=== PATIENT | male | born 1965 | race Caucasian/White ===

== ENCOUNTER 2024-09-09 12:40 | Day surgery (SDC) | payer MEDICARE, OTHER ==
[2024-09-09 13:08] VITALS: TEMP 97.8
[2024-09-09 13:26] LABS: HGB 11.1 gm/dL (13.0-17.5); MCH 31.2 pg (25.0-35.0); MCHC 32.7 g/dL (31.0-37.0); MCV 95.3 fL (80.0-100.0); Mean Platelet Volume 8.1; Platelet Count 158 k/uL (150-450); RBC 3.57 m/uL (4.30-5.90); RDW 14.1 % (11.5-15.5); WBC 9.1 k/uL (3.8-10.6)
[2024-09-09 13:28] LABS: INR 1.3 (<1.2); Prothrombin Time 13.7 sec (10.0-12.5)
[2024-09-09 13:40] LABS: African American GFR (CKD) 20 (>60 ml/min/1.73 sqM); Glucose 120 mg/dL (74-99); Non-African American GFR(CKD) 18 (>60 ml/min/1.73 sqM)
[2024-09-09 13:43] LABS: ALT 13 U/L (4-49); AST 39 U/L (17-59); African American GFR (CKD) 21 (>60 ml/min/1.73 sqM); Alkaline Phosphatase 115 U/L (38-126); Anion Gap 14 mmol/L; Blood Urea Nitrogen 29 mg/dL (9-20); Calcium 7.8 mg/dL (8.4-10.2); Carbon Dioxide 18 mmol/L (22-30); Chloride 98 mmol/L (98-107); Glucose 119 mg/dL (74-99); Non-African American GFR(CKD) 18 (>60 ml/min/1.73 sqM); Potassium 3.6 mmol/L (3.5-5.1); Sodium 130 mmol/L (137-145); Total Bilirubin 2.6 mg/dL (0.2-1.3); Total Protein 6.2 g/dL (6.3-8.2)
[2024-09-09 13:47] LABS: Eosinophils # (M) 0.27 k/uL (0-0.7); Monocytes # (M) 1.27 k/uL (0-1.0); Neutrophils # (M) 6.55 k/uL (1.3-7.7); Neutrophils % (M) 72 %; Nucleated Red Blood Cells 0 /100 WBC (0-0); Total Cells Counted 100
[2024-09-09] MEDS: ALBUMIN HUMAN 25% 50 ML in EMPTY BAG 1 BAG IVPB SCH (14:18)
[2024-09-09 14:25] VITALS: RESP 16
[2024-09-09 15:34] VITALS: BP 98/62; PULSE 62
[2024-09-10 03:34] LABS: T. Protein, Body Fluid Source Ascites; Total Protein, Body Fluid 1760 mg/dL
[2024-09-10 03:50] LABS: Albumin, Fluid Source Ascities
[2024-09-10 04:43] LABS: Appearance,BF Cloudy (Clear)
--- NOTE | 2024-09-12 16:04 | US ---
EXAMINATION TYPE: US paracentesis abd w/image DATE OF EXAM: 09/09/2024 2:15 PM COMPARISON: prior paracentesis. CLINICAL INDICATION:Male, 58 years old with history of R18.8 OTHER ASCITES; , ascites ATTENDING: Dr. Dennis Bang PROCEDURE: Informed consent was obtained. The risks of the procedure were extensively explained incl uding risk of damage to surrounding bowel with perforation and need for additional procedures. Proced ure was performed in the ultrasound procedure suite. Ultrasound imaging of the abdomen demonstrate as citic fluid. An appropriate access site was localized to the right lower abdomen. Timeout was taken p er protocol. The skin was prepped and draped in the usual sterile fashion and then locally anesthetiz ed with 1% lidocaine. The peritoneal cavity was then accessed via a 5-[place] one-step needle/cathete r. Approximately [id number] cc of clear straw-colored fluid was obtained. Samples were sent to the lab fo r analysis. Postprocedural imaging of the abdomen demonstrate a minimal amount of abdominal fluid. Patient tolerated procedure well without immediate complication. Hemostasis at the procedural site w as obtained with a sterile bandage placed. The patient was monitored in the holding area following th e procedure and was subsequently discharged in stable condition. IMPRESSION: Ultrasound guided paracentesis, with approximately [id number] cc of clear straw-colored fluid drained. Pat hology results pending. No immediate complications were evident. [facility], , 09/12/2024 4:02 PM
== END 2024-09-09 15:37 | disposition home or self-care (01) ==
LOC: RADPROMAIN 12:40
PROVIDERS: ATTEND Internal Medicine Gastroenterology
DX: R18.8 Other ascites (principal)
CPT/HCPCS: 80053; 82042; 89050; 82565; 82947; 85025; 85610; 84157; 36415; 49083; P9047; 88108; 88305

== ENCOUNTER 2024-09-13 16:04 | Inpatient (IN) | payer MEDICARE, OTHER ==
--- NOTE | 2024-09-13 16:13 | ED ---
Recheck HPI - General Stated Complaint: GI Bleed Time Seen by Provider: 09/13/24 16:06 Source: RN notes reviewed, old records reviewed Mode of arrival: ambulatory Limitations: no limitations - History of Present Illness Initial Comments: This is a 58-year-old male to the ER for evaluation, patient presents today for evaluation of in transfer from outside hospital for multiple laboratory abnormalities including renal failure with history of ascites and cirrhosis, patient's appetite has been down and his mental status has been significant altered MD Complaint: abnormal lab Returns Today for: Called Because of Abnormal Lab/Test, persistent/worsening pain related to initial visit Symptoms Since Prior Visit: no new symptoms, worsening pain Context: called for abnormal lab result Associated Symptoms: none - Related Data Home Medications Medication Instructions Recorded Confirmed Carvedilol [Coreg] 12.5 mg PO BID 07/09/16 09/13/24 FLUoxetine HCL [PROzac] 60 mg PO DAILY 07/09/16 09/13/24 clonazePAM [KlonoPIN] 0.5 mg PO BID 07/09/16 09/13/24 gemfibroziL [Lopid] 600 mg PO BID 07/09/16 09/13/24 lisinopriL [Zestril] 20 mg PO DAILY 07/09/16 09/13/24 metFORMIN HCL [Glucophage] 1,000 mg PO BID 07/09/16 09/13/24 Atorvastatin Calcium [Lipitor] 40 mg PO DAILY 09/13/24 09/13/24 Dapagliflozin Propanediol [Farxiga] 10 mg PO DAILY 09/13/24 09/13/24 Dicyclomine [Bentyl] 20 mg PO QID PRN 09/13/24 09/13/24 Famotidine [Pepcid] 20 mg PO BID 09/13/24 09/13/24 Montelukast [Singulair] 10 mg PO DAILY 09/13/24 09/13/24 Pioglitazone [Actos] 30 mg PO DAILY 09/13/24 09/13/24 Allergies Allergy/AdvReac Type Severity Reaction Status Date / Time No Known Allergies Allergy Verified 09/13/24 17:24 Review of Systems ROS Statement: Those systems with pertinent positive or pertinent negative responses have been documented in the HPI. ROS Other: All systems not noted in ROS Statement are negative. Past Medical History Past Medical History: COPD, Diabetes Mellitus, GERD/Reflux, Hyperlipidemia, Hypertension, Liver Disease, Myocardial Infarction ([place]), Sleep Apnea/CPAP/BIPAP Additional Past Medical History / Comment(s): cirrhoisis Last Myocardial Infarction Date:: unknown History of Any Multi-Drug Resistant Organisms: None Reported Past Surgical History: Heart Catheterization, Hernia Repair, Orthopedic Surgery, Pacemaker Additional Past Surgical History / Comment(s): surgery for fx rt leg and left arm, pacemaker and defibrillator Past Anesthesia/Blood Transfusion Reactions: No Reported Reaction Type of Cardiac Device: Biventricular Pacemaker Device Placement Date:: 2010 Past Psychological History: Anxiety Additional Psychological History / Comment(s): claustrophobia Smoking Status: Current every day smoker Past Alcohol Use History: None Reported Additional Past Alcohol Use History / Comment(s): smokes 1 1/2 PPD for 29 yrs Past Drug Use History: None Reported - Past Family History Mother Family Medical History: No Reported History General Exam General appearance: alert, in no apparent distress, anxious Head exam: Present: atraumatic, normocephalic, normal inspection Eye exam: Present: normal appearance, PERRL, EOMI. Absent: scleral icterus, conjunctival injection, periorbital swelling ENT exam: Present: normal exam, mucous membranes moist Neck exam: Present: normal inspection. Absent: tenderness, meningismus, lymphadenopathy Respiratory exam: Present: normal lung sounds bilaterally. Absent: respiratory distress, wheezes, rales, rhonchi, stridor Cardiovascular Exam: Present: regular rate, normal rhythm, normal heart sounds. Absent: systolic murmur, diastolic murmur, rubs, gallop, clicks GI/Abdominal exam: Present: soft, normal bowel sounds. Absent: distended, tenderness, guarding, rebound, rigid Extremities exam: Present: normal inspection, full ROM, normal capillary refill. Absent: tenderness, pedal edema, joint swelling, calf tenderness Back exam: Present: normal inspection Neurological exam: Present: alert, oriented X3, CN II-XII intact Psychiatric exam: Present: normal affect, normal mood Skin exam: Present: warm, dry, intact, normal color. Absent: rash Course Vital Signs 09/13/24 09/13/24 09/13/24 16:06 17:22 17:43 Temperature 97.2 F L Pulse Rate 66 55 L 60 Pulse Rate [ Social Security Assessor ] Respiratory 18 20 22 Rate Blood Pressure 117/53 83/46 81/45 Blood Pressure [Right Arm] O2 Sat by Pulse 97 95 100 Oximetry 09/13/24 09/13/24 09/13/24 18:34 19:08 20:00 Temperature Pulse Rate 59 L 62 59 L Pulse Rate [ Social Security Assessor ] Respiratory 20 20 20 Rate Blood Pressure 85/44 83/44 76/35 Blood Pressure [Right Arm] O2 Sat by Pulse 97 97 96 Oximetry 09/13/24 09/13/24 09/13/24 20:10 20:20 20:23 Temperature 96.7 F L Pulse Rate 59 L 64 58 L Pulse Rate [ Social Security Assessor ] Respiratory 20 20 18 Rate Blood Pressure 88/31 82/41 85/31 Blood Pressure [Right Arm] O2 Sat by Pulse 97 96 96 Oximetry 09/13/24 09/13/24 09/13/24 20:30 20:40 20:42 Temperature 96.7 F L Pulse Rate 56 L 61 58 L Pulse Rate [ Social Security Assessor ] Respiratory 20 20 20 Rate Blood Pressure 71/31 83/37 85/72 Blood Pressure [Right Arm] O2 Sat by Pulse 96 97 96 Oximetry 09/13/24 09/13/24 09/13/24 21:00 21:02 21:20 Temperature 96.0 F L Pulse Rate 65 63 62 Pulse Rate [ Social Security Assessor ] Respiratory 20 19 19 Rate Blood Pressure 94/63 95/53 86/47 Blood Pressure [Right Arm] O2 Sat by Pulse 96 95 96 Oximetry 09/13/24 09/13/24 09/13/24 21:30 21:40 21:50 Temperature Pulse Rate 63 62 60 Pulse Rate [ Social Security Assessor ] Respiratory 20 20 19 Rate Blood Pressure 63/46 87/46 69/57 Blood Pressure [Right Arm] O2 Sat by Pulse 97 96 100 Oximetry 09/13/24 09/13/24 09/13/24 22:00 22:12 22:27 Temperature 96 F L Pulse Rate 56 L 68 Pulse Rate [ Social Security Assessor ] Respiratory 19 20 Rate Blood Pressure 83/51 102/64 106/58 Blood Pressure [Right Arm] O2 Sat by Pulse 97 96 Oximetry 09/13/24 09/13/24 09/13/24 22:40 22:50 23:00 Temperature Pulse Rate 69 67 66 Pulse Rate [ Social Security Assessor ] Respiratory 19 19 19 Rate Blood Pressure 109/58 108/53 106/87 Blood Pressure [Right Arm] O2 Sat by Pulse 97 95 97 Oximetry 09/13/24 09/13/24 09/14/24 23:30 23:40 00:09 Temperature Pulse Rate 62 63 64 Pulse Rate [ Social Security Assessor ] Respiratory 19 19 19 Rate Blood Pressure 93/50 93/45 91/48 Blood Pressure [Right Arm] O2 Sat by Pulse 95 95 95 Oximetry 09/14/24 09/14/24 09/14/24 00:40 01:20 01:50 Temperature Pulse Rate 63 64 65 Pulse Rate [ Social Security Assessor ] Respiratory 19 19 19 Rate Blood Pressure 97/40 93/41 93/43 Blood Pressure [Right Arm] O2 Sat by Pulse 95 95 95 Oximetry 09/14/24 09/14/24 09/14/24 02:00 02:10 02:30 Temperature Pulse Rate 64 65 64 Pulse Rate [ Social Security Assessor ] Respiratory 19 19 19 Rate Blood Pressure 93/43 107/48 81/50 Blood Pressure [Right Arm] O2 Sat by Pulse 95 95 95 Oximetry 09/14/24 09/14/24 09/14/24 02:50 03:06 03:28 Temperature 97.6 F Pulse Rate 65 66 67 Pulse Rate [ Social Security Assessor ] Respiratory 20 18 19 Rate Blood Pressure 82/33 113/56 102/52 Blood Pressure [Right Arm] O2 Sat by Pulse 95 97 100 Oximetry 09/14/24 09/14/24 09/14/24 03:50 04:05 04:30 Temperature Pulse Rate 65 68 63 Pulse Rate [ Social Security Assessor ] Respiratory 19 19 19 Rate Blood Pressure 87/43 110/54 80/39 Blood Pressure [Right Arm] O2 Sat by Pulse 97 96 Oximetry 09/14/24 09/14/24 09/14/24 04:40 04:50 05:00 Temperature Pulse Rate 62 62 63 Pulse Rate [ Social Security Assessor ] Respiratory 19 19 19 Rate Blood Pressure 101/46 93/40 93/40 Blood Pressure [Right Arm] O2 Sat by Pulse 96 96 94 L Oximetry 09/14/24 09/14/24 09/14/24 05:10 05:20 05:30 Temperature Pulse Rate 68 68 67 Pulse Rate [ Social Security Assessor ] Respiratory 19 19 19 Rate Blood Pressure 84/36 96/40 103/38 Blood Pressure [Right Arm] O2 Sat by Pulse 96 96 96 Oximetry 09/14/24 09/14/24 09/14/24 05:50 06:00 07:10 Temperature 96.7 F L Pulse Rate 66 63 66 Pulse Rate [ Social Security Assessor ] Respiratory 19 19 20 Rate Blood Pressure 88/33 94/37 105/51 Blood Pressure [Right Arm] O2 Sat by Pulse 95 95 95 Oximetry 09/14/24 09/14/24 09/14/24 07:30 08:00 09:00 Temperature Pulse Rate 66 69 68 Pulse Rate [ Social Security Assessor ] Respiratory 20 19 18 Rate Blood Pressure 91/49 102/54 90/39 Blood Pressure [Right Arm] O2 Sat by Pulse 95 95 96 Oximetry 09/14/24 09/14/24 09/14/24 09:30 09:50 10:10 Temperature Pulse Rate 66 66 69 Pulse Rate [ Social Security Assessor ] Respiratory 17 17 17 Rate Blood Pressure 95/42 106/57 114/40 Blood Pressure [Right Arm] O2 Sat by Pulse 95 96 98 Oximetry 09/14/24 09/14/24 09/14/24 10:23 11:23 12:12 Temperature Pulse Rate 65 61 61 Pulse Rate [ Social Security Assessor ] Respiratory 20 20 20 Rate Blood Pressure 90/46 84/39 78/38 Blood Pressure [Right Arm] O2 Sat by Pulse 96 96 95 Oximetry 09/14/24 09/14/24 09/14/24 13:30 14:13 15:31 Temperature 97.4 F L Pulse Rate 64 64 Pulse Rate [ Social Security Assessor ] Respiratory 18 20 Rate Blood Pressure 91/40 74/27 103/52 Blood Pressure [Right Arm] O2 Sat by Pulse 96 98 Oximetry 09/14/24 09/14/24 15:49 15:50 Temperature 97.4 F L Pulse Rate 67 Pulse Rate [ 80 Social Security Assessor ] Respiratory 16 21 Rate Blood Pressure Blood Pressure 99/55 [Right Arm] O2 Sat by Pulse 98 98 Oximetry - Reevaluation(s) Reevaluation #1: 09/13/24 18:35 Medical records reviewed Reevaluation #2: 09/13/24 18:35 Patient symptoms unchanged Reevaluation #3: 09/13/24 18:35 Patient informed of results and questions were Reevaluation #4: Was pt. sent in by a medical professional or institution (, PA, CURRICULUM FACILITATOR, urgent care, hospital, or [place] [facility] [place] facility...) When possible be specific @ -no Did you speak to anyone other than the patient for history (EMS, parent, family, police, friend...)? What history was obtained from this source @ -no Did you review nursing and triage notes (agree or disagree)? Why? @ -agree Are old charts reviewed (outside hosp., previous admission, EMS record, old EKG, old radiological studies, urgent care reports/EKG's, [place] [facility] facility records)? Report findings @ -yes Differential Diagnosis (chest pain, altered mental status, abdominal pain women, abdominal pain men, vaginal bleeding, weakness, fever, dyspnea, syncope, headache, dizziness, GI bleed, back pain, seizure, CVA, palpatations, mental health, musculoskeletal)? @ -prior EKG interpreted by me (3pts min.). @ -yes X-rays interpreted by me (1pt min.). @ -yes negative for acute disease CT interpreted by me (1pt min.). @ -no U/S interpreted by me (1pt. min.). @ -no What testing was considered but not performed or refused? (CT, X-rays, U/S, labs)? Why? @ -none What meds were considered but not given or refused? Why? @ -none Did you discuss the management of the patient with other professionals (barron cordova i.e. , PA, CURRICULUM FACILITATOR, lab, RT, psych nurse, manager social media, insurance premium auditor, teacher, aviation tactical readiness officer, keycase assembler)? Give summary @ -no Was smoking cessation discussed for >3mins.? @ -no Was critical care preformed (if so, how long)? @ -no Were there social determinants of health that impacted care today? How? (Homelessness, low income, unemployed, alcoholism, drug addiction, transportation, low edu. Level, literacy, decrease access to med. care, m[facility], rehab)? @ -none Was there de-escalation of care discussed even if they declined (Discuss DNR or withdrawal of care, Hospice)? DNR status @ -no What co-morbidities impacted this encounter? (DM, HTN, Smoking, COPD, CAD, Cancer, CVA, ARF, Chemo, Hep., AIDS, mental health diagnosis, sleep apnea, morbid obesity)? @ -none Was patient admitted / discharged? Hospital course, mention meds given and route, prescriptions, significant lab abnormalities, going to OR and other pertinent info. @ - 58 male to the ER for evaluation of significant and severe sepsis hypotension ascites renal failure, patient will go for IV antibiotics and resuscitation Admitted Undiagnosed new problem with uncertain prognosis? @ -no Drug Therapy requiring intensive monitoring for toxicity (Heparin, Nitro, Insulin, Cardizem)? @ -no Were any procedures done? @ -no Diagnosis/symptom? @ -Respiratory distress Acute, or Chronic, or Acute on Chronic? @ -Acute Uncomplicated (without systemic symptoms) or Complicated (systemic symptoms)? @ -Complicated Side effects of treatment? @ -no Exacerbation, Progression, or Severe Exacerbation? @ -exacerbation Poses a threat to life or bodily function? How? (Chest pain, [place], [place], pneumonia, PE, COPD, DKA, ARF, appy, cholecystitis, CVA, Diverticulitis, Homicidal, Suicidal, threat to staff... and all critical care pts) @ -yes multiple comorbid conditions Reevaluation #5: Differential Weakness: Hypoglycemia, shock, sepsis, hyponatremia, anemia, infection, [place], ETOH, adverse medicine reaction, overdose, stroke, this is not meant to be an all-inclusive list. - Consultations Consultation #1: Spoke with the [facility] who agrees to admit this patient Medical Decision Making - Medical Decision Making 58 male to the ER for evaluation of significant and severe sepsis hypotension ascites renal failure, patient will go for IV antibiotics and resuscitation - Lab Data Result diagrams: 09/16/24 01:18 09/16/24 01:18 Lab Results 09/13/24 09/13/24 09/13/24 Range/Units 16:30 16:30 16:30 WBC 15.4 H (3.8-10.6) k/uL RBC 3.03 L (4.30-5.90) m/uL Hgb 9.8 L (13.0-17.5) gm/dL Hct 28.5 L (39.0-53.0) % MCV 94.3 (80.0-100.0) fL MCH 32.4 (25.0-35.0) pg MCHC 34.4 (31.0-37.0) g/dL RDW 14.7 (11.5-15.5) % Plt Count 167 (150-450) k/uL MPV 8.1 Neutrophils % (Manual) 61 % Lymphocytes % (Manual) 23 % Monocytes % (Manual) 16 % Neutrophils # (Manual) 9.39 H (1.3-7.7) k/uL Lymphocytes # (Manual) 3.54 (1.0-4.8) k/uL Monocytes # (Manual) 2.46 H (0-1.0) k/uL Nucleated RBCs 0 (0-0) /100 WBC Manual Slide Review Performed PT 13.8 H (10.0-12.5) sec INR 1.3 H (<1.2) APTT 29.5 (22.0-30.0) sec Sodium 126 L (137-145) mmol/L Potassium 4.2 (3.5-5.1) mmol/L Chloride 97 L (98-107) mmol/L Carbon Dioxide 13 L (22-30) mmol/L Anion Gap 16 mmol/L BUN 61 H (9-20) mg/dL Creatinine 7.57 H* (0.66-1.25) mg/dL Est GFR (CKD-EPI)AfAm 8 (>60 ml/min/1.73 sqM) Est GFR (CKD-EPI)NonAf 7 (>60 ml/min/1.73 sqM) Glucose 133 H (74-99) mg/dL Lactic Ac Sepsis Rflx Plasma Lactic Acid [place] (0.7-2.0) mmol/L Calcium 7.3 L (8.4-10.2) mg/dL Phosphorus 7.7 H (2.5-4.5) mg/dL Magnesium 1.5 L (1.6-2.3) mg/dL Total Bilirubin 1.8 H (0.2-1.3) mg/dL AST 44 (17-59) U/L ALT 23 (4-49) U/L Alkaline Phosphatase 101 (38-126) U/L Ammonia (<30) umol/L Troponin I (0.000-0.034) ng/mL NT-Pro-B Natriuret Pep 1240 pg/mL Total Protein 5.6 L (6.3-8.2) g/dL Albumin 2.6 L (3.5-5.0) g/dL Urine Color Urine Appearance (Clear) Urine pH (5.0-8.0) Ur Specific [place] (1.001-1.035) Urine Protein (Negative) Urine Glucose (UA) (Negative) Urine Ketones (Negative) Urine Blood (Negative) Urine Nitrite (Negative) Urine Bilirubin (Negative) Urine Urobilinogen (<2.0) mg/dL Ur Leukocyte Esterase (Negative) Urine RBC (0-5) /hpf Urine WBC (0-5) /hpf Ur Squamous Epith Cells (0-4) /hpf Urine Bacteria (None) /hpf Hyaline Casts (0-2) /lpf Urine Mucus (None) /hpf Blood Type Blood Type Confirm Blood Type Recheck Bld Type Recheck Status Antibody Screen Crossmatch Spec Expiration Date 09/13/24 09/13/24 09/13/24 Range/Units 16:30 16:30 16:30 WBC (3.8-10.6) k/uL RBC (4.30-5.90) m/uL Hgb (13.0-17.5) gm/dL Hct (39.0-53.0) % MCV (80.0-100.0) fL MCH (25.0-35.0) pg MCHC (31.0-37.0) g/dL RDW (11.5-15.5) % Plt Count (150-450) k/uL MPV Neutrophils % (Manual) % Lymphocytes % (Manual) % Monocytes % (Manual) % Neutrophils # (Manual) (1.3-7.7) k/uL Lymphocytes # (Manual) (1.0-4.8) k/uL Monocytes # (Manual) (0-1.0) k/uL Nucleated RBCs (0-0) /100 WBC Manual Slide Review PT (10.0-12.5) sec INR (<1.2) APTT (22.0-30.0) sec Sodium (137-145) mmol/L Potassium (3.5-5.1) mmol/L Chloride (98-107) mmol/L Carbon Dioxide (22-30) mmol/L Anion Gap mmol/L BUN (9-20) mg/dL Creatinine (0.66-1.25) mg/dL Est GFR (CKD-EPI)AfAm (>60 ml/min/1.73 sqM) Est GFR (CKD-EPI)NonAf (>60 ml/min/1.73 sqM) Glucose (74-99) mg/dL Lactic Ac Sepsis Rflx Plasma Lactic Acid [place] 7.6 H* (0.7-2.0) mmol/L Calcium (8.4-10.2) mg/dL Phosphorus (2.5-4.5) mg/dL Magnesium (1.6-2.3) mg/dL Total Bilirubin (0.2-1.3) mg/dL AST (17-59) U/L ALT (4-49) U/L Alkaline Phosphatase (38-126) U/L Ammonia (<30) umol/L Troponin I <0.012 (0.000-0.034) ng/mL NT-Pro-B Natriuret Pep pg/mL Total Protein (6.3-8.2) g/dL Albumin (3.5-5.0) g/dL Urine Color Urine Appearance (Clear) Urine pH (5.0-8.0) Ur Specific [place] (1.001-1.035) Urine Protein (Negative) Urine Glucose (UA) (Negative) Urine Ketones (Negative) Urine Blood (Negative) Urine Nitrite (Negative) Urine Bilirubin (Negative) Urine Urobilinogen (<2.0) mg/dL Ur Leukocyte Esterase (Negative) Urine RBC (0-5) /hpf Urine WBC (0-5) /hpf Ur Squamous Epith Cells (0-4) /hpf Urine Bacteria (None) /hpf Hyaline Casts (0-2) /lpf Urine Mucus (None) /hpf Blood Type O Positive Blood Type Confirm Blood Type Recheck No Previous Record Bld Type Recheck Status CABO Indicated Antibody Screen NEGATIVE Crossmatch See Detail Spec Expiration Date 09/16/2024 - 232909/13/24 09/13/24 09/13/24 Range/Units 16:35 16:48 17:38 WBC (3.8-10.6) k/uL RBC (4.30-5.90) m/uL Hgb (13.0-17.5) gm/dL Hct (39.0-53.0) % MCV (80.0-100.0) fL MCH (25.0-35.0) pg MCHC (31.0-37.0) g/dL RDW (11.5-15.5) % Plt Count (150-450) k/uL MPV Neutrophils % (Manual) % Lymphocytes % (Manual) % Monocytes % (Manual) % Neutrophils # (Manual) (1.3-7.7) k/uL Lymphocytes # (Manual) (1.0-4.8) k/uL Monocytes # (Manual) (0-1.0) k/uL Nucleated RBCs (0-0) /100 WBC Manual Slide Review PT (10.0-12.5) sec INR (<1.2) APTT (22.0-30.0) sec Sodium (137-145) mmol/L Potassium (3.5-5.1) mmol/L Chloride (98-107) mmol/L Carbon Dioxide (22-30) mmol/L Anion Gap mmol/L BUN (9-20) mg/dL Creatinine (0.66-1.25) mg/dL Est GFR (CKD-EPI)AfAm (>60 ml/min/1.73 sqM) Est GFR (CKD-EPI)NonAf (>60 ml/min/1.73 sqM) Glucose (74-99) mg/dL Lactic Ac Sepsis Rflx Y Plasma Lactic Acid [place] (0.7-2.0) mmol/L Calcium (8.4-10.2) mg/dL Phosphorus (2.5-4.5) mg/dL Magnesium (1.6-2.3) mg/dL Total Bilirubin (0.2-1.3) mg/dL AST (17-59) U/L ALT (4-49) U/L Alkaline Phosphatase (38-126) U/L Ammonia 78 H (<30) umol/L Troponin I (0.000-0.034) ng/mL NT-Pro-B Natriuret Pep pg/mL Total Protein (6.3-8.2) g/dL Albumin (3.5-5.0) g/dL Urine Color Urine Appearance (Clear) Urine pH (5.0-8.0) Ur Specific [place] (1.001-1.035) Urine Protein (Negative) Urine Glucose (UA) (Negative) Urine Ketones (Negative) Urine Blood (Negative) Urine Nitrite (Negative) Urine Bilirubin (Negative) Urine Urobilinogen (<2.0) mg/dL Ur Leukocyte Esterase (Negative) Urine RBC (0-5) /hpf Urine WBC (0-5) /hpf Ur Squamous Epith Cells (0-4) /hpf Urine Bacteria (None) /hpf Hyaline Casts (0-2) /lpf Urine Mucus (None) /hpf Blood Type Blood Type Confirm O Positive Blood Type Recheck Bld Type Recheck Status Antibody Screen Crossmatch Spec Expiration Date 09/13/24 Range/Units 18:03 WBC (3.8-10.6) k/uL RBC (4.30-5.90) m/uL Hgb (13.0-17.5) gm/dL Hct (39.0-53.0) % MCV (80.0-100.0) fL MCH (25.0-35.0) pg MCHC (31.0-37.0) g/dL RDW (11.5-15.5) % Plt Count (150-450) k/uL MPV Neutrophils % (Manual) % Lymphocytes % (Manual) % Monocytes % (Manual) % Neutrophils # (Manual) (1.3-7.7) k/uL Lymphocytes # (Manual) (1.0-4.8) k/uL Monocytes # (Manual) (0-1.0) k/uL Nucleated RBCs (0-0) /100 WBC Manual Slide Review PT (10.0-12.5) sec INR (<1.2) APTT (22.0-30.0) sec Sodium (137-145) mmol/L Potassium (3.5-5.1) mmol/L Chloride (98-107) mmol/L Carbon Dioxide (22-30) mmol/L Anion Gap mmol/L BUN (9-20) mg/dL Creatinine (0.66-1.25) mg/dL Est GFR (CKD-EPI)AfAm (>60 ml/min/1.73 sqM) Est GFR (CKD-EPI)NonAf (>60 ml/min/1.73 sqM) Glucose (74-99) mg/dL Lactic Ac Sepsis Rflx Plasma Lactic Acid [place] (0.7-2.0) mmol/L Calcium (8.4-10.2) mg/dL Phosphorus (2.5-4.5) mg/dL Magnesium (1.6-2.3) mg/dL Total Bilirubin (0.2-1.3) mg/dL AST (17-59) U/L ALT (4-49) U/L Alkaline Phosphatase (38-126) U/L Ammonia (<30) umol/L Troponin I (0.000-0.034) ng/mL NT-Pro-B Natriuret Pep pg/mL Total Protein (6.3-8.2) g/dL Albumin (3.5-5.0) g/dL Urine Color Dark Brown Urine Appearance Cloudy (Clear) Urine pH 5.5 (5.0-8.0) Ur Specific [place] 1.024 (1.001-1.035) Urine Protein 2+ H (Negative) Urine Glucose (UA) Trace H (Negative) Urine Ketones Negative (Negative) Urine Blood Trace H (Negative) Urine Nitrite Negative (Negative) Urine Bilirubin 1+ H (Negative) Urine Urobilinogen 2.0 (<2.0) mg/dL Ur Leukocyte Esterase Negative (Negative) Urine RBC 5 (0-5) /hpf Urine WBC 10 H (0-5) /hpf Ur Squamous Epith Cells <1 (0-4) /hpf Urine Bacteria Occasional H (None) /hpf Hyaline Casts 45 H (0-2) /lpf Urine Mucus Rare H (None) /hpf Blood Type Blood Type Confirm Blood Type Recheck Bld Type Recheck Status Antibody Screen Crossmatch Spec Expiration Date - EKG Data -: EKG Interpreted by Me (EKG is paced 65 IA 148 QRS 170 QTc 581) Disposition Clinical Impression: Weakness, Ascites, Hyperammonemia, Hyponatremia, Lactic acidosis, Sepsis, Acute renal failure, Altered mental state, Gastrointestinal hemorrhage Disposition: ADMITTED IP TO THIS HOSP Condition: Stable Is patient prescribed a controlled substance at d/c from ED?: No Time of Disposition: 18:35
[2024-09-13 16:55] LABS: HCT 28.5 % (39.0-53.0); HGB 9.8 gm/dL (13.0-17.5); MCH 32.4 pg (25.0-35.0); MCHC 34.4 g/dL (31.0-37.0); MCV 94.3 fL (80.0-100.0); Mean Platelet Volume 8.1; Platelet Count 167 k/uL (150-450); RBC 3.03 m/uL (4.30-5.90); RDW 14.7 % (11.5-15.5); WBC 15.4 k/uL (3.8-10.6)
[2024-09-13 17:01] LABS: African American GFR (CKD) 8 (>60 ml/min/1.73 sqM); Albumin 2.6 g/dL (3.5-5.0); Alkaline Phosphatase 101 U/L (38-126); Anion Gap 16 mmol/L; Blood Urea Nitrogen 61 mg/dL (9-20); Calcium 7.3 mg/dL (8.4-10.2); Carbon Dioxide 13 mmol/L (22-30); Chloride 97 mmol/L (98-107); Glucose 133 mg/dL (74-99); Magnesium 1.5 mg/dL (1.6-2.3); Non-African American GFR(CKD) 7 (>60 ml/min/1.73 sqM); Phosphorus 7.7 mg/dL (2.5-4.5); Potassium 4.2 mmol/L (3.5-5.1); Sodium 126 mmol/L (137-145); Total Bilirubin 1.8 mg/dL (0.2-1.3); Total Protein 5.6 g/dL (6.3-8.2)
[2024-09-13 17:05] LABS: INR 1.3 (<1.2); Partial Thromboplastin Time 29.5 sec (22.0-30.0); Prothrombin Time 13.8 sec (10.0-12.5)
[2024-09-13 17:07] LABS: ALT 23 U/L (4-49)
[2024-09-13 17:09] LABS: NT-Pro-B-Type Natriuretic Pept 1240 pg/mL
[2024-09-13] MEDS: SODIUM CHLORIDE 0.9% 1,000 ML IV STA (17:34)
[2024-09-13 17:38] LABS: AST 44 U/L (17-59)
[2024-09-13] MEDS: ONDANSETRON 4 MG/2 ML VIAL IVP STA (17:40)
[2024-09-13 17:57] LABS: Lymphocytes # (M) 3.54 k/uL (1.0-4.8); Monocytes # (M) 2.46 k/uL (0-1.0); Neutrophils # (M) 9.39 k/uL (1.3-7.7); Neutrophils % (M) 61 %; Nucleated Red Blood Cells 0 /100 WBC (0-0); Total Cells Counted 100
[2024-09-13] MEDS ORDERED: NALOXONE 0.4 MG/ML 1 ML VIAL IV PRN (18:38)
[2024-09-13] MEDS ORDERED: ONDANSETRON 4 MG/2 ML VIAL IVP PRN (18:38)
[2024-09-13] MEDS ORDERED: HYDROmorphone 1 MG/ML 1 ML SYRINGE IVP PRN (18:38)
[2024-09-13] MEDS: SODIUM CHLORIDE 0.9% 1,000 ML IV SCH (18:55)
[2024-09-13] MEDS: LACTULOSE 20 GM/30 ML CUP PO ONE (19:04)
[2024-09-13] MEDS: SODIUM CHLORIDE 0.9% 2,000 ML IV STA (19:04)
[2024-09-13] MEDS: PANTOPRAZOLE 40 MG/10 ML VIAL IV SCH (19:08)
[2024-09-13 19:30] LABS: Appearance,Urine Cloudy (Clear); Bacteria,Urine Occasional /hpf; Bilirubin,Urine 1+ (Negative); Blood,Urine Trace (Negative); Color,Urine Dark Brown; Glucose,Urine (UA) Trace (Negative); Hyaline Casts,Urine 45 /lpf (0-2); Ketones,Urine Negative (Negative); Leukocyte Esterase,Urine Negative (Negative); Mucus,Urine Rare /hpf; Nitrite,Urine Negative (Negative); PH, Urine 5.5 (5.0-8.0); Protein,Urine 2+ (Negative); RBC,Urine 5 /hpf (0-5); Specific Gravity,Urine 1.024 (1.001-1.035); Squamous Epithelial Cell,Urine <1 /hpf (0-4); WBC,Urine 10 /hpf (0-5)
[2024-09-13] MEDS: OCTREOTIDE 100 MCG/ML INJ IVP STA (21:58)
[2024-09-13] MEDS: SODIUM CHLORIDE 0.9% 1,000 ML IV ONE (22:31)
[2024-09-14] MEDS: LACTULOSE 200 GM/300 ML (FROM 1/2 GAL JUG) RECTAL ONE (01:00)
[2024-09-14] MEDS: PANTOPRAZOLE 40 MG/10 ML VIAL IV SCH (01:23)
[2024-09-14] MEDS: OCTREOTIDE 100 MCG/ML INJ IVP SCH (05:13)
[2024-09-14 05:38] LABS: AST 52 U/L (17-59); African American GFR (CKD) 8 (>60 ml/min/1.73 sqM); Albumin 2.6 g/dL (3.5-5.0); Alkaline Phosphatase 98 U/L (38-126); Anion Gap 17 mmol/L; Blood Urea Nitrogen 62 mg/dL (9-20); Calcium 7.1 mg/dL (8.4-10.2); Carbon Dioxide 10 mmol/L (22-30); Chloride 101 mmol/L (98-107); Glucose 102 mg/dL (74-99); Magnesium 1.4 mg/dL (1.6-2.3); Non-African American GFR(CKD) 7 (>60 ml/min/1.73 sqM); Phosphorus 8.6 mg/dL (2.5-4.5); Potassium 4.7 mmol/L (3.5-5.1); Sodium 128 mmol/L (137-145); Total Bilirubin 1.8 mg/dL (0.2-1.3); Total Protein 5.5 g/dL (6.3-8.2)
[2024-09-14 05:44] LABS: ALT 24 U/L (4-49)
[2024-09-14 05:55] LABS: Lactic Acid, Venous 8.8 mmol/L (0.7-2.0)
[2024-09-14 05:59] LABS: HCT 29.2 % (39.0-53.0); MCH 32.2 pg (25.0-35.0); MCHC 34.2 g/dL (31.0-37.0); MCV 94.2 fL (80.0-100.0); Mean Platelet Volume 8.9; Platelet Count 161 k/uL (150-450); RBC 3.09 m/uL (4.30-5.90); RDW 14.7 % (11.5-15.5)
[2024-09-14 06:57] LABS: Crenated RBC Present; Eosinophils # (M) 0.18 k/uL (0-0.7); Lymphocytes # (M) 1.98 k/uL (1.0-4.8); Monocytes # (M) 1.62 k/uL (0-1.0); Neutrophils # (M) 14.22 k/uL (1.3-7.7); Neutrophils % (M) 79 %; Nucleated Red Blood Cells 0 /100 WBC (0-0); Total Cells Counted 100
[2024-09-14] MEDS ORDERED: HYDROmorphone 2 MG/ML 1 ML SYRINGE IVP PRN (08:10)
[2024-09-14] MEDS: MAGNESIUM SULFATE-D5W PMX 1 GM in DEXTROSE/WATER 1 100ML.BAG IVPB SCH (10:36)
--- NOTE | 2024-09-14 10:36 | P.NPCON ---
History of Present Illness - Reason for Consult acute renal failure - History of Present Illness Reason for consultation: Acute kidney injury History of present illness: Patient is a 58-year-old male seen in new consultation for acute kidney injury. Patient's creatinine in 2018 was 0.6. Creatinine was near 3.6 dated September 09, 2024 and is now 7.83 today. Patient came to the hospital due to altered mental status and worsening weakness. Patient is not a very reliable historian but daughter is present at bedside who provides the history. Patient was recently diagnosed with liver cirrhosis. Denies history of alcohol abuse. Recently started seeing GI team and was started on spironolactone and Lasix which he took for 1 week. Also underwent paracentesis September 12, 2024 with 12.4 L drained. Additionally I do see metformin, SGLT2 inhibitor and ERICKSON inhibitor on his home medication list. Patient is quite hypotensive with systolic blood pressure in the 70s currently. He has received total of 4 L IV fluid and is currently maintained on normal saline at 75 cc an hour. He has a Soto catheter and is oliguric. Vital signs are stable. Blood pressure low. General: No acute distress. HEENT: Head exam is unremarkable. On room air. LUNGS: No audible rhonchi or wheezes. HEART: Rate and Rhythm are regular. ABDOMEN: Obese, nontender. EXTREMITITES: No edema. Past Medical History Past Medical History: COPD, Diabetes Mellitus, GERD/Reflux, Hyperlipidemia, Hypertension, Liver Disease, Myocardial Infarction ([place]), Sleep Apnea/CPAP/BIPAP Additional Past Medical History / Comment(s): cirrhoisis Last Myocardial Infarction Date:: unknown History of Any Multi-Drug Resistant Organisms: None Reported Past Surgical History: Heart Catheterization, Hernia Repair, Orthopedic Surgery, Pacemaker Additional Past Surgical History / Comment(s): surgery for fx rt leg and left arm, pacemaker and defibrillator Past Anesthesia/Blood Transfusion Reactions: No Reported Reaction Type of Cardiac Device: Biventricular Pacemaker Device Placement Date:: 2010 Past Psychological History: Anxiety Additional Psychological History / Comment(s): claustrophobia Smoking Status: Current every day smoker Past Alcohol Use History: None Reported Additional Past Alcohol Use History / Comment(s): smokes 1 1/2 PPD for 29 yrs Past Drug Use History: None Reported - Past Family History Mother Family Medical History: No Reported History Medications and Allergies Home Medications Medication Instructions Recorded Confirmed Type Carvedilol [Coreg] 12.5 mg PO BID 07/09/16 09/13/24 History FLUoxetine HCL [PROzac] 60 mg PO DAILY 07/09/16 09/13/24 History clonazePAM [KlonoPIN] 0.5 mg PO BID 07/09/16 09/13/24 History gemfibroziL [Lopid] 600 mg PO BID 07/09/16 09/13/24 History lisinopriL [Zestril] 20 mg PO DAILY 07/09/16 09/13/24 History metFORMIN HCL [Glucophage] 1,000 mg PO BID 07/09/16 09/13/24 History Atorvastatin Calcium [Lipitor] 40 mg PO DAILY 09/13/24 09/13/24 History Dapagliflozin Propanediol [Farxiga] 10 mg PO DAILY 09/13/24 09/13/24 History Dicyclomine [Bentyl] 20 mg PO QID PRN 09/13/24 09/13/24 History Famotidine [Pepcid] 20 mg PO BID 09/13/24 09/13/24 History Montelukast [Singulair] 10 mg PO DAILY 09/13/24 09/13/24 History Pioglitazone [Actos] 30 mg PO DAILY 09/13/24 09/13/24 History Allergies Allergy/AdvReac Type Severity Reaction Status Date / Time No Known Allergies Allergy Verified 09/13/24 17:24 Physical Exam Vitals: Vital Signs Temp Pulse Resp BP Pulse Ox 09/14/24 10:23 65 20 90/46 96 09/14/24 07:30 66 20 91/49 95 09/14/24 07:10 96.7 F L 66 20 105/51 95 09/14/24 06:00 63 19 94/37 95 09/14/24 05:50 66 19 88/33 95 09/14/24 05:30 67 19 103/38 96 09/14/24 05:20 68 19 96/40 96 09/14/24 05:10 68 19 84/36 96 09/14/24 05:00 63 19 93/40 94 L 09/14/24 04:50 62 19 93/40 96 09/14/24 04:40 62 19 101/46 96 09/14/24 04:30 63 19 80/39 96 09/14/24 04:05 68 19 110/54 09/14/24 03:50 65 19 87/43 97 09/14/24 03:28 97.6 F 67 19 102/52 100 09/14/24 03:06 66 18 113/56 97 09/14/24 02:50 65 20 82/33 95 09/14/24 02:30 64 19 81/50 95 09/14/24 02:10 65 19 107/48 95 09/14/24 02:00 64 19 93/43 95 09/14/24 01:50 65 19 93/43 95 09/14/24 01:20 64 19 93/41 95 09/14/24 00:40 63 19 97/40 95 09/14/24 00:09 64 19 91/48 95 09/13/24 23:40 63 19 93/45 95 09/13/24 23:30 62 19 93/50 95 09/13/24 23:00 66 19 106/87 97 09/13/24 22:50 67 19 108/53 95 09/13/24 22:40 69 19 109/58 97 09/13/24 22:27 96 F L 68 20 106/58 96 09/13/24 22:12 102/64 09/13/24 22:00 56 L 19 83/51 97 09/13/24 21:50 60 19 69/57 100 09/13/24 21:40 62 20 87/46 96 09/13/24 21:30 63 20 63/46 97 09/13/24 21:20 62 19 86/47 96 09/13/24 21:02 96.0 F L 63 19 95/53 95 09/13/24 21:00 65 20 94/63 96 09/13/24 20:42 96.7 F L 58 L 20 85/72 96 09/13/24 20:40 61 20 83/37 97 09/13/24 20:30 56 L 20 71/31 96 09/13/24 20:23 96.7 F L 58 L 18 85/31 96 09/13/24 20:20 64 20 82/41 96 09/13/24 20:10 59 L 20 88/31 97 09/13/24 20:00 59 L 20 76/35 96 09/13/24 19:08 62 20 83/44 97 09/13/24 18:34 59 L 20 85/44 97 09/13/24 17:43 60 22 81/45 100 09/13/24 17:22 55 L 20 83/46 95 09/13/24 16:06 97.2 F L 66 18 117/53 97 Intake and Output 09/13/24 09/14/24 09/14/24 22:59 06:59 14:59 Intake Total 310 Output Total 100 Balance 310 -100 Intake: Blood Product 310 Rc As-1 Unit 310 [id number] Output: Stool 100 Other: # Voids 1 Weight 136.078 kg Results - Lab Results Most recent lab results Calcium 7.1 mg/dL (8.4-10.2) L 09/14/24 05:10 Phosphorus 8.6 mg/dL (2.5-4.5) H 09/14/24 05:10 Magnesium 1.4 mg/dL (1.6-2.3) L 09/14/24 05:10 09/14/24 05:10 09/14/24 05:10 Assessment and Plan Plan: Assessment: 1. Acute kidney injury secondary to ATN secondary to hypotension and recent large-volume paracentesis. Also concern for hepatorenal syndrome. Creatinine 7.83 today. Oliguric. 2. Metabolic acidosis secondary to acute kidney injury and lactic acidosis. 3. Liver cirrhosis. 4. Hypovolemic hyponatremia. Improving with fluids. 5. UTI on antibiotics. 6. Hyperphosphatemia secondary to acute kidney injury. 7. Hypomagnesemia from poor intake and use of diuretics. 8. Encephalopathy. Hepatic and uremic. 9. Ascites with paracentesis done September 12, 2024 with 12.4 L drained. Plan: 500 cc bolus of normal saline now. Change IV fluids to bicarb drip. Add midodrine. Check renal ultrasound. Check urine sodium level. Patient will go to ICU. May need vasopressor support. Discussed at length with patient and his daughter present at bedside the need for renal replacement therapy due to severely depressed renal function, acidosis. Vascular surgery consulted for temporary dialysis catheter placement. Will plan for first treatment of hemodialysis today. Thank you for the consultation. I will continue to follow the patient with you during his hospital stay.
[2024-09-14] MEDS ORDERED: DEXTROSE 50% SYRINGE 50 ML IVP PRN ×2 (10:41)
[2024-09-14] MEDS: DEXTROSE 5% IN WATER 1,000 ML with SODIUM BICARB (1 MEQ/ML) 150 ML IV SCH (10:50)
[2024-09-14] MEDS: SODIUM CHLORIDE 0.9% 500 ML 500 ML IV ONE (10:53)
[2024-09-14] MEDS: INSULIN ASPART (NovoLOG) 100 UNIT/ML VIAL SQ SCH (11:43)
[2024-09-14 11:44] LABS: Glucose,Whole Blood 130 mg/dL (70-110)
[2024-09-14] MEDS: MIDODRINE 5 MG TAB PO SCH (11:46)
--- NOTE | 2024-09-14 11:55 | US ---
EXAMINATION TYPE: US kidneys/renal and bladder DATE OF EXAM: 09/14/2024 COMPARISON: NONE CLINICAL INDICATION: Male, 58 years old with history of veronique; Not able to obtain history TECHNIQUE: Grayscale imaging of the bilateral kidneys and urinary bladder: FINDINGS: EXAM MEASUREMENTS: Right Kidney: 15.2 x 6.6 x 7.0 cm Left Kidney: 17.0 x 6.2 x 6.1 cm Post Void Residual Volume: NA mL Right Kidney: wnl, no evidence for hydronephrosis, mass or renal calculus. Left Kidney: wnl, no evidence for hydronephrosis, mass or renal calculus. Bladder: Not able to assess - patient not awake for exam Bilateral Jets seen: Not able to assess - patient not awake for exam Normal Post Void Residual: Not able to assess - patient not awake for exam There is no evidence for hydronephrosis at this point in time. No nephrolithiasis is seen. No barbie s are identified. IMPRESSION: 1. No renal ultrasound abnormality evident. 2. Limitation on the examination discussed above [facility], , 09/14/2024 11:52 AM
--- NOTE | 2024-09-14 12:28 | P.GSCN ---
History of Present Illness Consult date: 09/14/24 Reason for Consult: Dialysis catheter placement Requesting physician: Karen Olivarez History of present illness: This a pleasant 58-year-old male who was brought into the emergency department as an outside transfer from [facility]. Apparently according to the patient's daughter he had outpatient blood work done for concerns of increased fatigue, bloody bowel movements and overall not doing well. Past medical history includes diabetes mellitus, COPD, GERD, hyperlipidemia, hypertension, [place] and sleep apnea. Patient is quite drowsy and poor historian. Daughter is at bedside and provides most of his history. Patient was recently diagnosed with liver cirrhosis and follows with gastroenterology. He was started on diuretics and 08/30/2024. On presentation patient had elevated lactic acid, acute kidney injury and was seen by nephrology who is requesting temporary catheter placement for hemodialysis. Patient denies any shortness of breath or chest pain. He has had abdominal pain and distention as well as diarrhea. 09/12/2024 he had 12.4 L removed during his outpatient paracentesis. Review of Systems A 14 point review systems was completed all pertinent positives and negatives as stated in the HPI. Past Medical History Past Medical History: COPD, Diabetes Mellitus, GERD/Reflux, Hyperlipidemia, Hypertension, Liver Disease, Myocardial Infarction ([place]), Sleep Apnea/CPAP/BIPAP Additional Past Medical History / Comment(s): cirrhoisis Last Myocardial Infarction Date:: unknown History of Any Multi-Drug Resistant Organisms: None Reported Past Surgical History: Heart Catheterization, Hernia Repair, Orthopedic Surgery, Pacemaker Additional Past Surgical History / Comment(s): surgery for fx rt leg and left arm, pacemaker and defibrillator Past Anesthesia/Blood Transfusion Reactions: No Reported Reaction Type of Cardiac Device: Biventricular Pacemaker Device Placement Date:: 2010 Past Psychological History: Anxiety Additional Psychological History / Comment(s): claustrophobia Smoking Status: Current every day smoker Past Alcohol Use History: None Reported Additional Past Alcohol Use History / Comment(s): smokes 1 1/2 PPD for 29 yrs Past Drug Use History: None Reported - Past Family History Mother Family Medical History: No Reported History Medications and Allergies Home Medications Medication Instructions Recorded Confirmed Type Carvedilol [Coreg] 12.5 mg PO BID 07/09/16 09/13/24 History FLUoxetine HCL [PROzac] 60 mg PO DAILY 07/09/16 09/13/24 History clonazePAM [KlonoPIN] 0.5 mg PO BID 07/09/16 09/13/24 History gemfibroziL [Lopid] 600 mg PO BID 07/09/16 09/13/24 History lisinopriL [Zestril] 20 mg PO DAILY 07/09/16 09/13/24 History metFORMIN HCL [Glucophage] 1,000 mg PO BID 07/09/16 09/13/24 History Atorvastatin Calcium [Lipitor] 40 mg PO DAILY 09/13/24 09/13/24 History Dapagliflozin Propanediol [Farxiga] 10 mg PO DAILY 09/13/24 09/13/24 History Dicyclomine [Bentyl] 20 mg PO QID PRN 09/13/24 09/13/24 History Famotidine [Pepcid] 20 mg PO BID 09/13/24 09/13/24 History Montelukast [Singulair] 10 mg PO DAILY 09/13/24 09/13/24 History Pioglitazone [Actos] 30 mg PO DAILY 09/13/24 09/13/24 History Allergies Allergy/AdvReac Type Severity Reaction Status Date / Time No Known Allergies Allergy Verified 09/13/24 17:24 Surgical - Exam Vital Signs Temp Pulse Resp BP Pulse Ox 97.2 F L 66 18 117/53 97 09/13/24 16:06 09/13/24 16:06 09/13/24 16:06 09/13/24 16:06 09/13/24 16:06 General appearance: The patient is alert, oriented, drowsy, appears in no acute distress. Obese. HET: Head is normocephalic and atraumatic. Pupils are equal and reactive. Neck: Supple. Heart: Regular. Lungs: Equal expansion, normal respiratory effort. Abdomen: Soft, nontender, distended. Extremities: Normal skin color and turgor. Lower extremity edema. Neurological: Patient is lethargic, drifting in and out of sleep. Results - Labs 09/14/24 05:10 09/14/24 05:10 Abnormal Lab Results - Last 24 Hours (Table) 09/13/24 09/13/24 09/13/24 Range/Units 16:30 16:30 16:30 WBC 15.4 H (3.8-10.6) k/uL RBC 3.03 L (4.30-5.90) m/uL Hgb 9.8 L (13.0-17.5) gm/dL Hct 28.5 L (39.0-53.0) % Neutrophils # (Manual) 9.39 H (1.3-7.7) k/uL Monocytes # (Manual) 2.46 H (0-1.0) k/uL PT 13.8 H (10.0-12.5) sec INR 1.3 H (<1.2) Sodium 126 L (137-145) mmol/L Chloride 97 L (98-107) mmol/L Carbon Dioxide 13 L (22-30) mmol/L BUN 61 H (9-20) mg/dL Creatinine 7.57 H* (0.66-1.25) mg/dL Glucose 133 H (74-99) mg/dL Plasma Lactic Acid [place] (0.7-2.0) mmol/L Calcium 7.3 L (8.4-10.2) mg/dL Phosphorus 7.7 H (2.5-4.5) mg/dL Magnesium 1.5 L (1.6-2.3) mg/dL Total Bilirubin 1.8 H (0.2-1.3) mg/dL Ammonia (<30) umol/L Total Protein 5.6 L (6.3-8.2) g/dL Albumin 2.6 L (3.5-5.0) g/dL Urine Protein (Negative) Urine Glucose (UA) (Negative) Urine Blood (Negative) Urine Bilirubin (Negative) Urine WBC (0-5) /hpf Urine Bacteria (None) /hpf Hyaline Casts (0-2) /lpf Urine Mucus (None) /hpf Crossmatch 09/13/24 09/13/24 09/13/24 Range/Units 16:30 16:30 16:48 WBC (3.8-10.6) k/uL RBC (4.30-5.90) m/uL Hgb (13.0-17.5) gm/dL Hct (39.0-53.0) % Neutrophils # (Manual) (1.3-7.7) k/uL Monocytes # (Manual) (0-1.0) k/uL PT (10.0-12.5) sec INR (<1.2) Sodium (137-145) mmol/L Chloride (98-107) mmol/L Carbon Dioxide (22-30) mmol/L BUN (9-20) mg/dL Creatinine (0.66-1.25) mg/dL Glucose (74-99) mg/dL Plasma Lactic Acid [place] 7.6 H* (0.7-2.0) mmol/L Calcium (8.4-10.2) mg/dL Phosphorus (2.5-4.5) mg/dL Magnesium (1.6-2.3) mg/dL Total Bilirubin (0.2-1.3) mg/dL Ammonia 78 H (<30) umol/L Total Protein (6.3-8.2) g/dL Albumin (3.5-5.0) g/dL Urine Protein (Negative) Urine Glucose (UA) (Negative) Urine Blood (Negative) Urine Bilirubin (Negative) Urine WBC (0-5) /hpf Urine Bacteria (None) /hpf Hyaline Casts (0-2) /lpf Urine Mucus (None) /hpf Crossmatch See Detail 09/13/24 09/13/24 09/13/24 Range/Units 18:03 20:07 23:00 WBC (3.8-10.6) k/uL RBC (4.30-5.90) m/uL Hgb (13.0-17.5) gm/dL Hct (39.0-53.0) % Neutrophils # (Manual) (1.3-7.7) k/uL Monocytes # (Manual) (0-1.0) k/uL PT (10.0-12.5) sec INR (<1.2) Sodium (137-145) mmol/L Chloride (98-107) mmol/L Carbon Dioxide (22-30) mmol/L BUN (9-20) mg/dL Creatinine (0.66-1.25) mg/dL Glucose (74-99) mg/dL Plasma Lactic Acid [place] 8.1 H* 8.7 H* (0.7-2.0) mmol/L Calcium (8.4-10.2) mg/dL Phosphorus (2.5-4.5) mg/dL Magnesium (1.6-2.3) mg/dL Total Bilirubin (0.2-1.3) mg/dL Ammonia (<30) umol/L Total Protein (6.3-8.2) g/dL Albumin (3.5-5.0) g/dL Urine Protein 2+ H (Negative) Urine Glucose (UA) Trace H (Negative) Urine Blood Trace H (Negative) Urine Bilirubin 1+ H (Negative) Urine WBC 10 H (0-5) /hpf Urine Bacteria Occasional H (None) /hpf Hyaline Casts 45 H (0-2) /lpf Urine Mucus Rare H (None) /hpf Crossmatch 09/14/24 09/14/24 09/14/24 Range/Units 01:54 05:10 05:10 WBC 18.0 H (3.8-10.6) k/uL RBC 3.09 L (4.30-5.90) m/uL Hgb 10.0 L (13.0-17.5) gm/dL Hct 29.2 L (39.0-53.0) % Neutrophils # (Manual) 14.22 H (1.3-7.7) k/uL Monocytes # (Manual) 1.62 H (0-1.0) k/uL PT (10.0-12.5) sec INR (<1.2) Sodium 128 L (137-145) mmol/L Chloride (98-107) mmol/L Carbon Dioxide 10 L (22-30) mmol/L BUN 62 H (9-20) mg/dL Creatinine 7.83 H* (0.66-1.25) mg/dL Glucose 102 H (74-99) mg/dL Plasma Lactic Acid [place] 8.9 H* (0.7-2.0) mmol/L Calcium 7.1 L (8.4-10.2) mg/dL Phosphorus 8.6 H (2.5-4.5) mg/dL Magnesium 1.4 L (1.6-2.3) mg/dL Total Bilirubin 1.8 H (0.2-1.3) mg/dL Ammonia (<30) umol/L Total Protein 5.5 L (6.3-8.2) g/dL Albumin 2.6 L (3.5-5.0) g/dL Urine Protein (Negative) Urine Glucose (UA) (Negative) Urine Blood (Negative) Urine Bilirubin (Negative) Urine WBC (0-5) /hpf Urine Bacteria (None) /hpf Hyaline Casts (0-2) /lpf Urine Mucus (None) /hpf Crossmatch 09/14/24 09/14/24 Range/Units 05:10 08:20 WBC (3.8-10.6) k/uL RBC (4.30-5.90) m/uL Hgb (13.0-17.5) gm/dL Hct (39.0-53.0) % Neutrophils # (Manual) (1.3-7.7) k/uL Monocytes # (Manual) (0-1.0) k/uL PT (10.0-12.5) sec INR (<1.2) Sodium (137-145) mmol/L Chloride (98-107) mmol/L Carbon Dioxide (22-30) mmol/L BUN (9-20) mg/dL Creatinine (0.66-1.25) mg/dL Glucose (74-99) mg/dL Plasma Lactic Acid [place] 8.8 H* 8.4 H* (0.7-2.0) mmol/L Calcium (8.4-10.2) mg/dL Phosphorus (2.5-4.5) mg/dL Magnesium (1.6-2.3) mg/dL Total Bilirubin (0.2-1.3) mg/dL Ammonia 69 H (<30) umol/L Total Protein (6.3-8.2) g/dL Albumin (3.5-5.0) g/dL Urine Protein (Negative) Urine Glucose (UA) (Negative) Urine Blood (Negative) Urine Bilirubin (Negative) Urine WBC (0-5) /hpf Urine Bacteria (None) /hpf Hyaline Casts (0-2) /lpf Urine Mucus (None) /hpf Crossmatch Diabetes panel 09/13/24 09/14/24 Range/Units 16:30 05:10 Sodium 126 L 128 L (137-145) mmol/L Potassium 4.2 4.7 (3.5-5.1) mmol/L Chloride 97 L 101 (98-107) mmol/L Carbon Dioxide 13 L 10 L (22-30) mmol/L BUN 61 H 62 H (9-20) mg/dL Creatinine 7.57 H* 7.83 H* (0.66-1.25) mg/dL Glucose 133 H 102 H (74-99) mg/dL Calcium 7.3 L 7.1 L (8.4-10.2) mg/dL AST 44 52 (17-59) U/L ALT 23 24 (4-49) U/L Alkaline Phosphatase 101 98 (38-126) U/L Total Protein 5.6 L 5.5 L (6.3-8.2) g/dL Albumin 2.6 L 2.6 L (3.5-5.0) g/dL Calcium panel 09/13/24 09/14/24 Range/Units 16:30 05:10 Calcium 7.3 L 7.1 L (8.4-10.2) mg/dL Phosphorus 7.7 H 8.6 H (2.5-4.5) mg/dL Albumin 2.6 L 2.6 L (3.5-5.0) g/dL Pituitary panel 09/13/24 09/14/24 Range/Units 16:30 05:10 Sodium 126 L 128 L (137-145) mmol/L Potassium 4.2 4.7 (3.5-5.1) mmol/L Chloride 97 L 101 (98-107) mmol/L Carbon Dioxide 13 L 10 L (22-30) mmol/L BUN 61 H 62 H (9-20) mg/dL Creatinine 7.57 H* 7.83 H* (0.66-1.25) mg/dL Glucose 133 H 102 H (74-99) mg/dL Calcium 7.3 L 7.1 L (8.4-10.2) mg/dL Adrenal panel 09/13/24 09/14/24 Range/Units 16:30 05:10 Sodium 126 L 128 L (137-145) mmol/L Potassium 4.2 4.7 (3.5-5.1) mmol/L Chloride 97 L 101 (98-107) mmol/L Carbon Dioxide 13 L 10 L (22-30) mmol/L BUN 61 H 62 H (9-20) mg/dL Creatinine 7.57 H* 7.83 H* (0.66-1.25) mg/dL Glucose 133 H 102 H (74-99) mg/dL Calcium 7.3 L 7.1 L (8.4-10.2) mg/dL Total Bilirubin 1.8 H 1.8 H (0.2-1.3) mg/dL AST 44 52 (17-59) U/L ALT 23 24 (4-49) U/L Alkaline Phosphatase 101 98 (38-126) U/L Total Protein 5.6 L 5.5 L (6.3-8.2) g/dL Albumin 2.6 L 2.6 L (3.5-5.0) g/dL Assessment and Plan Assessment: 1. Acute kidney injury requiring hemodialysis Plan: 1. Will plan for bedside temporary hemodialysis catheter placement 2. Hemodialysis per recommendations from nephrology Thank you for this consultation, we will continue to follow. The impression and plan of care has been dictated as directed. I performed a history and examination of this patient, discussed the same with the dictator. I agree with the dictator's note ,documented as a scribe. Any additional findings or plans will be noted.
--- NOTE | 2024-09-14 12:46 | P.CONS ---
History of Present Illness - Reason for Consult Consult date: 09/14/24 Ascites, liver cirrhosis Requesting physician: Jose Felix - Chief Complaint Abnormal labs - History of Present Illness This a pleasant 58-year-old male who was brought into the emergency department as an outside transfer from [facility]. Apparently according to the patient's daughter he had outpatient blood work done for concerns of increased fatigue, bloody bowel movements and overall not doing well. Past medical history includes diabetes mellitus, COPD, GERD, hyperlipidemia, hypertension, [place] and sleep apnea. Patient is quite drowsy and poor historian. Daughter is at bedside and provides most of his history. Patient was recently diagnosed with liver cirrhosis about 2 months ago and follows with gastroenterology. He was started on diuretics and 08/30/2024. On presentation patient had elevated lactic acid, acute kidney injury and was seen by nephrology who is requesting temporary catheter placement for hemodialysis. Patient denies any shortness of breath or chest pain. He has had abdominal pain and distention as well as diarrhea which she states has had blood in it for the last 2 weeks duration. He was started on spironolactone 100 mg daily and Lasix 40 mg daily on 08/30/2024 and according to his daughter stopped 2 days ago. 09/12/2024 he had 12.4 L removed during his outpatient paracentesis, which was his first paracentesis. Fluid cytology was negative. Patient believes last colonoscopy was 2 to 3 years ago. Patient is hypotensive. Nephrology is on consult and requesting patient get hemodialysis. WBC 18.0 hemoglobin 10.0 hematocrit 29 platelet count 161,000 INR 1.3 sodium 128 potassium 4.7 BUN 62 creatinine 7.8 lactic acid 7.8 magnesium 1.4 total bilirubin 1.8 AST 52 ALT 24 alkaline phosphatase 98 ammonia level 69 Review of Systems REVIEW OF SYSTEMS: CARDIOPULMONARY: No chest pain or shortness of breath. Gastrointestinal: Abdominal pain and distention. No nausea or vomiting. No hematemesis, coffee-ground emesis. Diarrhea with blood. GENITOURINARY: No dysuria or hematuria. MUSCULOSKELETAL: Reports normal range of motion., Joint pain. SKIN: No rashes. No jaundice. ENDOCRINE: No chills, fevers. No excessive weight gain or loss. No polydipsia or polyuria. PSYCHIATRIC: Unremarkable. NEUROLOGY: Increased fatigue. Denies dizziness, headache. ENT: Vision unremarkable. CONSTITUTIONAL: No recent weight loss. No fever, chills, night sweats. Past Medical History Past Medical History: COPD, Diabetes Mellitus, GERD/Reflux, Hyperlipidemia, Hypertension, Liver Disease, Myocardial Infarction (MO), Sleep Apnea/CPAP/BIPAP Additional Past Medical History / Comment(s): cirrhoisis Last Myocardial Infarction Date:: unknown History of Any Multi-Drug Resistant Organisms: None Reported Past Surgical History: Heart Catheterization, Hernia Repair, Orthopedic Surgery, Pacemaker Additional Past Surgical History / Comment(s): surgery for fx rt leg and left arm, pacemaker and defibrillator Past Anesthesia/Blood Transfusion Reactions: No Reported Reaction Type of Cardiac Device: Biventricular Pacemaker Device Placement Date:: 2010 Past Psychological History: Anxiety Additional Psychological History / Comment(s): claustrophobia Smoking Status: Current every day smoker Past Alcohol Use History: None Reported Additional Past Alcohol Use History / Comment(s): smokes 1 1/2 PPD for 29 yrs Past Drug Use History: None Reported - Past Family History Mother Family Medical History: No Reported History Medications and Allergies Home Medications Medication Instructions Recorded Confirmed Type Carvedilol [Coreg] 12.5 mg PO BID 07/09/16 09/13/24 History FLUoxetine HCL [PROzac] 60 mg PO DAILY 07/09/16 09/13/24 History clonazePAM [KlonoPIN] 0.5 mg PO BID 07/09/16 09/13/24 History gemfibroziL [Lopid] 600 mg PO BID 07/09/16 09/13/24 History lisinopriL [Zestril] 20 mg PO DAILY 07/09/16 09/13/24 History metFORMIN HCL [Glucophage] 1,000 mg PO BID 07/09/16 09/13/24 History Atorvastatin Calcium [Lipitor] 40 mg PO DAILY 09/13/24 09/13/24 History Dapagliflozin Propanediol [Farxiga] 10 mg PO DAILY 09/13/24 09/13/24 History Dicyclomine [Bentyl] 20 mg PO QID PRN 09/13/24 09/13/24 History Famotidine [Pepcid] 20 mg PO BID 09/13/24 09/13/24 History Montelukast [Singulair] 10 mg PO DAILY 09/13/24 09/13/24 History Pioglitazone [Actos] 30 mg PO DAILY 09/13/24 09/13/24 History Allergies Allergy/AdvReac Type Severity Reaction Status Date / Time No Known Allergies Allergy Verified 09/13/24 17:24 Physical Exam Vitals: Vital Signs Temp Pulse Resp BP Pulse Ox 09/14/24 07:30 66 20 91/49 95 09/14/24 07:10 96.7 F L 66 20 105/51 95 09/14/24 06:00 63 19 94/37 95 09/14/24 05:50 66 19 88/33 95 09/14/24 05:30 67 19 103/38 96 09/14/24 05:20 68 19 96/40 96 09/14/24 05:10 68 19 84/36 96 09/14/24 05:00 63 19 93/40 94 L 09/14/24 04:50 62 19 93/40 96 09/14/24 04:40 62 19 101/46 96 09/14/24 04:30 63 19 80/39 96 09/14/24 04:05 68 19 110/54 09/14/24 03:50 65 19 87/43 97 09/14/24 03:28 97.6 F 67 19 102/52 100 09/14/24 03:06 66 18 113/56 97 09/14/24 02:50 65 20 82/33 95 09/14/24 02:30 64 19 81/50 95 09/14/24 02:10 65 19 107/48 95 09/14/24 02:00 64 19 93/43 95 09/14/24 01:50 65 19 93/43 95 09/14/24 01:20 64 19 93/41 95 09/14/24 00:40 63 19 97/40 95 09/14/24 00:09 64 19 91/48 95 09/13/24 23:40 63 19 93/45 95 09/13/24 23:30 62 19 93/50 95 09/13/24 23:00 66 19 106/87 97 09/13/24 22:50 67 19 108/53 95 09/13/24 22:40 69 19 109/58 97 09/13/24 22:27 96 F L 68 20 106/58 96 09/13/24 22:12 102/64 09/13/24 22:00 56 L 19 83/51 97 09/13/24 21:50 60 19 69/57 100 09/13/24 21:40 62 20 87/46 96 09/13/24 21:30 63 20 63/46 97 09/13/24 21:20 62 19 86/47 96 09/13/24 21:02 96.0 F L 63 19 95/53 95 09/13/24 21:00 65 20 94/63 96 09/13/24 20:42 96.7 F L 58 L 20 85/72 96 09/13/24 20:40 61 20 83/37 97 09/13/24 20:30 56 L 20 71/31 96 09/13/24 20:23 96.7 F L 58 L 18 85/31 96 09/13/24 20:20 64 20 82/41 96 09/13/24 20:10 59 L 20 88/31 97 09/13/24 20:00 59 L 20 76/35 96 09/13/24 19:08 62 20 83/44 97 09/13/24 18:34 59 L 20 85/44 97 09/13/24 17:43 60 22 81/45 100 09/13/24 17:22 55 L 20 83/46 95 09/13/24 16:06 97.2 F L 66 18 117/53 97 Intake and Output 09/13/24 09/14/24 09/14/24 22:59 06:59 14:59 Intake Total 310 Output Total 100 Balance 310 -100 Intake: Blood Product 310 Rc As-1 Unit 310 [id number] Output: Stool 100 Other: # Voids 1 Weight 136.078 kg General appearance: The patient is alert, oriented, patient is very drowsy, drifting in and out of sleep, appears in no acute distress. HET: Head is normocephalic and atraumatic. Conjunctiva pink. Sclera anicteric. Neck: Supple without lymphadenopathy. Trachea midline. Heart: Regular. Lungs: Equal expansion, normal respiratory effort. Abdomen: Soft, nontender, distended. Skin: No rashes. No jaundice. Extremities: Normal skin color and turgor. Bilateral lower extremity edema. Neurological: Drowsy, somewhat obtunded. Alert and oriented x3. Results CBC & Chem 7: 09/14/24 05:10 11/06/24 05:10 Labs: Abnormal Lab Results - Last 24 Hours (Table) 09/13/24 09/13/24 09/13/24 Range/Units 16:30 16:30 16:30 WBC 15.4 H (3.8-10.6) k/uL RBC 3.03 L (4.30-5.90) m/uL Hgb 9.8 L (13.0-17.5) gm/dL Hct 28.5 L (39.0-53.0) % Neutrophils # (Manual) 9.39 H (1.3-7.7) k/uL Monocytes # (Manual) 2.46 H (0-1.0) k/uL PT 13.8 H (10.0-12.5) sec INR 1.3 H (<1.2) Sodium 126 L (137-145) mmol/L Chloride 97 L (98-107) mmol/L Carbon Dioxide 13 L (22-30) mmol/L BUN 61 H (9-20) mg/dL Creatinine 7.57 H* (0.66-1.25) mg/dL Glucose 133 H (74-99) mg/dL Plasma Lactic Acid [place] (0.7-2.0) mmol/L Calcium 7.3 L (8.4-10.2) mg/dL Phosphorus 7.7 H (2.5-4.5) mg/dL Magnesium 1.5 L (1.6-2.3) mg/dL Total Bilirubin 1.8 H (0.2-1.3) mg/dL Ammonia (<30) umol/L Total Protein 5.6 L (6.3-8.2) g/dL Albumin 2.6 L (3.5-5.0) g/dL Urine Protein (Negative) Urine Glucose (UA) (Negative) Urine Blood (Negative) Urine Bilirubin (Negative) Urine WBC (0-5) /hpf Urine Bacteria (None) /hpf Hyaline Casts (0-2) /lpf Urine Mucus (None) /hpf Crossmatch 09/13/24 09/13/24 09/13/24 Range/Units 16:30 16:30 16:48 WBC (3.8-10.6) k/uL RBC (4.30-5.90) m/uL Hgb (13.0-17.5) gm/dL Hct (39.0-53.0) % Neutrophils # (Manual) (1.3-7.7) k/uL Monocytes # (Manual) (0-1.0) k/uL PT (10.0-12.5) sec INR (<1.2) Sodium (137-145) mmol/L Chloride (98-107) mmol/L Carbon Dioxide (22-30) mmol/L BUN (9-20) mg/dL Creatinine (0.66-1.25) mg/dL Glucose (74-99) mg/dL Plasma Lactic Acid [place] 7.6 H* (0.7-2.0) mmol/L Calcium (8.4-10.2) mg/dL Phosphorus (2.5-4.5) mg/dL Magnesium (1.6-2.3) mg/dL Total Bilirubin (0.2-1.3) mg/dL Ammonia 78 H (<30) umol/L Total Protein (6.3-8.2) g/dL Albumin (3.5-5.0) g/dL Urine Protein (Negative) Urine Glucose (UA) (Negative) Urine Blood (Negative) Urine Bilirubin (Negative) Urine WBC (0-5) /hpf Urine Bacteria (None) /hpf Hyaline Casts (0-2) /lpf Urine Mucus (None) /hpf Crossmatch See Detail 09/13/24 09/13/24 09/13/24 Range/Units 18:03 20:07 23:00 WBC (3.8-10.6) k/uL RBC (4.30-5.90) m/uL Hgb (13.0-17.5) gm/dL Hct (39.0-53.0) % Neutrophils # (Manual) (1.3-7.7) k/uL Monocytes # (Manual) (0-1.0) k/uL PT (10.0-12.5) sec INR (<1.2) Sodium (137-145) mmol/L Chloride (98-107) mmol/L Carbon Dioxide (22-30) mmol/L BUN (9-20) mg/dL Creatinine (0.66-1.25) mg/dL Glucose (74-99) mg/dL Plasma Lactic Acid [place] 8.1 H* 8.7 H* (0.7-2.0) mmol/L Calcium (8.4-10.2) mg/dL Phosphorus (2.5-4.5) mg/dL Magnesium (1.6-2.3) mg/dL Total Bilirubin (0.2-1.3) mg/dL Ammonia (<30) umol/L Total Protein (6.3-8.2) g/dL Albumin (3.5-5.0) g/dL Urine Protein 2+ H (Negative) Urine Glucose (UA) Trace H (Negative) Urine Blood Trace H (Negative) Urine Bilirubin 1+ H (Negative) Urine WBC 10 H (0-5) /hpf Urine Bacteria Occasional H (None) /hpf Hyaline Casts 45 H (0-2) /lpf Urine Mucus Rare H (None) /hpf Crossmatch 09/14/24 09/14/24 09/14/24 Range/Units 01:54 05:10 05:10 WBC 18.0 H (3.8-10.6) k/uL RBC 3.09 L (4.30-5.90) m/uL Hgb 10.0 L (13.0-17.5) gm/dL Hct 29.2 L (39.0-53.0) % Neutrophils # (Manual) 14.22 H (1.3-7.7) k/uL Monocytes # (Manual) 1.62 H (0-1.0) k/uL PT (10.0-12.5) sec INR (<1.2) Sodium 128 L (137-145) mmol/L Chloride (98-107) mmol/L Carbon Dioxide 10 L (22-30) mmol/L BUN 62 H (9-20) mg/dL Creatinine 7.83 H* (0.66-1.25) mg/dL Glucose 102 H (74-99) mg/dL Plasma Lactic Acid [place] 8.9 H* (0.7-2.0) mmol/L Calcium 7.1 L (8.4-10.2) mg/dL Phosphorus 8.6 H (2.5-4.5) mg/dL Magnesium 1.4 L (1.6-2.3) mg/dL Total Bilirubin 1.8 H (0.2-1.3) mg/dL Ammonia (<30) umol/L Total Protein 5.5 L (6.3-8.2) g/dL Albumin 2.6 L (3.5-5.0) g/dL Urine Protein (Negative) Urine Glucose (UA) (Negative) Urine Blood (Negative) Urine Bilirubin (Negative) Urine WBC (0-5) /hpf Urine Bacteria (None) /hpf Hyaline Casts (0-2) /lpf Urine Mucus (None) /hpf Crossmatch 09/14/24 09/14/24 Range/Units 05:10 08:20 WBC (3.8-10.6) k/uL RBC (4.30-5.90) m/uL Hgb (13.0-17.5) gm/dL Hct (39.0-53.0) % Neutrophils # (Manual) (1.3-7.7) k/uL Monocytes # (Manual) (0-1.0) k/uL PT (10.0-12.5) sec INR (<1.2) Sodium (137-145) mmol/L Chloride (98-107) mmol/L Carbon Dioxide (22-30) mmol/L BUN (9-20) mg/dL Creatinine (0.66-1.25) mg/dL Glucose (74-99) mg/dL Plasma Lactic Acid [place] 8.8 H* 8.4 H* (0.7-2.0) mmol/L Calcium (8.4-10.2) mg/dL Phosphorus (2.5-4.5) mg/dL Magnesium (1.6-2.3) mg/dL Total Bilirubin (0.2-1.3) mg/dL Ammonia 69 H (<30) umol/L Total Protein (6.3-8.2) g/dL Albumin (3.5-5.0) g/dL Urine Protein (Negative) Urine Glucose (UA) (Negative) Urine Blood (Negative) Urine Bilirubin (Negative) Urine WBC (0-5) /hpf Urine Bacteria (None) /hpf Hyaline Casts (0-2) /lpf Urine Mucus (None) /hpf Crossmatch Assessment and Plan (1) Cirrhosis of liver with ascites Narrative/Plan: 58-year-old male recently diagnosed with cirrhosis of the liver, no history of alcoholism etiology likely fatty liver disease secondary to diabetes mellitus and obesity. Was recently started on diuretics and had his first paracentesis on 09/12/2024 with 12.4 L removed with a negative cytology. Patient is admitted with elevated white count and lactic acid. Need to consider possible underlying infection and need to consider possible SBP. Currently on Rocephin 2 g daily. Current Visit: Yes Status: Acute Code(s): K74.60 - UNSPECIFIED CIRRHOSIS OF LIVER; R18.8 - OTHER ASCITES SNOMED Code(s): 68708319 (2) Hepatic encephalopathy Current Visit: Yes Status: Acute Code(s): K76.82 - HEPATIC ENCEPHALOPATHY SNOMED Code(s): 04777679 (3) Gastrointestinal hemorrhage Current Visit: Yes Status: Acute Code(s): K92.2 - GASTROINTESTINAL HEMORRHAGE, UNSPECIFIED SNOMED Code(s): 70109063 (4) Diarrhea Current Visit: Yes Status: Acute Code(s): R19.7 - DIARRHEA, UNSPECIFIED SNOMED Code(s): 81053565 (5) Coronary artery disease Current Visit: Yes Status: Acute Code(s): I25.10 - ATHSCL HEART DISEASE OF [place] CORONARY ARTERY W/O ANG PCTRS SNOMED Code(s): 68404428 (6) COPD (chronic obstructive pulmonary disease) Current Visit: Yes Status: Acute Code(s): J44.9 - CHRONIC OBSTRUCTIVE PULMONARY DISEASE, UNSPECIFIED SNOMED Code(s): 67218807 (7) Diabetes mellitus Current Visit: Yes Status: Acute Code(s): E11.9 - TYPE 2 DIABETES MELLITUS WITHOUT COMPLICATIONS SNOMED Code(s): 26598616 (8) Obesity Current Visit: Yes Status: Acute Code(s): E66.9 - OBESITY, UNSPECIFIED SNOMED Code(s): 008555124 (9) Acute renal failure Current Visit: Yes Status: Acute Code(s): N17.9 - ACUTE KIDNEY FAILURE, UNSPECIFIED SNOMED Code(s): 86915343 (10) Hyperammonemia Current Visit: Yes Status: Acute Code(s): E72.20 - DISORDER OF UREA CYCLE METABOLISM, UNSPECIFIED SNOMED Code(s): 2931766 (11) Hyponatremia Current Visit: Yes Status: Acute Code(s): E87.1 - HYPO-OSMOLALITY AND HYPONATREMIA SNOMED Code(s): 30722368 (12) Lactic acidosis Current Visit: Yes Status: Acute Code(s): E87.20 - ACIDOSIS, UNSPECIFIED SNOMED Code(s): 66210755 Plan: 1. Continue symptomatic and supportive care 2. Diuretics per recommendations from nephrology 3. Requesting fluid culture if possible from the paracentesis fluid collection on 09/12/2024 4. Lactulose 30 g 3 times daily, titrate to have 3-4 bowel movements daily 5. Daily CBC, CMP, ammonia 6. Recommend low-sodium diet 7. Patient is scheduled for temporary HD catheter placement and renal repla cement therapy 8. Rest of medical management per primary medical team Thank you for this consultation, we will continue to follow. Dr. Sara Thomas I agree with the dictator's note, documented as a scribe by Soila Farah.
[2024-09-14] MEDS: SODIUM CHLORIDE 0.9% 1,000 ML IV ONE (14:29)
[2024-09-14] MEDS: LACTULOSE 20 GM/30 ML CUP PO SCH (15:22)
[2024-09-14 16:00] LABS: Glucose,Whole Blood 149 mg/dL (70-110)
--- NOTE | 2024-09-14 17:33 | P.HPIM ---
History of Present Illness H&P Date: 09/14/24 Chief Complaint: Abdominal pain Patient is a 58 year old male past medical history of cirrhosis, ascites, paracentesis who presented to the ED today with abdominal pain. Patient was at a different facility where he had abnormal labs and that is why he was sent here at [facility]. Upon admission he was found to have abdominal pain, GI bleed and altered mental status. He states he has had this stomach ache for 1 3 weeks and noticed blood in the stool since 2 weeks. The daughter mentions that the patient is not an alcoholic and has been following up with gastroenterology and was recently diagnosed with liver cirrhosis about 2 months ago. At that time he was started on diuretics(Lasix 40 mg and spironolactone 100 mg), but the patient took the diuretic for a week and the diuretic was then discontinued. A paracentesis done on 09/09/2024 with 12.4 L of pleural fluid was removed, this was his frst paracentesis. Fluid cytology was negative. Denies fever, chills, headache, shortness of breath, chest pain, palpitations, coughing, nausea, vomiting. ED documentation reviewed and case discussed with ED provider. In the ED he was treated with 0.9 normal saline, ondansetron, lactulose, octreotide. While in the ED the patient's blood pressure dropped to 74/32 and the patient was noted to ICU for pressor support. Vitals on presentation: T 97.2 F, P 66 bpm, RR 18, BP 117/53, O2 97% on room air EKG: Paced rhythm, rate 65 bpm, QTc 581 ms Abdomen bladder ultrasound: Shows no evidence for hydronephrosis/nephrolithiasis/masses identified. Bladder exam, postvoid residual, bilateral jets exam limited as the patient was not awake CBC: WBC 15.4, hemoglobin 9.8 Coagulation panel: PT 13.8, INR 1.3 CMP: Sodium 126, chloride 97, bicarb 13, BUN 61, creatinine 1.57, corrected calcium 8.4, phosphorus 7.7, magnesium 1.5, total bilirubin 1.8, total protein 5.6, albumin 2.6 Lactic acid 7.6, 8.1, 8.7, 8.9, 0.8, 1.4, 7.8, 7.9 Ammonia: 69 ProBNP: 1240 Troponin: <0.012 UA: 2+ protein, trace glucose, trace blood, 1+ bilirubin, 10 WBC, occasional bacteria, 45%, moderate mucus Review of systems: Pertinent positives and negatives as discussed in HPI, a complete review of systems was performed and all other systems are negative. PMH:COPD,DM,GERD,HLD,HTN,AR,CAROLE PSH: Cardiac catheterisation, hernia repair, BiV Pacemaker generator change Social history: Tobacco: Denies use Alcohol: Denies use Recreational drugs: Denies use Physical examination: General: nontoxic, no distress Derm: warm, dry, intact Head: atraumatic, normocephalic, symmetric Mouth: no lip lesion, mucus membranes moist Cardiovascular: S1 S2 reg, no murmur Lungs: CTA bilateral Abdominal: Distended and tense, non-tender to palpataion Extremities: No cyanosis, clubbing, or pedal edema. Neuro: Alert, Oriented to person and place only, Gross neurological examination did not reveal any focal deficits. Psych: well appearing, appropriate affect Assessment/Plan: Patient is a 58-year-old male with past medical history of cirrhosis and ascites, paracentesis who presented to the ED with abdominal pain. He has been admitted for toxic metabolic encephalopathy and hepatorenal syndrome. #.Toxic metabolic encephalopathy, multifactorial cause #.Hepatic encephalopathy #.Uremic Encephalopathy #.Nonalcoholic Liver cirrhosis #.Ascites Continue lactulose 30 g TID Monitor ammonia level Gastroenterology is following Hep B antibody, hep B surface antigen test ordered Obtain Paracentesis fluid culture #. CHASE, oliguric #.Uremic Encephalopathy #.Hyperphosphatemia,secondary to CHASE Soto catheter in place Monitor urine output Patient requires hemodialysis and renal replacement therapy, first session today Vascular surgery consulted for temporary dialysis catheter insertion Nephrology following #. Shock, secondary to intravsacular volume depletion vs cardiogenic Patient has hepatorenal syndrome as well as had low oral intake for the past few days along with history of cardiomyopathy Continue midodrine 10 mg PO TID 500 cc bolus of normal saline given today Continue IV Norepinephrine 0.03 mcg/kg/min Hold diuretics, Farxiga, Lisinopril, Lipitor, Pioglitazone #. Hypovolemic hyponatremia Improving with fluids 500 cc bolus of normal saline given today Continue bicarb drip #. UTI UA shows 2+ protein, trace glucose, trace blood, 1+ bilirubin, 10 WBC, occasional bacteria, 45%, moderate mucus Rocephin started in the ED Continue IV Rocephin Blood culture ordered #. GI Bleed Continue IV protonix 40 mg IV twice daily as GI prophylaxis #.Hypomagnesemia Monitor Magnesium level #. Diabetes mellitus Insulin sliding scale Hold Farxiga, metformin, Pioglitazone #. Pain management Continue Dilaudid 1mg IVP Q3HR as needed #. Nausea and vomiting Continue Zofran 4 mg IVP every 8 hours as needed F: E: N:Low sodium diet A: GI prophylaxis: IV protonix 40 mg IV twice daily The patient is admitted with an anticipated more than 2 midnight stay for evaluation of abdominal pain CODE STATUS: Full Code Discussed with: Patient and daughter Anticipated discharge place: Home Attestation Attestation/ Mail Clerks Supervisor Note: Attestation to History and physical, Participation (I saw and evaluated the patient with the Resident, and I reviewed and discussed the patient with the Resident and agree with the Resident's findings and plans as documented above., management reviewed and discussed), I agree with findings & plan, Provider Signature (NAN GILLIAM, TRISTEN Farah. Past Medical History Past Medical History: COPD, Diabetes Mellitus, GERD/Reflux, Hyperlipidemia, Hypertension, Liver Disease, Myocardial Infarction (AR), Sleep Apnea/CPAP/BIPAP Additional Past Medical History / Comment(s): cirrhoisis Last Myocardial Infarction Date:: unknown History of Any Multi-Drug Resistant Organisms: None Reported Past Surgical History: Heart Catheterization, Hernia Repair, Orthopedic Surgery, Pacemaker Additional Past Surgical History / Comment(s): surgery for fx rt leg and left arm, pacemaker and defibrillator Past Anesthesia/Blood Transfusion Reactions: No Reported Reaction Type of Cardiac Device: Biventricular Pacemaker Device Placement Date:: 2010 Past Psychological History: Anxiety Additional Psychological History / Comment(s): claustrophobia Smoking Status: Current every day smoker Past Alcohol Use History: None Reported Additional Past Alcohol Use History / Comment(s): smokes 1 1/2 PPD for 29 yrs Past Drug Use History: None Reported - Past Family History Mother Family Medical History: No Reported History Medications and Allergies Home Medications Medication Instructions Recorded Confirmed Type FLUoxetine HCL [PROzac] 60 mg PO DAILY 07/09/16 09/13/24 History clonazePAM [KlonoPIN] 0.5 mg PO BID 07/09/16 09/13/24 History gemfibroziL [Lopid] 600 mg PO BID 07/09/16 09/13/24 History metFORMIN HCL [Glucophage] 1,000 mg PO BID 07/09/16 09/13/24 History Atorvastatin Calcium [Lipitor] 40 mg PO DAILY 09/13/24 09/13/24 History Dapagliflozin Propanediol [Farxiga] 10 mg PO DAILY 09/13/24 09/13/24 History Dicyclomine [Bentyl] 20 mg PO QID PRN 09/13/24 09/13/24 History Famotidine [Pepcid] 20 mg PO BID 09/13/24 09/13/24 History Montelukast [Singulair] 10 mg PO DAILY 09/13/24 09/13/24 History Pioglitazone [Actos] 30 mg PO DAILY 09/13/24 09/13/24 History Calcium Acetate [PhosLo] 667 mg PO TID-W/MEALS #90 tab 09/24/24 Rx Furosemide [Lasix] 20 mg PO DAILY #30 tab 09/24/24 Rx Lactulose [Cephulac] 30 gm PO DAILY 30 Days #900 ml 09/24/24 Rx Midodrine [ProAmatine] 10 mg PO AC-TID 30 Days #90 tab 09/24/24 Rx Nicotine 21Mg/24Hr Patch [Habitrol] 1 each TRANSDERM DAILY #30 patch 09/24/24 Rx Potassium Chloride 10 meq PO DAILY 14 Days #14 cap 09/24/24 Rx Rifaximin [Xifaxan] 550 mg PO BID #60 tab 09/24/24 Rx Allergies Allergy/AdvReac Type Severity Reaction Status Date / Time No Known Allergies Allergy Verified 09/13/24 17:24 Physical Exam Vitals: Vital Signs Temp Pulse Resp BP Pulse Ox 09/14/24 15:31 97.4 F L 64 20 103/52 98 09/14/24 14:13 74/27 09/14/24 13:30 64 18 91/40 96 09/14/24 12:12 61 20 78/38 95 09/14/24 11:23 61 20 84/39 96 09/14/24 10:23 65 20 90/46 96 09/14/24 10:10 69 17 114/40 98 09/14/24 09:50 66 17 106/57 96 09/14/24 09:30 66 17 95/42 95 09/14/24 09:00 68 18 90/39 96 09/14/24 08:00 69 19 102/54 95 09/14/24 07:30 66 20 91/49 95 09/14/24 07:10 96.7 F L 66 20 105/51 95 09/14/24 06:00 63 19 94/37 95 09/14/24 05:50 66 19 88/33 95 09/14/24 05:30 67 19 103/38 96 09/14/24 05:20 68 19 96/40 96 09/14/24 05:10 68 19 84/36 96 09/14/24 05:00 63 19 93/40 94 L 09/14/24 04:50 62 19 93/40 96 09/14/24 04:40 62 19 101/46 96 09/14/24 04:30 63 19 80/39 96 09/14/24 04:05 68 19 110/54 09/14/24 03:50 65 19 87/43 97 09/14/24 03:28 97.6 F 67 19 102/52 100 09/14/24 03:06 66 18 113/56 97 09/14/24 02:50 65 20 82/33 95 09/14/24 02:30 64 19 81/50 95 09/14/24 02:10 65 19 107/48 95 09/14/24 02:00 64 19 93/43 95 09/14/24 01:50 65 19 93/43 95 09/14/24 01:20 64 19 93/41 95 09/14/24 00:40 63 19 97/40 95 09/14/24 00:09 64 19 91/48 95 09/13/24 23:40 63 19 93/45 95 09/13/24 23:30 62 19 93/50 95 09/13/24 23:00 66 19 106/87 97 09/13/24 22:50 67 19 108/53 95 09/13/24 22:40 69 19 109/58 97 09/13/24 22:27 96 F L 68 20 106/58 96 09/13/24 22:12 102/64 09/13/24 22:00 56 L 19 83/51 97 09/13/24 21:50 60 19 69/57 100 09/13/24 21:40 62 20 87/46 96 09/13/24 21:30 63 20 63/46 97 09/13/24 21:20 62 19 86/47 96 09/13/24 21:02 96.0 F L 63 19 95/53 95 09/13/24 21:00 65 20 94/63 96 09/13/24 20:42 96.7 F L 58 L 20 85/72 96 09/13/24 20:40 61 20 83/37 97 09/13/24 20:30 56 L 20 71/31 96 09/13/24 20:23 96.7 F L 58 L 18 85/31 96 09/13/24 20:20 64 20 82/41 96 09/13/24 20:10 59 L 20 88/31 97 09/13/24 20:00 59 L 20 76/35 96 09/13/24 19:08 62 20 83/44 97 09/13/24 18:34 59 L 20 85/44 97 09/13/24 17:43 60 22 81/45 100 09/13/24 17:22 55 L 20 83/46 95 Intake and Output 09/14/24 09/14/24 09/14/24 06:59 14:59 22:59 Output Total 100 50 Balance -100 -50 Output: Urine 50 Stool 100 Other: # Voids 1 Results CBC & Chem 7: 09/24/24 06:06 09/24/24 06:06 Labs: Abnormal Lab Results - Last 24 Hours (Table) 09/13/24 09/13/24 09/13/24 Range/Units 16:30 16:30 16:30 WBC 15.4 H (3.8-10.6) k/uL RBC 3.03 L (4.30-5.90) m/uL Hgb 9.8 L (13.0-17.5) gm/dL Hct 28.5 L (39.0-53.0) % Neutrophils # (Manual) 9.39 H (1.3-7.7) k/uL Monocytes # (Manual) 2.46 H (0-1.0) k/uL PT 13.8 H (10.0-12.5) sec INR 1.3 H (<1.2) Sodium 126 L (137-145) mmol/L Chloride 97 L (98-107) mmol/L Carbon Dioxide 13 L (22-30) mmol/L BUN 61 H (9-20) mg/dL Creatinine 7.57 H* (0.66-1.25) mg/dL Glucose 133 H (74-99) mg/dL POC Glucose (mg/dL) (70-110) mg/dL Plasma Lactic Acid [place] (0.7-2.0) mmol/L Calcium 7.3 L (8.4-10.2) mg/dL Phosphorus 7.7 H (2.5-4.5) mg/dL Magnesium 1.5 L (1.6-2.3) mg/dL Total Bilirubin 1.8 H (0.2-1.3) mg/dL Ammonia (<30) umol/L Total Protein 5.6 L (6.3-8.2) g/dL Albumin 2.6 L (3.5-5.0) g/dL Urine Protein (Negative) Urine Glucose (UA) (Negative) Urine Blood (Negative) Urine Bilirubin (Negative) Urine WBC (0-5) /hpf Urine Bacteria (None) /hpf Hyaline Casts (0-2) /lpf Urine Mucus (None) /hpf Crossmatch 09/13/24 09/13/24 09/13/24 Range/Units 16:30 16:30 16:48 WBC (3.8-10.6) k/uL RBC (4.30-5.90) m/uL Hgb (13.0-17.5) gm/dL Hct (39.0-53.0) % Neutrophils # (Manual) (1.3-7.7) k/uL Monocytes # (Manual) (0-1.0) k/uL PT (10.0-12.5) sec INR (<1.2) Sodium (137-145) mmol/L Chloride (98-107) mmol/L Carbon Dioxide (22-30) mmol/L BUN (9-20) mg/dL Creatinine (0.66-1.25) mg/dL Glucose (74-99) mg/dL POC Glucose (mg/dL) (70-110) mg/dL Plasma Lactic Acid [place] 7.6 H* (0.7-2.0) mmol/L Calcium (8.4-10.2) mg/dL Phosphorus (2.5-4.5) mg/dL Magnesium (1.6-2.3) mg/dL Total Bilirubin (0.2-1.3) mg/dL Ammonia 78 H (<30) umol/L Total Protein (6.3-8.2) g/dL Albumin (3.5-5.0) g/dL Urine Protein (Negative) Urine Glucose (UA) (Negative) Urine Blood (Negative) Urine Bilirubin (Negative) Urine WBC (0-5) /hpf Urine Bacteria (None) /hpf Hyaline Casts (0-2) /lpf Urine Mucus (None) /hpf Crossmatch See Detail 09/13/24 09/13/24 09/13/24 Range/Units 18:03 20:07 23:00 WBC (3.8-10.6) k/uL RBC (4.30-5.90) m/uL Hgb (13.0-17.5) gm/dL Hct (39.0-53.0) % Neutrophils # (Manual) (1.3-7.7) k/uL Monocytes # (Manual) (0-1.0) k/uL PT (10.0-12.5) sec INR (<1.2) Sodium (137-145) mmol/L Chloride (98-107) mmol/L Carbon Dioxide (22-30) mmol/L BUN (9-20) mg/dL Creatinine (0.66-1.25) mg/dL Glucose (74-99) mg/dL POC Glucose (mg/dL) (70-110) mg/dL Plasma Lactic Acid [place] 8.1 H* 8.7 H* (0.7-2.0) mmol/L Calcium (8.4-10.2) mg/dL Phosphorus (2.5-4.5) mg/dL Magnesium (1.6-2.3) mg/dL Total Bilirubin (0.2-1.3) mg/dL Ammonia (<30) umol/L Total Protein (6.3-8.2) g/dL Albumin (3.5-5.0) g/dL Urine Protein 2+ H (Negative) Urine Glucose (UA) Trace H (Negative) Urine Blood Trace H (Negative) Urine Bilirubin 1+ H (Negative) Urine WBC 10 H (0-5) /hpf Urine Bacteria Occasional H (None) /hpf Hyaline Casts 45 H (0-2) /lpf Urine Mucus Rare H (None) /hpf Crossmatch 09/14/24 09/14/24 09/14/24 Range/Units 01:54 05:10 05:10 WBC 18.0 H (3.8-10.6) k/uL RBC 3.09 L (4.30-5.90) m/uL Hgb 10.0 L (13.0-17.5) gm/dL Hct 29.2 L (39.0-53.0) % Neutrophils # (Manual) 14.22 H (1.3-7.7) k/uL Monocytes # (Manual) 1.62 H (0-1.0) k/uL PT (10.0-12.5) sec INR (<1.2) Sodium 128 L (137-145) mmol/L Chloride (98-107) mmol/L Carbon Dioxide 10 L (22-30) mmol/L BUN 62 H (9-20) mg/dL Creatinine 7.83 H* (0.66-1.25) mg/dL Glucose 102 H (74-99) mg/dL POC Glucose (mg/dL) (70-110) mg/dL Plasma Lactic Acid [place] 8.9 H* (0.7-2.0) mmol/L Calcium 7.1 L (8.4-10.2) mg/dL Phosphorus 8.6 H (2.5-4.5) mg/dL Magnesium 1.4 L (1.6-2.3) mg/dL Total Bilirubin 1.8 H (0.2-1.3) mg/dL Ammonia (<30) umol/L Total Protein 5.5 L (6.3-8.2) g/dL Albumin 2.6 L (3.5-5.0) g/dL Urine Protein (Negative) Urine Glucose (UA) (Negative) Urine Blood (Negative) Urine Bilirubin (Negative) Urine WBC (0-5) /hpf Urine Bacteria (None) /hpf Hyaline Casts (0-2) /lpf Urine Mucus (None) /hpf Crossmatch 09/14/24 09/14/24 09/14/24 Range/Units 05:10 08:20 10:52 WBC (3.8-10.6) k/uL RBC (4.30-5.90) m/uL Hgb (13.0-17.5) gm/dL Hct (39.0-53.0) % Neutrophils # (Manual) (1.3-7.7) k/uL Monocytes # (Manual) (0-1.0) k/uL PT (10.0-12.5) sec INR (<1.2) Sodium (137-145) mmol/L Chloride (98-107) mmol/L Carbon Dioxide (22-30) mmol/L BUN (9-20) mg/dL Creatinine (0.66-1.25) mg/dL Glucose (74-99) mg/dL POC Glucose (mg/dL) (70-110) mg/dL Plasma Lactic Acid [place] 8.8 H* 8.4 H* 7.8 H* (0.7-2.0) mmol/L Calcium (8.4-10.2) mg/dL Phosphorus (2.5-4.5) mg/dL Magnesium (1.6-2.3) mg/dL Total Bilirubin (0.2-1.3) mg/dL Ammonia 69 H (<30) umol/L Total Protein (6.3-8.2) g/dL Albumin (3.5-5.0) g/dL Urine Protein (Negative) Urine Glucose (UA) (Negative) Urine Blood (Negative) Urine Bilirubin (Negative) Urine WBC (0-5) /hpf Urine Bacteria (None) /hpf Hyaline Casts (0-2) /lpf Urine Mucus (None) /hpf Crossmatch 09/14/24 09/14/24 09/14/24 Range/Units 11:42 14:29 15:57 WBC (3.8-10.6) k/uL RBC (4.30-5.90) m/uL Hgb (13.0-17.5) gm/dL Hct (39.0-53.0) % Neutrophils # (Manual) (1.3-7.7) k/uL Monocytes # (Manual) (0-1.0) k/uL PT (10.0-12.5) sec INR (<1.2) Sodium (137-145) mmol/L Chloride (98-107) mmol/L Carbon Dioxide (22-30) mmol/L BUN (9-20) mg/dL Creatinine (0.66-1.25) mg/dL Glucose (74-99) mg/dL POC Glucose (mg/dL) 130 H 149 H (70-110) mg/dL Plasma Lactic Acid [place] 7.9 H* (0.7-2.0) mmol/L Calcium (8.4-10.2) mg/dL Phosphorus (2.5-4.5) mg/dL Magnesium (1.6-2.3) mg/dL Total Bilirubin (0.2-1.3) mg/dL Ammonia (<30) umol/L Total Protein (6.3-8.2) g/dL Albumin (3.5-5.0) g/dL Urine Protein (Negative) Urine Glucose (UA) (Negative) Urine Blood (Negative) Urine Bilirubin (Negative) Urine WBC (0-5) /hpf Urine Bacteria (None) /hpf Hyaline Casts (0-2) /lpf Urine Mucus (None) /hpf Crossmatch
[2024-09-14] MEDS: NOREPINEPHRINE 4 MG in SODIUM CHLORIDE 0.9% 250 ML IV SCH (17:43)
[2024-09-14] MEDS: NYSTATIN 100,000 UNIT/GM POWD 15 GM TOPICAL SCH (18:33)
[2024-09-14 21:15] LABS: Glucose,Whole Blood 139 mg/dL (70-110)
[2024-09-14 21:36] LABS: Hepatitis B Surface AB- Quant 3.5 mIU/mL
[2024-09-14 22:15] LABS: Hepatitis B Surface Antigen Nonreactive (Nonreactive)
[2024-09-15 03:20] LABS: HGB 9.7 gm/dL (13.0-17.5); MCH 31.7 pg (25.0-35.0); MCHC 34.6 g/dL (31.0-37.0); MCV 91.7 fL (80.0-100.0); Mean Platelet Volume 8.7; Platelet Count 197 k/uL (150-450); RBC 3.06 m/uL (4.30-5.90); RDW 15.6 % (11.5-15.5)
[2024-09-15] MEDS: ALPRAZolam 0.5 MG TAB PO STA (03:21)
[2024-09-15 03:24] LABS: ALT 15 U/L (4-49); AST 48 U/L (17-59); African American GFR (CKD) 11 (>60 ml/min/1.73 sqM); Albumin 2.6 g/dL (3.5-5.0); Alkaline Phosphatase 107 U/L (38-126); Anion Gap 15 mmol/L; Blood Urea Nitrogen 54 mg/dL (9-20); Carbon Dioxide 14 mmol/L (22-30); Chloride 99 mmol/L (98-107); Glucose 155 mg/dL (74-99); Magnesium 1.6 mg/dL (1.6-2.3); Non-African American GFR(CKD) 9 (>60 ml/min/1.73 sqM); Potassium 3.9 mmol/L (3.5-5.1); Sodium 128 mmol/L (137-145); Total Bilirubin 1.7 mg/dL (0.2-1.3); Total Protein 5.6 g/dL (6.3-8.2)
[2024-09-15 03:37] LABS: Band Neutrophils % 5 %; Eosinophils # (M) 0.18 k/uL (0-0.7); Neutrophils % (M) 74 %; Nucleated Red Blood Cells 0 /100 WBC (0-0); Total Cells Counted 100
[2024-09-15 03:39] LABS: Crenated RBC Present
[2024-09-15] MEDS: MAGNESIUM SULFATE-D5W PMX 1 GM in DEXTROSE/WATER 1 100ML.BAG IVPB SCH (03:52)
[2024-09-15] MEDS: POTASSIUM CHLORIDE 10 MEQ in WATER FOR INJECTION 1 100ML.BAG IVPB SCH (05:55)
[2024-09-15 06:23] LABS: Glucose,Whole Blood 218 mg/dL (70-110)
--- NOTE | 2024-09-15 08:06 | XR ---
EXAMINATION TYPE: XR chest 1V portable DATE OF EXAM: 09/15/2024 5:47 AM COMPARISON: 06/08/2012 CLINICAL INDICATION: Male, 58 years old with history of increased O2 demands, TECHNIQUE: XR chest 1V portable view(s) obtained. FINDINGS: The heart size is enlarged. The pulmonary vasculature is mildly prominent. The lungs are clear. Pacemaker overlies left chest IMPRESSION: 1. Very mainly with prominent pulmonary vascular markings. Correlate for developing congestive heart failure. [facility], , 09/15/2024 8:04 AM
[2024-09-15] MEDS: FUROSEMIDE 10 MG/ML 10 ML VIAL IV STA (08:54)
--- NOTE | 2024-09-15 09:24 | P.PN ---
Subjective Patient is seen in follow-up for acute kidney injury. Started on hemodialysis September 14, 2024. On Levophed. On bicarb drip. Oliguric. Vital signs are stable. On vasopressor support. General: No acute distress. HEENT: Head exam is unremarkable. On nasal cannula. LUNGS: No audible rhonchi or wheezes. HEART: Rate and Rhythm are regular. ABDOMEN: Obese, nontender. EXTREMITITES: No edema. Objective - Vital Signs Vital signs: Vital Signs Temp 97.8 F 09/15/24 04:00 Pulse 66 09/15/24 07:30 Resp 20 09/15/24 07:30 BP 108/53 09/15/24 07:30 Pulse Ox 94 L 09/15/24 07:30 FiO2 Intake & Output 09/14/24 09/15/24 09/15/24 18:59 06:59 18:59 Intake Total 260 2160.379 243.946 Output Total 60 475 5 Balance 200 1685.379 238.946 Weight 135.9 kg 146 kg Intake: IV 260 1230 180 Dextrose 5% in Water 1, 240 880 80 000 ml @ 80 mls/hr IV . [id number] TAL with Sodium Bicarb (1 Meq/ml) 150 ml Rx#:[id number] Invasive Line 1 10 20 Invasive Line 2 10 30 Magnesium Sulfate-D5w Pmx 200 1 gm In Dextrose/Water 1 100ml.bag @ 100 mls/hr IVPB Q1H TAL Rx#: [id number] Potassium Chloride 10 meq 100 100 In Water For Injection 1 100ml.bag @ 100 mls/hr IVPB Q1H TAL Rx#: [id number] Intake, IV Titration 530.379 63.946 Amount Norepinephrine 4 mg In 530.379 63.946 Sodium Chloride 0.9% 250 ml @ 0.03 MCG/KG/MIN 15. 533 mls/hr IV .[id number] TAL Rx#:[id number] Hemodialysis 400 Output: Urine 60 75 5 Hemodialysis 400 Hemodialysis Net Amount 0 Other: Voiding Method Indwelling Catheter - Labs CBC & Chem 7: 09/15/24 02:53 09/15/24 02:53 Labs: Abnormal Lab Results - Last 24 Hours (Table) 09/14/24 09/14/24 09/14/24 Range/Units 10:52 11:42 14:29 WBC (3.8-10.6) k/uL RBC (4.30-5.90) m/uL Hgb (13.0-17.5) gm/dL Hct (39.0-53.0) % RDW (11.5-15.5) % Neutrophils # (Manual) (1.3-7.7) k/uL Monocytes # (Manual) (0-1.0) k/uL Sodium (137-145) mmol/L Carbon Dioxide (22-30) mmol/L BUN (9-20) mg/dL Creatinine (0.66-1.25) mg/dL Glucose (74-99) mg/dL POC Glucose (mg/dL) 130 H (70-110) mg/dL Plasma Lactic Acid [place] 7.8 H* 7.9 H* (0.7-2.0) mmol/L Calcium (8.4-10.2) mg/dL Total Bilirubin (0.2-1.3) mg/dL Ammonia (<30) umol/L Total Protein (6.3-8.2) g/dL Albumin (3.5-5.0) g/dL Ur Random Sodium (40-220) mmol/L 09/14/24 09/14/24 09/14/24 Range/Units 15:57 17:21 17:40 WBC (3.8-10.6) k/uL RBC (4.30-5.90) m/uL Hgb (13.0-17.5) gm/dL Hct (39.0-53.0) % RDW (11.5-15.5) % Neutrophils # (Manual) (1.3-7.7) k/uL Monocytes # (Manual) (0-1.0) k/uL Sodium (137-145) mmol/L Carbon Dioxide (22-30) mmol/L BUN (9-20) mg/dL Creatinine (0.66-1.25) mg/dL Glucose (74-99) mg/dL POC Glucose (mg/dL) 149 H (70-110) mg/dL Plasma Lactic Acid [place] 8.0 H* (0.7-2.0) mmol/L Calcium (8.4-10.2) mg/dL Total Bilirubin (0.2-1.3) mg/dL Ammonia (<30) umol/L Total Protein (6.3-8.2) g/dL Albumin (3.5-5.0) g/dL Ur Random Sodium 22 L (40-220) mmol/L 09/14/24 09/14/24 09/14/24 Range/Units 20:08 21:13 23:34 WBC (3.8-10.6) k/uL RBC (4.30-5.90) m/uL Hgb (13.0-17.5) gm/dL Hct (39.0-53.0) % RDW (11.5-15.5) % Neutrophils # (Manual) (1.3-7.7) k/uL Monocytes # (Manual) (0-1.0) k/uL Sodium (137-145) mmol/L Carbon Dioxide (22-30) mmol/L BUN (9-20) mg/dL Creatinine (0.66-1.25) mg/dL Glucose (74-99) mg/dL POC Glucose (mg/dL) 139 H (70-110) mg/dL Plasma Lactic Acid [place] 5.8 H* 6.1 H* (0.7-2.0) mmol/L Calcium (8.4-10.2) mg/dL Total Bilirubin (0.2-1.3) mg/dL Ammonia (<30) umol/L Total Protein (6.3-8.2) g/dL Albumin (3.5-5.0) g/dL Ur Random Sodium (40-220) mmol/L 09/15/24 09/15/24 09/15/24 Range/Units 02:53 02:53 02:53 WBC 18.0 H (3.8-10.6) k/uL RBC 3.06 L (4.30-5.90) m/uL Hgb 9.7 L (13.0-17.5) gm/dL Hct 28.0 L (39.0-53.0) % RDW 15.6 H (11.5-15.5) % Neutrophils # (Manual) 14.20 H (1.3-7.7) k/uL Monocytes # (Manual) 1.80 H (0-1.0) k/uL Sodium 128 L (137-145) mmol/L Carbon Dioxide 14 L (22-30) mmol/L BUN 54 H (9-20) mg/dL Creatinine 6.07 H (0.66-1.25) mg/dL Glucose 155 H (74-99) mg/dL POC Glucose (mg/dL) (70-110) mg/dL Plasma Lactic Acid [place] (0.7-2.0) mmol/L Calcium 7.0 L (8.4-10.2) mg/dL Total Bilirubin 1.7 H (0.2-1.3) mg/dL Ammonia 114 H (<30) umol/L Total Protein 5.6 L (6.3-8.2) g/dL Albumin 2.6 L (3.5-5.0) g/dL Ur Random Sodium (40-220) mmol/L 09/15/24 09/15/24 09/15/24 Range/Units 02:53 05:40 06:22 WBC (3.8-10.6) k/uL RBC (4.30-5.90) m/uL Hgb (13.0-17.5) gm/dL Hct (39.0-53.0) % RDW (11.5-15.5) % Neutrophils # (Manual) (1.3-7.7) k/uL Monocytes # (Manual) (0-1.0) k/uL Sodium (137-145) mmol/L Carbon Dioxide (22-30) mmol/L BUN (9-20) mg/dL Creatinine (0.66-1.25) mg/dL Glucose (74-99) mg/dL POC Glucose (mg/dL) 218 H (70-110) mg/dL Plasma Lactic Acid [place] 5.1 H* 4.1 H* (0.7-2.0) mmol/L Calcium (8.4-10.2) mg/dL Total Bilirubin (0.2-1.3) mg/dL Ammonia (<30) umol/L Total Protein (6.3-8.2) g/dL Albumin (3.5-5.0) g/dL Ur Random Sodium (40-220) mmol/L 09/15/24 Range/Units 08:53 WBC (3.8-10.6) k/uL RBC (4.30-5.90) m/uL Hgb (13.0-17.5) gm/dL Hct (39.0-53.0) % RDW (11.5-15.5) % Neutrophils # (Manual) (1.3-7.7) k/uL Monocytes # (Manual) (0-1.0) k/uL Sodium (137-145) mmol/L Carbon Dioxide (22-30) mmol/L BUN (9-20) mg/dL Creatinine (0.66-1.25) mg/dL Glucose (74-99) mg/dL POC Glucose (mg/dL) (70-110) mg/dL Plasma Lactic Acid [place] 4.4 H* (0.7-2.0) mmol/L Calcium (8.4-10.2) mg/dL Total Bilirubin (0.2-1.3) mg/dL Ammonia (<30) umol/L Total Protein (6.3-8.2) g/dL Albumin (3.5-5.0) g/dL Ur Random Sodium (40-220) mmol/L Microbiology - Last 24 Hours (Table) 09/13/24 19:58 Blood Culture - Preliminary Blood Assessment and Plan Plan: Assessment: 1. Acute kidney injury secondary to ATN secondary to hypotension and recent large-volume paracentesis. Also concern for hepatorenal syndrome. Urine sodium 22. No hydronephrosis noted on kidney ultrasound. Creatinine up to 7.83 this admission. Oliguric. 2. Metabolic acidosis secondary to acute kidney injury and lactic acidosis. Improving with dialysis and bicarb drip. 3. Liver cirrhosis. 4. Hypovolemic hyponatremia. Initially improved with fluids. Stable. 5. UTI on antibiotics. 6. Hyperphosphatemia secondary to acute kidney injury. 7. Hypomagnesemia from poor intake and use of diuretics. Being replaced. 8. Encephalopathy. Hepatic and uremic. 9. Ascites with paracentesis done September 12, 2024 with 12.4 L drained. Plan: Second treatment of hemodialysis today and third treatment tomorrow. Lasix 80 mg IV once today. Add PhosLo with meals. Maintain bicarb drip. Maintain midodrine. Wean Levophed. Check abdominal ultrasound to assess for ascites.
--- NOTE | 2024-09-15 10:04 | US ---
EXAMINATION TYPE: US abdomen limited DATE OF EXAM: 09/15/2024 COMPARISON: US CLINICAL INDICATION: Male, 58 years old with history of ascites; Ascites Moderate amount of ascites, however many bowel loops in each image IMPRESSION: 1. Ascites [facility] Brent Peterson, , 09/15/2024 10:01 AM
[2024-09-15] MEDS: CALCIUM ACETATE 667 MG TAB PO SCH (12:16)
[2024-09-15 12:52] LABS: Glucose,Whole Blood 159 mg/dL (70-110)
--- NOTE | 2024-09-15 13:28 | P.PN ---
Subjective Progress Note Date: 09/15/24 Principal diagnosis: Hospital course: Patient is a 58 year old male past medical history of cirrhosis, ascites, paracentesis who presented to the ED today with abdominal pain. Patient was at a different facility where he had abnormal labs and that is why he was sent here at [facility]. Upon admission he was found to have abdominal pain, GI bleed and altered mental status. He states he has had this stomach ache for 1 3 weeks and noticed blood in the stool since 2 weeks. The daughter mentions that the patient is not an alcoholic and has been following up with gastroenterology and was recently diagnosed with liver cirrhosis about 2 months ago. At that time he was started on diuretics(Lasix 40 mg and spironolactone 100 mg), but the patient took the diuretic for a week and the diuretic was then discontinued. A paracentesis done on 09/09/2024 with 12.4 L of pleural fluid was removed, this was his frst paracentesis. Fluid cytology was negative. Denies fever, chills, headache, shortness of breath, chest pain, palpitations, coughing, nausea, vomiting. ED documentation reviewed and case discussed with ED provider. In the ED he was treated with 0.9 normal saline, ondansetron, lactulose, octreotide and 1 PRBC transfusion. While in the ED the patient's blood pressure dropped to 74/32 and the patient was moved to ICU for pressor support. Vitals on presentation: T 97.2 F, P 66 bpm, RR 18, BP 117/53, O2 97% on room air EKG: Paced rhythm, rate 65 bpm, QTc 581 ms Abdomen bladder ultrasound: Shows no evidence for hydronephrosis/neph rolithiasis/masses identified. Bladder exam, postvoid residual, bilateral jets exam limited as the patient was not awake CBC: WBC 15.4, hemoglobin 9.8 Coagulation panel: PT 13.8, INR 1.3 CMP: Sodium 126, chloride 97, bicarb 13, BUN 61, creatinine 1.57, corrected calcium 8.4, phosphorus 7.7, magnesium 1.5, total bilirubin 1.8, total protein 5.6, albumin 2.6 Lactic acid 7.6, 8.1, 8.7, 8.9, 0.8, 1.4, 7.8, 7.9 Ammonia: 69 ProBNP: 1240 Troponin: <0.012 UA: 2+ protein, trace glucose, trace blood, 1+ bilirubin, 10 WBC, occasional bacteria, 45%, moderate mucus 09/15/24: Patient seen and evaluated bedside today in the ICU. Hemodialysis net amount was 0 yesterday. Currently on second day of hemodialysis treatment. Labs show WBC 18, sodium, creatinine 6.07, BUN 54, lactic acid 4.1, ammonia 114. Hep B surface antigen nonreactive, hep B surface antibody is negative with antibody titer being 3.5 mIU/mL. Chest x-ray shows prominent pulmonary vascular markings. Abdomen ultrasound done today shows moderate amount of ascites. Review of systems: Pertinent positives and negatives as discussed in HPI, a complete review of systems was performed and all other systems are negative. Vitals: Signs Reviewed Physical examination: General: nontoxic, no distress Derm: warm, dry, intact Head: atraumatic, normocephalic, symmetric Mouth: no lip lesion, mucus membranes moist Cardiovascular: S1 S2 reg, no murmur Lungs: CTA bilateral Abdominal: Distended and tense, non-tender to palpataion Extremities: No cyanosis, clubbing, or pedal edema. Neuro: Alert, Oriented to person and place only, Gross neurological examination did not reveal any focal deficits. Psych: well appearing, appropriate affect Assessment/Plan: Patient is a 58-year-old male with past medical history of cirrhosis and ascites, paracentesis who presented to the ED with abdominal pain. He has been admitted for toxic metabolic encephalopathy and hepatorenal syndrome. #.Toxic metabolic encephalopathy, multifactorial cause #.Hepatic encephalopathy and Uremic Encephalopathy #.Ascites Hep B antibody negative, hep B surface antigen non reactive Continue lactulose 30 g TID Monitor ammonia level Gastroenterology is following Obtain Paracentesis fluid culture Conitnue IV Rocephin #. CHASE, secondary to hypotension and recent large-volume paracentesis, oliguric Soto catheter in place Monitor urine output Hemodialysis yesterday,net amount was 0. Second treatment of hemodialysis today Nephrology following #.Hyperphosphatemia,secondary to CHASE PhosLo 667 mg p.o. 3 times daily with meals added today #. Shock, secondary to intravsacular volume depletion vs cardiogenic Patient has hepatorenal syndrome as well as had low oral intake for the past few days along with history of cardiomyopathy BP improving Continue midodrine 10 mg PO TID Continue IV Norepinephrine 0.09 mcg/kg/min Hold diuretics, Farxiga, Lisinopril, Lipitor, Pioglitazone #. Hypovolemic hyponatremia Improving with fluids Lasix 80 mg IV once given today #. Metabolic acidosis secondary to CHASE and lactic acidosis Improving with dialysis Continue bicarb drip 80 ml/hr #. UTI UA shows 2+ protein, trace glucose, trace blood, 1+ bilirubin, 10 WBC, occasional bacteria, 45%, moderate mucus Rocephin started in the ED Continue IV Rocephin Blood culture preliminary report shows no growth in 24 hours #. GI Bleed Continue IV protonix 40 mg IV daily as GI prophylaxis #. Diabetes mellitus Insulin sliding scale Hold Farxiga, metformin, Pioglitazone #. Pain management Continue Dilaudid 1mg IVP Q3HR as needed #. Nausea and vomiting Continue Zofran 4 mg IVP every 8 hours as needed #.Hypomagnesemia, resolved Magnesium today is 1.6 F: E: N:Low sodium diet A: GI prophylaxis: IV protonix 40 mg IV daily Attestation Attestation/ Skylights Assembler Note: Attestation to Progress Note, Participation (I saw and evaluated the patient with the Resident, and I reviewed and discussed the patient with the Resident and agree with the Resident's findings and plans as documented above., management reviewed and discussed), I agree with findings & plan, Provider Signature (NAN GILLIAM, TRISTEN Farah. Objective - Vital Signs Vital signs: Vital Signs Temp 97.8 F 09/15/24 04:00 Pulse 66 09/15/24 07:30 Resp 20 09/15/24 07:30 BP 108/53 09/15/24 07:30 Pulse Ox 94 L 09/15/24 07:30 FiO2 Intake & Output 09/14/24 09/15/24 09/15/24 18:59 06:59 18:59 Intake Total 260 2160.379 243.946 Output Total 60 475 5 Balance 200 1685.379 238.946 Weight 135.9 kg 146 kg Intake: IV 260 1230 180 Dextrose 5% in Water 1, 240 880 80 000 ml @ 80 mls/hr IV . [id number] TAL with Sodium Bicarb (1 Meq/ml) 150 ml Rx#:[id number] Invasive Line 1 10 20 Invasive Line 2 10 30 Magnesium Sulfate-D5w Pmx 200 1 gm In Dextrose/Water 1 100ml.bag @ 100 mls/hr IVPB Q1H TAL Rx#: [id number] Potassium Chloride 10 meq 100 100 In Water For Injection 1 100ml.bag @ 100 mls/hr IVPB Q1H TAL Rx#: [id number] Intake, IV Titration 530.379 63.946 Amount Norepinephrine 4 mg In 530.379 63.946 Sodium Chloride 0.9% 250 ml @ 0.03 MCG/KG/MIN 15. 533 mls/hr IV .[id number] TAL Rx#:[id number] Hemodialysis 400 Output: Urine 60 75 5 Hemodialysis 400 Hemodialysis Net Amount 0 - Labs CBC & Chem 7: 09/24/24 06:06 09/24/24 06:06 Labs: Abnormal Lab Results - Last 24 Hours (Table) 09/14/24 09/14/24 09/14/24 Range/Units 08:20 10:52 11:42 WBC (3.8-10.6) k/uL RBC (4.30-5.90) m/uL Hgb (13.0-17.5) gm/dL Hct (39.0-53.0) % RDW (11.5-15.5) % Neutrophils # (Manual) (1.3-7.7) k/uL Monocytes # (Manual) (0-1.0) k/uL Sodium (137-145) mmol/L Carbon Dioxide (22-30) mmol/L BUN (9-20) mg/dL Creatinine (0.66-1.25) mg/dL Glucose (74-99) mg/dL POC Glucose (mg/dL) 130 H (70-110) mg/dL Plasma Lactic Acid Sarwat 8.4 H* 7.8 H* (0.7-2.0) mmol/L Calcium (8.4-10.2) mg/dL Total Bilirubin (0.2-1.3) mg/dL Ammonia (<30) umol/L Total Protein (6.3-8.2) g/dL Albumin (3.5-5.0) g/dL Ur Random Sodium (40-220) mmol/L 09/14/24 09/14/24 09/14/24 Range/Units 14:29 15:57 17:21 WBC (3.8-10.6) k/uL RBC (4.30-5.90) m/uL Hgb (13.0-17.5) gm/dL Hct (39.0-53.0) % RDW (11.5-15.5) % Neutrophils # (Manual) (1.3-7.7) k/uL Monocytes # (Manual) (0-1.0) k/uL Sodium (137-145) mmol/L Carbon Dioxide (22-30) mmol/L BUN (9-20) mg/dL Creatinine (0.66-1.25) mg/dL Glucose (74-99) mg/dL POC Glucose (mg/dL) 149 H (70-110) mg/dL Plasma Lactic Acid [place] 7.9 H* 8.0 H* (0.7-2.0) mmol/L Calcium (8.4-10.2) mg/dL Total Bilirubin (0.2-1.3) mg/dL Ammonia (<30) umol/L Total Protein (6.3-8.2) g/dL Albumin (3.5-5.0) g/dL Ur Random Sodium (40-220) mmol/L 09/14/24 09/14/24 09/14/24 Range/Units 17:40 20:08 21:13 WBC (3.8-10.6) k/uL RBC (4.30-5.90) m/uL Hgb (13.0-17.5) gm/dL Hct (39.0-53.0) % RDW (11.5-15.5) % Neutrophils # (Manual) (1.3-7.7) k/uL Monocytes # (Manual) (0-1.0) k/uL Sodium (137-145) mmol/L Carbon Dioxide (22-30) mmol/L BUN (9-20) mg/dL Creatinine (0.66-1.25) mg/dL Glucose (74-99) mg/dL POC Glucose (mg/dL) 139 H (70-110) mg/dL Plasma Lactic Acid [place] 5.8 H* (0.7-2.0) mmol/L Calcium (8.4-10.2) mg/dL Total Bilirubin (0.2-1.3) mg/dL Ammonia (<30) umol/L Total Protein (6.3-8.2) g/dL Albumin (3.5-5.0) g/dL Ur Random Sodium 22 L (40-220) mmol/L 09/14/24 09/15/24 09/15/24 Range/Units 23:34 02:53 02:53 WBC 18.0 H (3.8-10.6) k/uL RBC 3.06 L (4.30-5.90) m/uL Hgb 9.7 L (13.0-17.5) gm/dL Hct 28.0 L (39.0-53.0) % RDW 15.6 H (11.5-15.5) % Neutrophils # (Manual) 14.20 H (1.3-7.7) k/uL Monocytes # (Manual) 1.80 H (0-1.0) k/uL Sodium 128 L (137-145) mmol/L Carbon Dioxide 14 L (22-30) mmol/L BUN 54 H (9-20) mg/dL Creatinine 6.07 H (0.66-1.25) mg/dL Glucose 155 H (74-99) mg/dL POC Glucose (mg/dL) (70-110) mg/dL Plasma Lactic Acid Sarwat 6.1 H* (0.7-2.0) mmol/L Calcium 7.0 L (8.4-10.2) mg/dL Total Bilirubin 1.7 H (0.2-1.3) mg/dL Ammonia (<30) umol/L Total Protein 5.6 L (6.3-8.2) g/dL Albumin 2.6 L (3.5-5.0) g/dL Ur Random Sodium (40-220) mmol/L 09/15/24 09/15/24 09/15/24 Range/Units 02:53 02:53 05:40 WBC (3.8-10.6) k/uL RBC (4.30-5.90) m/uL Hgb (13.0-17.5) gm/dL Hct (39.0-53.0) % RDW (11.5-15.5) % Neutrophils # (Manual) (1.3-7.7) k/uL Monocytes # (Manual) (0-1.0) k/uL Sodium (137-145) mmol/L Carbon Dioxide (22-30) mmol/L BUN (9-20) mg/dL Creatinine (0.66-1.25) mg/dL Glucose (74-99) mg/dL POC Glucose (mg/dL) (70-110) mg/dL Plasma Lactic Acid Sarwat 5.1 H* 4.1 H* (0.7-2.0) mmol/L Calcium (8.4-10.2) mg/dL Total Bilirubin (0.2-1.3) mg/dL Ammonia 114 H (<30) umol/L Total Protein (6.3-8.2) g/dL Albumin (3.5-5.0) g/dL Ur Random Sodium (40-220) mmol/L 09/15/24 Range/Units 06:22 WBC (3.8-10.6) k/uL RBC (4.30-5.90) m/uL Hgb (13.0-17.5) gm/dL Hct (39.0-53.0) % RDW (11.5-15.5) % Neutrophils # (Manual) (1.3-7.7) k/uL Monocytes # (Manual) (0-1.0) k/uL Sodium (137-145) mmol/L Carbon Dioxide (22-30) mmol/L BUN (9-20) mg/dL Creatinine (0.66-1.25) mg/dL Glucose (74-99) mg/dL POC Glucose (mg/dL) 218 H (70-110) mg/dL Plasma Lactic Acid Sarwat (0.7-2.0) mmol/L Calcium (8.4-10.2) mg/dL Total Bilirubin (0.2-1.3) mg/dL Ammonia (<30) umol/L Total Protein (6.3-8.2) g/dL Albumin (3.5-5.0) g/dL Ur Random Sodium (40-220) mmol/L Microbiology - Last 24 Hours (Table) 09/13/24 19:58 Blood Culture - Preliminary Blood
--- NOTE | 2024-09-15 14:11 | P.PN ---
Subjective Progress Note Date: 09/15/24 This is a 58-year-old male patient, presented to the emergency department with generalized weakness, altered mentation, severe dehydration, lack of any oral intake over the past 5 days, diminished urine output, encephalopathy and hypotension. The patient was diagnosed having liver cirrhosis and the exact nature of this liver failure is not clear. No history of alcoholism. He was told to have nonalcoholic liver disease/fatty liver. No history of any hepatitis which is viral in nature. The patient was having episodes of GI bleeding. The patient was seen by gastroenterology and placed on a combination of diuretics. He has undergone a recent large-volume paracentesis on 09/12/2024 and total of 12.4 L of ascitic fluid was aspirated. Noted the patient was having significant abdominal swelling and increased lower extremity edema. The patient currently is very much lethargic and encephalopathic. According to the daughter is at the bedside, he is also known to have other medical problems i ncluding COPD, CHF and the patient has an AICD in place along with history of hypertension. No history of alcoholism or alcohol abuse. No history of any substance abuse. Noted, his baseline renal function from 2018 was within normal limits. Creatinine on 09/09/2024 was 3.5 and creatinine on admission was at 7.57. At the same time, the patient had significant abnormalities in the blood work where his sodium was at 126, potassium of 4.2, serum bicarbonate 13, BUN 61, glucose at 133, the lactic acid level was 8.7, the calcium level is at 7.3, bilirubin is at 1.8, LFTs are normal, ammonia level was 78, total protein was 5.6 with an albumin level of 2.6. UA is showing +2 protein, 10 WBCs, ascitic fluid that was aspirated on 09/09/2024 showed 231 WBCs, the predominant differential was lymphocytic in nature. The current coagulation profile shows an INR of 1.3 with a PT of 29. The white cell count is at 15.4 with a hemoglobin 9.8 and a platelet count of 167. No chest x-ray has been done. The ultrasound of the enal showed no evidence of any significant hydronephrosis. In the ED, the patient was given a bolus of 1 L of IV fluid and the patient is a currently on a bicarb infusion. He was started on IV Rocephin as an empiric antibiotic coverage. Nephrology was consulted and the patient will be undergoing hemodialysis. The patient was started on lactulose 30 g p.o. 3 times daily. Is also on midodrine 10 mg p.o. 3 times daily. He is on Sandostatin 50 mcg every 8 hours. Most recent blood pressure is 84/39. Pulse ox is 97% on room air oxygen. 09/15/2024, patient remains in intensive care unit. This morning, he seems to be more arousable compared to yesterday. He was not hepatic encephalopathy and he also had a component of metabolic encephalopathy related to his acute kidney injury. The patient underwent hemodialysis yesterday another session of hemodialysis being performed today. He received a total of 5.5 L of IV fluid and the patient is currently on a bicarb infusion running at 80 cc an hour. Urine output is between 0 and 50 cc an hour. He remains on norepinephrine at 0.09 mcg/kg/min. Chest x-ray from today showing CHF and the patient is currently on 3 L of oxygen by nasal cannula. Lactic acid level is dropped down to 4.4. Serum ammonia 814. He received a dose of Lasix given to him by nephrology 80 mg IV push. The patient remains on octreotide. The patient remains on IV Protonix. No evidence of any GI bleeding. In terms of labs, the WBC count is 18 with a hemoglobin 9.7 and a platelet count of 197. BUN is 54 with a creatinine of 6 and a sodium levels at 128. LFTs are noted and are within normal limits. Objective - Vital Signs Vital signs: Vital Signs Temp 97.3 F L 09/15/24 12:00 Pulse 61 09/15/24 13:30 Resp 18 09/15/24 13:30 BP 104/55 09/15/24 13:30 Pulse Ox 96 09/15/24 13:30 FiO2 Intake & Output 09/14/24 09/15/24 09/15/24 18:59 06:59 18:59 Intake Total 260 2160.379 1033.620 Output Total 60 475 55 Balance 200 1685.379 978.620 Weight 135.9 kg 146 kg Intake: IV 260 1230 680 Dextrose 5% in Water 1, 240 880 560 000 ml @ 80 mls/hr IV . [id number] TAL with Sodium Bicarb (1 Meq/ml) 150 ml Rx#:[id number] Invasive Line 1 10 20 Invasive Line 2 10 30 20 Magnesium Sulfate-D5w Pmx 200 1 gm In Dextrose/Water 1 100ml.bag @ 100 mls/hr IVPB Q1H [facility] Rx#: [id number] Potassium Chloride 10 meq 100 100 In Water For Injection 1 100ml.bag @ 100 mls/hr IVPB Q1H [facility] Rx#: [id number] Intake, IV Titration 530.379 353.620 Amount Norepinephrine 4 mg In 530.379 303.620 Sodium Chloride 0.9% 250 ml @ 0.03 MCG/KG/MIN 15. 533 mls/hr IV .[id number] [facility] Rx#:[id number] 2 gm In 50 Sodium Chloride 0.9% 50 ml @ 100 mls/hr IVPB Q24HR [facility] Rx#:[id number] Hemodialysis 400 Output: Urine 60 75 55 Hemodialysis 400 Hemodialysis Net Amount 0 Other: Voiding Method Indwelling Catheter # Bowel Movements 1 - Exam Patient is encephalopathic, lethargic, quite obtunded yet arousable. He is currently on 3 L of oxygen by nasal cannula, more awake and less encephalopathic compared to yesterday. Head exam was generally normal. There was no scleral icterus or corneal arcus. Mucous membranes are moist Neck was supple and without jugular venous distension, thyromegaly, or carotid bruits. Carotids were easily palpable bilaterally. There was no adenopathy. Lungs were clear to auscultation and percussion, and with normal diaphragmatic excursion. No wheezes or rales were noted. Cardiac exam revealed the PMI to be normally situated and sized. The rhythm was regular and no extrasystoles were noted during several minutes of auscultation. The first and second heart sounds were normal and physiologic splitting of the second heart sound was noted. There were no murmurs, rubs, clicks, or gallops. Abdomen is distended and the patient has a positive ascites. The patient also has eventration of the umbilicus. No direct tenderness. No rebound tenderness. No guarding. Extremities revealed trace edema, no cyanosis or clubbing. Neurologically, the patient is encephalopathic. - Labs CBC & Chem 7: 09/15/24 02:53 09/15/24 02:53 Labs: Abnormal Lab Results - Last 24 Hours (Table) 09/14/24 09/14/24 09/14/24 Range/Units 14:29 15:57 17:21 WBC (3.8-10.6) k/uL RBC (4.30-5.90) m/uL Hgb (13.0-17.5) gm/dL Hct (39.0-53.0) % RDW (11.5-15.5) % Neutrophils # (Manual) (1.3-7.7) k/uL Monocytes # (Manual) (0-1.0) k/uL Sodium (137-145) mmol/L Carbon Dioxide (22-30) mmol/L BUN (9-20) mg/dL Creatinine (0.66-1.25) mg/dL Glucose (74-99) mg/dL POC Glucose (mg/dL) 149 H (70-110) mg/dL Plasma Lactic Acid [place]wat 7.9 H* 8.0 H* (0.7-2.0) mmol/L Calcium (8.4-10.2) mg/dL Total Bilirubin (0.2-1.3) mg/dL Ammonia (<30) umol/L Total Protein (6.3-8.2) g/dL Albumin (3.5-5.0) g/dL Ur Random Sodium (40-220) mmol/L 09/14/24 09/14/24 09/14/24 Range/Units 17:40 20:08 21:13 WBC (3.8-10.6) k/uL RBC (4.30-5.90) m/uL Hgb (13.0-17.5) gm/dL Hct (39.0-53.0) % RDW (11.5-15.5) % Neutrophils # (Manual) (1.3-7.7) k/uL Monocytes # (Manual) (0-1.0) k/uL Sodium (137-145) mmol/L Carbon Dioxide (22-30) mmol/L BUN (9-20) mg/dL Creatinine (0.66-1.25) mg/dL Glucose (74-99) mg/dL POC Glucose (mg/dL) 139 H (70-110) mg/dL Plasma Lactic Acid [place]wat 5.8 H* (0.7-2.0) mmol/L Calcium (8.4-10.2) mg/dL Total Bilirubin (0.2-1.3) mg/dL Ammonia (<30) umol/L Total Protein (6.3-8.2) g/dL Albumin (3.5-5.0) g/dL Ur Random Sodium 22 L (40-220) mmol/L 09/14/24 09/15/24 09/15/24 Range/Units 23:34 02:53 02:53 WBC 18.0 H (3.8-10.6) k/uL RBC 3.06 L (4.30-5.90) m/uL Hgb 9.7 L (13.0-17.5) gm/dL Hct 28.0 L (39.0-53.0) % RDW 15.6 H (11.5-15.5) % Neutrophils # (Manual) 14.20 H (1.3-7.7) k/uL Monocytes # (Manual) 1.80 H (0-1.0) k/uL Sodium 128 L (137-145) mmol/L Carbon Dioxide 14 L (22-30) mmol/L BUN 54 H (9-20) mg/dL Creatinine 6.07 H (0.66-1.25) mg/dL Glucose 155 H (74-99) mg/dL POC Glucose (mg/dL) (70-110) mg/dL Plasma Lactic Acid [place]wat 6.1 H* (0.7-2.0) mmol/L Calcium 7.0 L (8.4-10.2) mg/dL Total Bilirubin 1.7 H (0.2-1.3) mg/dL Ammonia (<30) umol/L Total Protein 5.6 L (6.3-8.2) g/dL Albumin 2.6 L (3.5-5.0) g/dL Ur Random Sodium (40-220) mmol/L 09/15/24 09/15/24 09/15/24 Range/Units 02:53 02:53 05:40 WBC (3.8-10.6) k/uL RBC (4.30-5.90) m/uL Hgb (13.0-17.5) gm/dL Hct (39.0-53.0) % RDW (11.5-15.5) % Neutrophils # (Manual) (1.3-7.7) k/uL Monocytes # (Manual) (0-1.0) k/uL Sodium (137-145) mmol/L Carbon Dioxide (22-30) mmol/L BUN (9-20) mg/dL Creatinine (0.66-1.25) mg/dL Glucose (74-99) mg/dL POC Glucose (mg/dL) (70-110) mg/dL Plasma Lactic Acid [place] 5.1 H* 4.1 H* (0.7-2.0) mmol/L Calcium (8.4-10.2) mg/dL Total Bilirubin (0.2-1.3) mg/dL Ammonia 114 H (<30) umol/L Total Protein (6.3-8.2) g/dL Albumin (3.5-5.0) g/dL Ur Random Sodium (40-220) mmol/L 09/15/24 09/15/24 09/15/24 Range/Units 06:22 08:53 11:27 WBC (3.8-10.6) k/uL RBC (4.30-5.90) m/uL Hgb (13.0-17.5) gm/dL Hct (39.0-53.0) % RDW (11.5-15.5) % Neutrophils # (Manual) (1.3-7.7) k/uL Monocytes # (Manual) (0-1.0) k/uL Sodium (137-145) mmol/L Carbon Dioxide (22-30) mmol/L BUN (9-20) mg/dL Creatinine (0.66-1.25) mg/dL Glucose (74-99) mg/dL POC Glucose (mg/dL) 218 H (70-110) mg/dL Plasma Lactic Acid [place] 4.4 H* 3.9 H* (0.7-2.0) mmol/L Calcium (8.4-10.2) mg/dL Total Bilirubin (0.2-1.3) mg/dL Ammonia (<30) umol/L Total Protein (6.3-8.2) g/dL Albumin (3.5-5.0) g/dL Ur Random Sodium (40-220) mmol/L 09/15/24 Range/Units 12:50 WBC (3.8-10.6) k/uL RBC (4.30-5.90) m/uL Hgb (13.0-17.5) gm/dL Hct (39.0-53.0) % RDW (11.5-15.5) % Neutrophils # (Manual) (1.3-7.7) k/uL Monocytes # (Manual) (0-1.0) k/uL Sodium (137-145) mmol/L Carbon Dioxide (22-30) mmol/L BUN (9-20) mg/dL Creatinine (0.66-1.25) mg/dL Glucose (74-99) mg/dL POC Glucose (mg/dL) 159 H (70-110) mg/dL Plasma Lactic Acid [place] (0.7-2.0) mmol/L Calcium (8.4-10.2) mg/dL Total Bilirubin (0.2-1.3) mg/dL Ammonia (<30) umol/L Total Protein (6.3-8.2) g/dL Albumin (3.5-5.0) g/dL Ur Random Sodium (40-220) mmol/L Microbiology - Last 24 Hours (Table) 09/13/24 19:58 Blood Culture - Preliminary Blood Assessment and Plan Plan: Acute on chronic kidney injury, consider ATN, consider hepatorenal syndrome. Soto catheter in place and urine output is minimal at this point in time. No evidence of any hydronephrosis. Also, possibility of intravascular volume depletion/dehydration. The patient was resuscitated with IV fluids. The patient is currently on low-dose pressors. Is inhibitors have been discontinued. Appropriate medication adjustments are done. No nephrotoxic agents for now. The patient underwent hemodialysis yesterday and a second session of hemodialysis being performed today. Nephrology on the case. No evidence of any hydronephrosis. Acute lactic acidosis, improving Acute metabolic acidosis, improving and the patient remains on a bicarb infusion Hypotension, chronic maintained on midodrine on outpatient basis, rule out underlying infection/sepsis. Rule out intravascular volume depletion as the patient had no significant oral intake over the past 5 days. A cardiogenic component cannot be completely ruled out as the patient is also known to have c ardiomyopathy. Awaiting an echocardiogram to be done today. Acute hypoxic respiratory failure with signs of CHF and the patient is currently on 3 Suboxone by nasal cannula Liver cirrhosis. The patient has nonalcoholic fatty liver disease secondary to diabetes mellitus and obesity. Ascites status post large-volume paracentesis done on 09/12/2024 with removal of 12.4 L of ascitic fluid. The cytology is negative. No indication for SBP based on the cell count. Currently on IV Rocephin. Hepatic encephalopathy with elevated ammonia level, currently on lactulose Episodic GI bleed, rule out underlying portal hypertension and esophageal varices, hemoglobin is stable Coronary artery disease Cardiomyopathy the patient has an AICD in place COPD Diabetes mellitus type 2 Obesity Hyponatremia secondary to above Obstructive sleep apnea maintained on CPAP therapy on outpatient basis Plan The patient will be kept in the intensive care unit The patient is still on pressors and the norepinephrine will be gradually weaned off Hemodialysis performed yesterday and second session is being done today Soto catheter has been inserted and will monitor urine output, overall urine output is quite low at this point in time. Continue lactulose Follow-up ammonia level Watch for any signs of GI bleeding Empiric antibiotic coverage with IV Rocephin Blood cultures, pending Chest x-ray, consistent with CHF Continue octreotide IV Protonix Echocardiogram today Hold Zestril, Actos, Farxiga and metformin and Lipitor and diuretics for now Insulin sliding scale coverage Monitor lactic acid level, levels have improved Condition is still critical and will continue to follow make further recommenda tions based on his progress. This evaluation was done more than 30 minutes. Time with Patient: Greater than 30
--- NOTE | 2024-09-15 14:23 | P.PN ---
Subjective Progress Note Date: 09/15/24 Principal diagnosis: Acute kidney injury requiring hemodialysis Patient is seen and examined today as a follow-up. He is in the ICU. Patient remains somewhat obtunded. Ammonia level still elevated. Patient underwent right femoral vein temporary HD catheter placement yesterday. He received hemodialysis. Kidney function improving. Objective - Vital Signs Vital signs: Vital Signs Temp 97.3 F L 09/15/24 12:00 Pulse 61 09/15/24 13:30 Resp 18 09/15/24 13:30 BP 104/55 09/15/24 13:30 Pulse Ox 96 09/15/24 13:30 FiO2 Intake & Output 09/14/24 09/15/24 09/15/24 18:59 06:59 18:59 Intake Total 260 2160.379 1033.620 Output Total 60 475 55 Balance 200 1685.379 978.620 Weight 135.9 kg 146 kg Intake: IV 260 1230 680 Dextrose 5% in Water 1, 240 880 560 000 ml @ 80 mls/hr IV . [id number] TAL with Sodium Bicarb (1 Meq/ml) 150 ml Rx#:[id number] Invasive Line 1 10 20 Invasive Line 2 10 30 20 Magnesium Sulfate-D5w Pmx 200 1 gm In Dextrose/Water 1 100ml.bag @ 100 mls/hr IVPB Q1H [facility] Rx#: [id number] Potassium Chloride 10 meq 100 100 In Water For Injection 1 100ml.bag @ 100 mls/hr IVPB Q1H [facility] Rx#: [id number] Intake, IV Titration 530.379 353.620 Amount Norepinephrine 4 mg In 530.379 303.620 Sodium Chloride 0.9% 250 ml @ 0.03 MCG/KG/MIN 15. 533 mls/hr IV .[id number] [facility] Rx#:[id number] cefTRIAXone 2 gm In 50 Sodium Chloride 0.9% 50 ml @ 100 mls/hr IVPB Q24HR [facility] Rx#:[id number] Hemodialysis 400 Output: Urine 60 75 55 Hemodialysis 400 Hemodialysis Net Amount 0 Other: Voiding Method Indwelling Catheter # Bowel Movements 1 - Exam General appearance: The patient is alert, oriented, appears in no acute distress. HET: Head is normocephalic and atraumatic. Pupils are equal and reactive. Neck: Supple. Heart: Regular. Lungs: Equal expansion, normal respiratory effort. Abdomen: Soft, nontender, distended. Extremities: Normal skin color and turgor. Right groin with temporary HD catheter secured with dressing. No bleeding or hematoma noted. Neurological: No focal deficits. Strength and sensation are grossly intact. - Labs CBC & Chem 7: 09/15/24 02:53 09/15/24 02:53 Labs: Abnormal Lab Results - Last 24 Hours (Table) 09/14/24 09/14/24 09/14/24 Range/Units 14:29 15:57 17:21 WBC (3.8-10.6) k/uL RBC (4.30-5.90) m/uL Hgb (13.0-17.5) gm/dL Hct (39.0-53.0) % RDW (11.5-15.5) % Neutrophils # (Manual) (1.3-7.7) k/uL Monocytes # (Manual) (0-1.0) k/uL Sodium (137-145) mmol/L Carbon Dioxide (22-30) mmol/L BUN (9-20) mg/dL Creatinine (0.66-1.25) mg/dL Glucose (74-99) mg/dL POC Glucose (mg/dL) 149 H (70-110) mg/dL Plasma Lactic Acid [place] 7.9 H* 8.0 H* (0.7-2.0) mmol/L Calcium (8.4-10.2) mg/dL Total Bilirubin (0.2-1.3) mg/dL Ammonia (<30) umol/L Total Protein (6.3-8.2) g/dL Albumin (3.5-5.0) g/dL Ur Random Sodium (40-220) mmol/L 09/14/24 09/14/24 09/14/24 Range/Units 17:40 20:08 21:13 WBC (3.8-10.6) k/uL RBC (4.30-5.90) m/uL Hgb (13.0-17.5) gm/dL Hct (39.0-53.0) % RDW (11.5-15.5) % Neutrophils # (Manual) (1.3-7.7) k/uL Monocytes # (Manual) (0-1.0) k/uL Sodium (137-145) mmol/L Carbon Dioxide (22-30) mmol/L BUN (9-20) mg/dL Creatinine (0.66-1.25) mg/dL Glucose (74-99) mg/dL POC Glucose (mg/dL) 139 H (70-110) mg/dL Plasma Lactic Acid [place] 5.8 H* (0.7-2.0) mmol/L Calcium (8.4-10.2) mg/dL Total Bilirubin (0.2-1.3) mg/dL Ammonia (<30) umol/L Total Protein (6.3-8.2) g/dL Albumin (3.5-5.0) g/dL Ur Random Sodium 22 L (40-220) mmol/L 09/14/24 09/15/24 09/15/24 Range/Units 23:34 02:53 02:53 WBC 18.0 H (3.8-10.6) k/uL RBC 3.06 L (4.30-5.90) m/uL Hgb 9.7 L (13.0-17.5) gm/dL Hct 28.0 L (39.0-53.0) % RDW 15.6 H (11.5-15.5) % Neutrophils # (Manual) 14.20 H (1.3-7.7) k/uL Monocytes # (Manual) 1.80 H (0-1.0) k/uL Sodium 128 L (137-145) mmol/L Carbon Dioxide 14 L (22-30) mmol/L BUN 54 H (9-20) mg/dL Creatinine 6.07 H (0.66-1.25) mg/dL Glucose 155 H (74-99) mg/dL POC Glucose (mg/dL) (70-110) mg/dL Plasma Lactic Acid [place] 6.1 H* (0.7-2.0) mmol/L Calcium 7.0 L (8.4-10.2) mg/dL Total Bilirubin 1.7 H (0.2-1.3) mg/dL Ammonia (<30) umol/L Total Protein 5.6 L (6.3-8.2) g/dL Albumin 2.6 L (3.5-5.0) g/dL Ur Random Sodium (40-220) mmol/L 09/15/24 09/15/24 09/15/24 Range/Units 02:53 02:53 05:40 WBC (3.8-10.6) k/uL RBC (4.30-5.90) m/uL Hgb (13.0-17.5) gm/dL Hct (39.0-53.0) % RDW (11.5-15.5) % Neutrophils # (Manual) (1.3-7.7) k/uL Monocytes # (Manual) (0-1.0) k/uL Sodium (137-145) mmol/L Carbon Dioxide (22-30) mmol/L BUN (9-20) mg/dL Creatinine (0.66-1.25) mg/dL Glucose (74-99) mg/dL POC Glucose (mg/dL) (70-110) mg/dL Plasma Lactic Acid [place] 5.1 H* 4.1 H* (0.7-2.0) mmol/L Calcium (8.4-10.2) mg/dL Total Bilirubin (0.2-1.3) mg/dL Ammonia 114 H (<30) umol/L Total Protein (6.3-8.2) g/dL Albumin (3.5-5.0) g/dL Ur Random Sodium (40-220) mmol/L 09/15/24 09/15/24 09/15/24 Range/Units 06:22 08:53 11:27 WBC (3.8-10.6) k/uL RBC (4.30-5.90) m/uL Hgb (13.0-17.5) gm/dL Hct (39.0-53.0) % RDW (11.5-15.5) % Neutrophils # (Manual) (1.3-7.7) k/uL Monocytes # (Manual) (0-1.0) k/uL Sodium (137-145) mmol/L Carbon Dioxide (22-30) mmol/L BUN (9-20) mg/dL Creatinine (0.66-1.25) mg/dL Glucose (74-99) mg/dL POC Glucose (mg/dL) 218 H (70-110) mg/dL Plasma Lactic Acid [place] 4.4 H* 3.9 H* (0.7-2.0) mmol/L Calcium (8.4-10.2) mg/dL Total Bilirubin (0.2-1.3) mg/dL Ammonia (<30) umol/L Total Protein (6.3-8.2) g/dL Albumin (3.5-5.0) g/dL Ur Random Sodium (40-220) mmol/L 09/15/24 Range/Units 12:50 WBC (3.8-10.6) k/uL RBC (4.30-5.90) m/uL Hgb (13.0-17.5) gm/dL Hct (39.0-53.0) % RDW (11.5-15.5) % Neutrophils # (Manual) (1.3-7.7) k/uL Monocytes # (Manual) (0-1.0) k/uL Sodium (137-145) mmol/L Carbon Dioxide (22-30) mmol/L BUN (9-20) mg/dL Creatinine (0.66-1.25) mg/dL Glucose (74-99) mg/dL POC Glucose (mg/dL) 159 H (70-110) mg/dL Plasma Lactic Acid [place] (0.7-2.0) mmol/L Calcium (8.4-10.2) mg/dL Total Bilirubin (0.2-1.3) mg/dL Ammonia (<30) umol/L Total Protein (6.3-8.2) g/dL Albumin (3.5-5.0) g/dL Ur Random Sodium (40-220) mmol/L Microbiology - Last 24 Hours (Table) 09/13/24 19:58 Blood Culture - Preliminary Blood Assessment and Plan Assessment: 1. Acute kidney injury requiring hemodialysis (1) Cirrhosis of liver with ascites Current Visit: Yes Status: Acute Code(s): K74.60 - UNSPECIFIED CIRRHOSIS OF LIVER; R18.8 - OTHER ASCITES SNOMED Code(s): 03504959 (2) Hepatic encephalopathy Current Visit: Yes Status: Acute Code(s): K76.82 - HEPATIC ENCEPHALOPATHY SNOMED Code(s): 79549261 (3) Gastrointestinal hemorrhage Current Visit: Yes Status: Acute Code(s): K92.2 - GASTROINTESTINAL HEMORRHAGE, UNSPECIFIED SNOMED Code(s): 55251688 (4) Diarrhea Current Visit: Yes Status: Acute Code(s): R19.7 - DIARRHEA, UNSPECIFIED SNOMED Code(s): 44946200 (5) Coronary artery disease Current Visit: Yes Status: Acute Code(s): I25.10 - ATHSCL HEART DISEASE OF [place] CORONARY ARTERY W/O ANG PCTRS SNOMED Code(s): 32557124 (6) COPD (chronic obstructive pulmonary disease) Current Visit: Yes Status: Acute Code(s): J44.9 - CHRONIC OBSTRUCTIVE PULMONARY DISEASE, UNSPECIFIED SNOMED Code(s): 20468822 (7) Diabetes mellitus Current Visit: Yes Status: Acute Code(s): E11.9 - TYPE 2 DIABETES MELLITUS WITHOUT COMPLICATIONS SNOMED Code(s): 91462049 (8) Obesity Current Visit: Yes Status: Acute Code(s): E66.9 - OBESITY, UNSPECIFIED SNOMED Code(s): 649740871 (9) Acute renal failure Current Visit: Yes Status: Acute Code(s): N17.9 - ACUTE KIDNEY FAILURE, UNSPECIFIED SNOMED Code(s): 92980980 (10) Hyperammonemia Current Visit: Yes Status: Acute Code(s): E72.20 - DISORDER OF UREA CYCLE METABOLISM, UNSPECIFIED SNOMED Code(s): 6166021 (11) Hyponatremia Current Visit: Yes Status: Acute Code(s): E87.1 - HYPO-OSMOLALITY AND HYPONATREMIA SNOMED Code(s): 10202733 (12) Lactic acidosis Current Visit: Yes Status: Acute Code(s): E87.20 - ACIDOSIS, UNSPECIFIED SNOMED Code(s): 79142732 Plan: Continue with hemodialysis per recommendations from nephrology. Vascular surgery will be on standby if further needed for permacath placed call us back. Thank you for this consultation. The impression and plan of care has been dictated as directed. I performed a history and examination of this patient, discussed the same with the dictator. I agree with the dictator's note ,documented as a scribe. Any additional findings or plans will be noted.
--- NOTE | 2024-09-15 14:51 | P.PN ---
Subjective Progress Note Date: 09/15/24 Principal diagnosis: Ascites, liver cirrhosis This a pleasant 58-year-old male who was brought into the emergency department as an outside transfer from [facility]. Apparently according to the patient's daughter he had outpatient blood work done for concerns of increased fatigue, bloody bowel movements and overall not doing well. Past medical history includes diabetes mellitus, COPD, GERD, hyperlipidemia, hypertension, VT and sleep apnea. Patient is quite drowsy and poor historian. Daughter is at bedside and provides most of his history. Patient was recently diagnosed with liver cirrhosis about 2 months ago and follows with gastroenterology. He was started on diuretics and 08/30/2024. On presentation patient had elevated lactic acid, acute kidney injury and was seen by nephrology who is requesting temporary catheter placement for hemodialysis. Patient denies any shortness of breath or chest pain. He has had abdominal pain and distention as well as diarrhea which she states has had blood in it for the last 2 weeks duration. He was started on spironolactone 100 mg daily and Lasix 40 mg daily on 08/30/2024 and according to his daughter stopped 2 days ago. 09/12/2024 he had 12.4 L removed during his outpatient paracentesis, which was his first paracentesis. Fluid cytology was negative. Patient believes last colonoscopy was 2 to 3 years ago. Patient is hypotensive. Nephrology is on consult and requesting patient get hemodialysis. WBC 18.0 hemoglobin 10.0 hematocrit 29 platelet count 161,000 INR 1.3 sodium 128 potassium 4.7 BUN 62 creatinine 7.8 lactic acid 7.8 magnesium 1.4 total bilirubin 1.8 AST 52 ALT 24 alkaline phosphatase 98 ammonia level 69 09/15/2024 Patient seen and examined this morning as a follow-up for ascites and liver cirrhosis. Patient is somewhat obtunded. Ammonia level is 119. According to nursing he has not been having bowel movements just passing gas. He had a temporary HD catheter placed yesterday and received hemodialysis with some improvement in his kidneys. Lactic acid continues to trend down today 3.9. WBC 18.0 hemoglobin 9.7 hematocrit 28 platelet count 197,000 sodium 128 potassium 3.9 BUN 54 creatinine 6.0 total bilirubin 1.7 AST 48 ALT 15 alkaline phosphatase 107 ammonia 114. He remains afebrile. Remains on pressors for blood pressure support. Objective - Vital Signs Vital signs: Vital Signs Temp 97.3 F L 09/15/24 12:00 Pulse 61 09/15/24 13:30 Resp 18 09/15/24 13:30 BP 104/55 09/15/24 13:30 Pulse Ox 96 09/15/24 13:30 FiO2 Intake & Output 09/14/24 09/15/24 09/15/24 18:59 06:59 18:59 Intake Total 260 2160.379 1033.620 Output Total 60 475 55 Balance 200 1685.379 978.620 Weight 135.9 kg 146 kg Intake: IV 260 1230 680 Dextrose 5% in Water 1, 240 880 560 000 ml @ 80 mls/hr IV . [id number] TAL with Sodium Bicarb (1 Meq/ml) 150 ml Rx#:[id number] Invasive Line 1 10 20 Invasive Line 2 10 30 20 Magnesium Sulfate-D5w Pmx 200 1 gm In Dextrose/Water 1 100ml.bag @ 100 mls/hr IVPB Q1H [facility] Rx#: [id number] Potassium Chloride 10 meq 100 100 In Water For Injection 1 100ml.bag @ 100 mls/hr IVPB Q1H [facility] Rx#: [id number] Intake, IV Titration 530.379 353.620 Amount Norepinephrine 4 mg In 530.379 303.620 Sodium Chloride 0.9% 250 ml @ 0.03 MCG/KG/MIN 15. 533 mls/hr IV .[id number] [facility] Rx#:[id number] cefTRIAXone 2 gm In 50 Sodium Chloride 0.9% 50 ml @ 100 mls/hr IVPB Q24HR [facility] Rx#:[id number] Hemodialysis 400 Output: Urine 60 75 55 Hemodialysis 400 Hemodialysis Net Amount 0 Other: Voiding Method Indwelling Catheter # Bowel Movements 1 - Exam General appearance: The patient is alert, obtunded, appears in no acute distress. HET: Head is normocephalic and atraumatic. Conjunctiva pink. Sclera anicteric. Neck: Supple without lymphadenopathy. Abdomen: Soft, nontender, distended, ascites. No guarding or rigidity. Extremities: Normal skin color and turgor. Lower extremity edema. Skin: No rashes, no jaundice Neurological: No focal deficits. Alert and oriented to self. - Labs CBC & Chem 7: 09/15/24 02:53 09/15/24 02:53 Labs: Abnormal Lab Results - Last 24 Hours (Table) 09/14/24 09/14/24 09/14/24 Range/Units 14:29 15:57 17:21 WBC (3.8-10.6) k/uL RBC (4.30-5.90) m/uL Hgb (13.0-17.5) gm/dL Hct (39.0-53.0) % RDW (11.5-15.5) % Neutrophils # (Manual) (1.3-7.7) k/uL Monocytes # (Manual) (0-1.0) k/uL Sodium (137-145) mmol/L Carbon Dioxide (22-30) mmol/L BUN (9-20) mg/dL Creatinine (0.66-1.25) mg/dL Glucose (74-99) mg/dL POC Glucose (mg/dL) 149 H (70-110) mg/dL Plasma Lactic Acid [place] 7.9 H* 8.0 H* (0.7-2.0) mmol/L Calcium (8.4-10.2) mg/dL Total Bilirubin (0.2-1.3) mg/dL Ammonia (<30) umol/L Total Protein (6.3-8.2) g/dL Albumin (3.5-5.0) g/dL Ur Random Sodium (40-220) mmol/L 09/14/24 09/14/24 09/14/24 Range/Units 17:40 20:08 21:13 WBC (3.8-10.6) k/uL RBC (4.30-5.90) m/uL Hgb (13.0-17.5) gm/dL Hct (39.0-53.0) % RDW (11.5-15.5) % Neutrophils # (Manual) (1.3-7.7) k/uL Monocytes # (Manual) (0-1.0) k/uL Sodium (137-145) mmol/L Carbon Dioxide (22-30) mmol/L BUN (9-20) mg/dL Creatinine (0.66-1.25) mg/dL Glucose (74-99) mg/dL POC Glucose (mg/dL) 139 H (70-110) mg/dL Plasma Lactic Acid [place] 5.8 H* (0.7-2.0) mmol/L Calcium (8.4-10.2) mg/dL Total Bilirubin (0.2-1.3) mg/dL Ammonia (<30) umol/L Total Protein (6.3-8.2) g/dL Albumin (3.5-5.0) g/dL Ur Random Sodium 22 L (40-220) mmol/L 09/14/24 09/15/24 09/15/24 Range/Units 23:34 02:53 02:53 WBC 18.0 H (3.8-10.6) k/uL RBC 3.06 L (4.30-5.90) m/uL Hgb 9.7 L (13.0-17.5) gm/dL Hct 28.0 L (39.0-53.0) % RDW 15.6 H (11.5-15.5) % Neutrophils # (Manual) 14.20 H (1.3-7.7) k/uL Monocytes # (Manual) 1.80 H (0-1.0) k/uL Sodium 128 L (137-145) mmol/L Carbon Dioxide 14 L (22-30) mmol/L BUN 54 H (9-20) mg/dL Creatinine 6.07 H (0.66-1.25) mg/dL Glucose 155 H (74-99) mg/dL POC Glucose (mg/dL) (70-110) mg/dL Plasma Lactic Acid [place] 6.1 H* (0.7-2.0) mmol/L Calcium 7.0 L (8.4-10.2) mg/dL Total Bilirubin 1.7 H (0.2-1.3) mg/dL Ammonia (<30) umol/L Total Protein 5.6 L (6.3-8.2) g/dL Albumin 2.6 L (3.5-5.0) g/dL Ur Random Sodium (40-220) mmol/L 09/15/24 09/15/24 09/15/24 Range/Units 02:53 02:53 05:40 WBC (3.8-10.6) k/uL RBC (4.30-5.90) m/uL Hgb (13.0-17.5) gm/dL Hct (39.0-53.0) % RDW (11.5-15.5) % Neutrophils # (Manual) (1.3-7.7) k/uL Monocytes # (Manual) (0-1.0) k/uL Sodium (137-145) mmol/L Carbon Dioxide (22-30) mmol/L BUN (9-20) mg/dL Creatinine (0.66-1.25) mg/dL Glucose (74-99) mg/dL POC Glucose (mg/dL) (70-110) mg/dL Plasma Lactic Acid [place] 5.1 H* 4.1 H* (0.7-2.0) mmol/L Calcium (8.4-10.2) mg/dL Total Bilirubin (0.2-1.3) mg/dL Ammonia 114 H (<30) umol/L Total Protein (6.3-8.2) g/dL Albumin (3.5-5.0) g/dL Ur Random Sodium (40-220) mmol/L 09/15/24 09/15/24 09/15/24 Range/Units 06:22 08:53 11:27 WBC (3.8-10.6) k/uL RBC (4.30-5.90) m/uL Hgb (13.0-17.5) gm/dL Hct (39.0-53.0) % RDW (11.5-15.5) % Neutrophils # (Manual) (1.3-7.7) k/uL Monocytes # (Manual) (0-1.0) k/uL Sodium (137-145) mmol/L Carbon Dioxide (22-30) mmol/L BUN (9-20) mg/dL Creatinine (0.66-1.25) mg/dL Glucose (74-99) mg/dL POC Glucose (mg/dL) 218 H (70-110) mg/dL Plasma Lactic Acid [place] 4.4 H* 3.9 H* (0.7-2.0) mmol/L Calcium (8.4-10.2) mg/dL Total Bilirubin (0.2-1.3) mg/dL Ammonia (<30) umol/L Total Protein (6.3-8.2) g/dL Albumin (3.5-5.0) g/dL Ur Random Sodium (40-220) mmol/L 09/15/24 Range/Units 12:50 WBC (3.8-10.6) k/uL RBC (4.30-5.90) m/uL Hgb (13.0-17.5) gm/dL Hct (39.0-53.0) % RDW (11.5-15.5) % Neutrophils # (Manual) (1.3-7.7) k/uL Monocytes # (Manual) (0-1.0) k/uL Sodium (137-145) mmol/L Carbon Dioxide (22-30) mmol/L BUN (9-20) mg/dL Creatinine (0.66-1.25) mg/dL Glucose (74-99) mg/dL POC Glucose (mg/dL) 159 H (70-110) mg/dL Plasma Lactic Acid [place] (0.7-2.0) mmol/L Calcium (8.4-10.2) mg/dL Total Bilirubin (0.2-1.3) mg/dL Ammonia (<30) umol/L Total Protein (6.3-8.2) g/dL Albumin (3.5-5.0) g/dL Ur Random Sodium (40-220) mmol/L Microbiology - Last 24 Hours (Table) 09/13/24 19:58 Blood Culture - Preliminary Blood Assessment and Plan (1) Cirrhosis of liver with ascites Narrative/Plan: 58-year-old male recently diagnosed with cirrhosis of the liver, no history of alcoholism etiology likely fatty liver disease secondary to diabetes mellitus and obesity. Was recently started on diuretics and had his first paracentesis on 09/12/2024 with 12.4 L removed with a negative cytology. Patient is admitted with elevated white count and lactic acid. Need to consider possible underlying infection and need to consider possible SBP. Currently on Rocephin 2 g daily. Current Visit: Yes Status: Acute Code(s): K74.60 - UNSPECIFIED CIRRHOSIS OF LIVER; R18.8 - OTHER ASCITES SNOMED Code(s): 16857351 (2) Hepatic encephalopathy Narrative/Plan: Patient continues to have elevated ammonia level. Discussed with nursing to give lactulose 30 g every hour x 3 until patient has bowel movement. Then continue as ordered. Will also add Xifaxan Current Visit: Yes Status: Acute Code(s): K76.82 - HEPATIC ENCEPHALOPATHY SNOMED Code(s): 56490123 (3) Gastrointestinal hemorrhage Current Visit: Yes Status: Acute Code(s): K92.2 - GASTROINTESTINAL HEMORRHAGE, UNSPECIFIED SNOMED Code(s): 73000209 (4) Diarrhea Current Visit: Yes Status: Acute Code(s): R19.7 - DIARRHEA, UNSPECIFIED SNOMED Code(s): 04981964 (5) Coronary artery disease Current Visit: Yes Status: Acute Code(s): I25.10 - ATHSCL HEART DISEASE OF [place] CORONARY ARTERY W/O ANG PCTRS SNOMED Code(s): 83162517 (6) COPD (chronic obstructive pulmonary disease) Current Visit: Yes Status: Acute Code(s): J44.9 - CHRONIC OBSTRUCTIVE PULMONARY DISEASE, UNSPECIFIED SNOMED Code(s): 33037838 (7) Diabetes mellitus Current Visit: Yes Status: Acute Code(s): E11.9 - TYPE 2 DIABETES MELLITUS WITHOUT COMPLICATIONS SNOMED Code(s): 04696519 (8) Obesity Current Visit: Yes Status: Acute Code(s): E66.9 - OBESITY, UNSPECIFIED SNOMED Code(s): 060899919 (9) Acute renal failure Current Visit: Yes Status: Acute Code(s): N17.9 - ACUTE KIDNEY FAILURE, UNSPECIFIED SNOMED Code(s): 31927058 (10) Hyperammonemia Current Visit: Yes Status: Acute Code(s): E72.20 - DISORDER OF UREA CYCLE METABOLISM, UNSPECIFIED SNOMED Code(s): 5853225 (11) Hyponatremia Current Visit: Yes Status: Acute Code(s): E87.1 - HYPO-OSMOLALITY AND HYPONATREMIA SNOMED Code(s): 12040819 (12) Lactic acidosis Current Visit: Yes Status: Acute Code(s): E87.20 - ACIDOSIS, UNSPECIFIED SNOMED Code(s): 45018162 Plan: 1. Continue symptomatic and supportive care 2. Diuretics per recommendations from nephrology 3. Will add Xifaxan 550 mg twice daily 4. Lactulose 30 g 3 times daily, titrate to have 3-4 bowel movements daily 5. Daily CBC, CMP, ammonia 6. Renal diet 7. Abdominal ultrasound reviewed, can consider paracentesis in the next couple days. Collect fluid culture. 8. Rest of medical management per primary medical team Thank you for this consultation, we will continue to follow. Dr. Sara Thomas I agree with the dictator's note, documented as a scribe by Soila Farah.
[2024-09-15 16:52] LABS: Glucose,Whole Blood 155 mg/dL (70-110)
[2024-09-15 20:35] LABS: Glucose,Whole Blood 157 mg/dL (70-110)
[2024-09-15] MEDS: RIFAXIMIN 550 MG TABLET PO SCH (20:38)
[2024-09-16 01:26] LABS: HCT 26.7 % (39.0-53.0); HGB 9.2 gm/dL (13.0-17.5); MCH 31.9 pg (25.0-35.0); MCHC 34.6 g/dL (31.0-37.0); MCV 92.1 fL (80.0-100.0); Mean Platelet Volume 8.3; Platelet Count 176 k/uL (150-450); RDW 15.8 % (11.5-15.5); WBC 18.7 k/uL (3.8-10.6)
[2024-09-16 01:35] LABS: ALT 16 U/L (4-49); AST 55 U/L (17-59); African American GFR (CKD) 16 (>60 ml/min/1.73 sqM); Albumin 2.5 g/dL (3.5-5.0); Alkaline Phosphatase 109 U/L (38-126); Anion Gap 8 mmol/L; Blood Urea Nitrogen 41 mg/dL (9-20); Carbon Dioxide 24 mmol/L (22-30); Chloride 97 mmol/L (98-107); Glucose 148 mg/dL (74-99); Non-African American GFR(CKD) 14 (>60 ml/min/1.73 sqM); Potassium 3.4 mmol/L (3.5-5.1); Sodium 129 mmol/L (137-145); Total Bilirubin 1.8 mg/dL (0.2-1.3); Total Protein 5.5 g/dL (6.3-8.2)
[2024-09-16 01:36] LABS: INR 1.5 (<1.2)
[2024-09-16 01:37] LABS: Partial Thromboplastin Time 30.9 sec (22.0-30.0); Prothrombin Time 15.4 sec (10.0-12.5)
[2024-09-16 05:45] LABS: Glucose,Whole Blood 165 mg/dL (70-110)
--- NOTE | 2024-09-16 08:50 | P.PN ---
Subjective Progress Note Date: 09/16/24 Principal diagnosis: Ascites, liver cirrhosis This a pleasant 58-year-old male who was brought into the emergency department as an outside transfer from [facility]. Apparently according to the patient's daughter he had outpatient blood work done for concerns of increased fatigue, bloody bowel movements and overall not doing well. Past medical history includes diabetes mellitus, COPD, GERD, hyperlipidemia, hypertension, OR and sleep apnea. Patient is quite drowsy and poor historian. Daughter is at bedside and provides most of his history. Patient was recently diagnosed with liver cirrhosis about 2 months ago and follows with gastroenterology. He was started on diuretics and 08/30/2024. On presentation patient had elevated lactic acid, acute kidney injury and was seen by nephrology who is requesting temporary catheter placement for hemodialysis. Patient denies any shortness of breath or chest pain. He has had abdominal pain and distention as well as diarrhea which she states has had blood in it for the last 2 weeks duration. He was started on spironolactone 100 mg daily and Lasix 40 mg daily on 08/30/2024 and according to his daughter stopped 2 days ago. 09/12/2024 he had 12.4 L removed during his outpatient paracentesis, which was his first paracentesis. Fluid cytology was negative. Patient believes last colonoscopy was 2 to 3 years ago. Patient is hypotensive. Nephrology is on consult and requesting patient get hemodialysis. WBC 18.0 hemoglobin 10.0 hematocrit 29 platelet count 161,000 INR 1.3 sodium 128 potassium 4.7 BUN 62 creatinine 7.8 lactic acid 7.8 magnesium 1.4 total bilirubin 1.8 AST 52 ALT 24 alkaline phosphatase 98 ammonia level 69 09/15/2024 Patient seen and examined this morning as a follow-up for ascites and liver cirrhosis. Patient is somewhat obtunded. Ammonia level is 119. According to nursing he has not been having bowel movements just passing gas. He had a temporary HD catheter placed yesterday and received hemodialysis with some improvement in his kidneys. Lactic acid continues to trend down today 3.9. WBC 18.0 hemoglobin 9.7 hematocrit 28 platelet count 197,000 sodium 128 potassium 3.9 BUN 54 creatinine 6.0 total bilirubin 1.7 AST 48 ALT 15 alkaline phosphatase 107 ammonia 114. He remains afebrile. Remains on pressors for blood pressure support. 09/16/2024 Patient is seen and examined this morning as a follow-up. He is awake and alert but restless. Ammonia level improved today down to 62 from 119. Patient has been having multiple bowel movements. They are reported as nonbloody and not black. Hemoglobin remained stable, and kidney function continues to improve. WBC 18.7 hemoglobin 9.2 platelet count 176,000 INR 1.5 sodium 129 potassium 3.4 BUN 41 creatinine 4.4 total bilirubin 1.8 AST 55 ALT 16 alkaline phosphatase 109 patient remains on pressor support, he is afebrile. No reported abdominal pain. Objective - Vital Signs Vital signs: Vital Signs Temp 97.6 F 09/16/24 05:00 Pulse 64 09/16/24 06:15 Resp 19 09/16/24 06:15 BP 134/53 09/16/24 06:15 Pulse Ox 96 09/16/24 06:15 FiO2 Intake & Output 09/15/24 09/16/24 09/16/24 18:59 06:59 18:59 Intake Total 8285.440 8787.099 0 Output Total 470 100 10 Balance 0682.043 9945.099 -10 Weight 141 kg Intake: IV 1090 990 0 Dextrose 5% in Water 1, 960 960 0 000 ml @ 80 mls/hr IV . [id number] TAL with Sodium Bicarb (1 Meq/ml) 150 ml Rx#:[id number] Invasive Line 2 30 30 Potassium Chloride 10 meq 100 In Water For Injection 1 100ml.bag @ 100 mls/hr IVPB Q1H TAL Rx#: [id number] Intake, IV Titration 489.622 366.099 Amount Norepinephrine 4 mg In 439.622 366.099 Sodium Chloride 0.9% 250 ml @ 0.03 MCG/KG/MIN 15. 533 mls/hr IV .[id number] TAL Rx#:[id number] cefTRIAXone 2 gm In 50 Sodium Chloride 0.9% 50 ml @ 100 mls/hr IVPB Q24HR TAL Rx#:[id number] Hemodialysis 400 Output: Urine 70 100 10 Hemodialysis 400 Hemodialysis Net Amount 0 Other: Voiding Method Indwelling Catheter Indwelling Catheter # Bowel Movements 1 1 - Exam General appearance: The patient is alert, restless, appears in no acute distress. HET: Head is normocephalic and atraumatic. Conjunctiva pink. Sclera anicteric. Neck: Supple without lymphadenopathy. Abdomen: Soft, nontender, distended, ascites. No guarding or rigidity. Extremities: Normal skin color and turgor. Lower extremity edema. Skin: No rashes, no jaundice Neurological: No focal deficits. Alert and oriented to self. - Labs CBC & Chem 7: 09/16/24 01:18 09/16/24 01:18 Labs: Abnormal Lab Results - Last 24 Hours (Table) 09/15/24 09/15/24 09/15/24 Range/Units 08:53 11:27 12:50 WBC (3.8-10.6) k/uL RBC (4.30-5.90) m/uL Hgb (13.0-17.5) gm/dL Hct (39.0-53.0) % RDW (11.5-15.5) % PT (10.0-12.5) sec INR (<1.2) APTT (22.0-30.0) sec Sodium (137-145) mmol/L Potassium (3.5-5.1) mmol/L Chloride (98-107) mmol/L BUN (9-20) mg/dL Creatinine (0.66-1.25) mg/dL Glucose (74-99) mg/dL POC Glucose (mg/dL) 159 H (70-110) mg/dL Plasma Lactic Acid [place] 4.4 H* 3.9 H* (0.7-2.0) mmol/L Calcium (8.4-10.2) mg/dL Total Bilirubin (0.2-1.3) mg/dL Ammonia (<30) umol/L Total Protein (6.3-8.2) g/dL Albumin (3.5-5.0) g/dL 09/15/24 09/15/24 09/15/24 Range/Units 14:20 16:50 18:18 WBC (3.8-10.6) k/uL RBC (4.30-5.90) m/uL Hgb (13.0-17.5) gm/dL Hct (39.0-53.0) % RDW (11.5-15.5) % PT (10.0-12.5) sec INR (<1.2) APTT (22.0-30.0) sec Sodium (137-145) mmol/L Potassium (3.5-5.1) mmol/L Chloride (98-107) mmol/L BUN (9-20) mg/dL Creatinine (0.66-1.25) mg/dL Glucose (74-99) mg/dL POC Glucose (mg/dL) 155 H (70-110) mg/dL Plasma Lactic Acid [place] 3.5 H* 3.5 H* (0.7-2.0) mmol/L Calcium (8.4-10.2) mg/dL Total Bilirubin (0.2-1.3) mg/dL Ammonia (<30) umol/L Total Protein (6.3-8.2) g/dL Albumin (3.5-5.0) g/dL 09/15/24 09/15/24 09/16/24 Range/Units 20:34 20:53 01:06 WBC (3.8-10.6) k/uL RBC (4.30-5.90) m/uL Hgb (13.0-17.5) gm/dL Hct (39.0-53.0) % RDW (11.5-15.5) % PT (10.0-12.5) sec INR (<1.2) APTT (22.0-30.0) sec Sodium (137-145) mmol/L Potassium (3.5-5.1) mmol/L Chloride (98-107) mmol/L BUN (9-20) mg/dL Creatinine (0.66-1.25) mg/dL Glucose (74-99) mg/dL POC Glucose (mg/dL) 157 H (70-110) mg/dL Plasma Lactic Acid [place] 3.8 H* (0.7-2.0) mmol/L Calcium (8.4-10.2) mg/dL Total Bilirubin (0.2-1.3) mg/dL Ammonia 62 H (<30) umol/L Total Protein (6.3-8.2) g/dL Albumin (3.5-5.0) g/dL 09/16/24 09/16/24 09/16/24 Range/Units 01:06 01:18 01:18 WBC 18.7 H (3.8-10.6) k/uL RBC 2.90 L (4.30-5.90) m/uL Hgb 9.2 L (13.0-17.5) gm/dL Hct 26.7 L (39.0-53.0) % RDW 15.8 H (11.5-15.5) % PT (10.0-12.5) sec INR (<1.2) APTT (22.0-30.0) sec Sodium 129 L (137-145) mmol/L Potassium 3.4 L (3.5-5.1) mmol/L Chloride 97 L (98-107) mmol/L BUN 41 H (9-20) mg/dL Creatinine 4.40 H (0.66-1.25) mg/dL Glucose 148 H (74-99) mg/dL POC Glucose (mg/dL) (70-110) mg/dL Plasma Lactic Acid [place] 3.6 H* (0.7-2.0) mmol/L Calcium 7.0 L (8.4-10.2) mg/dL Total Bilirubin 1.8 H (0.2-1.3) mg/dL Ammonia (<30) umol/L Total Protein 5.5 L (6.3-8.2) g/dL Albumin 2.5 L (3.5-5.0) g/dL 09/16/24 09/16/24 09/16/24 Range/Units 01:18 05:12 05:44 WBC (3.8-10.6) k/uL RBC (4.30-5.90) m/uL Hgb (13.0-17.5) gm/dL Hct (39.0-53.0) % RDW (11.5-15.5) % PT 15.4 H (10.0-12.5) sec INR 1.5 H (<1.2) APTT 30.9 H (22.0-30.0) sec Sodium (137-145) mmol/L Potassium (3.5-5.1) mmol/L Chloride (98-107) mmol/L BUN (9-20) mg/dL Creatinine (0.66-1.25) mg/dL Glucose (74-99) mg/dL POC Glucose (mg/dL) 165 H (70-110) mg/dL Plasma Lactic Acid [place] 3.8 H* (0.7-2.0) mmol/L Calcium (8.4-10.2) mg/dL Total Bilirubin (0.2-1.3) mg/dL Ammonia (<30) umol/L Total Protein (6.3-8.2) g/dL Albumin (3.5-5.0) g/dL Microbiology - Last 24 Hours (Table) 09/13/24 19:58 Blood Culture - Preliminary Blood Assessment and Plan (1) Cirrhosis of liver with ascites Narrative/Plan: 58-year-old male recently diagnosed with cirrhosis of the liver, no history of alcoholism etiology likely fatty liver disease secondary to diabetes mellitus and obesity. Was recently started on diuretics and had his first paracentesis on 09/12/2024 with 12.4 L removed with a negative cytology. Patient is admitted with elevated white count and lactic acid. Need to consider possible underlying infection and need to consider possible SBP. Currently on Rocephin 2 g daily. Current Visit: Yes Status: Acute Code(s): K74.60 - UNSPECIFIED CIRRHOSIS OF LIVER; R18.8 - OTHER ASCITES SNOMED Code(s): 96891601 (2) Hepatic encephalopathy Narrative/Plan: Continue with lactulose 30 g 3 times daily, titrate to have 3-4 bowel movements daily. Continue with Xifaxan 550 mg twice daily. Current Visit: Yes Status: Acute Code(s): K76.82 - HEPATIC ENCEPHALOPATHY SNOMED Code(s): 25061866 (3) Gastrointestinal hemorrhage Current Visit: Yes Status: Acute Code(s): K92.2 - GASTROINTESTINAL HEM ORRHAGE, UNSPECIFIED SNOMED Code(s): 15248979 (4) Diarrhea Current Visit: Yes Status: Acute Code(s): R19.7 - DIARRHEA, UNSPECIFIED SNOMED Code(s): 94723383 (5) Coronary artery disease Current Visit: Yes Status: Acute Code(s): I25.10 - ATHSCL HEART DISEASE OF [place] CORONARY ARTERY W/O ANG PCTRS SNOMED Code(s): 20521917 (6) COPD (chronic obstructive pulmonary disease) Current Visit: Yes Status: Acute Code(s): J44.9 - CHRONIC OBSTRUCTIVE PULMONARY DISEASE, UNSPECIFIED SNOMED Code(s): 52568291 (7) Diabetes mellitus Current Visit: Yes Status: Acute Code(s): E11.9 - TYPE 2 DIABETES MELLITUS WITHOUT COMPLICATIONS SNOMED Code(s): 83024584 (8) Obesity Current Visit: Yes Status: Acute Code(s): E66.9 - OBESITY, UNSPECIFIED SNOMED Code(s): 111820310 (9) Acute renal failure Current Visit: Yes Status: Acute Code(s): N17.9 - ACUTE KIDNEY FAILURE, UNSPECIFIED SNOMED Code(s): 88338624 (10) Hyperammonemia Current Visit: Yes Status: Acute Code(s): E72.20 - DISORDER OF UREA CYCLE METABOLISM, UNSPECIFIED SNOMED Code(s): 6239030 (11) Hyponatremia Current Visit: Yes Status: Acute Code(s): E87.1 - HYPO-OSMOLALITY AND HYPONATREMIA SNOMED Code(s): 13060763 (12) Lactic acidosis Current Visit: Yes Status: Acute Code(s): E87.20 - ACIDOSIS, UNSPECIFIED SNOMED Code(s): 94129916 Plan: 1. Continue symptomatic and supportive care 2. Diuretics per recommendations from nephrology 3. Will add Xifaxan 550 mg twice daily 4. Lactulose 30 g 3 times daily, titrate to have 3-4 bowel movements daily 5. Daily CBC, CMP, ammonia 6. Renal diet 7. Paracentesis ordered with fluid cultures 8. Rest of medical management per primary medical team Thank you for allowing us to participate in the care of the patient, the GI service will sign off, gastroenterology will not be available at the hospital this weekend and through next week. If further evaluation by gastroenterology is required the patient will need transfer as per the primary team's discretion. Dr. Sara Thomas I agree with the dictator's note, documented as a scribe by Soila Farah.
--- NOTE | 2024-09-16 09:27 | CA ---
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 Katia Law RDCS Procedure CPT: Indications: LV function, CHF Cardiac Hx: Technical Quality: Poor Contrast 1: Total Dose (mL): Contrast 2: Total Dose (mL): MEASUREMENTS (Male / Female) Normal Values 2D ECHO LV Diastolic Diameter PLAX 5.4 cm 4.2 - 5.9 / 3.9 - 5.3 cm LV Systolic Diameter PLAX 3.2 cm IVS Diastolic Thickness 1.4 cm 0.6 - 1.0 / 0.6 - 0.9 cm LVPW Diastolic Thickness 1.5 cm 0.6 - 1.0 / 0.6 - 0.9 cm LV Relative Wall Thickness 0.5 RV Internal Dim ED PLAX 3.8 cm LA Systolic Diameter LX 4.2 cm 3.0 - 4.0 / 2.7 - 3.8 cm M-MODE Aortic Root Diameter MM 3.7 cm LA Systolic Diameter MM 2.7 cm LA Ao Ratio MM 0.7 DOPPLER AV Peak Velocity 183.8 cm/s AV Peak Gradient 13.5 mmHg Mitral E Point Velocity 88.6 cm/s Mitral A Point Velocity 106.3 cm/s Mitral E to A Ratio 0.8 MV Deceleration Time 502.7 ms TR Peak Velocity 309.0 cm/s TR Peak Gradient 38.2 mmHg Right Ventricular Systolic Press 48.2 mmHg FINDINGS Left Ventricle Left ventricular ejection fraction is estimated at 50-55 %. Left ventricular cavity size normal. Moderate concentric left ventricular hypertrophy. Normal left ventricular wall motion. Right Ventricle Moderate right ventricular dilatation. Moderate pulmonary hypertension. Right ventricular systolic pressure estimated at 48 mm hg. Right Atrium No right atrial thrombus or mass seen. Left Atrium Mild left atrial dilatation. No left atrial thrombus or mass present. Mitral Valve Mitral valve thickened. Mitral annular calcification. No mitral stenosis, regurgitation or prolapse. Aortic Valve Trileaflet aortic valve. No aortic valve stenosis or regurgitation. Tricuspid Valve Structurally normal tricuspid valve. Mild tricuspid regurgitation. Pulmonic Valve Structurally normal pulmonic valve. No pulmonic regurgitation. Pericardium No pericardial or pleural effusion. Aorta Normal size aortic root and proximal ascending aorta. CONCLUSIONS Normal LV function Moderate mitral regurgitation Previewed by: Dr. Cristhian Thomas MD (Electronically Signed) Final Date: 16 September 2024 09:27
--- NOTE | 2024-09-16 09:39 | P.PN ---
Subjective Patient is seen in follow-up for acute kidney injury. Started on hemodialysis September 14, 2024. On low-dose Levophed. Acidosis improved. Oliguric. Vital signs are stable. On vasopressor support. General: No acute distress. HEENT: Head exam is unremarkable. On nasal cannula. LUNGS: No audible rhonchi or wheezes. HEART: Rate and Rhythm are regular. ABDOMEN: Obese, nontender. Distention noted. EXTREMITITES: No edema. Objective - Vital Signs Vital signs: Vital Signs Temp 97.9 F 09/16/24 08:00 Pulse 59 L 09/16/24 08:30 Resp 14 09/16/24 08:45 BP 105/46 09/16/24 08:45 Pulse Ox 93 L 09/16/24 08:45 FiO2 Intake & Output 09/15/24 09/16/24 09/16/24 18:59 06:59 18:59 Intake Total 9203.008 5705.099 24.153 Output Total 470 100 45 Balance 0962.334 9525.099 -20.847 Weight 141 kg Intake: IV 1090 990 10 Dextrose 5% in Water 1, 960 960 0 000 ml @ 80 mls/hr IV . [id number] TAL with Sodium Bicarb (1 Meq/ml) 150 ml Rx#:[id number] Invasive Line 2 30 30 10 Potassium Chloride 10 meq 100 In Water For Injection 1 100ml.bag @ 100 mls/hr IVPB Q1H TAL Rx#: [id number] Intake, IV Titration 489.622 366.099 14.153 Amount Norepinephrine 4 mg In 439.622 366.099 14.153 Sodium Chloride 0.9% 250 ml @ 0.03 MCG/KG/MIN 15. 533 mls/hr IV .[id number] TAL Rx#:[id number] cefTRIAXone 2 gm In 50 Sodium Chloride 0.9% 50 ml @ 100 mls/hr IVPB Q24HR TAL Rx#:[id number] Hemodialysis 400 Output: Urine 70 100 45 Hemodialysis 400 Hemodialysis Net Amount 0 Other: Voiding Method Indwelling Catheter Indwelling Catheter # Bowel Movements 1 1 - Labs CBC & Chem 7: 09/16/24 01:18 09/16/24 01:18 Labs: Abnormal Lab Results - Last 24 Hours (Table) 11/06/0109/15/24 09/15/24 Range/Units 11:27 12:50 14:20 WBC (3.8-10.6) k/uL RBC (4.30-5.90) m/uL Hgb (13.0-17.5) gm/dL Hct (39.0-53.0) % RDW (11.5-15.5) % PT (10.0-12.5) sec INR (<1.2) APTT (22.0-30.0) sec Sodium (137-145) mmol/L Potassium (3.5-5.1) mmol/L Chloride (98-107) mmol/L BUN (9-20) mg/dL Creatinine (0.66-1.25) mg/dL Glucose (74-99) mg/dL POC Glucose (mg/dL) 159 H (70-110) mg/dL Plasma Lactic Acid [place] 3.9 H* 3.5 H* (0.7-2.0) mmol/L Calcium (8.4-10.2) mg/dL Total Bilirubin (0.2-1.3) mg/dL Ammonia (<30) umol/L Total Protein (6.3-8.2) g/dL Albumin (3.5-5.0) g/dL 09/15/24 09/15/24 09/15/24 Range/Units 16:50 18:18 20:34 WBC (3.8-10.6) k/uL RBC (4.30-5.90) m/uL Hgb (13.0-17.5) gm/dL Hct (39.0-53.0) % RDW (11.5-15.5) % PT (10.0-12.5) sec INR (<1.2) APTT (22.0-30.0) sec Sodium (137-145) mmol/L Potassium (3.5-5.1) mmol/L Chloride (98-107) mmol/L BUN (9-20) mg/dL Creatinine (0.66-1.25) mg/dL Glucose (74-99) mg/dL POC Glucose (mg/dL) 155 H 157 H (70-110) mg/dL Plasma Lactic Acid [place] 3.5 H* (0.7-2.0) mmol/L Calcium (8.4-10.2) mg/dL Total Bilirubin (0.2-1.3) mg/dL Ammonia (<30) umol/L Total Protein (6.3-8.2) g/dL Albumin (3.5-5.0) g/dL 09/15/24 09/16/24 09/16/24 Range/Units 20:53 01:06 01:06 WBC (3.8-10.6) k/uL RBC (4.30-5.90) m/uL Hgb (13.0-17.5) gm/dL Hct (39.0-53.0) % RDW (11.5-15.5) % PT (10.0-12.5) sec INR (<1.2) APTT (22.0-30.0) sec Sodium (137-145) mmol/L Potassium (3.5-5.1) mmol/L Chloride (98-107) mmol/L BUN (9-20) mg/dL Creatinine (0.66-1.25) mg/dL Glucose (74-99) mg/dL POC Glucose (mg/dL) (70-110) mg/dL Plasma Lactic Acid [place] 3.8 H* 3.6 H* (0.7-2.0) mmol/L Calcium (8.4-10.2) mg/dL Total Bilirubin (0.2-1.3) mg/dL Ammonia 62 H (<30) umol/L Total Protein (6.3-8.2) g/dL Albumin (3.5-5.0) g/dL 09/16/24 09/16/24 09/16/24 Range/Units 01:18 01:18 01:18 WBC 18.7 H (3.8-10.6) k/uL RBC 2.90 L (4.30-5.90) m/uL Hgb 9.2 L (13.0-17.5) gm/dL Hct 26.7 L (39.0-53.0) % RDW 15.8 H (11.5-15.5) % PT 15.4 H (10.0-12.5) sec INR 1.5 H (<1.2) APTT 30.9 H (22.0-30.0) sec Sodium 129 L (137-145) mmol/L Potassium 3.4 L (3.5-5.1) mmol/L Chloride 97 L (98-107) mmol/L BUN 41 H (9-20) mg/dL Creatinine 4.40 H (0.66-1.25) mg/dL Glucose 148 H (74-99) mg/dL POC Glucose (mg/dL) (70-110) mg/dL Plasma Lactic Acid [place] (0.7-2.0) mmol/L Calcium 7.0 L (8.4-10.2) mg/dL Total Bilirubin 1.8 H (0.2-1.3) mg/dL Ammonia (<30) umol/L Total Protein 5.5 L (6.3-8.2) g/dL Albumin 2.5 L (3.5-5.0) g/dL 09/16/24 09/16/24 Range/Units 05:12 05:44 WBC (3.8-10.6) k/uL RBC (4.30-5.90) m/uL Hgb (13.0-17.5) gm/dL Hct (39.0-53.0) % RDW (11.5-15.5) % PT (10.0-12.5) sec INR (<1.2) APTT (22.0-30.0) sec Sodium (137-145) mmol/L Potassium (3.5-5.1) mmol/L Chloride (98-107) mmol/L BUN (9-20) mg/dL Creatinine (0.66-1.25) mg/dL Glucose (74-99) mg/dL POC Glucose (mg/dL) 165 H (70-110) mg/dL Plasma Lactic Acid [place] 3.8 H* (0.7-2.0) mmol/L Calcium (8.4-10.2) mg/dL Total Bilirubin (0.2-1.3) mg/dL Ammonia (<30) umol/L Total Protein (6.3-8.2) g/dL Albumin (3.5-5.0) g/dL Microbiology - Last 24 Hours (Table) 09/14/24 17:40 Urine Culture - Final Urine,Catheterized 09/13/24 19:58 Blood Culture - Preliminary Blood Assessment and Plan Plan: Assessment: 1. Acute kidney injury secondary to ATN secondary to hypotension and recent large-volume paracentesis. Also concern for hepatorenal syndrome. Urine sodium 22. No hydronephrosis noted on kidney ultrasound. Creatinine up to 7.83 this admission. Oliguric. 2. Metabolic acidosis secondary to acute kidney injury and lactic acidosis. Improving with dialysis and bicarb drip. 3. Liver cirrhosis. 4. Hyponatremia. Initially hypovolemic. Now hypervolemic with significant ascites. 5. UTI on antibiotics. 6. Hyperphosphatemia secondary to acute kidney injury. On PhosLo. 7. Hypomagnesemia from poor intake and use of diuretics. Replaced. Improved. 8. Encephalopathy. Hepatic and uremic. 9. Ascites with paracentesis done September 12, 2024 with 12.4 L drained. Plan: Hemodialysis today. Will attempt 1 L ultrafiltration. Stop bicarb drip. Add IV Lasix 80 mg twice daily. Maintain midodrine. Wean Levophed. Paracentesis pending. IV albumin pre and postprocedure. Replace potassium.
[2024-09-16] MEDS: FUROSEMIDE 10 MG/ML 10 ML VIAL IV SCH (10:03)
[2024-09-16] MEDS: PANTOPRAZOLE 40 MG/10 ML VIAL IV SCH (10:03)
[2024-09-16 12:01] LABS: Glucose,Whole Blood 149 mg/dL (70-110)
--- NOTE | 2024-09-16 13:23 | P.PN ---
Subjective Progress Note Date: 09/16/24 Principal diagnosis: Hospital course: Patient is a 58 year old male past medical history of cirrhosis, ascites, paracentesis who presented to the ED today with abdominal pain. Patient was at a different facility where he had abnormal labs and that is why he was sent here at [facility]. Upon admission he was found to have abdominal pain, GI bleed and altered mental status. He states he has had this stomach ache for 1 3 weeks and noticed blood in the stool since 2 weeks. The daughter mentions that the patient is not an alcoholic and has been following up with gastroenterology and was recently diagnosed with liver cirrhosis about 2 months ago. At that time he was started on diuretics(Lasix 40 mg and spironolactone 100 mg), but the patient took the diuretic for a week and the diuretic was then discontinued. A paracentesis done on 09/09/2024 with 12.4 L of pleural fluid was removed, this was his frst paracentesis. Fluid cytology was negative. Denies fever, chills, headache, shortness of breath, chest pain, palpitations, coughing, nausea, vomiting. ED documentation reviewed and case discussed with ED provider. In the ED he was treated with 0.9 normal saline, ondansetron, lactulose, octreotide and 1 PRBC transfusion. While in the ED the patient's blood pressure dropped to 74/32 and the patient was moved to ICU for pressor support. Vitals on presentation: T 97.2 F, P 66 bpm, RR 18, BP 117/53, O2 97% on room air EKG: Paced rhythm, rate 65 bpm, QTc 581 ms Abdomen bladder ultrasound: Shows no evidence for hydronephrosis/neph rolithiasis/masses identified. Bladder exam, postvoid residual, bilateral jets exam limited as the patient was not awake CBC: WBC 15.4, hemoglobin 9.8 Coagulation panel: PT 13.8, INR 1.3 CMP: Sodium 126, chloride 97, bicarb 13, BUN 61, creatinine 1.57, corrected calcium 8.4, phosphorus 7.7, magnesium 1.5, total bilirubin 1.8, total protein 5.6, albumin 2.6 Lactic acid 7.6, 8.1, 8.7, 8.9, 0.8, 1.4, 7.8, 7.9 Ammonia: 69 ProBNP: 1240 Troponin: <0.012 UA: 2+ protein, trace glucose, trace blood, 1+ bilirubin, 10 WBC, occasional bacteria, 45%, moderate mucus 09/15/24: Patient seen and evaluated bedside today in the ICU. Hemodialysis net amount was 0 yesterday. Currently on second day of hemodialysis treatment. Labs show WBC 18, sodium, creatinine 6.07, BUN 54, lactic acid 4.1, ammonia 114. Hep B surface antigen nonreactive, hep B surface antibody is negative with antibody titer being 3.5 mIU/mL. Chest x-ray shows prominent pulmonary vascular markings. Abdomen ultrasound done today shows moderate amount of ascites. 09/16/24: Patient seen and examined today in the ICU. Patient is having bowel movements with lactulose. He had the second hemodialysis treatment yesterday. Hemodialysis net amount was 0. Kidney function is improving. Labs today show WBC 18.7, hemoglobin 9.2, PT 15.4, INR 1.5, APTT 30.9, sodium 129, potassium 3.4, BUN 41, creatinine 4.4, lactic acid 3.8 and ammonia 62. Blood culture shows no growth after 48 hours. Urine culture shows no growth after 24 hours. Review of systems: Pertinent positives and negatives as discussed in HPI, a complete review of systems was performed and all other systems are negative. Vitals: Signs Reviewed Physical examination: General: nontoxic, no distress Derm: warm, dry, intact Head: atraumatic, normocephalic, symmetric Mouth: no lip lesion, mucus membranes moist Cardiovascular: S1 S2 reg, no murmur Lungs: CTA bilateral Abdominal: Distended and tense, non-tender to palpataion Extremities: No cyanosis, clubbing, or pedal edema. Neuro: Alert, Gross neurological examination did not reveal any focal deficits. Psych: well appearing, appropriate affect Assessment/Plan: Patient is a 58-year-old male with past medical history of cirrhosis and ascites, paracentesis who presented to the ED with abdominal pain. He has been admitted for toxic metabolic encephalopathy, hepatorenal syndrome and CHASE and is currently on his 3rd of hemodialysis treatment today. #.Toxic metabolic encephalopathy, multifactorial cause #.Hepatic encephalopathy and Uremic Encephalopathy #.Ascites Hep B antibody negative, hep B surface antigen non reactive Continue lactulose 30 g TID and Xifaxan 550 mg PO TID Monitor ammonia level Gastroenterology is following Obtain culture of Paracentesis fluid from 09/09/24 Blood culture shows no growth in 48 hours. Paracentesis with fluid cultures ordered per GI, IV Albumin pre and post procedure Rocephin started in the ED IV Rocephin for empiric coverage #. CHASE, secondary to hypotension and recent large-volume paracentesis, oliguric Urine sodium [address] with minimal urine output Monitor urine output Hemodialysis yesterday,net amount was 0. Third treatment of hemodialysis today, attempt 1L ultrafiltration today Nephrology following #.Hyperphosphatemia,secondary to CHASE Continue PhosLo 667 mg p.o. 3 times daily with meals #. Shock, secondary to intravsacular volume depletion vs cardiogenic Patient has hepatorenal syndrome as well as had low oral intake for the past few days along with history of cardiomyopathy Continue midodrine 10 mg PO TID Levophed discontinued Hold diuretics, Farxiga, Lisinopril, Lipitor, Pioglitazone #. Hypervolemic hyponatremia Na 129 IV lasix 80 mg BID started today Monitor BMP Nephrology is following #. UTI UA shows 2+ protein, trace glucose, trace blood, 1+ bilirubin, 10 WBC, occ asional bacteria, 45%, moderate mucus Rocephin started in the ED Continue IV Rocephin empirically Urine culture shows no growth after 24 hours. #. GI Bleed Continue IV protonix 40 mg IV daily as GI prophylaxis #. Diabetes mellitus Insulin sliding scale Hold Farxiga, metformin, Pioglitazone #. Pain management Continue Dilaudid 1mg IVP Q3HR as needed #. Nausea and vomiting Continue Zofran 4 mg IVP every 8 hours as needed #. Metabolic acidosis secondary to CHASE and lactic acidosis, Resolved Bicarb drip discontinued #.Hypomagnesemia, resolved F:Bicarb drip E:Replete as required N:Renal diet A: GI prophylaxis: IV protonix 40 mg IV daily Attestation Attestation/ Equipment Maintenance Technician Note: Attestation to Progress Note, Participation (I saw and evaluated the patient with the Resident, and I reviewed and discussed the pa tient with the Resident and agree with the Resident's findings and plans as documented above., management reviewed and discussed), I agree with findings & plan, Provider Signature (NAN GILLIAM, TRISTEN Martin Objective - Vital Signs Vital signs: Vital Signs Temp 97.6 F 11/08/24 05:00 Pulse 69 09/16/24 07:00 Resp 11 L 09/16/24 07:00 BP 94/48 09/16/24 07:00 Pulse Ox 98 09/16/24 07:00 FiO2 Intake & Output 09/15/24 09/16/24 09/16/24 18:59 06:59 18:59 Intake Total 3331.422 2836.099 0 Output Total 470 100 10 Balance 3036.444 0516.099 -10 Weight 141 kg Intake: IV 1090 990 0 Dextrose 5% in Water 1, 960 960 0 000 ml @ 80 mls/hr IV . [id number] TAL with Sodium Bicarb (1 Meq/ml) 150 ml Rx#:[id number] Invasive Line 2 30 30 Potassium Chloride 10 meq 100 In Water For Injection 1 100ml.bag @ 100 mls/hr IVPB Q1H TAL Rx#: [id number] Intake, IV Titration 489.622 366.099 Amount Norepinephrine 4 mg In 439.622 366.099 Sodium Chloride 0.9% 250 ml @ 0.03 MCG/KG/MIN 15. 533 mls/hr IV .[id number] TAL Rx#:[id number] cefTRIAXone 2 gm In 50 Sodium Chloride 0.9% 50 ml @ 100 mls/hr IVPB Q24HR TAL Rx#:[id number] Hemodialysis 400 Output: Urine 70 100 10 Hemodialysis 400 Hemodialysis Net Amount 0 Other: Voiding Method Indwelling Catheter Indwelling Catheter # Bowel Movements 1 1 - Labs CBC & Chem 7: 09/24/24 06:06 09/24/24 06:06 Labs: Abnormal Lab Results - Last 24 Hours (Table) 09/15/24 09/15/24 09/15/24 Range/Units 08:53 11:27 12:50 WBC (3.8-10.6) k/uL RBC (4.30-5.90) m/uL Hgb (13.0-17.5) gm/dL Hct (39.0-53.0) % RDW (11.5-15.5) % PT (10.0-12.5) sec INR (<1.2) APTT (22.0-30.0) sec Sodium (137-145) mmol/L Potassium (3.5-5.1) mmol/L Chloride (98-107) mmol/L BUN (9-20) mg/dL Creatinine (0.66-1.25) mg/dL Glucose (74-99) mg/dL POC Glucose (mg/dL) 159 H (70-110) mg/dL Plasma Lactic Acid [place] 4.4 H* 3.9 H* (0.7-2.0) mmol/L Calcium (8.4-10.2) mg/dL Total Bilirubin (0.2-1.3) mg/dL Ammonia (<30) umol/L Total Protein (6.3-8.2) g/dL Albumin (3.5-5.0) g/dL 09/15/24 09/15/24 09/15/24 Range/Units 14:20 16:50 18:18 WBC (3.8-10.6) k/uL RBC (4.30-5.90) m/uL Hgb (13.0-17.5) gm/dL Hct (39.0-53.0) % RDW (11.5-15.5) % PT (10.0-12.5) sec INR (<1.2) APTT (22.0-30.0) sec Sodium (137-145) mmol/L Potassium (3.5-5.1) mmol/L Chloride (98-107) mmol/L BUN (9-20) mg/dL Creatinine (0.66-1.25) mg/dL Glucose (74-99) mg/dL POC Glucose (mg/dL) 155 H (70-110) mg/dL Plasma Lactic Acid [place] 3.5 H* 3.5 H* (0.7-2.0) mmol/L Calcium (8.4-10.2) mg/dL Total Bilirubin (0.2-1.3) mg/dL Ammonia (<30) umol/L Total Protein (6.3-8.2) g/dL Albumin (3.5-5.0) g/dL 09/15/24 09/15/24 09/16/24 Range/Units 20:34 20:53 01:06 WBC (3.8-10.6) k/uL RBC (4.30-5.90) m/uL Hgb (13.0-17.5) gm/dL Hct (39.0-53.0) % RDW (11.5-15.5) % PT (10.0-12.5) sec INR (<1.2) APTT (22.0-30.0) sec Sodium (137-145) mmol/L Potassium (3.5-5.1) mmol/L Chloride (98-107) mmol/L BUN (9-20) mg/dL Creatinine (0.66-1.25) mg/dL Glucose (74-99) mg/dL POC Glucose (mg/dL) 157 H (70-110) mg/dL Plasma Lactic Acid [place] 3.8 H* (0.7-2.0) mmol/L Calcium (8.4-10.2) mg/dL Total Bilirubin (0.2-1.3) mg/dL Ammonia 62 H (<30) umol/L Total Protein (6.3-8.2) g/dL Albumin (3.5-5.0) g/dL 09/16/24 09/16/24 09/16/24 Range/Units 01:06 01:18 01:18 WBC 18.7 H (3.8-10.6) k/uL RBC 2.90 L (4.30-5.90) m/uL Hgb 9.2 L (13.0-17.5) gm/dL Hct 26.7 L (39.0-53.0) % RDW 15.8 H (11.5-15.5) % PT (10.0-12.5) sec INR (<1.2) APTT (22.0-30.0) sec Sodium 129 L (137-145) mmol/L Potassium 3.4 L (3.5-5.1) mmol/L Chloride 97 L (98-107) mmol/L BUN 41 H (9-20) mg/dL Creatinine 4.40 H (0.66-1.25) mg/dL Glucose 148 H (74-99) mg/dL POC Glucose (mg/dL) (70-110) mg/dL Plasma Lactic Acid [place] 3.6 H* (0.7-2.0) mmol/L Calcium 7.0 L (8.4-10.2) mg/dL Total Bilirubin 1.8 H (0.2-1.3) mg/dL Ammonia (<30) umol/L Total Protein 5.5 L (6.3-8.2) g/dL Albumin 2.5 L (3.5-5.0) g/dL 09/16/24 09/16/24 09/16/24 Range/Units 01:18 05:12 05:44 WBC (3.8-10.6) k/uL RBC (4.30-5.90) m/uL Hgb (13.0-17.5) gm/dL Hct (39.0-53.0) % RDW (11.5-15.5) % PT 15.4 H (10.0-12.5) sec INR 1.5 H (<1.2) APTT 30.9 H (22.0-30.0) sec Sodium (137-145) mmol/L Potassium (3.5-5.1) mmol/L Chloride (98-107) mmol/L BUN (9-20) mg/dL Creatinine (0.66-1.25) mg/dL Glucose (74-99) mg/dL POC Glucose (mg/dL) 165 H (70-110) mg/dL Plasma Lactic Acid [place] 3.8 H* (0.7-2.0) mmol/L Calcium (8.4-10.2) mg/dL Total Bilirubin (0.2-1.3) mg/dL Ammonia (<30) umol/L Total Protein (6.3-8.2) g/dL Albumin (3.5-5.0) g/dL Microbiology - Last 24 Hours (Table) 09/13/24 19:58 Blood Culture - Preliminary Blood
[2024-09-16] MEDS: ALBUMIN HUMAN 25% 50 ML in EMPTY BAG 1 BAG IVPB SCH (13:48)
--- NOTE | 2024-09-16 14:13 | P.PN ---
Subjective Progress Note Date: 09/16/24 This is a 58-year-old male patient, presented to the emergency department with generalized weakness, altered mentation, severe dehydration, lack of any oral intake over the past 5 days, diminished urine output, encephalopathy and hypotension. The patient was diagnosed having liver cirrhosis and the exact nature of this liver failure is not clear. No history of alcoholism. He was told to have nonalcoholic liver disease/fatty liver. No history of any hepatitis which is viral in nature. The patient was having episodes of GI bleeding. The patient was seen by gastroenterology and placed on a combination of diuretics. He has undergone a recent large-volume paracentesis on 09/12/2024 and total of 12.4 L of ascitic fluid was aspirated. Noted the patient was having significant abdominal swelling and increased lower extremity edema. The patient currently is very much lethargic and encephalopathic. According to the daughter is at the bedside, he is also known to have other medical problems i ncluding COPD, CHF and the patient has an AICD in place along with history of hypertension. No history of alcoholism or alcohol abuse. No history of any substance abuse. Noted, his baseline renal function from 2018 was within normal limits. Creatinine on 09/09/2024 was 3.5 and creatinine on admission was at 7.57. At the same time, the patient had significant abnormalities in the blood work where his sodium was at 126, potassium of 4.2, serum bicarbonate 13, BUN 61, glucose at 133, the lactic acid level was 8.7, the calcium level is at 7.3, bilirubin is at 1.8, LFTs are normal, ammonia level was 78, total protein was 5.6 with an albumin level of 2.6. UA is showing +2 protein, 10 WBCs, ascitic fluid that was aspirated on 09/09/2024 showed 231 WBCs, the predominant differential was lymphocytic in nature. The current coagulation profile shows an INR of 1.3 with a PT of 29. The white cell count is at 15.4 with a hemoglobin 9.8 and a platelet count of 167. No chest x-ray has been done. The ultrasound of the enal showed no evidence of any significant hydronephrosis. In the ED, the patient was given a bolus of 1 L of IV fluid and the patient is a currently on a bicarb infusion. He was started on IV Rocephin as an empiric antibiotic coverage. Nephrology was consulted and the patient will be undergoing hemodialysis. The patient was started on lactulose 30 g p.o. 3 times daily. Is also on midodrine 10 mg p.o. 3 times daily. He is on Sandostatin 50 mcg every 8 hours. Most recent blood pressure is 84/39. Pulse ox is 97% on room air oxygen. 09/15/2024, patient remains in intensive care unit. This morning, he seems to be more arousable compared to yesterday. He was not hepatic encephalopathy and he also had a component of metabolic encephalopathy related to his acute kidney injury. The patient underwent hemodialysis yesterday another session of hemodialysis being performed today. He received a total of 5.5 L of IV fluid and the patient is currently on a bicarb infusion running at 80 cc an hour. Urine output is between 0 and 50 cc an hour. He remains on norepinephrine at 0.09 mcg/kg/min. Chest x-ray from today showing CHF and the patient is currently on 3 L of oxygen by nasal cannula. Lactic acid level is dropped down to 4.4. Serum ammonia 814. He received a dose of Lasix given to him by nephrology 80 mg IV push. The patient remains on octreotide. The patient remains on IV Protonix. No evidence of any GI bleeding. In terms of labs, the WBC count is 18 with a hemoglobin 9.7 and a platelet count of 197. BUN is 54 with a creatinine of 6 and a sodium levels at 128. LFTs are noted and are within normal limits. On 09/16/2024, the patient remains encephalopathic. Despite some improvement in the patient's ammonia levels which is currently down to 62, the patient remains lethargic and sleepy although more awake and alert compared to yesterday. The patient remains on lactulose with adequate bowel movements and the patient is also on rifaximin. The patient underwent 2 sessions of hemodialysis the last being yesterday and the patient will undergo dialysis with ultrafiltration today. The patient was taken off the norepinephrine this morning. He will be given IV albumin for nephrology to be followed up by IV Lasix 80 mg every 12 hour. Urine output remains quite diminished at this point in time. He remains on 3 Suboxone by nasal cannula. Urine output is in order of 10 cc an hour. Norepinephrine was running as low as 0.02 mcg/kg/min and the patient was taken off the pressors this morning. No evidence of any GI bleeding. Abdomen remains distended. White cell count is 18.7 with a hemoglobin of 9.2 and a platelet count of 176. INR is 1.5 with a PTT of 30.9. Sodium level is at 129, BUN 41 with a creatinine 4.4, bicarb is 24, lactic acid level is down to 3.8. The cultures have been essentially negative for now including urine and blood culture. The patient remains on IV Rocephin as empiric antibiotic coverage. Objective - Vital Signs Vital signs: Vital Signs Temp 97.9 F 09/16/24 08:00 Pulse 59 L 09/16/24 08:30 Resp 14 09/16/24 08:45 BP 105/46 09/16/24 08:45 Pulse Ox 93 L 09/16/24 08:45 FiO2 Intake & Output 09/15/24 09/16/24 09/16/24 18:59 06:59 18:59 Intake Total 2770.730 4469.099 24.153 Output Total 470 100 45 Balance 6068.747 2166.099 -20.847 Weight 141 kg Intake: IV 1090 990 10 Dextrose 5% in Water 1, 960 960 0 000 ml @ 80 mls/hr IV . [id number] TAL with Sodium Bicarb (1 Meq/ml) 150 ml Rx#:[id number] Invasive Line 2 30 30 10 Potassium Chloride 10 meq 100 In Water For Injection 1 100ml.bag @ 100 mls/hr IVPB Q1H TAL Rx#: [id number] Intake, IV Titration 489.622 366.099 14.153 Amount Norepinephrine 4 mg In 439.622 366.099 14.153 Sodium Chloride 0.9% 250 ml @ 0.03 MCG/KG/MIN 15. 533 mls/hr IV .[id number] TAL Rx#:[id number] cefTRIAXone 2 gm In 50 Sodium Chloride 0.9% 50 ml @ 100 mls/hr IVPB Q24HR TAL Rx#:[id number] Hemodialysis 400 Output: Urine 70 100 45 Hemodialysis 400 Hemodialysis Net Amount 0 Other: Voiding Method Indwelling Catheter Indwelling Catheter # Bowel Movements 1 1 - Exam Patient is encephalopathic, lethargic, quite obtunded yet arousable. He is currently on 3 L of oxygen by nasal cannula, more awake and less encephalopathic compared to yesterday. Head exam was generally normal. There was no scleral icterus or corneal arcus. Mucous membranes are moist Neck was supple and without jugular venous distension, thyromegaly, or carotid bruits. Carotids were easily palpable bilaterally. There was no adenopathy. Lungs were clear to auscultation and percussion, and with normal diaphragmatic excursion. No wheezes or rales were noted. Cardiac exam revealed the PMI to be normally situated and sized. The rhythm was regular and no extrasystoles were noted during several minutes of auscultation. The first and second heart sounds were normal and physiologic splitting of the second heart sound was noted. There were no murmurs, rubs, clicks, or gallops. Abdomen is distended and the patient has a positive ascites. The patient also has eventration of the umbilicus. No direct tenderness. No rebound tenderness. No guarding. Extremities revealed trace edema, no cyanosis or clubbing. Neurologically, the patient is encephalopathic. - Labs CBC & Chem 7: 09/16/24 01:18 09/16/24 01:18 Labs: Abnormal Lab Results - Last 24 Hours (Table) 09/15/24 09/15/24 09/15/24 Range/Units 11:27 12:50 14:20 WBC (3.8-10.6) k/uL RBC (4.30-5.90) m/uL Hgb (13.0-17.5) gm/dL Hct (39.0-53.0) % RDW (11.5-15.5) % PT (10.0-12.5) sec INR (<1.2) APTT (22.0-30.0) sec Sodium (137-145) mmol/L Potassium (3.5-5.1) mmol/L Chloride (98-107) mmol/L BUN (9-20) mg/dL Creatinine (0.66-1.25) mg/dL Glucose (74-99) mg/dL POC Glucose (mg/dL) 159 H (70-110) mg/dL Plasma Lactic Acid [place] 3.9 H* 3.5 H* (0.7-2.0) mmol/L Calcium (8.4-10.2) mg/dL Total Bilirubin (0.2-1.3) mg/dL Ammonia (<30) umol/L Total Protein (6.3-8.2) g/dL Albumin (3.5-5.0) g/dL 09/15/24 09/15/24 09/15/24 Range/Units 16:50 18:18 20:34 WBC (3.8-10.6) k/uL RBC (4.30-5.90) m/uL Hgb (13.0-17.5) gm/dL Hct (39.0-53.0) % RDW (11.5-15.5) % PT (10.0-12.5) sec INR (<1.2) APTT (22.0-30.0) sec Sodium (137-145) mmol/L Potassium (3.5-5.1) mmol/L Chloride (98-107) mmol/L BUN (9-20) mg/dL Creatinine (0.66-1.25) mg/dL Glucose (74-99) mg/dL POC Glucose (mg/dL) 155 H 157 H (70-110) mg/dL Plasma Lactic Acid [place] 3.5 H* (0.7-2.0) mmol/L Calcium (8.4-10.2) mg/dL Total Bilirubin (0.2-1.3) mg/dL Ammonia (<30) umol/L Total Protein (6.3-8.2) g/dL Albumin (3.5-5.0) g/dL 09/15/24 09/16/24 09/16/24 Range/Units 20:53 01:06 01:06 WBC (3.8-10.6) k/uL RBC (4.30-5.90) m/uL Hgb (13.0-17.5) gm/dL Hct (39.0-53.0) % RDW (11.5-15.5) % PT (10.0-12.5) sec INR (<1.2) APTT (22.0-30.0) sec Sodium (137-145) mmol/L Potassium (3.5-5.1) mmol/L Chloride (98-107) mmol/L BUN (9-20) mg/dL Creatinine (0.66-1.25) mg/dL Glucose (74-99) mg/dL POC Glucose (mg/dL) (70-110) mg/dL Plasma Lactic Acid [place] 3.8 H* 3.6 H* (0.7-2.0) mmol/L Calcium (8.4-10.2) mg/dL Total Bilirubin (0.2-1.3) mg/dL Ammonia 62 H (<30) umol/L Total Protein (6.3-8.2) g/dL Albumin (3.5-5.0) g/dL 09/16/24 09/16/24 09/16/24 Range/Units 01:18 01:18 01:18 WBC 18.7 H (3.8-10.6) k/uL RBC 2.90 L (4.30-5.90) m/uL Hgb 9.2 L (13.0-17.5) gm/dL Hct 26.7 L (39.0-53.0) % RDW 15.8 H (11.5-15.5) % PT 15.4 H (10.0-12.5) sec INR 1.5 H (<1.2) APTT 30.9 H (22.0-30.0) sec Sodium 129 L (137-145) mmol/L Potassium 3.4 L (3.5-5.1) mmol/L Chloride 97 L (98-107) mmol/L BUN 41 H (9-20) mg/dL Creatinine 4.40 H (0.66-1.25) mg/dL Glucose 148 H (74-99) mg/dL POC Glucose (mg/dL) (70-110) mg/dL Plasma Lactic Acid [place] (0.7-2.0) mmol/L Calcium 7.0 L (8.4-10.2) mg/dL Total Bilirubin 1.8 H (0.2-1.3) mg/dL Ammonia (<30) umol/L Total Protein 5.5 L (6.3-8.2) g/dL Albumin 2.5 L (3.5-5.0) g/dL 09/16/24 09/16/24 Range/Units 05:12 05:44 WBC (3.8-10.6) k/uL RBC (4.30-5.90) m/uL Hgb (13.0-17.5) gm/dL Hct (39.0-53.0) % RDW (11.5-15.5) % PT (10.0-12.5) sec INR (<1.2) APTT (22.0-30.0) sec Sodium (137-145) mmol/L Potassium (3.5-5.1) mmol/L Chloride (98-107) mmol/L BUN (9-20) mg/dL Creatinine (0.66-1.25) mg/dL Glucose (74-99) mg/dL POC Glucose (mg/dL) 165 H (70-110) mg/dL Plasma Lactic Acid [place] 3.8 H* (0.7-2.0) mmol/L Calcium (8.4-10.2) mg/dL Total Bilirubin (0.2-1.3) mg/dL Ammonia (<30) umol/L Total Protein (6.3-8.2) g/dL Albumin (3.5-5.0) g/dL Microbiology - Last 24 Hours (Table) 09/14/24 17:40 Urine Culture - Final Urine,Catheterized 09/13/24 19:58 Blood Culture - Preliminary Blood Assessment and Plan Plan: Acute on chronic kidney injury, consider ATN, consider hepatorenal syndrome. Soto catheter in place and urine output is minimal at this point in time. No evidence of any hydronephrosis. Also, possibility of intravascular volume depletion/dehydration. The patient was resuscitated with IV fluids. The patient is currently on low-dose pressors. Is inhibitors have been discontinued. Patient has already undergone 2 sessions of hemodialysis, third session to be done today with ultrafiltration. Will be started on IV Lasix and albumin combination. Acute lactic acidosis, improving Acute metabolic acidosis, improving and the patient is currently off the bicarb drip Hypotension, chronic maintained on midodrine on outpatient basis, rule out underlying infection/sepsis. Rule out intravascular volume depletion as the patient had no significant oral intake over the past 5 days. Echocardiogram showed a preserved LV function and the patient is currently on minimal dose norepinephrine which was discontinued this morning Acute hypoxic respiratory failure with signs of CHF and the patient is currently on 3 liters of oxygen by nasal cannula Liver cirrhosis. The patient has nonalcoholic fatty liver disease secondary to diabetes mellitus and obesity. Ascites status post large-volume paracentesis done on 09/12/2024 with removal of 12.4 L of ascitic fluid. The cytology is negative. No indication for SBP based on the cell count. Currently on IV Rocephin. Hepatic encephalopathy with elevated ammonia level, currently on lactulose and rifaximin mean Episodic GI bleed, rule out underlying portal hypertension and esophageal varice s, hemoglobin is stable Coronary artery disease Cardiomyopathy the patient has an AICD in place, most recent echocardiogram shows a preserved LV function, improving COPD Diabetes mellitus type 2 Obesity Hyponatremia secondary to above Obstructive sleep apnea maintained on CPAP therapy on outpatient basis Plan The patient will be kept in the intensive care unit The patient is currently off pressors and will monitor the blood pressure utilize pressors if needed Hemodialysis performed x 2-1/3 session with ultrafiltration to be done today IV albumin IV Lasix 80 mg every 12 hours Soto catheter has been inserted and will monitor urine output, overall urine output is quite low at this point in time. Continue lactulose and rifaximin mean Follow-up ammonia level, improving Watch for any signs of GI bleeding Empiric antibiotic coverage with IV Rocephin Blood cultures, and urine cultures are negative Chest x-ray, consistent with CHF Continue octreotide IV Protonix Echocardiogram shows a preserved LV function Hold Zestril, Actos, Farxiga and metformin and Lipitor and diuretics for now Insulin sliding scale coverage Monitor lactic acid level, levels have improved Condition is still critical and will continue to follow make further recommendations based on his progress. This evaluation was done more than 30 minutes. Time with Patient: Greater than 30
[2024-09-16] MEDS ORDERED: HYDROmorphone 1 MG/ML 1 ML SYRINGE IVP PRN (16:05)
[2024-09-16 17:09] LABS: Glucose,Whole Blood 152 mg/dL (70-110)
[2024-09-16 20:24] LABS: Glucose,Whole Blood 130 mg/dL (70-110)
[2024-09-17 03:30] LABS: HCT 26.9 % (39.0-53.0); HGB 9.1 gm/dL (13.0-17.5); MCH 31.3 pg (25.0-35.0); MCHC 33.9 g/dL (31.0-37.0); MCV 92.1 fL (80.0-100.0); Mean Platelet Volume 8.3; Platelet Count 146 k/uL (150-450); RBC 2.92 m/uL (4.30-5.90); RDW 15.8 % (11.5-15.5); WBC 17.6 k/uL (3.8-10.6)
[2024-09-17 03:53] LABS: African American GFR (CKD) 20 (>60 ml/min/1.73 sqM); Anion Gap 7 mmol/L; Blood Urea Nitrogen 33 mg/dL (9-20); Calcium 7.5 mg/dL (8.4-10.2); Carbon Dioxide 26 mmol/L (22-30); Chloride 99 mmol/L (98-107); Glucose 120 mg/dL (74-99); Non-African American GFR(CKD) 17 (>60 ml/min/1.73 sqM); Potassium 3.3 mmol/L (3.5-5.1); Sodium 132 mmol/L (137-145)
[2024-09-17 06:10] LABS: Glucose,Whole Blood 138 mg/dL (70-110)
[2024-09-17] MEDS ORDERED: POTASSIUM CHLORIDE 40 MEQ in WATER FOR INJECTION 1 100ML.BAG IVPB STA (06:37)
[2024-09-17] MEDS ORDERED: POTASSIUM CHLORIDE 20 MEQ in WATER FOR INJECTION 1 100ML.BAG IVPB SCH (06:45)
[2024-09-17] MEDS: POTASSIUM CHLORIDE 10 MEQ in WATER FOR INJECTION 1 100ML.BAG IVPB SCH (07:31)
[2024-09-17] MEDS ORDERED: ALBUMIN HUMAN 25% 50 ML in EMPTY BAG 1 BAG IVPB SCH (08:30)
[2024-09-17 08:42] LABS: INR 1.6 (<1.2); Prothrombin Time 16.2 sec (10.0-12.5)
--- NOTE | 2024-09-17 08:47 | P.PN ---
Subjective Patient is seen in follow-up for acute kidney injury. Started on hemodialysis September 14, 2024. Off Levophed. On IV Lasix. Urine output 10 to 20 cc an hour. Vital signs are stable. General: No acute distress. HEENT: Head exam is unremarkable. On nasal cannula. LUNGS: No audible rhonchi or wheezes. HEART: Rate and Rhythm are regular. ABDOMEN: Obese, nontender. Distention noted. EXTREMITITES: No edema. Objective - Vital Signs Vital signs: Vital Signs Temp 97.9 F 09/17/24 08:00 Pulse 64 09/17/24 08:00 Resp 16 09/17/24 08:00 BP 126/53 09/17/24 08:00 Pulse Ox 93 L 09/17/24 08:00 FiO2 Intake & Output 09/16/24 09/17/24 09/17/24 18:59 06:59 18:59 Intake Total 50.021 430 200 Output Total 404 3509 30 Balance -353.979 -3079 170 Weight 142 kg Intake: IV 30 30 200 Dextrose 5% in Water 1, 0 000 ml @ 80 mls/hr IV . [id number] TAL with Sodium Bicarb (1 Meq/ml) 150 ml Rx#:[id number] Invasive Line 2 30 30 Potassium Chloride 10 meq 200 In Water For Injection 1 100ml.bag @ 100 mls/hr IVPB Q1HR TAL Rx#: [id number] Intake, IV Titration 20.021 Amount Norepinephrine 4 mg In 20.021 Sodium Chloride 0.9% 250 ml @ 0.03 MCG/KG/MIN 15. 533 mls/hr IV .[id number] TAL Rx#:[id number] Hemodialysis 400 Output: Urine 204 109 30 Stool 200 Hemodialysis 1900 Hemodialysis Net Amount 1500 Other: Voiding Method Indwelling Catheter Indwelling Catheter # Bowel Movements 1 1 - Labs CBC & Chem 7: 09/17/24 03:05 09/17/24 03:05 Labs: Abnormal Lab Results - Last 24 Hours (Table) 09/16/24 09/16/24 09/16/24 Range/Units 11:59 17:08 20:23 WBC (3.8-10.6) k/uL RBC (4.30-5.90) m/uL Hgb (13.0-17.5) gm/dL Hct (39.0-53.0) % RDW (11.5-15.5) % Plt Count (150-450) k/uL PT (10.0-12.5) sec INR (<1.2) Sodium (137-145) mmol/L Potassium (3.5-5.1) mmol/L BUN (9-20) mg/dL Creatinine (0.66-1.25) mg/dL Glucose (74-99) mg/dL POC Glucose (mg/dL) 149 H 152 H 130 H (70-110) mg/dL Calcium (8.4-10.2) mg/dL Ammonia (<30) umol/L 09/17/24 09/17/24 09/17/24 Range/Units 03:05 03:05 03:05 WBC 17.6 H (3.8-10.6) k/uL RBC 2.92 L (4.30-5.90) m/uL Hgb 9.1 L (13.0-17.5) gm/dL Hct 26.9 L (39.0-53.0) % RDW 15.8 H (11.5-15.5) % Plt Count 146 L (150-450) k/uL PT (10.0-12.5) sec INR (<1.2) Sodium 132 L (137-145) mmol/L Potassium 3.3 L (3.5-5.1) mmol/L BUN 33 H (9-20) mg/dL Creatinine 3.73 H (0.66-1.25) mg/dL Glucose 120 H (74-99) mg/dL POC Glucose (mg/dL) (70-110) mg/dL Calcium 7.5 L (8.4-10.2) mg/dL Ammonia 55 H (<30) umol/L 09/17/24 09/17/24 Range/Units 06:08 08:09 WBC (3.8-10.6) k/uL RBC (4.30-5.90) m/uL Hgb (13.0-17.5) gm/dL Hct (39.0-53.0) % RDW (11.5-15.5) % Plt Count (150-450) k/uL PT 16.2 H (10.0-12.5) sec INR 1.6 H (<1.2) Sodium (137-145) mmol/L Potassium (3.5-5.1) mmol/L BUN (9-20) mg/dL Creatinine (0.66-1.25) mg/dL Glucose (74-99) mg/dL POC Glucose (mg/dL) 138 H (70-110) mg/dL Calcium (8.4-10.2) mg/dL Ammonia (<30) umol/L Microbiology - Last 24 Hours (Table) 09/13/24 19:58 Blood Culture - Preliminary Blood 09/14/24 17:40 Urine Culture - Final Urine,Catheterized Assessment and Plan Plan: Assessment: 1. Acute kidney injury secondary to ATN secondary to hypotension and recent large-volume paracentesis. Also concern for hepatorenal syndrome. Urine sodium 22. No hydronephrosis noted on kidney ultrasound. Creatinine up to 7.83 this admission. Oliguric. Started on hemodialysis September 14, 2024. 2. Metabolic acidosis secondary to acute kidney injury and lactic acidosis. Improved with dialysis and bicarb drip. 3. Liver cirrhosis. 4. Hyponatremia. Initially hypovolemic. Now hypervolemic with significant ascites. 5. UTI on antibiotics. 6. Hyperphosphatemia secondary to acute kidney injury. On PhosLo. 7. Hypomagnesemia from poor intake and use of diuretics. Replaced. Improved. 8. Encephalopathy. Hepatic and uremic. 9. Ascites with paracentesis done September 12, 2024 with 12.4 L drained. Plan: Hemodialysis today. Plan to hold tomorrow. Maintain IV Lasix. Maintain midodrine. Paracentesis pending. IV albumin pre and postprocedure. Replace potassium. Monitor for renal recovery.
[2024-09-17 11:20] LABS: Glucose,Whole Blood 134 mg/dL (70-110)
--- NOTE | 2024-09-17 14:11 | P.PN ---
Subjective Progress Note Date: 09/17/24 This is a 58-year-old male patient, presented to the emergency department with generalized weakness, altered mentation, severe dehydration, lack of any oral intake over the past 5 days, diminished urine output, encephalopathy and hypotension. The patient was diagnosed having liver cirrhosis and the exact nature of this liver failure is not clear. No history of alcoholism. He was told to have nonalcoholic liver disease/fatty liver. No history of any hepatitis which is viral in nature. The patient was having episodes of GI bleeding. The patient was seen by gastroenterology and placed on a combination of diuretics. He has undergone a recent large-volume paracentesis on 09/12/2024 and total of 12.4 L of ascitic fluid was aspirated. Noted the patient was having significant abdominal swelling and increased lower extremity edema. The patient currently is very much lethargic and encephalopathic. According to the daughter is at the bedside, he is also known to have other medical problems i ncluding COPD, CHF and the patient has an AICD in place along with history of hypertension. No history of alcoholism or alcohol abuse. No history of any substance abuse. Noted, his baseline renal function from 2018 was within normal limits. Creatinine on 09/09/2024 was 3.5 and creatinine on admission was at 7.57. At the same time, the patient had significant abnormalities in the blood work where his sodium was at 126, potassium of 4.2, serum bicarbonate 13, BUN 61, glucose at 133, the lactic acid level was 8.7, the calcium level is at 7.3, bilirubin is at 1.8, LFTs are normal, ammonia level was 78, total protein was 5.6 with an albumin level of 2.6. UA is showing +2 protein, 10 WBCs, ascitic fluid that was aspirated on 09/09/2024 showed 231 WBCs, the predominant differential was lymphocytic in nature. The current coagulation profile shows an INR of 1.3 with a PT of 29. The white cell count is at 15.4 with a hemoglobin 9.8 and a platelet count of 167. No chest x-ray has been done. The ultrasound of the enal showed no evidence of any significant hydronephrosis. In the ED, the patient was given a bolus of 1 L of IV fluid and the patient is a currently on a bicarb infusion. He was started on IV Rocephin as an empiric antibiotic coverage. Nephrology was consulted and the patient will be undergoing hemodialysis. The patient was started on lactulose 30 g p.o. 3 times daily. Is also on midodrine 10 mg p.o. 3 times daily. He is on Sandostatin 50 mcg every 8 hours. Most recent blood pressure is 84/39. Pulse ox is 97% on room air oxygen. 09/15/2024, patient remains in intensive care unit. This morning, he seems to be more arousable compared to yesterday. He was not hepatic encephalopathy and he also had a component of metabolic encephalopathy related to his acute kidney injury. The patient underwent hemodialysis yesterday another session of hemodialysis being performed today. He received a total of 5.5 L of IV fluid and the patient is currently on a bicarb infusion running at 80 cc an hour. Urine output is between 0 and 50 cc an hour. He remains on norepinephrine at 0.09 mcg/kg/min. Chest x-ray from today showing CHF and the patient is currently on 3 L of oxygen by nasal cannula. Lactic acid level is dropped down to 4.4. Serum ammonia 814. He received a dose of Lasix given to him by nephrology 80 mg IV push. The patient remains on octreotide. The patient remains on IV Protonix. No evidence of any GI bleeding. In terms of labs, the WBC count is 18 with a hemoglobin 9.7 and a platelet count of 197. BUN is 54 with a creatinine of 6 and a sodium levels at 128. LFTs are noted and are within normal limits. On 09/16/2024, the patient remains encephalopathic. Despite some improvement in the patient's ammonia levels which is currently down to 62, the patient remains lethargic and sleepy although more awake and alert compared to yesterday. The patient remains on lactulose with adequate bowel movements and the patient is also on rifaximin. The patient underwent 2 sessions of hemodialysis the last being yesterday and the patient will undergo dialysis with ultrafiltration today. The patient was taken off the norepinephrine this morning. He will be given IV albumin for nephrology to be followed up by IV Lasix 80 mg every 12 hour. Urine output remains quite diminished at this point in time. He remains on 3 Suboxone by nasal cannula. Urine output is in order of 10 cc an hour. Norepinephrine was running as low as 0.02 mcg/kg/min and the patient was taken off the pressors this morning. No evidence of any GI bleeding. Abdomen remains distended. White cell count is 18.7 with a hemoglobin of 9.2 and a platelet count of 176. INR is 1.5 with a PTT of 30.9. Sodium level is at 129, BUN 41 with a creatinine 4.4, bicarb is 24, lactic acid level is down to 3.8. The cultures have been essentially negative for now including urine and blood culture. The patient remains on IV Rocephin as empiric antibiotic coverage. 09/17/2024, the patient is less encephalopathic. The patient is undergoing another session of hemodialysis with a goal of ultrafiltration of around 1 L. The patient has hepatic encephalopathy and metabolic encephalopathy and the patient is currently on a combination of rifaximin and lactulose regarding hepatic encephalopathy and the serum ammonia level is down to 55. Meanwhile, the acid-base status is improved and the patient serum bicarb is up to 26 and the patient bicarb drip was stopped 24 hours ago. Hemodynamically stable on no pressors. Urine output is quite diminished in the order of 5 to 10 cc an hour. The patient has a fecal management system in place and the patient is producing stool. The patient is currently on 2 L of oxygen by nasal cannula. He is on Lasix 80 mg IV every 12 hours. Objective - Vital Signs Vital signs: Vital Signs Temp 97.9 F 09/17/24 08:00 Pulse 71 09/17/24 10:00 Resp 16 09/17/24 10:00 BP 111/65 09/17/24 10:00 Pulse Ox 96 09/17/24 10:00 FiO2 Intake & Output 09/16/24 09/17/24 09/17/24 18:59 06:59 18:59 Intake Total 50.021 430 450 Output Total 404 3509 290 Balance -353.979 -3079 160 Weight 142 kg Intake: IV 30 30 450 Dextrose 5% in Water 1, 0 000 ml @ 80 mls/hr IV . [id number] TAL with Sodium Bicarb (1 Meq/ml) 150 ml Rx#:[id number] Invasive Line 2 30 30 Potassium Chloride 10 meq 400 In Water For Injection 1 100ml.bag @ 100 mls/hr IVPB Q1HR TAL Rx#: [id number] 2 gm In 50 Sodium Chloride 0.9% 50 ml @ 100 mls/hr IVPB Q24HR TAL Rx#:[id number] Intake, IV Titration 20.021 Amount Norepinephrine 4 mg In 20.021 Sodium Chloride 0.9% 250 ml @ 0.03 MCG/KG/MIN 15. 533 mls/hr IV .[id number] TAL Rx#:[id number] Hemodialysis 400 Output: Urine 204 109 90 Stool 200 200 Hemodialysis 1900 Hemodialysis Net Amount 1500 Other: Voiding Method Indwelling Catheter Indwelling Catheter Indwelling Catheter # Bowel Movements 1 1 - Exam Patient is encephalopathic, lethargic, quite obtunded yet arousable. He is currently on 3 L of oxygen by nasal cannula, more awake and less encephalopathic compared to yesterday. Head exam was generally normal. There was no scleral icterus or corneal arcus. Mucous membranes are moist Neck was supple and without jugular venous distension, thyromegaly, or carotid bruits. Carotids were easily palpable bilaterally. There was no adenopathy. Lungs were clear to auscultation and percussion, and with normal diaphragmatic excursion. No wheezes or rales were noted. Cardiac exam revealed the PMI to be normally situated and sized. The rhythm was regular and no extrasystoles were noted during several minutes of auscultation. The first and second heart sounds were normal and physiologic splitting of the second heart sound was noted. There were no murmurs, rubs, clicks, or gallops. Abdomen is distended and the patient has a positive ascites. The patient also has eventration of the umbilicus. No direct tenderness. No rebound tenderness. No guarding. Extremities revealed trace edema, no cyanosis or clubbing. Neurologically, the patient is encephalopathic. - Labs CBC & Chem 7: 09/17/24 03:05 09/17/24 03:05 Labs: Abnormal Lab Results - Last 24 Hours (Table) 09/16/24 09/16/24 09/16/24 Range/Units 11:59 17:08 20:23 WBC (3.8-10.6) k/uL RBC (4.30-5.90) m/uL Hgb (13.0-17.5) gm/dL Hct (39.0-53.0) % RDW (11.5-15.5) % Plt Count (150-450) k/uL PT (10.0-12.5) sec INR (<1.2) Sodium (137-145) mmol/L Potassium (3.5-5.1) mmol/L BUN (9-20) mg/dL Creatinine (0.66-1.25) mg/dL Glucose (74-99) mg/dL POC Glucose (mg/dL) 149 H 152 H 130 H (70-110) mg/dL Calcium (8.4-10.2) mg/dL Ammonia (<30) umol/L 09/17/24 09/17/24 09/17/24 Range/Units 03:05 03:05 03:05 WBC 17.6 H (3.8-10.6) k/uL RBC 2.92 L (4.30-5.90) m/uL Hgb 9.1 L (13.0-17.5) gm/dL Hct 26.9 L (39.0-53.0) % RDW 15.8 H (11.5-15.5) % Plt Count 146 L (150-450) k/uL PT (10.0-12.5) sec INR (<1.2) Sodium 132 L (137-145) mmol/L Potassium 3.3 L (3.5-5.1) mmol/L BUN 33 H (9-20) mg/dL Creatinine 3.73 H (0.66-1.25) mg/dL Glucose 120 H (74-99) mg/dL POC Glucose (mg/dL) (70-110) mg/dL Calcium 7.5 L (8.4-10.2) mg/dL Ammonia 55 H (<30) umol/L 09/17/24 09/17/24 Range/Units 06:08 08:09 WBC (3.8-10.6) k/uL RBC (4.30-5.90) m/uL Hgb (13.0-17.5) gm/dL Hct (39.0-53.0) % RDW (11.5-15.5) % Plt Count (150-450) k/uL PT 16.2 H (10.0-12.5) sec INR 1.6 H (<1.2) Sodium (137-145) mmol/L Potassium (3.5-5.1) mmol/L BUN (9-20) mg/dL Creatinine (0.66-1.25) mg/dL Glucose (74-99) mg/dL POC Glucose (mg/dL) 138 H (70-110) mg/dL Calcium (8.4-10.2) mg/dL Ammonia (<30) umol/L Microbiology - Last 24 Hours (Table) 09/13/24 19:58 Blood Culture - Preliminary Blood 09/14/24 17:40 Urine Culture - Final Urine,Catheterized Assessment and Plan Plan: Acute on chronic kidney injury, consider ATN, consider hepatorenal syndrome. Soto catheter in place and urine output is minimal at this point in time. No evidence of any hydronephrosis. Also, possibility of intravascular volume depletion/dehydration. The patient was resuscitated with IV fluids. The patient is currently off pressors. Patient is undergoing another session of hemodialysis today with a goal of 1 L of ultrafiltration Acute lactic acidosis, improved Acute metabolic acidosis, improved and the patient is currently on a bicarb drip Hypotension, chronic maintained on midodrine on outpatient basis, rule out underlying infection/sepsis. Rule out intravascular volume depletion as the patient had no significant oral intake over the past 5 days. Echocardiogram showed a preserved LV function and the patient is currently off pressors Acute hypoxic respiratory failure with signs of CHF and the patient is currently on 3 liters of oxygen by nasal cannula Liver cirrhosis. The patient has nonalcoholic fatty liver disease secondary to diabetes mellitus and obesity. Ascites status post large-volume paracentesis done on 09/12/2024 with removal of 12.4 L of ascitic fluid. The cytology is negative. No indication for SBP based on the cell count. Currently on IV Rocephin. Hepatic encephalopathy with elevated ammonia level, currently on lactulose and rifaximin and the ammonia level is improving Episodic GI bleed, rule out underlying portal hypertension and esophageal varices, hemoglobin is stable Coronary artery disease Cardiomyopathy the patient has an AICD in place, most recent echocardiogram shows a preserved LV function, improving COPD Diabetes mellitus type 2 Obesity Hyponatremia secondary to above Obstructive sleep apnea maintained on CPAP therapy on outpatient basis Plan The patient will be kept in the intensive care unit The patient is currently off pressors Hemodialysis is being performed with a goal of 1 L of ultrafiltration IV Lasix 80 mg every 12 hours Soto catheter has been inserted and will monitor urine output, overall urine output is quite low at this point in time. Continue lactulose and rifaximin and dropped the lactulose dose to once a day Follow-up ammonia level, improving Watch for any signs of GI bleeding Empiric antibiotic coverage with IV Rocephin Blood cultures, and urine cultures are negative Chest x-ray, consistent with CHF Continue octreotide IV Protonix Echocardiogram shows a preserved LV function Hold Zestril, Actos, Farxiga and metformin and Lipitor and diuretics for now Insulin sliding scale coverage Monitor lactic acid level, levels have improved Condition is still critical and will continue to follow make further recommendations based on his progress. This evaluation was done more than 30 minutes. Time with Patient: Greater than 30
[2024-09-17] MEDS: clonazePAM 0.5 MG TAB PO SCH (14:27)
--- NOTE | 2024-09-17 14:55 | P.PN ---
Subjective Progress Note Date: 09/17/24 Principal diagnosis: Hospital course: Patient is a 58 year old male past medical history of cirrhosis, ascites, paracentesis who presented to the ED today with abdominal pain. Patient was at a different facility where he had abnormal labs and that is why he was sent here at [facility]. Upon admission he was found to have abdominal pain, GI bleed and altered mental status. He states he has had this stomach ache for 1 3 weeks and noticed blood in the stool since 2 weeks. The daughter mentions that the patient is not an alcoholic and has been following up with gastroenterology and was recently diagnosed with liver cirrhosis about 2 months ago. At that time he was started on diuretics(Lasix 40 mg and spironolactone 100 mg), but the patient took the diuretic for a week and the diuretic was then discontinued. A paracentesis done on 09/09/2024 with 12.4 L of pleural fluid was removed, this was his frst paracentesis. Fluid cytology was negative. Denies fever, chills, headache, shortness of breath, chest pain, palpitations, coughing, nausea, vomiting. ED documentation reviewed and case discussed with ED provider. In the ED he was treated with 0.9 normal saline, ondansetron, lactulose, octreotide and 1 PRBC transfusion. While in the ED the patient's blood pressure dropped to 74/32 and the patient was moved to ICU for pressor support. Vitals on presentation: T 97.2 F, P 66 bpm, RR 18, BP 117/53, O2 97% on room air EKG: Paced rhythm, rate 65 bpm, QTc 581 ms Abdomen bladder ultrasound: Shows no evidence for hydronephrosis/neph rolithiasis/masses identified. Bladder exam, postvoid residual, bilateral jets exam limited as the patient was not awake CBC: WBC 15.4, hemoglobin 9.8 Coagulation panel: PT 13.8, INR 1.3 CMP: Sodium 126, chloride 97, bicarb 13, BUN 61, creatinine 1.57, corrected calcium 8.4, phosphorus 7.7, magnesium 1.5, total bilirubin 1.8, total protein 5.6, albumin 2.6 Lactic acid 7.6, 8.1, 8.7, 8.9, 0.8, 1.4, 7.8, 7.9 Ammonia: 69 ProBNP: 1240 Troponin: <0.012 UA: 2+ protein, trace glucose, trace blood, 1+ bilirubin, 10 WBC, occasional bacteria, 45%, moderate mucus 09/15/24: Patient seen and evaluated bedside today in the ICU. Hemodialysis net amount was 0 yesterday. Currently on second day of hemodialysis treatment. Labs show WBC 18, sodium, creatinine 6.07, BUN 54, lactic acid 4.1, ammonia 114. Hep B surface antigen nonreactive, hep B surface antibody is negative with antibody titer being 3.5 mIU/mL. Chest x-ray shows prominent pulmonary vascular markings. Abdomen ultrasound done today shows moderate amount of ascites. 09/16/24: Patient seen and examined today in the ICU. Patient is having bowel movements with lactulose. He had the second hemodialysis treatment yesterday. Hemodialysis net amount was 0. Kidney function is improving. Labs today show WBC 18.7, hemoglobin 9.2, PT 15.4, INR 1.5, APTT 30.9, sodium 129, potassium 3.4, BUN 41, creatinine 4.4, lactic acid 3.8 and ammonia 62. Blood culture shows no growth after 48 hours. Urine culture shows no growth after 24 hours. 09/17/24: Patient seen and evaluated at bedside in the ICU. He had a hemodialysis session today. Labs today hemoglobin 9.1, WBC 17.6, sodium 132, potassium 3.3, BUN 33, creatinine 3.73. Coagulation panel today showed PT 16.2, INR 1.6. Ammonia level today is 55. Kidney function is improving. He had his third session of hemodialysis yesterday, 1500 mL was removed. Urine output yesterday was 313 ml. Echocardiogram done yesterday shows EF of 50 to 55%, normal LV function, moderate MR. Review of systems: Pertinent positives and negatives as discussed in HPI, a complete review of systems was performed and all other systems are negative. Vitals: Signs Reviewed Physical examination: General: nontoxic, no distress Derm: warm, dry, intact Head: atraumatic, normocephalic, symmetric Mouth: no lip lesion, mucus membranes moist Cardiovascular: S1 S2 reg, no murmur Lungs: CTA bilateral Abdominal: Distended and tense, non-tender to palpataion Extremities: No cyanosis, clubbing, or pedal edema. Neuro: Alert, Gross neurological examination did not reveal any focal deficits. Psych: well appearing, appropriate affect Assessment/Plan: Patient is a 58-year-old male with past medical history of cirrhosis and ascites, paracentesis who presented to the ED with abdominal pain. He has been admitted for toxic metabolic encephalopathy, hepatorenal syndrome and CHASE and is he has received 3 hemodialysis treatments. His kidney function is improving. #.Toxic metabolic encephalopathy, multifactorial cause #.Hepatic encephalopathy and Uremic Encephalopathy #.Ascites Hep B antibody negative, hep B surface antigen non reactive Blood culture shows no growth in 72 hours. Continue lactulose 30 g TID and Xifaxan 550 mg PO TID Paracentesis with fluid cultures pending, IV Albumin pre and post procedure Rocephin started in the ED Continue IV Rocephin for empiric coverage Monitor ammonia level Gastroenterology is following #. CHASE, secondary to hypotension and recent large-volume paracentesis, oliguric Urine sodium [address] with minimal urine output Hemodilaysis today 3rd Hemodialysis yesterday,1500 ml removed Monitor urine output Nephrology following #.Hyperphosphatemia,secondary to CHASE Continue PhosLo 667 mg p.o. 3 times daily with meals #. Shock, secondary to intravsacular volume depletion vs cardiogenic Patient has hepatorenal syndrome as well as had low oral intake for the past few days along with history of cardiomyopathy Continue midodrine 10 mg PO TID Hold diuretics, Farxiga, Lisinopril, Lipitor, Pioglitazone #. Hypervolemic hyponatremia, improving Na 132 Continue IV lasix 80 mg BID Monitor BMP Nephrology is following #. UTI UA shows 2+ protein, trace glucose, trace blood, 1+ bilirubin, 10 WBC, occasional bacteria, 45%, moderate mucus Urine culture shows no growth after 18 hours. Rocephin started in the ED Continue IV Rocephin empirically #. GI Bleed Continue IV protonix 40 mg IV daily and octreotide 50 mcg IVP every 8 hours as GI prophylaxis #. Diabetes mellitus Insulin sliding scale Hold Farxiga, metformin, Pioglitazone #. Pain management Continue Dilaudid 1mg IVP Q3HR as needed #. Nausea and vomiting Continue Zofran 4 mg IVP every 8 hours as needed #. Metabolic acidosis secondary to CHASE and lactic acidosis, Resolved #.Hypomagnesemia, resolved F: E: N:Renal diet A: DVT prophylaxis: Pneumatic compression sleeve GI prophylaxis: IV protonix 40 mg IV daily and octreotide 50 mcg IVP every 8 hours Attestation: I have personally seen and examined the patient with Resident, reviewed the documentation and participated and agree with the assessment and plan as written. Rasta Jones MD Objective - Vital Signs Vital signs: Vital Signs Temp 97.8 F 09/17/24 04:00 Pulse 71 09/17/24 06:00 Resp 21 09/17/24 06:00 BP 109/59 09/17/24 06:00 Pulse Ox 90 L 09/17/24 06:00 FiO2 Intake & Output 09/16/24 09/17/24 09/17/24 18:59 06:59 18:59 Intake Total 50.021 430 Output Total 404 3509 Balance -353.979 -3079 Weight 142 kg Intake: IV 30 30 Dextrose 5% in Water 1, 0 000 ml @ 80 mls/hr IV . [id number] TAL with Sodium Bicarb (1 Meq/ml) 150 ml Rx#:[id number] Invasive Line 2 30 30 Intake, IV Titration 20.021 Amount Norepinephrine 4 mg In 20.021 Sodium Chloride 0.9% 250 ml @ 0.03 MCG/KG/MIN 15. 533 mls/hr IV .[id number] TAL Rx#:[id number] Hemodialysis 400 Output: Urine 204 109 Stool 200 Hemodialysis 1900 Hemodialysis Net Amount 1500 Other: Voiding Method Indwelling Catheter Indwelling Catheter # Bowel Movements 1 - Labs CBC & Chem 7: 09/18/24 03:12 09/18/24 03:12 Labs: Abnormal Lab Results - Last 24 Hours (Table) 09/16/24 09/16/24 09/16/24 Range/Units 11:59 17:08 20:23 WBC (3.8-10.6) k/uL RBC (4.30-5.90) m/uL Hgb (13.0-17.5) gm/dL Hct (39.0-53.0) % RDW (11.5-15.5) % Plt Count (150-450) k/uL Sodium (137-145) mmol/L Potassium (3.5-5.1) mmol/L BUN (9-20) mg/dL Creatinine (0.66-1.25) mg/dL Glucose (74-99) mg/dL POC Glucose (mg/dL) 149 H 152 H 130 H (70-110) mg/dL Calcium (8.4-10.2) mg/dL Ammonia (<30) umol/L 09/17/24 09/17/24 09/17/24 Range/Units 03:05 03:05 03:05 WBC 17.6 H (3.8-10.6) k/uL RBC 2.92 L (4.30-5.90) m/uL Hgb 9.1 L (13.0-17.5) gm/dL Hct 26.9 L (39.0-53.0) % RDW 15.8 H (11.5-15.5) % Plt Count 146 L (150-450) k/uL Sodium 132 L (137-145) mmol/L Potassium 3.3 L (3.5-5.1) mmol/L BUN 33 H (9-20) mg/dL Creatinine 3.73 H (0.66-1.25) mg/dL Glucose 120 H (74-99) mg/dL POC Glucose (mg/dL) (70-110) mg/dL Calcium 7.5 L (8.4-10.2) mg/dL Ammonia 55 H (<30) umol/L 09/17/24 Range/Units 06:08 WBC (3.8-10.6) k/uL RBC (4.30-5.90) m/uL Hgb (13.0-17.5) gm/dL Hct (39.0-53.0) % RDW (11.5-15.5) % Plt Count (150-450) k/uL Sodium (137-145) mmol/L Potassium (3.5-5.1) mmol/L BUN (9-20) mg/dL Creatinine (0.66-1.25) mg/dL Glucose (74-99) mg/dL POC Glucose (mg/dL) 138 H (70-110) mg/dL Calcium (8.4-10.2) mg/dL Ammonia (<30) umol/L Microbiology - Last 24 Hours (Table) 09/13/24 19:58 Blood Culture - Preliminary Blood 09/14/24 17:40 Urine Culture - Final Urine,Catheterized
--- NOTE | 2024-09-17 15:10 | P.PN ---
Subjective Progress Note Date: 09/17/24 Status post none tunneled hemodialysis catheter. Nursing indicates that he was able to tolerate his full course of dialysis. Objective - Vital Signs Vital signs: Vital Signs Temp 98.2 F 09/17/24 12:00 Pulse 60 09/17/24 14:00 Resp 14 09/17/24 14:00 BP 122/57 09/17/24 14:00 Pulse Ox 94 L 09/17/24 14:00 FiO2 Intake & Output 09/16/24 09/17/24 09/17/24 18:59 06:59 18:59 Intake Total 50.021 430 450 Output Total 404 3509 325 Balance -353.979 -3079 125 Weight 142 kg Intake: IV 30 30 450 Dextrose 5% in Water 1, 0 000 ml @ 80 mls/hr IV . [id number] TAL with Sodium Bicarb (1 Meq/ml) 150 ml Rx#:[id number] Invasive Line 2 30 30 Potassium Chloride 10 meq 400 In Water For Injection 1 100ml.bag @ 100 mls/hr IVPB Q1HR TAL Rx#: [id number] cefTRIAXone 2 gm In 50 Sodium Chloride 0.9% 50 ml @ 100 mls/hr IVPB Q24HR TAL Rx#:[id number] Intake, IV Titration 20.021 Amount Norepinephrine 4 mg In 20.021 Sodium Chloride 0.9% 250 ml @ 0.03 MCG/KG/MIN 15. 533 mls/hr IV .[id number] [facility] Rx#:[id number] Hemodialysis 400 Output: Urine 204 109 125 Stool 200 200 Hemodialysis 1900 Hemodialysis Net Amount 1500 Other: Voiding Method Indwelling Catheter Indwelling Catheter Indwelling Catheter # Bowel Movements 1 1 - Labs CBC & Chem 7: 09/17/24 03:05 09/17/24 14:28 Labs: Abnormal Lab Results - Last 24 Hours (Table) 09/16/24 09/16/24 09/17/24 Range/Units 17:08 20:23 03:05 WBC 17.6 H (3.8-10.6) k/uL RBC 2.92 L (4.30-5.90) m/uL Hgb 9.1 L (13.0-17.5) gm/dL Hct 26.9 L (39.0-53.0) % RDW 15.8 H (11.5-15.5) % Plt Count 146 L (150-450) k/uL PT (10.0-12.5) sec INR (<1.2) Sodium (137-145) mmol/L Potassium (3.5-5.1) mmol/L BUN (9-20) mg/dL Creatinine (0.66-1.25) mg/dL Glucose (74-99) mg/dL POC Glucose (mg/dL) 152 H 130 H (70-110) mg/dL Calcium (8.4-10.2) mg/dL Ammonia (<30) umol/L 09/17/24 09/17/24 09/17/24 Range/Units 03:05 03:05 06:08 WBC (3.8-10.6) k/uL RBC (4.30-5.90) m/uL Hgb (13.0-17.5) gm/dL Hct (39.0-53.0) % RDW (11.5-15.5) % Plt Count (150-450) k/uL PT (10.0-12.5) sec INR (<1.2) Sodium 132 L (137-145) mmol/L Potassium 3.3 L (3.5-5.1) mmol/L BUN 33 H (9-20) mg/dL Creatinine 3.73 H (0.66-1.25) mg/dL Glucose 120 H (74-99) mg/dL POC Glucose (mg/dL) 138 H (70-110) mg/dL Calcium 7.5 L (8.4-10.2) mg/dL Ammonia 55 H (<30) umol/L 09/17/24 09/17/24 Range/Units 08:09 11:18 WBC (3.8-10.6) k/uL RBC (4.30-5.90) m/uL Hgb (13.0-17.5) gm/dL Hct (39.0-53.0) % RDW (11.5-15.5) % Plt Count (150-450) k/uL PT 16.2 H (10.0-12.5) sec INR 1.6 H (<1.2) Sodium (137-145) mmol/L Potassium (3.5-5.1) mmol/L BUN (9-20) mg/dL Creatinine (0.66-1.25) mg/dL Glucose (74-99) mg/dL POC Glucose (mg/dL) 134 H (70-110) mg/dL Calcium (8.4-10.2) mg/dL Ammonia (<30) umol/L Microbiology - Last 24 Hours (Table) 09/13/24 19:58 Blood Culture - Preliminary Blood Assessment and Plan Assessment: Status post placement of a nontunneled hemodialysis catheter. Plan: Will continue to monitor/be available if further catheter management is necessary. Time with Patient: Less than 30
[2024-09-17 16:29] LABS: Glucose,Whole Blood 134 mg/dL (70-110)
[2024-09-17] MEDS ORDERED: clonazePAM 0.5 MG TAB PO SCH (21:00)
[2024-09-17 21:20] LABS: Glucose,Whole Blood 105 mg/dL (70-110)
[2024-09-18 03:29] LABS: Anisocytosis Slight; HCT 27.7 % (39.0-53.0); HGB 9.4 gm/dL (13.0-17.5); MCH 32.1 pg (25.0-35.0); MCV 94.5 fL (80.0-100.0); Mean Platelet Volume 8.1; Platelet Count 116 k/uL (150-450); RBC 2.93 m/uL (4.30-5.90); RDW 16.3 % (11.5-15.5); WBC 16.1 k/uL (3.8-10.6)
[2024-09-18 03:42] LABS: African American GFR (CKD) 28 (>60 ml/min/1.73 sqM); Anion Gap 5 mmol/L; Blood Urea Nitrogen 28 mg/dL (9-20); Calcium 7.7 mg/dL (8.4-10.2); Carbon Dioxide 29 mmol/L (22-30); Chloride 100 mmol/L (98-107); Glucose 119 mg/dL (74-99); Non-African American GFR(CKD) 24 (>60 ml/min/1.73 sqM); Potassium 3.6 mmol/L (3.5-5.1); Sodium 134 mmol/L (137-145)
[2024-09-18 06:42] LABS: Glucose,Whole Blood 117 mg/dL (70-110)
[2024-09-18] MEDS: ALBUMIN HUMAN 25% 50 ML in EMPTY BAG 1 BAG IVPB SCH (08:56)
[2024-09-18] MEDS: LACTULOSE 20 GM/30 ML CUP PO SCH (09:05)
--- NOTE | 2024-09-18 09:05 | P.PN ---
Subjective Patient is seen in follow-up for acute kidney injury. Started on hemodialysis September 14, 2024. Off Levophed. On IV Lasix. Urine output 20 to 25 cc an hour. Vital signs are stable. General: No acute distress. HEENT: Head exam is unremarkable. On nasal cannula. LUNGS: No audible rhonchi or wheezes. HEART: Rate and Rhythm are regular. ABDOMEN: Obese, nontender. Distention noted. EXTREMITITES: No edema. Objective - Vital Signs Vital signs: Vital Signs Temp 98 F 09/18/24 04:00 Pulse 65 09/18/24 07:00 Resp 7 L 09/18/24 07:00 BP 110/79 09/18/24 07:00 Pulse Ox 94 L 09/18/24 04:00 FiO2 Intake & Output 09/17/24 09/18/24 09/18/24 18:59 06:59 18:59 Intake Total 950 Output Total 3850 320 20 Balance -2900 -320 -20 Weight 138.1 kg Intake: IV 450 Potassium Chloride 10 meq 400 In Water For Injection 1 100ml.bag @ 100 mls/hr IVPB Q1HR TAL Rx#: [id number] cefTRIAXone 2 gm In 50 Sodium Chloride 0.9% 50 ml @ 100 mls/hr IVPB Q24HR TAL Rx#:[id number] Hemodialysis 500 Output: Urine 150 320 20 Stool 200 Hemodialysis 2000 Hemodialysis Net Amount 1500 Other: Voiding Method Indwelling Catheter Indwelling Catheter # Bowel Movements 1 1 1 - Labs CBC & Chem 7: 09/18/24 03:12 09/18/24 03:12 Labs: Abnormal Lab Results - Last 24 Hours (Table) 09/17/24 09/17/24 09/18/24 Range/Units 11:18 16:27 03:12 WBC 16.1 H (3.8-10.6) k/uL RBC 2.93 L (4.30-5.90) m/uL Hgb 9.4 L (13.0-17.5) gm/dL Hct 27.7 L (39.0-53.0) % RDW 16.3 H (11.5-15.5) % Plt Count 116 L (150-450) k/uL Sodium (137-145) mmol/L BUN (9-20) mg/dL Creatinine (0.66-1.25) mg/dL Glucose (74-99) mg/dL POC Glucose (mg/dL) 134 H 134 H (70-110) mg/dL Calcium (8.4-10.2) mg/dL 09/18/24 09/18/24 Range/Units 03:12 06:40 WBC (3.8-10.6) k/uL RBC (4.30-5.90) m/uL Hgb (13.0-17.5) gm/dL Hct (39.0-53.0) % RDW (11.5-15.5) % Plt Count (150-450) k/uL Sodium 134 L (137-145) mmol/L BUN 28 H (9-20) mg/dL Creatinine 2.77 H (0.66-1.25) mg/dL Glucose 119 H (74-99) mg/dL POC Glucose (mg/dL) 117 H (70-110) mg/dL Calcium 7.7 L (8.4-10.2) mg/dL Microbiology - Last 24 Hours (Table) 09/13/24 19:58 Blood Culture - Preliminary Blood Assessment and Plan Plan: Assessment: 1. Acute kidney injury secondary to ATN secondary to hypotension and recent large-volume paracentesis. Also concern for hepatorenal syndrome. Urine sodium 22. No hydronephrosis noted on kidney ultrasound. Creatinine up to 7.83 this admission. Oliguric. Started on hemodialysis September 14, 2024. 2. Metabolic acidosis secondary to acute kidney injury and lactic acidosis. Improved with dialysis and bicarb drip. 3. Liver cirrhosis. 4. Hyponatremia. Initially hypovolemic. Now hypervolemic with significant ascites. Improved with UF. 5. UTI on antibiotics. 6. Hyperphosphatemia secondary to acute kidney injury. On PhosLo. 7. Hypomagnesemia from poor intake and use of diuretics. Replaced. Improved. 8. Encephalopathy. Hepatic and uremic. 9. Ascites with paracentesis done September 12, 2024 with 12.4 L drained. Plan: Hemodialysis tomorrow. Maintain IV Lasix. Maintain midodrine. Paracentesis pending. IV albumin pre and postprocedure. Monitor for renal recovery.
[2024-09-18 11:00] LABS: Glucose,Whole Blood 134 mg/dL (70-110)
[2024-09-18] MEDS: POTASSIUM CHLORIDE ER 20 MEQ TAB.ER PO STA (11:20)
--- NOTE | 2024-09-18 11:39 | P.PN ---
Subjective Progress Note Date: 09/18/24 This is a 58-year-old male patient, presented to the emergency department with generalized weakness, altered mentation, severe dehydration, lack of any oral intake over the past 5 days, diminished urine output, encephalopathy and hypotension. The patient was diagnosed having liver cirrhosis and the exact nature of this liver failure is not clear. No history of alcoholism. He was told to have nonalcoholic liver disease/fatty liver. No history of any hepatitis which is viral in nature. The patient was having episodes of GI bleeding. The patient was seen by gastroenterology and placed on a combination of diuretics. He has undergone a recent large-volume paracentesis on 09/12/2024 and total of 12.4 L of ascitic fluid was aspirated. Noted the patient was having significant abdominal swelling and increased lower extremity edema. The patient currently is very much lethargic and encephalopathic. According to the daughter is at the bedside, he is also known to have other medical problems i ncluding COPD, CHF and the patient has an AICD in place along with history of hypertension. No history of alcoholism or alcohol abuse. No history of any substance abuse. Noted, his baseline renal function from 2018 was within normal limits. Creatinine on 09/09/2024 was 3.5 and creatinine on admission was at 7.57. At the same time, the patient had significant abnormalities in the blood work where his sodium was at 126, potassium of 4.2, serum bicarbonate 13, BUN 61, glucose at 133, the lactic acid level was 8.7, the calcium level is at 7.3, bilirubin is at 1.8, LFTs are normal, ammonia level was 78, total protein was 5.6 with an albumin level of 2.6. UA is showing +2 protein, 10 WBCs, ascitic fluid that was aspirated on 09/09/2024 showed 231 WBCs, the predominant differential was lymphocytic in nature. The current coagulation profile shows an INR of 1.3 with a PT of 29. The white cell count is at 15.4 with a hemoglobin 9.8 and a platelet count of 167. No chest x-ray has been done. The ultrasound of the enal showed no evidence of any significant hydronephrosis. In the ED, the patient was given a bolus of 1 L of IV fluid and the patient is a currently on a bicarb infusion. He was started on IV Rocephin as an empiric antibiotic coverage. Nephrology was consulted and the patient will be undergoing hemodialysis. The patient was started on lactulose 30 g p.o. 3 times daily. Is also on midodrine 10 mg p.o. 3 times daily. He is on Sandostatin 50 mcg every 8 hours. Most recent blood pressure is 84/39. Pulse ox is 97% on room air oxygen. 09/15/2024, patient remains in intensive care unit. This morning, he seems to be more arousable compared to yesterday. He was not hepatic encephalopathy and he also had a component of metabolic encephalopathy related to his acute kidney injury. The patient underwent hemodialysis yesterday another session of hemodialysis being performed today. He received a total of 5.5 L of IV fluid and the patient is currently on a bicarb infusion running at 80 cc an hour. Urine output is between 0 and 50 cc an hour. He remains on norepinephrine at 0.09 mcg/kg/min. Chest x-ray from today showing CHF and the patient is currently on 3 L of oxygen by nasal cannula. Lactic acid level is dropped down to 4.4. Serum ammonia 814. He received a dose of Lasix given to him by nephrology 80 mg IV push. The patient remains on octreotide. The patient remains on IV Protonix. No evidence of any GI bleeding. In terms of labs, the WBC count is 18 with a hemoglobin 9.7 and a platelet count of 197. BUN is 54 with a creatinine of 6 and a sodium levels at 128. LFTs are noted and are within normal limits. On 09/16/2024, the patient remains encephalopathic. Despite some improvement in the patient's ammonia levels which is currently down to 62, the patient remains lethargic and sleepy although more awake and alert compared to yesterday. The patient remains on lactulose with adequate bowel movements and the patient is also on rifaximin. The patient underwent 2 sessions of hemodialysis the last being yesterday and the patient will undergo dialysis with ultrafiltration today. The patient was taken off the norepinephrine this morning. He will be given IV albumin for nephrology to be followed up by IV Lasix 80 mg every 12 hour. Urine output remains quite diminished at this point in time. He remains on 3 Suboxone by nasal cannula. Urine output is in order of 10 cc an hour. Norepinephrine was running as low as 0.02 mcg/kg/min and the patient was taken off the pressors this morning. No evidence of any GI bleeding. Abdomen remains distended. White cell count is 18.7 with a hemoglobin of 9.2 and a platelet count of 176. INR is 1.5 with a PTT of 30.9. Sodium level is at 129, BUN 41 with a creatinine 4.4, bicarb is 24, lactic acid level is down to 3.8. The cultures have been essentially negative for now including urine and blood culture. The patient remains on IV Rocephin as empiric antibiotic coverage. 09/17/2024, the patient is less encephalopathic. The patient is undergoing another session of hemodialysis with a goal of ultrafiltration of around 1 L. The patient has hepatic encephalopathy and metabolic encephalopathy and the patient is currently on a combination of rifaximin and lactulose regarding hepatic encephalopathy and the serum ammonia level is down to 55. Meanwhile, the acid-base status is improved and the patient serum bicarb is up to 26 and the patient bicarb drip was stopped 24 hours ago. Hemodynamically stable on no pressors. Urine output is quite diminished in the order of 5 to 10 cc an hour. The patient has a fecal management system in place and the patient is producing stool. The patient is currently on 2 L of oxygen by nasal cannula. He is on Lasix 80 mg IV every 12 hours. 09/18/2024, the patient is more awake. Serum ammonia level is dropped down to 12 and the patient remains on lactulose and rifaximin. Abdomen is distended and a large-volume paracentesis was done and I removed a total of 8 L of ascitic fluid and the fluid will be sent for cultures. Hemodynamically stable on no pressors. Underwent hemodialysis yesterday with a 1.5 L of ultrafiltration. Remains on IV Rocephin. Remains onIV Lasix. The white cell count is 16 with a hemoglobin 9.4 and a platelet count of 116. BUN is 28 with a creatinine of 2.77. Potassium level is at 3.6. No focal neurological deficit. Objective - Vital Signs Vital signs: Vital Signs Temp 97.6 F 09/18/24 08:00 Pulse 52 L 09/18/24 11:00 Resp 15 09/18/24 11:00 BP 129/61 09/18/24 11:00 Pulse Ox 94 L 09/18/24 11:00 FiO2 Intake & Output 11/09/24 11/10/24 11/10/24 18:59 06:59 18:59 Intake Total 950 358 Output Total 3850 320 8110 Balance -2599 -320 -8206 Weight 138.1 kg Intake: IV 450 240 Albumin Human 25% 50 ml 150 In Empty Bag 1 bag @ 50 mls/hr IVPB Q1H PRN Rx#: [id number] Invasive Line 5 20 Invasive Line 6 20 Potassium Chloride 10 meq 400 In Water For Injection 1 100ml.bag @ 100 mls/hr IVPB Q1HR TAL Rx#: [id number] cefTRIAXone 2 gm In 50 50 Sodium Chloride 0.9% 50 ml @ 100 mls/hr IVPB Q24HR TAL Rx#:[id number] Oral 118 Hemodialysis 500 Output: Drainage 8000 Right Abdomen 8000 Urine 150 320 110 Stool 200 Hemodialysis 2000 Hemodialysis Net Amount 1500 Other: Voiding Method Indwelling Catheter Indwelling Catheter Indwelling Catheter # Bowel Movements 1 1 1 - Exam Patient is encephalopathic, lethargic and awake and less encephalopathic patient is currently on room air oxygen Head exam was generally normal. There was no scleral icterus or corneal arcus. Mucous membranes are moist Neck was supple and without jugular venous distension, thyromegaly, or carotid bruits. Carotids were easily palpable bilaterally. There was no adenopathy. Lungs were clear to auscultation and percussion, and with normal diaphragmatic excursion. No wheezes or rales were noted. Cardiac exam revealed the PMI to be normally situated and sized. The rhythm was regular and no extrasystoles were noted during several minutes of auscultation. The first and second heart sounds were normal and physiologic splitting of the second heart sound was noted. There were no murmurs, rubs, clicks, or gallops. Abdomen is distended and the patient has a positive ascites. The patient also has eventration of the umbilicus. No direct tenderness. No rebound tenderness. No guarding. Extremities revealed trace edema, no cyanosis or clubbing. Neurologically, the patient is awake and alert and communicating, some degree of encephalopathy still present. - Labs CBC & Chem 7: 09/18/24 03:12 09/18/24 03:12 Labs: Abnormal Lab Results - Last 24 Hours (Table) 09/17/24 09/18/24 09/18/24 Range/Units 16:27 03:12 03:12 WBC 16.1 H (3.8-10.6) k/uL RBC 2.93 L (4.30-5.90) m/uL Hgb 9.4 L (13.0-17.5) gm/dL Hct 27.7 L (39.0-53.0) % RDW 16.3 H (11.5-15.5) % Plt Count 116 L (150-450) k/uL Sodium 134 L (137-145) mmol/L BUN 28 H (9-20) mg/dL Creatinine 2.77 H (0.66-1.25) mg/dL Glucose 119 H (74-99) mg/dL POC Glucose (mg/dL) 134 H (70-110) mg/dL Calcium 7.7 L (8.4-10.2) mg/dL 09/18/24 09/18/24 Range/Units 06:40 10:59 WBC (3.8-10.6) k/uL RBC (4.30-5.90) m/uL Hgb (13.0-17.5) gm/dL Hct (39.0-53.0) % RDW (11.5-15.5) % Plt Count (150-450) k/uL Sodium (137-145) mmol/L BUN (9-20) mg/dL Creatinine (0.66-1.25) mg/dL Glucose (74-99) mg/dL POC Glucose (mg/dL) 117 H 134 H (70-110) mg/dL Calcium (8.4-10.2) mg/dL Assessment and Plan Plan: Acute on chronic kidney injury, consider ATN, consider hepatorenal syndrome. Fo tereza catheter in place and urine output is minimal at this point in time. No evidence of any hydronephrosis. Also, possibility of intravascular volume depletion/dehydration. The patient was resuscitated with IV fluids. The patient is currently off pressors. Patient is undergoing periodic dialysis. He has undergone 4 sessions of hemodialysis during this current admission, the last being yesterday with a total of 1.5 L of ultrafiltration. Urine output is low. Remains on Lasix. Acute lactic acidosis, improved Acute metabolic acidosis, improved and the patient is currently off to bicarb i nfusion Hypotension, chronic maintained on midodrine on outpatient basis, rule out underlying infection/sepsis. Rule out intravascular volume depletion as the patient had no significant oral intake over the past 5 days. Echocardiogram showed a preserved LV function and the patient is currently off pressors. The patient is currently off pressors Acute hypoxic respiratory failure with signs of CHF and the patient is currently on 3 liters of oxygen by nasal cannula Liver cirrhosis. The patient has nonalcoholic fatty liver disease secondary to diabetes mellitus and obesity. Ascites status post large-volume paracentesis done on 09/12/2024 with removal of 12.4 L of ascitic fluid. The cytology is negative. No indication for SBP based on the cell count. Currently on IV Rocephin. Repeat paracentesis was done today and a total of 8 L of fluid/ascitic fluid was aspirated. Hepatic encephalopathy with elevated ammonia level, currently on lactulose and rifaximin and the ammonia level is improving Episodic GI bleed, rule out underlying portal hypertension and esophageal varices, hemoglobin is stable Coronary artery disease Cardiomyopathy the patient has an AICD in place, most recent echocardiogram shows a preserved LV function, improving COPD Diabetes mellitus type 2 Obesity Hyponatremia secondary to above, improved Obstructive sleep apnea maintained on CPAP therapy on outpatient basis Plan The patient can be downgraded The patient is currently off pressors Hemodialysis was performed yesterday with a 1.5 L of ultrafiltration IV Lasix 80 mg every 12 hours Soto catheter has been inserted and will monitor urine output, overall urine output is quite low at this point in time. Continue lactulose and rifaximin and the lactulose dose to once a day Follow-up ammonia level, improving Watch for any signs of GI bleeding Empiric antibiotic coverage with IV Rocephin Blood cultures, and urine cultures are negative Chest x-ray, consistent with CHF Continue octreotide IV Protonix Echocardiogram shows a preserved LV function Hold Zestril, Actos, Farxiga and metformin and Lipitor and diuretics for now Insulin sliding scale coverage Monitor lactic acid level, levels have improved Large-volume paracentesis was performed today with a total of 8 L of ascitic fluid removed. Will replace with 25 g of albumin Condition is still critical and will continue to follow
--- NOTE | 2024-09-18 11:41 | P.PCN ---
Date of Procedure: 09/18/24 Preoperative Diagnosis: Ascites Postoperative Diagnosis: Ascites Procedure(s) Performed: Paracentesis Anesthesia: local Surgeon: Vinh Thurston Estimated Blood Loss (ml): 0 Pathology: other Condition: critical Disposition: ICU Operative Findings: The skin over the anterior abdominal wall in the right lower quadrant was cleaned using ChloraPrep. Subsequently, the skin in the same location in the right lower quadrant was infiltrated with 1% lidocaine. Subsequently, a parace ntesis safety kit was used and the paracentesis catheter was introduced into the abdominal cavity and a total of 8 L of ascitic fluid was aspirated without any complications. The catheter was removed and the appropriate dressing was applied to the abdomen. The patient remained hemodynamically stable. The patient will be given IV albumin, a total of 25 g. The ascitic fluid will be sent for cultures. No complications.
[2024-09-18] MEDS ORDERED: ALBUMIN HUMAN 25% 50 ML in EMPTY BAG 1 BAG IVPB PRN (13:00)
--- NOTE | 2024-09-18 13:46 | P.PN ---
Subjective Progress Note Date: 09/18/24 Interval History: Patient is a 58 year old male past medical history of cirrhosis, ascites, paracentesis who presented to the ED today with abdominal pain. Patient was at a different facility where he had abnormal labs and that is why he was sent here at [facility]. Upon admission he was found to have abdominal pain, GI bleed and altered mental status. He states he has had this stomach ache for 1 3 weeks and noticed blood in the stool since 2 weeks. The daughter mentions that the patient is not an alcoholic and has been following up with gastroenterology and was recently diagnosed with liver cirrhosis about 2 months ago. At that time he was started on diuretics(Lasix 40 mg and spironolactone 100 mg), but the patient took the diuretic for a week and the diuretic was then discontinued. A paracentesis done on 09/09/2024 with 12.4 L of pleural fluid was removed, this was his frst paracentesis. Fluid cytology was negative. Denies fever, chills, headache, shortness of breath, chest pain, palpitations, coughing, nausea, vomiting. ED documentation reviewed and case discussed with ED provider. In the ED he was treated with 0.9 normal saline, ondansetron, lactulose, octreotide and 1 PRBC transfusion. While in the ED the patient's blood pressure dropped to 74/32 and the patient was moved to ICU for pressor support. Vitals on presentation: T 97.2 F, P 66 bpm, RR 18, BP 117/53, O2 97% on room air EKG: Paced rhythm, rate 65 bpm, QTc 581 ms Abdomen bladder ultrasound: Shows no evidence for hydronephrosis/nephrolithiasis/masses identified. Bladder exam, postvoid residual, bilateral jets exam limited as the patient was not awake CBC: WBC 15.4, hemoglobin 9.8 Coagulation panel: PT 13.8, INR 1.3 CMP: Sodium 126, chloride 97, bicarb 13, BUN 61, creatinine 1.57, corrected calcium 8.4, phosphorus 7.7, magnesium 1.5, total bilirubin 1.8, total protein 5.6, albumin 2.6 Lactic acid 7.6, 8.1, 8.7, 8.9, 0.8, 1.4, 7.8, 7.9 Ammonia: 69 ProBNP: 1240 Troponin: <0.012 UA: 2+ protein, trace glucose, trace blood, 1+ bilirubin, 10 WBC, occasional bacteria, 45%, moderate mucus 09/15/24: Patient seen and evaluated bedside today in the ICU. Hemodialysis net amount was 0 yesterday. Currently on second day of hemodialysis treatment. Labs show WBC 18, sodium, creatinine 6.07, BUN 54, lactic acid 4.1, ammonia 114. Hep B surface antigen nonreactive, hep B surface antibody is negative with antibody titer being 3.5 mIU/mL. Chest x-ray shows prominent pulmonary vascular markings. Abdomen ultrasound done today shows moderate amount of ascites. 09/16/24: Patient seen and examined today in the ICU. Patient is having bowel movements with lactulose. He had the second hemodialysis treatment yesterday. Hemodialysis net amount was 0. Kidney function is improving. Labs today show WBC 18.7, hemoglobin 9.2, PT 15.4, INR 1.5, APTT 30.9, sodium 129, potassium 3.4, BUN 41, creatinine 4.4, lactic acid 3.8 and ammonia 62. Blood culture s hows no growth after 48 hours. Urine culture shows no growth after 24 hours. 09/17/24: Patient seen and evaluated at bedside in the ICU. He had a hemodialysis session today. Labs today hemoglobin 9.1, WBC 17.6, sodium 132, potassium 3.3, BUN 33, creatinine 3.73. Coagulation panel today showed PT 16.2, INR 1.6. Ammonia level today is 55. Kidney function is improving. He had his third session of hemodialysis yesterday, 1500 mL was removed. Urine output yesterday was 313 ml. Echocardiogram done yesterday shows EF of 50 to 55%, normal LV function, moderate MR. 09/18/2024 Patient was seen and examined today in the ICU today. Patient still confused, daughter at bedside. Alert and oriented x 1. Afebrile, heart rate 65, respiratory rate 16, blood pressure 117/92, saturating 93% on room air. Hemoglobin stable 9.4, WBC 16.1, platelet 116. Creatinine 2.77, BUN 28. Ammonia 12. Patient underwent paracentesis today with 8 L of acetic fluid removed, received IV albumin. Ascitic fluid sent for culture. Nephrology following for hemodialysis tomorrow. Vital stable. Remains on IV Rocephin. Also on IV Lasix. Assessment/Plan: Patient is a 58-year-old male with past medical history of cirrhosis and ascites, paracentesis who presented to the ED with abdominal pain. He has been admitted for toxic metabolic encephalopathy, hepatorenal syndrome and CHASE and is he has received 3 hemodialysis treatments. His kidney function is improving. #.Toxic metabolic encephalopathy, multifactorial cause #.Hepatic encephalopathy and Uremic Encephalopathy #.Ascites status post paracentesis 8 L 09/18/2024 Hep B antibody negative, hep B surface antigen non reactive Blood culture shows no growth in 72 hours. Continue lactulose 30 g TID and Xifaxan 550 mg PO TID Paracentesis with fluid cultures pending, IV Albumin pre and post procedure Rocephin started in the ED Continue IV Rocephin for empiric coverage Monitor ammonia level Gastroenterology is following #. CHASE, secondary to hypotension and recent large-volume paracentesis, oliguric Urine sodium [address] with minimal urine output Hemodilaysis today 3rd Hemodialysis yesterday,1500 ml removed Monitor urine output Nephrology following #.Hyperphosphatemia,secondary to CHASE Continue PhosLo 667 mg p.o. 3 times daily with meals #. Shock, secondary to intravsacular volume depletion vs cardiogenic Patient has hepatorenal syndrome as well as had low oral intake for the past few days along with history of cardiomyopathy Continue midodrine 10 mg PO TID Hold diuretics, Farxiga, Lisinopril, Lipitor, Pioglitazone #. Hypervolemic hyponatremia, improving Na 132 Continue IV lasix 80 mg BID Monitor BMP Nephrology is following #. UTI UA shows 2+ protein, trace glucose, trace blood, 1+ bilirubin, 10 WBC, occasional bacteria, 45%, moderate mucus Urine culture shows no growth after 18 hours. Rocephin started in the ED Continue IV Rocephin empirically #. GI Bleed Continue IV protonix 40 mg IV daily and octreotide 50 mcg IVP every 8 hours as GI prophylaxis #. Diabetes mellitus Insulin sliding scale Hold Farxiga, metformin, Pioglitazone #. Pain management Continue Dilaudid 1mg IVP Q3HR as needed #. Nausea and vomiting Continue Zofran 4 mg IVP every 8 hours as needed #. Metabolic acidosis secondary to CHASE and lactic acidosis, Resolved #.Hypomagnesemia, resolved F: E: N:Renal diet A: DVT prophylaxis: Pneumatic compression sleeve GI prophylaxis: IV protonix 40 mg IV daily and octreotide 50 mcg IVP every 8 hours Monitor vital signs and labs Labs and medication were reviewed. Continue same treatment. Further recommendations as per clinical course of the patient PHYSICAL EXAMINATION: GENERAL: The patient is A&O x1, NAD HEENT: EOMI, Sclerae anicteric, Moist Mucous membranes Neck: Supple, Non tender, No JVD PULMONARY: Equal breath souds B/L, No wheezing, No crackles. CARDIOVASCULAR: S1, S2 present. No murmurs, rubs, or gallops. ABDOMEN: Soft, nontender, nondistended, normoactive bowel sounds. No guarding or rebound tenderness. MUSCULOSKELETAL: ++ edema, No cyanosis. No clubbing. Normal ROM. Intact peripheral pulses. EXTREMITIES: No cyanosis, clubbing, or pedal edema. NEUROLOGICAL: CN 2-12 grossly intact. No FND Skin: No Rash REVIEW OF SYSTEMS: Review of system due to encephalopathy Dictation was produced using [employer] dictation software. please excuse any grammatical, word or spelling errors. Objective - Vital Signs Vital signs: Vital Signs Temp 97.6 F 09/18/24 08:00 Pulse 52 L 09/18/24 12:00 Resp 16 09/18/24 12:00 BP 117/92 09/18/24 12:00 Pulse Ox 93 L 09/18/24 12:00 FiO2 Intake & Output 09/17/24 09/18/24 09/18/24 18:59 06:59 18:59 Intake Total 950 408 Output Total 2132 320 8118 Balance -2901 -320 -4001 Weight 138.1 kg Intake: IV 450 290 Albumin Human 25% 50 ml 200 In Empty Bag 1 bag @ 50 mls/hr IVPB Q1H PRN Rx#: [id number] Invasive Line 5 20 Invasive Line 6 20 Potassium Chloride 10 meq 400 In Water For Injection 1 100ml.bag @ 100 mls/hr IVPB Q1HR TAL Rx#: [id number] cefTRIAXone 2 gm In 50 50 Sodium Chloride 0.9% 50 ml @ 100 mls/hr IVPB Q24HR TAL Rx#:[id number] Oral 118 Hemodialysis 500 Output: Drainage 8000 Right Abdomen 8000 Urine 150 320 125 Stool 200 Hemodialysis 2000 Hemodialysis Net Amount 1500 Other: Voiding Method Indwelling Catheter Indwelling Catheter Indwelling Catheter # Bowel Movements 1 1 0 - Labs CBC & Chem 7: 09/18/24 03:12 09/18/24 03:12 Labs: Abnormal Lab Results - Last 24 Hours (Table) 09/17/24 09/18/24 09/18/24 Range/Units 16:27 03:12 03:12 WBC 16.1 H (3.8-10.6) k/uL RBC 2.93 L (4.30-5.90) m/uL Hgb 9.4 L (13.0-17.5) gm/dL Hct 27.7 L (39.0-53.0) % RDW 16.3 H (11.5-15.5) % Plt Count 116 L (150-450) k/uL Sodium 134 L (137-145) mmol/L BUN 28 H (9-20) mg/dL Creatinine 2.77 H (0.66-1.25) mg/dL Glucose 119 H (74-99) mg/dL POC Glucose (mg/dL) 134 H (70-110) mg/dL Calcium 7.7 L (8.4-10.2) mg/dL 09/18/24 09/18/24 Range/Units 06:40 10:59 WBC (3.8-10.6) k/uL RBC (4.30-5.90) m/uL Hgb (13.0-17.5) gm/dL Hct (39.0-53.0) % RDW (11.5-15.5) % Plt Count (150-450) k/uL Sodium (137-145) mmol/L BUN (9-20) mg/dL Creatinine (0.66-1.25) mg/dL Glucose (74-99) mg/dL POC Glucose (mg/dL) 117 H 134 H (70-110) mg/dL Calcium (8.4-10.2) mg/dL
[2024-09-18 16:16] LABS: Glucose,Whole Blood 125 mg/dL (70-110)
[2024-09-18 21:12] LABS: Glucose,Whole Blood 112 mg/dL (70-110)
[2024-09-19 06:11] LABS: HCT 30.4 % (39.0-53.0); MCH 31.7 pg (25.0-35.0); MCHC 32.9 g/dL (31.0-37.0); MCV 96.2 fL (80.0-100.0); Mean Platelet Volume 7.1; RBC 3.16 m/uL (4.30-5.90); RDW 15.7 % (11.5-15.5)
[2024-09-19 06:23] LABS: ALT 15 U/L (4-49); AST 49 U/L (17-59); African American GFR (CKD) 74 (>60 ml/min/1.73 sqM); Albumin 2.9 g/dL (3.5-5.0); Alkaline Phosphatase 98 U/L (38-126); Anion Gap 7 mmol/L; Blood Urea Nitrogen 29 mg/dL (9-20); Calcium 8.1 mg/dL (8.4-10.2); Carbon Dioxide 29 mmol/L (22-30); Chloride 102 mmol/L (98-107); Glucose 115 mg/dL (74-99); Non-African American GFR(CKD) 64 (>60 ml/min/1.73 sqM); Potassium 3.5 mmol/L (3.5-5.1); Sodium 138 mmol/L (137-145); Total Bilirubin 2.9 mg/dL (0.2-1.3); Total Protein 6.1 g/dL (6.3-8.2)
[2024-09-19 06:24] LABS: Band Neutrophils % 2 %; Lymphocytes # (M) 0.42 k/uL (1.0-4.8); Monocytes # (M) 1.12 k/uL (0-1.0); Neutrophils % (M) 82 %; Nucleated Red Blood Cells 0 /100 WBC (0-0); Total Cells Counted 100
[2024-09-19 06:25] LABS: Anisocytosis (M) Present; Crenated RBC Present; Poikilocytosis (M) Present; Polychromasia Present; RBC Fragments Present; Target Cells Present
[2024-09-19 06:26] LABS: Platelet Count 85 k/uL (150-450)
[2024-09-19 06:43] LABS: Glucose,Whole Blood 112 mg/dL (70-110)
[2024-09-19] MEDS: POTASSIUM CHLORIDE ER 20 MEQ TAB.ER PO STA (08:41)
--- NOTE | 2024-09-19 09:00 | P.OP ---
Date of Procedure: 09/14/24 Description of Procedure: SURGEON: Maria Soto DO INSIDE ACCOUNT EXECUTIVE: None PREOPERATIVE DIAGNOSIS: Acute on chronic renal failure, need for dialysis POSTOPERATIVE DIAGNOSIS: Same OPERATION: Ultrasound-guided rightcommon femoral vein access, placement of temporary dialysis catheter DESCRIPTION OF PROCEDURE: The groin was prepped and draped in usual sterile fashion. A preprocedure timeout was performed, all parties were in agreement. An ultrasound was utilized and the right common femoral vein was identified. It was patent and compressible. The skin overlying the vein was anesthetized with 1% lidocaine plain. A multipurpose needle was utilized and the femoral vein was accessed under ultrasound guidance on first attempt with return of dark venous, nonpulsatile blood. The guidewire was passed easily. Serial dilation was performed of the subcutaneous tissues. The catheter was placed and secured with suture. It aspirated and flushed freely. A dressing was applied. The patient tolerated the procedure well.
[2024-09-19] MEDS: NICOTINE 21MG/24HR PATCH TRANSDERM SCH (09:34)
--- NOTE | 2024-09-19 10:08 | CDI ---
Documentation Clarification Form Date: 09/19/2024 From: Ledy Goldstein RN CCDS Phone: [phone] Admit Date: 09/13/2024 06:40:00 PM Patient Name: Thomas Rodrigez Visit Number: [id number] Discharge Date: ATTENTION: The Clinical Documentation Specialists (CDI) and [facility] Coding Staff appreciate your assistance in clarifying documentation. Please respond to the clarification below the line at the bottom and electronically sign. The CDI & [facility] Coding staff will review the response and follow-up if needed. Please note: Queries are made part of the Legal Health Record. If you have any questions, please contact the author of this message via ITS. Doctor/Provider: Rasta Jones MD: Shock is documented in the IM progress note 09/18 and in previous IM notes. Additional clarification regarding the type of shock is requested. Patient history/risk factors: 58-year-old male with a history of Cirrhosis, and Ascites who presents with abdominal pain, GI bleed and altered mental status and admitted for toxic metabolic encephalopathy and hepatorenal syndrome Clinical Indicators: 09/13 Triage VS: 117/53, 97.2, 66, 18, 97% 3 liters nasal cannula 09/13 BP range: 63/46 at 21:30-117/75 at 22:00 09/14 BP range: 78/38 at 12:12-114/40 at 10:10 09/15 BP range: 78/49 at 00:30-123/67 at 20:00 09/16- 09/19 BP's maintained 90's and above systolic 09/13 ED Note, Clinical Impression: "Weakness, Ascites, Hyperammonemia, Hyponatremia, Lactic acidosis, Sepsis, Acute renal failure, Altered mental state, Gastrointestinal hemorrhage" 09/14 H&P, Assessment and Plan: "#. Shock, secondary to intravascular volume depletion vs cardiogenic. Patient has hepatorenal syndrome as well as had low oral intake for the past few days along with history of cardiomyopathy" 09/18 IM PN, Assessment/Plan: "#. Shock, secondary to intravascular volume depletion vs cardiogenic. Patient has hepatorenal syndrome as well as had low oral intake for the past few days along with history of cardiomyopathy" 09/13-09/19 WBC: 15.4, 18.0, 18.0, 18.7, 17.6, 16.1, 14.0 Lactic Acid range: 3.5 on 09/15 - 8.9 0n 09/14 09/13 Urinalysis: Color: Dark Brown, Appearance: Cloudy, Protein: 2+, Blood: Trace, Leukocyte Esterase: Negative, WBC: 10, Bacterial Occasional, Hyaline Casts: 45, Mucus Rare 09/13 BNP: 1240 Treatment: Normal Saline 1000cc bolus twice on 09/13, twice on 09/14 and then 75cc/hour 09/13- 09/14 Levophed 4mg titrated drip 09/14-09/18 Midodrine 10mg oral AC-TID start 09/14 Ceftriaxone: 2gram IV [id number] start 09/13 Please clarify the type of shock, if known: [ x ] Hypovolemic Shock [ ] Cardiogenic Shock [ ] Septic Shock [ ] Other, please specify [ ] Unable to determine MTDD
--- NOTE | 2024-09-19 11:09 | P.PN ---
Subjective patient is seen for follow-up for acute kidney injury. Started on hemodialysis on 09/14/2024 by a right femoral catheter. Urine output has improved and documented at 1.2 L for last 24 hours. Scheduled for hemodialysis today. Patient is awake and comfortable. He was confused overnight. Oral intake about 25%. Objective - Vital Signs Vital signs: Vital Signs Temp 98.6 F 09/19/24 08:00 Pulse 81 09/19/24 08:00 Resp 24 09/19/24 08:00 BP 124/50 09/19/24 08:00 Pulse Ox 95 09/19/24 08:00 FiO2 Intake & Output 09/18/24 09/19/24 09/19/24 18:59 06:59 18:59 Intake Total 428 40 50 Output Total 8150 1105 125 [facility]7722 -1065 -75 Intake: IV 310 40 50 Albumin Human 25% 50 ml 200 In Empty Bag 1 bag @ 50 mls/hr IVPB Q1H PRN Rx#: [id number] Invasive Line 5 30 20 Invasive Line 6 30 20 cefTRIAXone 2 gm In 50 50 Sodium Chloride 0.9% 50 ml @ 100 mls/hr IVPB Q24HR TAL Rx#:[id number] Oral 118 Output: Drainage 8000 Right Abdomen 8000 Urine 150 1105 125 Other: Voiding Method Indwelling Catheter Indwelling Catheter Indwelling Catheter # Bowel Movements 1 4 1 # Emeses 1 - Exam patient is awake, comfortable, no acute distress. Examination of the heart S1 and S2 Examination of the lungs bilateral breath sounds are heard Abdomen is soft nontender Examination of lower extremity shows no significant edema [employer] exam shows patient is moving all 4 extremities. He has been confused on and off - Labs CBC & Chem 7: 09/19/24 05:49 09/19/24 05:49 Labs: Abnormal Lab Results - Last 24 Hours (Table) 09/18/24 09/18/24 09/19/24 Range/Units 16:15 21:11 05:49 WBC 14.0 H (3.8-10.6) k/uL RBC 3.16 L (4.30-5.90) m/uL Hgb 10.0 L (13.0-17.5) gm/dL Hct 30.4 L (39.0-53.0) % RDW 15.7 H (11.5-15.5) % Plt Count 85 L (150-450) k/uL Neutrophils # (Manual) 11.70 H (1.3-7.7) k/uL Lymphocytes # (Manual) 0.42 L (1.0-4.8) k/uL Monocytes # (Manual) 1.12 H (0-1.0) k/uL BUN (9-20) mg/dL Glucose (74-99) mg/dL POC Glucose (mg/dL) 125 H 112 H (70-110) mg/dL Calcium (8.4-10.2) mg/dL Total Bilirubin (0.2-1.3) mg/dL Total Protein (6.3-8.2) g/dL Albumin (3.5-5.0) g/dL 09/19/24 09/19/24 Range/Units 05:49 06:42 WBC (3.8-10.6) k/uL RBC (4.30-5.90) m/uL Hgb (13.0-17.5) gm/dL Hct (39.0-53.0) % RDW (11.5-15.5) % Plt Count (150-450) k/uL Neutrophils # (Manual) (1.3-7.7) k/uL Lymphocytes # (Manual) (1.0-4.8) k/uL Monocytes # (Manual) (0-1.0) k/uL BUN 29 H (9-20) mg/dL Glucose 115 H (74-99) mg/dL POC Glucose (mg/dL) 112 H (70-110) mg/dL Calcium 8.1 L (8.4-10.2) mg/dL Total Bilirubin 2.9 H (0.2-1.3) mg/dL Total Protein 6.1 L (6.3-8.2) g/dL Albumin 2.9 L (3.5-5.0) g/dL Microbiology - Last 24 Hours (Table) 09/18/24 09:10 Gram Stain - Preliminary Ascites Fluid Body Fluid Culture - Preliminary 09/13/24 19:58 Blood Culture - Final Blood Assessment and Plan Assessment: 1. Acute kidney injury secondary to ATN secondary to hypotension and recent large-volume paracentesis. Also concern for hepatorenal syndrome. No hydronep hrosis noted on kidney ultrasound. Creatinine up to 7.83 this admission. Oliguric. Started on hemodialysis September 14, 2024. 2. Metabolic acidosis secondary to acute kidney injury and lactic acidosis. Improved with dialysis and bicarb drip. 3. Liver cirrhosis. 4. Hyponatremia. Initially hypovolemic. Now hypervolemic with significant ascites. Improved with UF. 5. UTI on antibiotics. 6. Hyperphosphatemia secondary to acute kidney injury. On PhosLo. 7. Hypomagnesemia from poor intake and use of diuretics. Replaced. Improved. 8. Encephalopathy. Hepatic and uremic. 9. Ascites with paracentesis done September 12, 2024 with 12.4 L drained. Plan: hemodialysis today. Monitor for recovery of renal function as urine output has improved. Repeat labs in a.m.
[2024-09-19 11:57] LABS: Glucose,Whole Blood 163 mg/dL (70-110)
[2024-09-19 12:18] VITALS: BMI 35.2
--- NOTE | 2024-09-19 13:02 | P.PN ---
Subjective Progress Note Date: 09/19/24 Principal diagnosis: Liver cirrhosis with ascites This is a 58-year-old male patient, presented to the emergency department with generalized weakness, altered mentation, severe dehydration, lack of any oral intake over the past 5 days, diminished urine output, encephalopathy and hypotension. The patient was diagnosed having liver cirrhosis and the exact nature of this liver failure is not clear. No history of alcoholism. He was told to have nonalcoholic liver disease/fatty liver. No history of any hepatitis which is viral in nature. The patient was having episodes of GI bleeding. The patient was seen by gastroenterology and placed on a combination of diuretics. He has undergone a recent large-volume paracentesis on 09/12/2024 and total of 12.4 L of ascitic fluid was aspirated. Noted the patient was having significant abdominal swelling and increased lower extremity edema. The patient currently is very much lethargic and encephalopathic. According to the daughter is at the bedside, he is also known to have other medical problems including COPD, CHF and the patient has an AICD in place along with history of hypertension. No history of alcoholism or alcohol abuse. No history of any substance abuse. Noted, his baseline renal function from 2018 was within normal limits. Creatinine on 09/09/2024 was 3.5 and creatinine on admission was at 7.57. At the same time, the patient had significant abnormalities in the blood work where his sodium was at 126, potassium of 4.2, serum bicarbonate 13, BUN 61, glucose at 133, the lactic acid level was 8.7, the calcium level is at 7.3, bilirubin is at 1.8, LFTs are normal, ammonia level was 78, total protein was 5.6 with an albumin level of 2.6. UA is showing +2 protein, 10 WBCs, ascitic fluid that was aspirated on 09/09/2024 showed 231 WBCs, the predominant differential was lymphocytic in nature. The current coagulation profile shows an INR of 1.3 with a PT of 29. The white cell count is at 15.4 with a hemoglobin 9.8 and a platelet count of 167. No chest x-ray has been done. The ultrasound of the enal showed no evidence of any significant hydronephrosis. In the ED, the patient was given a bolus of 1 L of IV fluid and the patient is a currently on a bicarb infusion. He was started on IV Rocephin as an empiric antibiotic coverage. Nephrology was consulted and the patient will be undergoing hemodialysis. The patient was started on lactulose 30 g p.o. 3 times daily. Is also on midodrine 10 mg p.o. 3 times daily. He is on Sandostatin 50 mcg every 8 hours. Most recent blood pressure is 84/39. Pulse ox is 97% on room air oxygen. 09/15/2024, patient remains in intensive care unit. This morning, he seems to be more arousable compared to yesterday. He was not hepatic encephalopathy and he also had a component of metabolic encephalopathy related to his acute kidney injury. The patient underwent hemodialysis yesterday another session of hemodialysis being performed today. He received a total of 5.5 L of IV fluid and the patient is currently on a bicarb infusion running at 80 cc an hour. Urine output is between 0 and 50 cc an hour. He remains on norepinephrine at 0.09 mcg/kg/min. Chest x-ray from today showing CHF and the patient is currently on 3 L of oxygen by nasal cannula. Lactic acid level is dropped down to 4.4. Serum ammonia 814. He received a dose of Lasix given to him by nephrology 80 mg IV push. The patient remains on octreotide. The patient remains on IV Protonix. No evidence of any GI bleeding. In terms of labs, the WBC count is 18 with a hemoglobin 9.7 and a platelet count of 197. BUN is 54 with a creatinine of 6 and a sodium levels at 128. LFTs are noted and are within normal limits. On 09/16/2024, the patient remains encephalopathic. Despite some improvement in the patient's ammonia levels which is currently down to 62, the patient remains lethargic and sleepy although more awake and alert compared to yesterday. The patient remains on lactulose with adequate bowel movements and the patient is also on rifaximin. The patient underwent 2 sessions of hemodialysis the last being yesterday and the patient will undergo dialysis with ultrafiltration today. The patient was taken off the norepinephrine this morning. He will be given IV albumin for nephrology to be followed up by IV Lasix 80 mg every 12 hour. Urine output remains quite diminished at this point in time. He remains on 3 Suboxone by nasal cannula. Urine output is in order of 10 cc an hour. Norepinephrine was running as low as 0.02 mcg/kg/min and the patient was taken off the pressors this morning. No evidence of any GI bleeding. Abdomen remains distended. White cell count is 18.7 with a hemoglobin of 9.2 and a platelet count of 176. INR is 1.5 with a PTT of 30.9. Sodium level is at 129, BUN 41 with a creatinine 4.4, bicarb is 24, lactic acid level is down to 3.8. The cultures have been essentially negative for now including urine and blood cultur e. The patient remains on IV Rocephin as empiric antibiotic coverage. 09/17/2024, the patient is less encephalopathic. The patient is undergoing another session of hemodialysis with a goal of ultrafiltration of around 1 L. The patient has hepatic encephalopathy and metabolic encephalopathy and the patient is currently on a combination of rifaximin and lactulose regarding hepatic encephalopathy and the serum ammonia level is down to 55. Meanwhile, the acid-base status is improved and the patient serum bicarb is up to 26 and the patient bicarb drip was stopped 24 hours ago. Hemodynamically stable on no pressors. Urine output is quite diminished in the order of 5 to 10 cc an hour. The patient has a fecal management system in place and the patient is producing stool. The patient is currently on 2 L of oxygen by nasal cannula. He is on Lasix 80 mg IV every 12 hours. 09/18/2024, the patient is more awake. Serum ammonia level is dropped down to 12 and the patient remains on lactulose and rifaximin. Abdomen is distended and a large-volume paracentesis was done and I removed a total of 8 L of ascitic fluid and the fluid will be sent for cultures. Hemodynamically stable on no pr essors. Underwent hemodialysis yesterday with a 1.5 L of ultrafiltration. Remains on IV Rocephin. Remains onIV Lasix. The white cell count is 16 with a hemoglobin 9.4 and a platelet count of 116. BUN is 28 with a creatinine of 2.77. Potassium level is at 3.6. No focal neurological deficit. Patient was seen today 09/19/2024, remains in the ICU, he is on room air, patient had a large-volume paracentesis yesterday, 8 L of fluid were drained remains on Rocephin empirically remains on Lasix 80 mg twice daily, patient is supposed to transfer to . today. Patient is hemodynamically stable, blood pressure is under control. Patient does not seem to be in any distress is presently on room air. WBC count today is 14 hemoglobin is 10 electrolytes are normal BUN is 29 creatinine 1.25, significantly improved since he came in with a creatinine of 7.83. Patient is scheduled for hemodialysis today. Urine output has improved and had 1.2 L in the last 24 hours. Looking back at his renal f ailure, patient came in with acute kidney injury secondary to ATN secondary to hypotension and had recent large-volume paracentesis there was a concern about hepatorenal syndrome. His initial hemodialysis was started on September 14. Objective - Vital Signs Vital signs: Vital Signs Temp 98.6 F 09/19/24 08:00 Pulse 81 09/19/24 08:00 Resp 24 09/19/24 08:00 BP 124/50 09/19/24 08:00 Pulse Ox 95 09/19/24 08:00 FiO2 Intake & Output 09/18/24 09/19/24 09/19/24 18:59 06:59 18:59 Intake Total 428 40 50 Output Total 8150 1105 125 Balance -7722 -1065 -75 Weight 138.1 kg Intake: IV 310 40 50 Albumin Human 25% 50 ml 200 In Empty Bag 1 bag @ 50 mls/hr IVPB Q1H PRN Rx#: [id number] Invasive Line 5 30 20 Invasive Line 6 30 20 cefTRIAXone 2 gm In 50 50 Sodium Chloride 0.9% 50 ml @ 100 mls/hr IVPB Q24HR [facility] Rx#:[id number] Oral 118 Output: Drainage 8000 Right Abdomen 8000 Urine 150 1105 125 Other: Voiding Method Indwelling Catheter Indwelling Catheter Indwelling Catheter # Bowel Movements 1 4 1 # Emeses 1 - Exam General: Revealed a 58-year-old white male in no distress, sitting in bed, on room air, his encephalopathy has resolved. Head: Atraumatic, normocephalic Neck supple no neck masses no JVD no stridor Lungs clear bilaterally no crackles rhonchi or wheezes Cardiac distant S1-S2, no S3 gallop, no murmur. Abdomen remains distended, no rebound, no guarding, positive ascites. Extremities 1+ bipedal edema Neurologically, alert oriented x 3 no gross focal neurologic deficit Psychiatric: Normal mood affect and no mental status examination Skin: No rash - Labs CBC & Chem 7: 09/19/24 05:49 09/19/24 05:49 Labs: Abnormal Lab Results - Last 24 Hours (Table) 09/18/24 09/18/24 09/19/24 Range/Units 16:15 21:11 05:49 WBC 14.0 H (3.8-10.6) k/uL RBC 3.16 L (4.30-5.90) m/uL Hgb 10.0 L (13.0-17.5) gm/dL Hct 30.4 L (39.0-53.0) % RDW 15.7 H (11.5-15.5) % Plt Count 85 L (150-450) k/uL Neutrophils # (Manual) 11.70 H (1.3-7.7) k/uL Lymphocytes # (Manual) 0.42 L (1.0-4.8) k/uL Monocytes # (Manual) 1.12 H (0-1.0) k/uL BUN (9-20) mg/dL Glucose (74-99) mg/dL POC Glucose (mg/dL) 125 H 112 H (70-110) mg/dL Calcium (8.4-10.2) mg/dL Total Bilirubin (0.2-1.3) mg/dL Total Protein (6.3-8.2) g/dL Albumin (3.5-5.0) g/dL 09/19/24 09/19/24 09/19/24 Range/Units 05:49 06:42 11:55 WBC (3.8-10.6) k/uL RBC (4.30-5.90) m/uL Hgb (13.0-17.5) gm/dL Hct (39.0-53.0) % RDW (11.5-15.5) % Plt Count (150-450) k/uL Neutrophils # (Manual) (1.3-7.7) k/uL Lymphocytes # (Manual) (1.0-4.8) k/uL Monocytes # (Manual) (0-1.0) k/uL BUN 29 H (9-20) mg/dL Glucose 115 H (74-99) mg/dL POC Glucose (mg/dL) 112 H 163 H (70-110) mg/dL Calcium 8.1 L (8.4-10.2) mg/dL Total Bilirubin 2.9 H (0.2-1.3) mg/dL Total Protein 6.1 L (6.3-8.2) g/dL Albumin 2.9 L (3.5-5.0) g/dL Microbiology - Last 24 Hours (Table) 09/18/24 09:10 Gram Stain - Preliminary Ascites Fluid Body Fluid Culture - Preliminary 09/13/24 19:58 Blood Culture - Final Blood Assessment and Plan Assessment: Impression: Recurrent ascites secondary to liver cirrhosis secondary to nonalcoholic fatty liver with cirrhosis. Acute kidney injury secondary to hypotension/acute tubular necrosis Hypotension secondary to high volume paracentesis on his initial admission History of liver cirrhosis/nonalcoholic fatty liver Hepatic encephalopathy, remains on lactulose, remains on rifaximin History of esophageal varices and episodic GI bleeding History of underlying coronary artery disease History of cardiomyopathy and AICD placement History of underlying COPD History of type 2 diabetes Obstructive sleep apnea syndrome, on CPAP on outpatient basis. Recommendation: Transfer patient out of the ICU to medical floor today. Continue diuretics patient is on Lasix 80 mg IV push every 12 hours Continue close monitoring of electrolytes and renal profile Continue empirically Rocephin for possible SBP Continue octreotide Nephrology to decide on hemodialysis, renal functioning is significantly improved and the patient has good urine output Continue to monitor ascites and decide whether the patient needs more paracentesis procedures Will continue to follow Continue GI DVT prophylaxis. Time with Patient: Less than 30
--- NOTE | 2024-09-19 14:54 | P.PN ---
Subjective Progress Note Date: 09/19/24 Principal diagnosis: Hospital course: Patient is a 58 year old male past medical history of cirrhosis, ascites, paracentesis who presented to the ED today with abdominal pain. Patient was at a different facility where he had abnormal labs and that is why he was sent here at [facility]. Upon admission he was found to have abdominal pain, GI bleed and altered mental status. He states he has had this stomach ache for 1 3 weeks and noticed blood in the stool since 2 weeks. The daughter mentions that the patient is not an alcoholic and has been following up with gastroenterology and was recently diagnosed with liver cirrhosis about 2 months ago. At that time he was started on diuretics(Lasix 40 mg and spironolactone 100 mg), but the patient took the diuretic for a week and the diuretic was then discontinued. A paracentesis done on 09/09/2024 with 12.4 L of pleural fluid was removed, this was his frst paracentesis. Fluid cytology was negative. Denies fever, chills, headache, shortness of breath, chest pain, palpitations, coughing, nausea, vomiting. ED documentation reviewed and case discussed with ED provider. In the ED he was treated with 0.9 normal saline, ondansetron, lactulose, octreotide and 1 PRBC transfusion. While in the ED the patient's blood pressure dropped to 74/32 and the patient was moved to ICU for pressor support. Vitals on presentation: T 97.2 F, P 66 bpm, RR 18, BP 117/53, O2 97% on room air EKG: Paced rhythm, rate 65 bpm, QTc 581 ms Abdomen bladder ultrasound: Shows no evidence for hydronephrosis/neph rolithiasis/masses identified. Bladder exam, postvoid residual, bilateral jets exam limited as the patient was not awake CBC: WBC 15.4, hemoglobin 9.8 Coagulation panel: PT 13.8, INR 1.3 CMP: Sodium 126, chloride 97, bicarb 13, BUN 61, creatinine 1.57, corrected calcium 8.4, phosphorus 7.7, magnesium 1.5, total bilirubin 1.8, total protein 5.6, albumin 2.6 Lactic acid 7.6, 8.1, 8.7, 8.9, 0.8, 1.4, 7.8, 7.9 Ammonia: 69 ProBNP: 1240 Troponin: <0.012 UA: 2+ protein, trace glucose, trace blood, 1+ bilirubin, 10 WBC, occasional bacteria, 45%, moderate mucus 09/15/24: Patient seen and evaluated bedside today in the ICU. Hemodialysis net amount was 0 yesterday. Currently on second day of hemodialysis treatment. Labs show WBC 18, sodium, creatinine 6.07, BUN 54, lactic acid 4.1, ammonia 114. Hep B surface antigen nonreactive, hep B surface antibody is negative with antibody titer being 3.5 mIU/mL. Chest x-ray shows prominent pulmonary vascular markings. Abdomen ultrasound done today shows moderate amount of ascites. 09/16/24: Patient seen and examined today in the ICU. Patient is having bowel movements with lactulose. He had the second hemodialysis treatment yesterday. Hemodialysis net amount was 0. Kidney function is improving. Labs today show WBC 18.7, hemoglobin 9.2, PT 15.4, INR 1.5, APTT 30.9, sodium 129, potassium 3.4, BUN 41, creatinine 4.4, lactic acid 3.8 and ammonia 62. Blood culture shows no growth after 48 hours. Urine culture shows no growth after 24 hours. 09/17/24: Patient seen and evaluated at bedside in the ICU. He had a hemodialysis session today. Labs today hemoglobin 9.1, WBC 17.6, sodium 132, potassium 3.3, BUN 33, creatinine 3.73. Coagulation panel today showed PT 16.2, INR 1.6. Ammonia level today is 55. Kidney function is improving. He had his third session of hemodialysis yesterday, 1500 mL was removed. Urine output yesterday was 313 ml. Echocardiogram done yesterday shows EF of 50 to 55%, normal LV function, moderate MR. 09/18/2024 Patient was seen and examined today in the ICU today. Patient still confused, daughter at bedside. Alert and oriented x 1. Afebrile, heart rate 65, respiratory rate 16, blood pressure 117/92, saturating 93% on room air. Hemoglobin stable 9.4, WBC 16.1, platelet 116. Creatinine 2.77, BUN 28. Ammonia 12. Patient underwent paracentesis today with 8 L of acetic fluid removed, received IV albumin. Ascitic fluid sent for culture. Nephrology following for hemodialysis tomorrow. Vital stable. Remains on IV Rocephin. Also on IV Lasix. 09/19/24: Patient seen and examined today in the ICU. Patient underwent paracentesis yesterday, removed 8 L of ascitic fluid. Ascitic fluid gram stain shows organisms and few white blood cells. Labs today show WBC 14, hemoglobin 10, platelet count 85, BUN 29, creatinine 1.25. Blood culture shows no growth after 5 days. Review of systems: Pertinent positives and negatives as discussed in HPI, a complete review of sys tems was performed and all other systems are negative. Vitals: Signs Reviewed Physical examination: General: nontoxic, no distress Derm: warm, dry, intact Head: atraumatic, normocephalic, symmetric Mouth: no lip lesion, mucus membranes moist Cardiovascular: S1 S2 reg, no murmur Lungs: CTA bilateral Abdominal: Distended and tense, non-tender to palpataion Extremities: Pitting edema on LE, No cyanosis, clubbing Neuro: Alert, Oriented x 1, Gross neurological examination did not reveal any focal deficits. Psych: well appearing, appropriate affect Assessment/Plan: Patient is a 58-year-old male with past medical history of cirrhosis and asc ites, paracentesis who presented to the ED with abdominal pain. He has been admitted for toxic metabolic encephalopathy, hepatorenal syndrome and CHASE and is he has received 3 hemodialysis treatments. His kidney function is improving. #. Toxic metabolic encephalopathy, multifactorial cause #. Hepatic encephalopathy and Uremic Encephalopathy #. Ascites status post paracentesis 8 L 09/18/2024 Hep B antibody negative, hep B surface antigen non reactive Blood culture shows no growth in 5 days. Paracentesis yesterday, 8L removed Ascitic fluid gram stain shows no organisms and few WBC. Acitic fluid culture shows no growth in 24 hours Continue lactulose 30 gm PO Daily and Xifaxan 550 mg PO BID Rocephin started in the ED Continue IV Rocephin for empiric coverage #. CHASE, secondary to hypotension and recent large-volume paracentesis, oliguric Urine sodium [address] with minimal urine output Hemodilaysis today 4th Hemodialysis 09/17/24,1500 ml ultrafiltration Monitor urine output Nephrology following #. Hyperphosphatemia,secondary to CHASE Continue PhosLo 667 mg p.o. 3 times daily with meals #. Hypokalemia K today 3.5 Potassium replacement 20 meq PO once #. Shock, secondary to intravsacular volume depletion vs cardiogenic Patient has hepatorenal syndrome as well as had low oral intake for the past few days along with history of cardiomyopathy Continue midodrine 10 mg PO TID Hold diuretics, Farxiga, Lisinopril, Lipitor, Pioglitazone #. Hypervolemic hyponatremia, resolved Na 138 Continue IV lasix 80 mg BID Monitor BMP Nephrology is following #. UTI UA shows 2+ protein, trace glucose, trace blood, 1+ bilirubin, 10 WBC, occasional bacteria, 45%, moderate mucus Urine culture shows no growth after 18 hours. Rocephin started in the ED Continue IV Rocephin empirically #. GI Bleed Continue IV protonix 40 mg IV daily and octreotide 50 mcg IVP every 8 hours as GI prophylaxis #. Diabetes mellitus Insulin sliding scale Hold Farxiga, metformin, Pioglitazone #. Pain management Continue Dilaudid 1mg IVP Q3HR as needed #. Nausea and vomiting Continue Zofran 4 mg IVP every 8 hours as needed #. Metabolic acidosis secondary to CHASE and lactic acidosis, Resolved #.Hypomagnesemia, resolved F: E:Potassium chloride 20meq PO once N:Renal diet A: DVT prophylaxis: Pneumatic compression sleeve GI prophylaxis: IV protonix 40 mg IV daily and octreotide 50 mcg IVP every 8 hours Attestation: I have personally seen and examined the patient with Resident, reviewed the documentation and participated and agree with the assessment and plan as written. Rasta Jones MD Objective - Vital Signs Vital signs: Vital Signs Temp 98.1 F 09/19/24 04:00 Pulse 80 09/19/24 04:00 Resp 18 09/19/24 04:00 BP 141/75 09/19/24 04:00 Pulse Ox 95 09/19/24 04:00 FiO2 Intake & Output 09/18/24 09/19/24 09/19/24 18:59 06:59 18:59 Intake Total 428 40 Output Total 8199 1100 Balance -9170 -5974 Intake: IV 310 40 Albumin Human 25% 50 ml 200 In Empty Bag 1 bag @ 50 mls/hr IVPB Q1H PRN Rx#: [id number] Invasive Line 5 30 20 Invasive Line 6 30 20 cefTRIAXone 2 gm In 50 Sodium Chloride 0.9% 50 ml @ 100 mls/hr IVPB Q24HR [facility] Rx#:[id number] Oral 118 Output: Drainage 8000 Right Abdomen 8000 Urine 150 1105 Other: Voiding Method Indwelling Catheter Indwelling Catheter # Bowel Movements 1 4 - Labs CBC & Chem 7: 09/20/24 06:05 09/20/24 16:30 Labs: Abnormal Lab Results - Last 24 Hours (Table) 09/18/24 09/18/24 09/18/24 Range/Units 10:59 16:15 21:11 WBC (3.8-10.6) k/uL RBC (4.30-5.90) m/uL Hgb (13.0-17.5) gm/dL Hct (39.0-53.0) % RDW (11.5-15.5) % Plt Count (150-450) k/uL Neutrophils # (Manual) (1.3-7.7) k/uL Lymphocytes # (Manual) (1.0-4.8) k/uL Monocytes # (Manual) (0-1.0) k/uL BUN (9-20) mg/dL Glucose (74-99) mg/dL POC Glucose (mg/dL) 134 H 125 H 112 H (70-110) mg/dL Calcium (8.4-10.2) mg/dL Total Bilirubin (0.2-1.3) mg/dL Total Protein (6.3-8.2) g/dL Albumin (3.5-5.0) g/dL 09/19/24 09/19/24 09/19/24 Range/Units 05:49 05:49 06:42 WBC 14.0 H (3.8-10.6) k/uL RBC 3.16 L (4.30-5.90) m/uL Hgb 10.0 L (13.0-17.5) gm/dL Hct 30.4 L (39.0-53.0) % RDW 15.7 H (11.5-15.5) % Plt Count 85 L (150-450) k/uL Neutrophils # (Manual) 11.70 H (1.3-7.7) k/uL Lymphocytes # (Manual) 0.42 L (1.0-4.8) k/uL Monocytes # (Manual) 1.12 H (0-1.0) k/uL BUN 29 H (9-20) mg/dL Glucose 115 H (74-99) mg/dL POC Glucose (mg/dL) 112 H (70-110) mg/dL Calcium 8.1 L (8.4-10.2) mg/dL Total Bilirubin 2.9 H (0.2-1.3) mg/dL Total Protein 6.1 L (6.3-8.2) g/dL Albumin 2.9 L (3.5-5.0) g/dL Microbiology - Last 24 Hours (Table) 09/13/24 19:58 Blood Culture - Final Blood 09/18/24 09:10 Gram Stain - Preliminary Ascites Fluid
[2024-09-19 16:32] LABS: Glucose,Whole Blood 136 mg/dL (70-110)
[2024-09-19 19:51] LABS: Glucose,Whole Blood 138 mg/dL (70-110)
[2024-09-19 21:23] LABS: Glucose,Whole Blood 123 mg/dL (70-110)
[2024-09-20 05:38] LABS: Glucose,Whole Blood 117 mg/dL (70-110)
[2024-09-20 06:31] LABS: Anisocytosis Slight; HCT 30.2 % (39.0-53.0); HGB 9.7 gm/dL (13.0-17.5); MCH 31.2 pg (25.0-35.0); MCHC 32.2 g/dL (31.0-37.0); MCV 96.8 fL (80.0-100.0); Macrocytosis Slight; RBC 3.12 m/uL (4.30-5.90); WBC 13.2 k/uL (3.8-10.6)
[2024-09-20 06:53] LABS: African American GFR (CKD) >90 (>60 ml/min/1.73 sqM); Anion Gap 4 mmol/L; Blood Urea Nitrogen 21 mg/dL (9-20); Calcium 7.8 mg/dL (8.4-10.2); Carbon Dioxide 31 mmol/L (22-30); Chloride 102 mmol/L (98-107); Glucose 116 mg/dL (74-99); Non-African American GFR(CKD) 82 (>60 ml/min/1.73 sqM); Potassium 3.4 mmol/L (3.5-5.1); Sodium 137 mmol/L (137-145)
[2024-09-20 06:58] LABS: Platelet Count 76 k/uL (150-450)
[2024-09-20] MEDS ORDERED: Potassium Replacement Protocol 1 EACH MISC MISCELLANE PRN (07:50)
[2024-09-20] MEDS: POTASSIUM CHLORIDE ER 20 MEQ TAB.ER PO SCH (09:29)
--- NOTE | 2024-09-20 11:15 | P.PN ---
Subjective patient is seen for follow-up for acute kidney injury. Started on hemodialysis on 09/14/2024 by a right femoral catheter for volume overload and oliguria. Serum creatinine was 7.5 on initial admission. Urine output has improved and documented at 910ml for last 24 hours. status post hemodialysis yesterday however catheter was poorly functioning with very low blood flows. 800 mL of UF yesterday. Patient is awake and comfortable. Oral intake about 25%. Objective - Vital Signs Vital signs: Vital Signs Temp 97.8 F 09/20/24 08:00 Pulse 77 09/20/24 08:00 Resp 18 09/20/24 08:00 BP 105/66 09/20/24 08:00 Pulse Ox 95 09/20/24 08:00 FiO2 Intake & Output 09/19/24 09/20/24 09/20/24 18:59 06:59 18:59 Intake Total 550 720 Output Total 2610 460 Balance -2060 260 Weight 138.1 kg Intake: IV 50 cefTRIAXone 2 gm In 50 Sodium Chloride 0.9% 50 ml @ 100 mls/hr IVPB Q24HR [facility] Rx#:[id number] Oral 720 Hemodialysis 500 Output: Urine 450 460 Uretheral (Soto) 325 Hemodialysis 1330 Hemodialysis Net Amount 830 Other: Voiding Method Indwelling Catheter Indwelling Catheter Indwelling Catheter # Bowel Movements 1 # Emeses 1 - Exam patient is awake, comfortable, no acute distress. Examination of the heart S1 and S2 Examination of the lungs bilateral breath sounds are heard Abdomen is soft nontender Examination of lower extremity shows no significant edema VAN [employer]IVER exam shows patient is moving all 4 extremities. He has been confused on and off - Labs CBC & Chem 7: 09/20/24 06:05 09/20/24 05:41 Labs: Abnormal Lab Results - Last 24 Hours (Table) 09/19/24 09/19/24 09/19/24 Range/Units 11:55 16:30 19:50 WBC (3.8-10.6) k/uL RBC (4.30-5.90) m/uL Hgb (13.0-17.5) gm/dL Hct (39.0-53.0) % RDW (11.5-15.5) % Plt Count (150-450) k/uL Potassium (3.5-5.1) mmol/L Carbon Dioxide (22-30) mmol/L BUN (9-20) mg/dL Glucose (74-99) mg/dL POC Glucose (mg/dL) 163 H 136 H 138 H (70-110) mg/dL Calcium (8.4-10.2) mg/dL 09/19/24 09/20/24 09/20/24 Range/Units 21:21 05:37 05:41 WBC (3.8-10.6) k/uL RBC (4.30-5.90) m/uL Hgb (13.0-17.5) gm/dL Hct (39.0-53.0) % RDW (11.5-15.5) % Plt Count (150-450) k/uL Potassium 3.4 L (3.5-5.1) mmol/L Carbon Dioxide 31 H (22-30) mmol/L BUN 21 H (9-20) mg/dL Glucose 116 H (74-99) mg/dL POC Glucose (mg/dL) 123 H 117 H (70-110) mg/dL Calcium 7.8 L (8.4-10.2) mg/dL 09/20/24 Range/Units 06:05 WBC 13.2 H (3.8-10.6) k/uL RBC 3.12 L (4.30-5.90) m/uL Hgb 9.7 L (13.0-17.5) gm/dL Hct 30.2 L (39.0-53.0) % RDW 17.0 H (11.5-15.5) % Plt Count 76 L (150-450) k/uL Potassium (3.5-5.1) mmol/L Carbon Dioxide (22-30) mmol/L BUN (9-20) mg/dL Glucose (74-99) mg/dL POC Glucose (mg/dL) (70-110) mg/dL Calcium (8.4-10.2) mg/dL Microbiology - Last 24 Hours (Table) 09/18/24 09:10 Gram Stain - Preliminary Ascites Fluid Body Fluid Culture - Preliminary Assessment and Plan Assessment: 1. Acute kidney injury secondary to ATN secondary to hypotension and recent large-volume paracentesis. Also concern for hepatorenal syndrome. No hydronephrosis noted on kidney ultrasound. Creatinine up to 7.83 this admission. Oliguric. Started on hemodialysis September 14, 2024. Urine output has improved and serum creatinine down to 1.0. Hemodialysis will be held in a.m. 2. Metabolic acidosis secondary to acute kidney injury and lactic acidosis. Improved with dialysis and bicarb drip. 3. Liver cirrhosis. 4. Hyponatremia. Initially hypovolemic. Now hypervolemic with significant ascites. Improved with UF. 5. UTI on antibiotics. 6. Hyperphosphatemia secondary to acute kidney injury. On PhosLo. 7. Hypomagnesemia from poor intake and use of diuretics. Replaced. Improved. 8. Encephalopathy. Hepatic and uremic. 9. Ascites with paracentesis done September 12, 2024 with 12.4 L drained. Plan: hold hemodialysis Replace potassium Repeat labs in a.m. Accurate I's and O's
--- NOTE | 2024-09-20 11:37 | P.PN ---
Subjective Progress Note Date: 09/20/24 Principal diagnosis: Liver cirrhosis with ascites This is a 58-year-old male patient, presented to the emergency department with generalized weakness, altered mentation, severe dehydration, lack of any oral intake over the past 5 days, diminished urine output, encephalopathy and hypotension. The patient was diagnosed having liver cirrhosis and the exact nature of this liver failure is not clear. No history of alcoholism. He was told to have nonalcoholic liver disease/fatty liver. No history of any hepatitis which is viral in nature. The patient was having episodes of GI bleeding. The patient was seen by gastroenterology and placed on a combination of diuretics. He has undergone a recent large-volume paracentesis on 09/12/2024 and total of 12.4 L of ascitic fluid was aspirated. Noted the patient was having significant abdominal swelling and increased lower extremity edema. The patient currently is very much lethargic and encephalopathic. According to the daughter is at the bedside, he is also known to have other medical problems including COPD, CHF and the patient has an AICD in place along with history of hypertension. No history of alcoholism or alcohol abuse. No history of any substance abuse. Noted, his baseline renal function from 2018 was within normal limits. Creatinine on 09/09/2024 was 3.5 and creatinine on admission was at 7.57. At the same time, the patient had significant abnormalities in the blood work where his sodium was at 126, potassium of 4.2, serum bicarbonate 13, BUN 61, glucose at 133, the lactic acid level was 8.7, the calcium level is at 7.3, bilirubin is at 1.8, LFTs are normal, ammonia level was 78, total protein was 5.6 with an albumin level of 2.6. UA is showing +2 protein, 10 WBCs, ascitic fluid that was aspirated on 09/09/2024 showed 231 WBCs, the predominant differential was lymphocytic in nature. The current coagulation profile shows an INR of 1.3 with a PT of 29. The white cell count is at 15.4 with a hemoglobin 9.8 and a platelet count of 167. No chest x-ray has been done. The ultrasound of the enal showed no evidence of any significant hydronephrosis. In the ED, the patient was given a bolus of 1 L of IV fluid and the patient is a currently on a bicarb infusion. He was started on IV Rocephin as an empiric antibiotic coverage. Nephrology was consulted and the patient will be undergoing hemodialysis. The patient was started on lactulose 30 g p.o. 3 times daily. Is also on midodrine 10 mg p.o. 3 times daily. He is on Sandostatin 50 mcg every 8 hours. Most recent blood pressure is 84/39. Pulse ox is 97% on room air oxygen. 09/15/2024, patient remains in intensive care unit. This morning, he seems to be more arousable compared to yesterday. He was not hepatic encephalopathy and he also had a component of metabolic encephalopathy related to his acute kidney injury. The patient underwent hemodialysis yesterday another session of hemodialysis being performed today. He received a total of 5.5 L of IV fluid and the patient is currently on a bicarb infusion running at 80 cc an hour. Urine output is between 0 and 50 cc an hour. He remains on norepinephrine at 0.09 mcg/kg/min. Chest x-ray from today showing CHF and the patient is currently on 3 L of oxygen by nasal cannula. Lactic acid level is dropped down to 4.4. Serum ammonia 814. He received a dose of Lasix given to him by nephrology 80 mg IV push. The patient remains on octreotide. The patient remains on IV Protonix. No evidence of any GI bleeding. In terms of labs, the WBC count is 18 with a hemoglobin 9.7 and a platelet count of 197. BUN is 54 with a creatinine of 6 and a sodium levels at 128. LFTs are noted and are within normal limits. On 09/16/2024, the patient remains encephalopathic. Despite some improvement in the patient's ammonia levels which is currently down to 62, the patient remains lethargic and sleepy although more awake and alert compared to yesterday. The patient remains on lactulose with adequate bowel movements and the patient is also on rifaximin. The patient underwent 2 sessions of hemodialysis the last being yesterday and the patient will undergo dialysis with ultrafiltration today. The patient was taken off the norepinephrine this morning. He will be given IV albumin for nephrology to be followed up by IV Lasix 80 mg every 12 hour. Urine output remains quite diminished at this point in time. He remains on 3 Suboxone by nasal cannula. Urine output is in order of 10 cc an hour. Norepinephrine was running as low as 0.02 mcg/kg/min and the patient was taken off the pressors this morning. No evidence of any GI bleeding. Abdomen remains distended. White cell count is 18.7 with a hemoglobin of 9.2 and a platelet count of 176. INR is 1.5 with a PTT of 30.9. Sodium level is at 129, BUN 41 with a creatinine 4.4, bicarb is 24, lactic acid level is down to 3.8. The cultures have been essentially negative for now including urine and blood cultur e. The patient remains on IV Rocephin as empiric antibiotic coverage. 09/17/2024, the patient is less encephalopathic. The patient is undergoing another session of hemodialysis with a goal of ultrafiltration of around 1 L. The patient has hepatic encephalopathy and metabolic encephalopathy and the patient is currently on a combination of rifaximin and lactulose regarding hepatic encephalopathy and the serum ammonia level is down to 55. Meanwhile, the acid-base status is improved and the patient serum bicarb is up to 26 and the patient bicarb drip was stopped 24 hours ago. Hemodynamically stable on no pressors. Urine output is quite diminished in the order of 5 to 10 cc an hour. The patient has a fecal management system in place and the patient is producing stool. The patient is currently on 2 L of oxygen by nasal cannula. He is on Lasix 80 mg IV every 12 hours. 09/18/2024, the patient is more awake. Serum ammonia level is dropped down to 12 and the patient remains on lactulose and rifaximin. Abdomen is distended and a large-volume paracentesis was done and I removed a total of 8 L of ascitic fluid and the fluid will be sent for cultures. Hemodynamically stable on no pr essors. Underwent hemodialysis yesterday with a 1.5 L of ultrafiltration. Remains on IV Rocephin. Remains onIV Lasix. The white cell count is 16 with a hemoglobin 9.4 and a platelet count of 116. BUN is 28 with a creatinine of 2.77. Potassium level is at 3.6. No focal neurological deficit. Patient was seen today 09/19/2024, remains in the ICU, he is on room air, patient had a large-volume paracentesis yesterday, 8 L of fluid were drained remains on Rocephin empirically remains on Lasix 80 mg twice daily, patient is supposed to transfer to 3 S. today. Patient is hemodynamically stable, blood pressure is under control. Patient does not seem to be in any distress is presently on room air. WBC count today is 14 hemoglobin is 10 electrolytes are normal BUN is 29 creatinine 1.25, significantly improved since he came in with a creatinine of 7.83. Patient is scheduled for hemodialysis today. Urine output has improved and had 1.2 L in the last 24 hours. Looking back at his renal f ailure, patient came in with acute kidney injury secondary to ATN secondary to hypotension and had recent large-volume paracentesis there was a concern about hepatorenal syndrome. His initial hemodialysis was started on September 14. Reevaluate today on 09/20/2024, patient remains in the ICU, he is doing great. Hemodynamically stable, not in distress, patient is on room air, sitting at the bedside chair, INR is 3.4. His mental status seems to be waxing and waning related to his hepatic encephalopathy, ammonia level today is normal. Cultures from the peritoneal fluid have been negative, hence Rocephin was discontinued. Patient is being evaluated for some difficulty swallowing he does have esophageal varices, not a great candidate for EGD at this point. WBC count is 13.2 hemoglobin 9.7 electrolytes are normal renal profile is normal BUN is 21 creatinine 1.01. Objective - Vital Signs Vital signs: Vital Signs Temp 97.8 F 09/20/24 08:00 Pulse 77 09/20/24 08:00 Resp 18 09/20/24 08:00 BP 105/66 09/20/24 08:00 Pulse Ox 95 09/20/24 08:00 FiO2 Intake & Output 09/19/24 09/20/24 09/20/24 18:59 06:59 18:59 Intake Total 550 720 Output Total 2610 460 Balance -206 260 Weight 138.1 kg Intake: IV 50 cefTRIAXone 2 gm In 50 Sodium Chloride 0.9% 50 ml @ 100 mls/hr IVPB Q24HR [facility] Rx#:[id number] Oral 720 Hemodialysis 500 Output: Urine 450 460 Uretheral (Soto) 325 Hemodialysis 1330 Hemodialysis Net Amount 830 Other: Voiding Method Indwelling Catheter Indwelling Catheter Indwelling Catheter # Bowel Movements 1 # Emeses 1 - Exam General: Revealed a 58-year-old white male in no distress, sitting in bed, on room air Head: Atraumatic, normocephalic Neck supple no neck masses no JVD no stridor Lungs clear bilaterally no crackles rhonchi or wheezes Cardiac distant S1-S2, no S3 gallop, no murmur. Abdomen remains distended, no rebound, no guarding, positive ascites. Extremities 1+ bipedal edema Neurologically, alert oriented x 3 no gross focal neurologic deficit Psychiatric: Normal mood affect and no mental status examination Skin: No rash - Labs CBC & Chem 7: 09/20/24 06:05 09/20/24 05:41 Labs: Abnormal Lab Results - Last 24 Hours (Table) 09/19/24 09/19/24 09/19/24 Range/Units 11:55 16:30 19:50 WBC (3.8-10.6) k/uL RBC (4.30-5.90) m/uL Hgb (13.0-17.5) gm/dL Hct (39.0-53.0) % RDW (11.5-15.5) % Plt Count (150-450) k/uL Potassium (3.5-5.1) mmol/L Carbon Dioxide (22-30) mmol/L BUN (9-20) mg/dL Glucose (74-99) mg/dL POC Glucose (mg/dL) 163 H 136 H 138 H (70-110) mg/dL Calcium (8.4-10.2) mg/dL 09/19/24 09/20/24 09/20/24 Range/Units 21:21 05:37 05:41 WBC (3.8-10.6) k/uL RBC (4.30-5.90) m/uL Hgb (13.0-17.5) gm/dL Hct (39.0-53.0) % RDW (11.5-15.5) % Plt Count (150-450) k/uL Potassium 3.4 L (3.5-5.1) mmol/L Carbon Dioxide 31 H (22-30) mmol/L BUN 21 H (9-20) mg/dL Glucose 116 H (74-99) mg/dL POC Glucose (mg/dL) 123 H 117 H (70-110) mg/dL Calcium 7.8 L (8.4-10.2) mg/dL 09/20/24 Range/Units 06:05 WBC 13.2 H (3.8-10.6) k/uL RBC 3.12 L (4.30-5.90) m/uL Hgb 9.7 L (13.0-17.5) gm/dL Hct 30.2 L (39.0-53.0) % RDW 17.0 H (11.5-15.5) % Plt Count 76 L (150-450) k/uL Potassium (3.5-5.1) mmol/L Carbon Dioxide (22-30) mmol/L BUN (9-20) mg/dL Glucose (74-99) mg/dL POC Glucose (mg/dL) (70-110) mg/dL Calcium (8.4-10.2) mg/dL Microbiology - Last 24 Hours (Table) 09/18/24 09:10 Gram Stain - Preliminary Ascites Fluid Body Fluid Culture - Preliminary Assessment and Plan Assessment: Impression: Recurrent ascites secondary to liver cirrhosis secondary to nonalcoholic fatty liver with cirrhosis. Acute kidney injury secondary to hypotension/acute tubular necrosis Hypotension secondary to high volume paracentesis on his initial admission History of liver cirrhosis/nonalcoholic fatty liver Hepatic encephalopathy, remains on lactulose, remains on rifaximin History of esophageal varices and episodic GI bleeding History of underlying coronary artery disease History of cardiomyopathy and AICD placement History of underlying COPD History of type 2 diabetes Obstructive sleep apnea syndrome, on CPAP on outpatient basis. Recommendation: Continue diuretics Continue close monitoring of electrolytes and renal profile Discontinue Rocephin Continue octreotide Nephrology to decide on hemodialysis, renal functioning is significantly improved Continue to monitor ascites Will continue to follow Continue GI DVT prophylaxis. Time with Patient: Less than 30
[2024-09-20 12:37] LABS: Glucose,Whole Blood 155 mg/dL (70-110)
--- NOTE | 2024-09-20 12:42 | P.PN ---
Subjective Progress Note Date: 09/20/24 Principal diagnosis: Hospital course: Patient is a 58 year old male past medical history of cirrhosis, ascites, paracentesis who presented to the ED today with abdominal pain. Patient was at a different facility where he had abnormal labs and that is why he was sent here at [facility]. Upon admission he was found to have abdominal pain, GI bleed and altered mental status. He states he has had this stomach ache for 1 3 weeks and noticed blood in the stool since 2 weeks. The daughter mentions that the patient is not an alcoholic and has been following up with gastroenterology and was recently diagnosed with liver cirrhosis about 2 months ago. At that time he was started on diuretics(Lasix 40 mg and spironolactone 100 mg), but the patient took the diuretic for a week and the diuretic was then discontinued. A paracentesis done on 09/09/2024 with 12.4 L of pleural fluid was removed, this was his frst paracentesis. Fluid cytology was negative. Denies fever, chills, headache, shortness of breath, chest pain, palpitations, coughing, nausea, vomiting. ED documentation reviewed and case discussed with ED provider. In the ED he was treated with 0.9 normal saline, ondansetron, lactulose, octreotide and 1 PRBC transfusion. While in the ED the patient's blood pressure dropped to 74/32 and the patient was moved to ICU for pressor support. Vitals on presentation: T 97.2 F, P 66 bpm, RR 18, BP 117/53, O2 97% on room air EKG: Paced rhythm, rate 65 bpm, QTc 581 ms Abdomen bladder ultrasound: Shows no evidence for hydronephrosis/neph rolithiasis/masses identified. Bladder exam, postvoid residual, bilateral jets exam limited as the patient was not awake CBC: WBC 15.4, hemoglobin 9.8 Coagulation panel: PT 13.8, INR 1.3 CMP: Sodium 126, chloride 97, bicarb 13, BUN 61, creatinine 1.57, corrected calcium 8.4, phosphorus 7.7, magnesium 1.5, total bilirubin 1.8, total protein 5.6, albumin 2.6 Lactic acid 7.6, 8.1, 8.7, 8.9, 0.8, 1.4, 7.8, 7.9 Ammonia: 69 ProBNP: 1240 Troponin: <0.012 UA: 2+ protein, trace glucose, trace blood, 1+ bilirubin, 10 WBC, occasional bacteria, 45%, moderate mucus 09/15/24: Patient seen and evaluated bedside today in the ICU. Hemodialysis net amount was 0 yesterday. Currently on second day of hemodialysis treatment. Labs show WBC 18, sodium, creatinine 6.07, BUN 54, lactic acid 4.1, ammonia 114. Hep B surface antigen nonreactive, hep B surface antibody is negative with antibody titer being 3.5 mIU/mL. Chest x-ray shows prominent pulmonary vascular markings. Abdomen ultrasound done today shows moderate amount of ascites. 09/16/24: Patient seen and examined today in the ICU. Patient is having bowel movements with lactulose. He had the second hemodialysis treatment yesterday. Hemodialysis net amount was 0. Kidney function is improving. Labs today show WBC 18.7, hemoglobin 9.2, PT 15.4, INR 1.5, APTT 30.9, sodium 129, potassium 3.4, BUN 41, creatinine 4.4, lactic acid 3.8 and ammonia 62. Blood culture shows no growth after 48 hours. Urine culture shows no growth after 24 hours. 09/17/24: Patient seen and evaluated at bedside in the ICU. He had a hemodialysis session today. Labs today hemoglobin 9.1, WBC 17.6, sodium 132, potassium 3.3, BUN 33, creatinine 3.73. Coagulation panel today showed PT 16.2, INR 1.6. Ammonia level today is 55. Kidney function is improving. He had his third session of hemodialysis yesterday, 1500 mL was removed. Urine output yesterday was 313 ml. Echocardiogram done yesterday shows EF of 50 to 55%, normal LV function, moderate MR. 09/18/2024 Patient was seen and examined today in the ICU today. Patient still confused, daughter at bedside. Alert and oriented x 1. Afebrile, heart rate 65, respiratory rate 16, blood pressure 117/92, saturating 93% on room air. Hemoglobin stable 9.4, WBC 16.1, platelet 116. Creatinine 2.77, BUN 28. Ammonia 12. Patient underwent paracentesis today with 8 L of acetic fluid removed, received IV albumin. Ascitic fluid sent for culture. Nephrology following for hemodialysis tomorrow. Vital stable. Remains on IV Rocephin. Also on IV Lasix. 09/19/24: Patient seen and examined today in the ICU. Patient underwent paracentesis yesterday, removed 8 L of ascitic fluid. Ascitic fluid gram stain shows organisms and few white blood cells. Labs today show WBC 14, hemoglobin 10, platelet count 85, BUN 29, creatinine 1.25. Blood culture shows no growth after 5 days. 09/20/24: Patient seen and examined at today in the ICU. Patient feels better and is out of bed to chair today. Patient underwent hemodialysis yesterday with a 830 mL ultrafiltration. Labs today show WBC 13.2, hemoglobin 9.7, platelet 76, potassium 3.4, BUN 21, creatinine 1.01. 24-hour urine output yesterday was 1255 mL. Kidney function is improving. INVESTIGATOR UTILITY BILL COMPLAINTS recommend no further skilled dysphagia intervention at this time. Review of systems: Pertinent positives and negatives as discussed in HPI, a complete review of systems was performed and all other systems are negative. Vitals: Signs Reviewed Physical examination: General: nontoxic, no distress Derm: warm, dry, intact Head: atraumatic, normocephalic, symmetric Mouth: no lip lesion, mucus membranes moist Cardiovascular: S1 S2 reg, no murmur Lungs: CTA bilateral Abdominal: Distended and tense, non-tender to palpataion Extremities: Pitting edema on LE, No cyanosis, clubbing Neuro: Alert, Oriented x 1, Gross neurological examination did not reveal any focal deficits. Psych: well appearing, appropriate affect Assessment/Plan: Patient is a 58-year-old male with past medical history of cirrhosis and ascites, paracentesis who presented to the ED with abdominal pain. He has been admitted for toxic metabolic encephalopathy, hepatorenal syndrome and CHASE and is he has received 3 hemodialysis treatments. His kidney function is improving. #. Toxic metabolic encephalopathy, multifactorial cause #. Hepatic encephalopathy and Uremic Encephalopathy #. Ascites status post paracentesis 8 L 09/18/2024 Hep B antibody negative, hep B surface antigen non reactive Blood culture shows no growth in 5 days. Paracentesis 09/18/24, 8L removed Ascitic fluid gram stain shows no organisms and few WBC. Acitic fluid culture shows no growth in 24 hours Continue lactulose 30 gm PO Daily and Xifaxan 550 mg PO BID Continue IV lasix 80 mg BID Discontinue Rocephin #. CHASE, secondary to hypotension and recent large-volume paracentesis Urine sodium [address] with 24 hr urine output 1255 ml yesterday 5th Hemodialysis on 09/19/24, 830 ml ultrafiltration Monitor urine output Nephrology following #. Hyperphosphatemia,secondary to CHASE Continue PhosLo 667 mg p.o. 3 times daily with meals #. Hypokalemia K today 3.4 Potassium replacement 20 meq PO Q1HR- 2 doses #. Shock, secondary to intravsacular volume depletion vs cardiogenic Patient has hepatorenal syndrome as well as had low oral intake for the past few days along with history of cardiomyopathy Continue midodrine 10 mg PO TID Hold diuretics, Farxiga, Lisinopril, Lipitor, Pioglitazone #. GI Bleed Continue IV protonix 40 mg IV daily and octreotide 50 mcg IVP every 8 hours as GI prophylaxis #. Diabetes mellitus Insulin sliding scale Hold Farxiga, metformin, Pioglitazone #. Tobacco dependence Continue nicotine 21 mg/24-hour patch transdermal daily #. Pain management Continue Dilaudid 1mg IVP Q3HR as needed #. Nausea and vomiting Continue Zofran 4 mg IVP every 8 hours as needed #. Metabolic acidosis secondary to CHASE and lactic acidosis, Resolved #. Hypomagnesemia, resolved #. Hypervolemic hyponatremia, resolved Na 137 F:None E:Potassium chloride 20meq PO 2 doses N:Renal diet A: DVT prophylaxis: Pneumatic compression sleeve GI prophylaxis: IV protonix 40 mg IV daily and octreotide 50 mcg IVP every 8 hours Attestation: I have personally seen and examined the patient with Resident, reviewed the documentation and participated and agree with the assessment and plan as written. Rasta Jones MD Objective - Vital Signs Vital signs: Vital Signs Temp 97.9 F 09/20/24 04:00 Pulse 73 09/20/24 04:00 Resp 18 09/20/24 04:00 BP 118/75 09/20/24 04:00 Pulse Ox 94 L 09/20/24 04:00 FiO2 Intake & Output 09/19/24 09/20/24 09/20/24 18:59 06:59 18:59 Intake Total 550 720 Output Total 2610 460 Balance -2060 260 Weight 138.1 kg Intake: IV 50 cefTRIAXone 2 gm In 50 Sodium Chloride 0.9% 50 ml @ 100 mls/hr IVPB Q24HR [facility] Rx#:[id number] Oral 720 Hemodialysis 500 Output: Urine 450 460 Uretheral (Soto) 325 Hemodialysis 1330 Hemodialysis Net Amount 830 Other: Voiding Method Indwelling Catheter Indwelling Catheter # Bowel Movements 1 # Emeses 1 - Labs CBC & Chem 7: 09/20/24 06:05 09/20/24 11:46 Labs: Abnormal Lab Results - Last 24 Hours (Table) 09/19/24 09/19/24 09/19/24 Range/Units 11:55 16:30 19:50 WBC (3.8-10.6) k/uL RBC (4.30-5.90) m/uL Hgb (13.0-17.5) gm/dL Hct (39.0-53.0) % RDW (11.5-15.5) % Plt Count (150-450) k/uL Potassium (3.5-5.1) mmol/L Carbon Dioxide (22-30) mmol/L BUN (9-20) mg/dL Glucose (74-99) mg/dL POC Glucose (mg/dL) 163 H 136 H 138 H (70-110) mg/dL Calcium (8.4-10.2) mg/dL 09/19/24 09/20/24 09/20/24 Range/Units 21:21 05:37 05:41 WBC (3.8-10.6) k/uL RBC (4.30-5.90) m/uL Hgb (13.0-17.5) gm/dL Hct (39.0-53.0) % RDW (11.5-15.5) % Plt Count (150-450) k/uL Potassium 3.4 L (3.5-5.1) mmol/L Carbon Dioxide 31 H (22-30) mmol/L BUN 21 H (9-20) mg/dL Glucose 116 H (74-99) mg/dL POC Glucose (mg/dL) 123 H 117 H (70-110) mg/dL Calcium 7.8 L (8.4-10.2) mg/dL 09/20/24 Range/Units 06:05 WBC 13.2 H (3.8-10.6) k/uL RBC 3.12 L (4.30-5.90) m/uL Hgb 9.7 L (13.0-17.5) gm/dL Hct 30.2 L (39.0-53.0) % RDW 17.0 H (11.5-15.5) % Plt Count 76 L (150-450) k/uL Potassium (3.5-5.1) mmol/L Carbon Dioxide (22-30) mmol/L BUN (9-20) mg/dL Glucose (74-99) mg/dL POC Glucose (mg/dL) (70-110) mg/dL Calcium (8.4-10.2) mg/dL Microbiology - Last 24 Hours (Table) 09/18/24 09:10 Gram Stain - Preliminary Ascites Fluid Body Fluid Culture - Preliminary 09/13/24 19:58 Blood Culture - Final Blood
[2024-09-20] MEDS: POTASSIUM BICARBONATE/CIT AC 20 MEQ TABLET.EFF NG-TUBE SCH (13:52)
[2024-09-20 16:25] LABS: Glucose,Whole Blood 120 mg/dL (70-110)
[2024-09-20 20:19] LABS: Glucose,Whole Blood 125 mg/dL (70-110)
[2024-09-21 05:48] LABS: Glucose,Whole Blood 107 mg/dL (70-110)
[2024-09-21 05:56] LABS: Anisocytosis Slight; HCT 27.1 % (39.0-53.0); HGB 9.5 gm/dL (13.0-17.5); MCHC 35.1 g/dL (31.0-37.0); MCV 96.8 fL (80.0-100.0); Macrocytosis Slight; RDW 16.9 % (11.5-15.5); WBC 12.5 k/uL (3.8-10.6)
[2024-09-21 06:10] LABS: African American GFR (CKD) >90 (>60 ml/min/1.73 sqM); Anion Gap 3 mmol/L; Blood Urea Nitrogen 22 mg/dL (9-20); Calcium 7.5 mg/dL (8.4-10.2); Carbon Dioxide 30 mmol/L (22-30); Chloride 103 mmol/L (98-107); Glucose 111 mg/dL (74-99); Non-African American GFR(CKD) >90 (>60 ml/min/1.73 sqM); Potassium 3.6 mmol/L (3.5-5.1); Sodium 136 mmol/L (137-145)
[2024-09-21 06:14] LABS: Platelet Count 66 k/uL (150-450)
[2024-09-21] MEDS: POTASSIUM CHLORIDE ER 20 MEQ TAB.ER PO SCH (09:53)
[2024-09-21 11:40] LABS: Glucose,Whole Blood 131 mg/dL (70-110)
--- NOTE | 2024-09-21 12:09 | P.PN ---
Subjective patient is seen for follow-up for acute kidney injury. Started on hemodialysis on 09/14/2024 by a right femoral catheter for volume overload and oliguria. Serum creatinine was 7.5 on initial admission. Improved to 0.8 today. Urine output has improved and documented at 133 0ml for last 24 hours. Patient is awake and comfortable. Objective - Vital Signs Vital signs: Vital Signs Temp 98.2 F 09/21/24 08:00 Pulse 59 L 09/21/24 08:00 Resp 16 09/21/24 08:00 BP 109/64 09/21/24 08:00 Pulse Ox 94 L 09/21/24 08:00 FiO2 Intake & Output 09/20/24 09/21/24 09/21/24 18:59 06:59 18:59 Intake Total 237 200 115 Output Total 245 700 Balance -8 -500 115 Intake: Oral 237 200 115 Output: Urine 245 700 Other: Voiding Method Indwelling Catheter Indwelling Catheter Indwelling Catheter - Exam patient is awake, comfortable, no acute distress. Examination of the heart S1 and S2 Examination of the lungs bilateral breath sounds are heard Abdomen is soft nontender Examination of lower extremity shows no significant edema FORGER HELPER exam shows patient is moving all 4 extremities. - Labs CBC & Chem 7: 09/21/24 05:27 09/21/24 05:27 Labs: Abnormal Lab Results - Last 24 Hours (Table) 09/20/24 09/20/24 09/20/24 Range/Units 11:46 12:35 16:24 WBC (3.8-10.6) k/uL RBC (4.30-5.90) m/uL Hgb (13.0-17.5) gm/dL Hct (39.0-53.0) % RDW (11.5-15.5) % Plt Count (150-450) k/uL Sodium (137-145) mmol/L Potassium 3.4 L (3.5-5.1) mmol/L BUN (9-20) mg/dL Glucose (74-99) mg/dL POC Glucose (mg/dL) 155 H 120 H (70-110) mg/dL Calcium (8.4-10.2) mg/dL 09/20/24 09/21/24 09/21/24 Range/Units 20:17 05:27 05:27 WBC 12.5 H (3.8-10.6) k/uL RBC 2.80 L (4.30-5.90) m/uL Hgb 9.5 L (13.0-17.5) gm/dL Hct 27.1 L (39.0-53.0) % RDW 16.9 H (11.5-15.5) % Plt Count 66 L (150-450) k/uL Sodium 136 L (137-145) mmol/L Potassium (3.5-5.1) mmol/L BUN 22 H (9-20) mg/dL Glucose 111 H (74-99) mg/dL POC Glucose (mg/dL) 125 H (70-110) mg/dL Calcium 7.5 L (8.4-10.2) mg/dL 09/21/24 Range/Units 11:37 WBC (3.8-10.6) k/uL RBC (4.30-5.90) m/uL Hgb (13.0-17.5) gm/dL Hct (39.0-53.0) % RDW (11.5-15.5) % Plt Count (150-450) k/uL Sodium (137-145) mmol/L Potassium (3.5-5.1) mmol/L BUN (9-20) mg/dL Glucose (74-99) mg/dL POC Glucose (mg/dL) 131 H (70-110) mg/dL Calcium (8.4-10.2) mg/dL Microbiology - Last 24 Hours (Table) 09/18/24 09:10 Gram Stain - Preliminary Ascites Fluid Body Fluid Culture - Preliminary Assessment and Plan Assessment: 1. Acute kidney injury secondary to ATN secondary to hypotension and recent large-volume paracentesis. No hydronephrosis noted on kidney ultrasound. Creatinine up to 7.83 this admission. Oliguric. Started on hemodialysis September 14, 2024. Urine output has improved and serum creatinine down to 0.8. Hemodialysis on hold and dialysis catheter will be removed. 2. Metabolic acidosis secondary to acute kidney injury and lactic acidosis. Improved. 3. Liver cirrhosis. 4. Hyponatremia. Initially hypovolemic. Now hypervolemic with significant ascites. Improved with UF. 5. UTI on antibiotics. 6. Hyperphosphatemia secondary to acute kidney injury. On PhosLo. 7. Hypomagnesemia from poor intake and use of diuretics. Replaced. Improved. 8. Encephalopathy. Hepatic and uremic. 9. Ascites with paracentesis done September 12, 2024 with 12.4 L drained. Plan: continue to hold hemodialysis remove dialysis catheter change Lasix to oral in a.m. Continue midodrine Will likely discontinue Sandostatin in 1-2 days. Continue to avoid nephrotoxic agents.
--- NOTE | 2024-09-21 12:14 | P.PN ---
Subjective Progress Note Date: 09/21/24 Principal diagnosis: Liver cirrhosis with ascites This is a 58-year-old male patient, presented to the emergency department with generalized weakness, altered mentation, severe dehydration, lack of any oral intake over the past 5 days, diminished urine output, encephalopathy and hypotension. The patient was diagnosed having liver cirrhosis and the exact nature of this liver failure is not clear. No history of alcoholism. He was told to have nonalcoholic liver disease/fatty liver. No history of any hepatitis which is viral in nature. The patient was having episodes of GI bleeding. The patient was seen by gastroenterology and placed on a combination of diuretics. He has undergone a recent large-volume paracentesis on 09/12/2024 and total of 12.4 L of ascitic fluid was aspirated. Noted the patient was having significant abdominal swelling and increased lower extremity edema. The patient currently is very much lethargic and encephalopathic. According to the daughter is at the bedside, he is also known to have other medical problems including COPD, CHF and the patient has an AICD in place along with history of hypertension. No history of alcoholism or alcohol abuse. No history of any substance abuse. Noted, his baseline renal function from 2018 was within normal limits. Creatinine on 09/09/2024 was 3.5 and creatinine on admission was at 7.57. At the same time, the patient had significant abnormalities in the blood work where his sodium was at 126, potassium of 4.2, serum bicarbonate 13, BUN 61, glucose at 133, the lactic acid level was 8.7, the calcium level is at 7.3, bilirubin is at 1.8, LFTs are normal, ammonia level was 78, total protein was 5.6 with an albumin level of 2.6. UA is showing +2 protein, 10 WBCs, ascitic fluid that was aspirated on 09/09/2024 showed 231 WBCs, the predominant differential was lymphocytic in nature. The current coagulation profile shows an INR of 1.3 with a PT of 29. The white cell count is at 15.4 with a hemoglobin 9.8 and a platelet count of 167. No chest x-ray has been done. The ultrasound of the enal showed no evidence of any significant hydronephrosis. In the ED, the patient was given a bolus of 1 L of IV fluid and the patient is a currently on a bicarb infusion. He was started on IV Rocephin as an empiric antibiotic coverage. Nephrology was consulted and the patient will be undergoing hemodialysis. The patient was started on lactulose 30 g p.o. 3 times daily. Is also on midodrine 10 mg p.o. 3 times daily. He is on Sandostatin 50 mcg every 8 hours. Most recent blood pressure is 84/39. Pulse ox is 97% on room air oxygen. 09/15/2024, patient remains in intensive care unit. This morning, he seems to be more arousable compared to yesterday. He was not hepatic encephalopathy and he also had a component of metabolic encephalopathy related to his acute kidney injury. The patient underwent hemodialysis yesterday another session of hemodialysis being performed today. He received a total of 5.5 L of IV fluid and the patient is currently on a bicarb infusion running at 80 cc an hour. Urine output is between 0 and 50 cc an hour. He remains on norepinephrine at 0.09 mcg/kg/min. Chest x-ray from today showing CHF and the patient is currently on 3 L of oxygen by nasal cannula. Lactic acid level is dropped down to 4.4. Serum ammonia 814. He received a dose of Lasix given to him by nephrology 80 mg IV push. The patient remains on octreotide. The patient remains on IV Protonix. No evidence of any GI bleeding. In terms of labs, the WBC count is 18 with a hemoglobin 9.7 and a platelet count of 197. BUN is 54 with a creatinine of 6 and a sodium levels at 128. LFTs are noted and are within normal limits. On 09/16/2024, the patient remains encephalopathic. Despite some improvement in the patient's ammonia levels which is currently down to 62, the patient remains lethargic and sleepy although more awake and alert compared to yesterday. The patient remains on lactulose with adequate bowel movements and the patient is also on rifaximin. The patient underwent 2 sessions of hemodialysis the last being yesterday and the patient will undergo dialysis with ultrafiltration today. The patient was taken off the norepinephrine this morning. He will be given IV albumin for nephrology to be followed up by IV Lasix 80 mg every 12 hour. Urine output remains quite diminished at this point in time. He remains on 3 Suboxone by nasal cannula. Urine output is in order of 10 cc an hour. Norepinephrine was running as low as 0.02 mcg/kg/min and the patient was taken off the pressors this morning. No evidence of any GI bleeding. Abdomen remains distended. White cell count is 18.7 with a hemoglobin of 9.2 and a platelet count of 176. INR is 1.5 with a PTT of 30.9. Sodium level is at 129, BUN 41 with a creatinine 4.4, bicarb is 24, lactic acid level is down to 3.8. The cultures have been essentially negative for now including urine and blood cultur e. The patient remains on IV Rocephin as empiric antibiotic coverage. 09/17/2024, the patient is less encephalopathic. The patient is undergoing another session of hemodialysis with a goal of ultrafiltration of around 1 L. The patient has hepatic encephalopathy and metabolic encephalopathy and the patient is currently on a combination of rifaximin and lactulose regarding hepatic encephalopathy and the serum ammonia level is down to 55. Meanwhile, the acid-base status is improved and the patient serum bicarb is up to 26 and the patient bicarb drip was stopped 24 hours ago. Hemodynamically stable on no pressors. Urine output is quite diminished in the order of 5 to 10 cc an hour. The patient has a fecal management system in place and the patient is producing stool. The patient is currently on 2 L of oxygen by nasal cannula. He is on Lasix 80 mg IV every 12 hours. 09/18/2024, the patient is more awake. Serum ammonia level is dropped down to 12 and the patient remains on lactulose and rifaximin. Abdomen is distended and a large-volume paracentesis was done and I removed a total of 8 L of ascitic fluid and the fluid will be sent for cultures. Hemodynamically stable on no pr essors. Underwent hemodialysis yesterday with a 1.5 L of ultrafiltration. Remains on IV Rocephin. Remains onIV Lasix. The white cell count is 16 with a hemoglobin 9.4 and a platelet count of 116. BUN is 28 with a creatinine of 2.77. Potassium level is at 3.6. No focal neurological deficit. Patient was seen today 09/19/2024, remains in the ICU, he is on room air, patient had a large-volume paracentesis yesterday, 8 L of fluid were drained remains on Rocephin empirically remains on Lasix 80 mg twice daily, patient is supposed to transfer to 3 S. today. Patient is hemodynamically stable, blood pressure is under control. Patient does not seem to be in any distress is presently on room air. WBC count today is 14 hemoglobin is 10 electrolytes are normal BUN is 29 creatinine 1.25, significantly improved since he came in with a creatinine of 7.83. Patient is scheduled for hemodialysis today. Urine output has improved and had 1.2 L in the last 24 hours. Looking back at his renal f ailure, patient came in with acute kidney injury secondary to ATN secondary to hypotension and had recent large-volume paracentesis there was a concern about hepatorenal syndrome. His initial hemodialysis was started on September 14. Reevaluate today on 09/20/2024, patient remains in the ICU, he is doing great. Hemodynamically stable, not in distress, patient is on room air, sitting at the bedside chair, INR is 3.4. His mental status seems to be waxing and waning related to his hepatic encephalopathy, ammonia level today is normal. Cultures from the peritoneal fluid have been negative, hence Rocephin was discontinued. Patient is being evaluated for some difficulty swallowing he does have esophageal varices, not a great candidate for EGD at this point. WBC count is 13.2 hemoglobin 9.7 electrolytes are normal renal profile is normal BUN is 21 creatinine 1.01. Patient was seen today on 09/21/2024, patient remains in the ICU as an overflow, he is on room air, not in any distress, remains on diuretics, remains on lactulose remains on rifaximin. Patient is doing well, he is able to swallow, does not seem to be in any distress. Waiting to transfer to a regular medical floor. Electrolytes are normal CBC is normal Objective - Vital Signs Vital signs: Vital Signs Temp 98.2 F 09/21/24 08:00 Pulse 59 L 09/21/24 08:00 Resp 16 09/21/24 08:00 BP 109/64 09/21/24 08:00 Pulse Ox 94 L 09/21/24 08:00 FiO2 Intake & Output 09/20/24 09/21/24 09/21/24 18:59 06:59 18:59 Intake Total 237 200 115 Output Total 245 700 Balance -8 -500 115 Intake: Oral 237 200 115 Output: Urine 245 700 Other: Voiding Method Indwelling Catheter Indwelling Catheter Indwelling Catheter - Exam General: Revealed a 58-year-old white male in no distress, sitting in bed, on room air Head: Atraumatic, normocephalic Neck supple no neck masses no JVD no stridor Lungs clear bilaterally no crackles rhonchi or wheezes Cardiac distant S1-S2, no S3 gallop, no murmur. Abdomen remains distended, no rebound, no guarding, positive ascites. Extremities 1+ bipedal edema Neurologically, alert oriented x 3 no gross focal neurologic deficit Psychiatric: Normal mood affect and no mental status examination Skin: No rash - Labs CBC & Chem 7: 09/21/24 05:27 09/21/24 05:27 Labs: Abnormal Lab Results - Last 24 Hours (Table) 09/20/24 09/20/24 09/20/24 Range/Units 11:46 12:35 16:24 WBC (3.8-10.6) k/uL RBC (4.30-5.90) m/uL Hgb (13.0-17.5) gm/dL Hct (39.0-53.0) % RDW (11.5-15.5) % Plt Count (150-450) k/uL Sodium (137-145) mmol/L Potassium 3.4 L (3.5-5.1) mmol/L BUN (9-20) mg/dL Glucose (74-99) mg/dL POC Glucose (mg/dL) 155 H 120 H (70-110) mg/dL Calcium (8.4-10.2) mg/dL 09/20/24 09/21/24 09/21/24 Range/Units 20:17 05:27 05:27 WBC 12.5 H (3.8-10.6) k/uL RBC 2.80 L (4.30-5.90) m/uL Hgb 9.5 L (13.0-17.5) gm/dL Hct 27.1 L (39.0-53.0) % RDW 16.9 H (11.5-15.5) % Plt Count 66 L (150-450) k/uL Sodium 136 L (137-145) mmol/L Potassium (3.5-5.1) mmol/L BUN 22 H (9-20) mg/dL Glucose 111 H (74-99) mg/dL POC Glucose (mg/dL) 125 H (70-110) mg/dL Calcium 7.5 L (8.4-10.2) mg/dL 09/21/24 Range/Units 11:37 WBC (3.8-10.6) k/uL RBC (4.30-5.90) m/uL Hgb (13.0-17.5) gm/dL Hct (39.0-53.0) % RDW (11.5-15.5) % Plt Count (150-450) k/uL Sodium (137-145) mmol/L Potassium (3.5-5.1) mmol/L BUN (9-20) mg/dL Glucose (74-99) mg/dL POC Glucose (mg/dL) 131 H (70-110) mg/dL Calcium (8.4-10.2) mg/dL Microbiology - Last 24 Hours (Table) 09/18/24 09:10 Gram Stain - Preliminary Ascites Fluid Body Fluid Culture - Preliminary Assessment and Plan Assessment: Impression: Recurrent ascites secondary to liver cirrhosis secondary to nonalcoholic fatty liver with cirrhosis. Acute kidney injury secondary to hypotension/acute tubular necrosis Hypotension secondary to high volume paracentesis on his initial admission History of liver cirrhosis/nonalcoholic fatty liver Hepatic encephalopathy, remains on lactulose, remains on rifaximin History of esophageal varices and episodic GI bleeding History of underlying coronary artery disease History of cardiomyopathy and AICD placement History of underlying COPD History of type 2 diabetes Obstructive sleep apnea syndrome, on CPAP on outpatient basis. Recommendation: Transfer to regular medical floor once a bed is available Continue diuretics, and continue to monitor electrolytes and renal profile Continue octreotide Nephrology is following Continue to monitor ascites Will continue to follow Continue GI DVT prophylaxis. Time with Patient: Less than 30
--- NOTE | 2024-09-21 14:40 | P.PN ---
Subjective Progress Note Date: 09/21/24 Principal diagnosis: Hospital course: Patient is a 58 year old male past medical history of cirrhosis, ascites, paracentesis who presented to the ED today with abdominal pain. Patient was at a different facility where he had abnormal labs and that is why he was sent here at [facility]. Upon admission he was found to have abdominal pain, GI bleed and altered mental status. He states he has had this stomach ache for 1 3 weeks and noticed blood in the stool since 2 weeks. The daughter mentions that the patient is not an alcoholic and has been following up with gastroenterology and was recently diagnosed with liver cirrhosis about 2 months ago. At that time he was started on diuretics(Lasix 40 mg and spironolactone 100 mg), but the patient took the diuretic for a week and the diuretic was then discontinued. A paracentesis done on 09/09/2024 with 12.4 L of pleural fluid was removed, this was his frst paracentesis. Fluid cytology was negative. Denies fever, chills, headache, shortness of breath, chest pain, palpitations, coughing, nausea, vomiting. ED documentation reviewed and case discussed with ED provider. In the ED he was treated with 0.9 normal saline, ondansetron, lactulose, octreotide and 1 PRBC transfusion. While in the ED the patient's blood pressure dropped to 74/32 and the patient was moved to ICU for pressor support. Vitals on presentation: T 97.2 F, P 66 bpm, RR 18, BP 117/53, O2 97% on room air EKG: Paced rhythm, rate 65 bpm, QTc 581 ms Abdomen bladder ultrasound: Shows no evidence for hydronephrosis/neph rolithiasis/masses identified. Bladder exam, postvoid residual, bilateral jets exam limited as the patient was not awake CBC: WBC 15.4, hemoglobin 9.8 Coagulation panel: PT 13.8, INR 1.3 CMP: Sodium 126, chloride 97, bicarb 13, BUN 61, creatinine 1.57, corrected calcium 8.4, phosphorus 7.7, magnesium 1.5, total bilirubin 1.8, total protein 5.6, albumin 2.6 Lactic acid 7.6, 8.1, 8.7, 8.9, 0.8, 1.4, 7.8, 7.9 Ammonia: 69 ProBNP: 1240 Troponin: <0.012 UA: 2+ protein, trace glucose, trace blood, 1+ bilirubin, 10 WBC, occasional bacteria, 45%, moderate mucus 09/15/24: Patient seen and evaluated bedside today in the ICU. Hemodialysis net amount was 0 yesterday. Currently on second day of hemodialysis treatment. Labs show WBC 18, sodium, creatinine 6.07, BUN 54, lactic acid 4.1, ammonia 114. Hep B surface antigen nonreactive, hep B surface antibody is negative with antibody titer being 3.5 mIU/mL. Chest x-ray shows prominent pulmonary vascular markings. Abdomen ultrasound done today shows moderate amount of ascites. 09/16/24: Patient seen and examined today in the ICU. Patient is having bowel movements with lactulose. He had the second hemodialysis treatment yesterday. Hemodialysis net amount was 0. Kidney function is improving. Labs today show WBC 18.7, hemoglobin 9.2, PT 15.4, INR 1.5, APTT 30.9, sodium 129, potassium 3.4, BUN 41, creatinine 4.4, lactic acid 3.8 and ammonia 62. Blood culture shows no growth after 48 hours. Urine culture shows no growth after 24 hours. 09/17/24: Patient seen and evaluated at bedside in the ICU. He had a hemodialysis session today. Labs today hemoglobin 9.1, WBC 17.6, sodium 132, potassium 3.3, BUN 33, creatinine 3.73. Coagulation panel today showed PT 16.2, INR 1.6. Ammonia level today is 55. Kidney function is improving. He had his third session of hemodialysis yesterday, 1500 mL was removed. Urine output yesterday was 313 ml. Echocardiogram done yesterday shows EF of 50 to 55%, normal LV function, moderate MR. 09/18/2024 Patient was seen and examined today in the ICU today. Patient still confused, daughter at bedside. Alert and oriented x 1. Afebrile, heart rate 65, respiratory rate 16, blood pressure 117/92, saturating 93% on room air. Hemoglobin stable 9.4, WBC 16.1, platelet 116. Creatinine 2.77, BUN 28. Ammonia 12. Patient underwent paracentesis today with 8 L of acetic fluid removed, received IV albumin. Ascitic fluid sent for culture. Nephrology following for hemodialysis tomorrow. Vital stable. Remains on IV Rocephin. Also on IV Lasix. 09/19/24: Patient seen and examined today in the ICU. Patient underwent paracentesis yesterday, removed 8 L of ascitic fluid. Ascitic fluid gram stain shows organisms and few white blood cells. Labs today show WBC 14, hemoglobin 10, platelet count 85, BUN 29, creatinine 1.25. Blood culture shows no growth after 5 days. 09/20/24: Patient seen and examined at today in the ICU. Patient feels better and is out of bed to chair today. Patient underwent hemodialysis yesterday with a 830 mL ultrafiltration. Labs today show WBC 13.2, hemoglobin 9.7, platelet 76, potassium 3.4, BUN 21, creatinine 1.01. 24-hour urine output yesterday was 1255 mL. Kidney function is improving. ENVIRONMENTAL SERVICES TECH recommend no further skilled dysphagia intervention at this time. 09/21/24: Patient seen and evaluated today in the ICU. He is hemodynamically stable. Labs today show WBC 20.5, hemoglobin 9.4, sodium 136, potassium 3.6, BUN 22, creatinine 0.88. Physical therapist recommended subacute rehab upon discharge to increase strength, balance and functional motility. Acitic fluid culture shows no growth in 48 hours. Review of systems: Pertinent positives and negatives as discussed in HPI, a complete review of systems was performed and all other systems are negative. Vitals: Signs Reviewed Physical examination: General: nontoxic, no distress Derm: warm, dry, intact Head: atraumatic, normocephalic, symmetric Mouth: no lip lesion, mucus membranes moist Cardiovascular: S1 S2 reg, no murmur Lungs: CTA bilateral Abdominal: Distended and tense, non-tender to palpataion Extremities: Pitting edema on LE, No cyanosis, clubbing Neuro: Alert, Oriented x 1, Gross neurological examination did not reveal any focal deficits. Psych: well appearing, appropriate affect Assessment/Plan: Patient is a 58-year-old male with past medical history of cirrhosis and ascites, paracentesis who presented to the ED with abdominal pain. He has been admitted for toxic metabolic encephalopathy, hepatorenal syndrome and CHASE and is he has received 3 hemodialysis treatments. His kidney function is improving. #. Toxic metabolic encephalopathy, multifactorial cause #. Hepatic encephalopathy and Uremic Encephalopathy #. Ascites status post paracentesis 8 L 09/18/2024 Hep B antibody negative, hep B surface antigen non reactive Blood culture shows no growth in 5 days. Paracentesis 09/18/24, 8L removed Ascitic fluid gram stain shows no organisms and few WBC. Acitic fluid culture shows no growth in 48 hours Continue lactulose 30 gm PO Daily and Xifaxan 550 mg PO BID Continue IV lasix 80 mg BID #. CHASE, secondary to hypotension and recent large-volume paracentesis, improving with dialysis Urine sodium [address] Plan to remove dialysis catheter per nephrology Monitor urine output Nephrology following #. Hyperphosphatemia,secondary to CHASE Continue PhosLo 667 mg p.o. 3 times daily with meals #. Hypokalemia K today 3.7 Potassium replacement per protocol #. Shock, secondary to intravsacular volume depletion vs cardiogenic Improved with fluids and midodrine Patient has hepatorenal syndrome as well as had low oral intake for the past few days along with history of cardiomyopathy Continue midodrine 10 mg PO TID Hold diuretics, Farxiga, Lisinopril, Lipitor, Pioglitazone #. GI Bleed Continue IV protonix 40 mg IV daily and octreotide 50 mcg IVP every 8 hours as GI prophylaxis #. Diabetes mellitus Insulin sliding scale Hold Farxiga, metformin, Pioglitazone #. Tobacco dependence Continue nicotine 21 mg/24-hour patch transdermal daily #. Pain management Continue Dilaudid 1mg IVP Q3HR as needed #. Nausea and vomiting Continue Zofran 4 mg IVP every 8 hours as needed #. Metabolic acidosis secondary to CHASE and lactic acidosis, Resolved #. Hypomagnesemia, resolved #. Hypervolemic hyponatremia, resolved F:None E:Potassium replacement per protocol N:Renal diet A: DVT prophylaxis: Pneumatic compression sleeve GI prophylaxis: IV protonix 40 mg IV daily and octreotide 50 mcg IVP every 8 hours Attestation: I have personally seen and examined the patient with Resident, reviewed the documentation and participated and agree with the assessment and plan as written. Rasta Jones MD Objective - Vital Signs Vital signs: Vital Signs Temp 98.8 F 09/21/24 01:51 Pulse 64 09/21/24 01:51 Resp 16 09/21/24 01:51 BP 105/42 09/21/24 01:51 Pulse Ox 93 L 09/21/24 01:51 FiO2 Intake & Output 09/20/24 09/21/24 09/21/24 18:59 06:59 18:59 Intake Total 237 200 Output Total 245 700 Balance -8 -500 Intake: Oral 237 200 Output: Urine 245 700 Other: Voiding Method Indwelling Catheter Indwelling Catheter - Labs CBC & Chem 7: 09/21/24 05:27 09/21/24 05:27 Labs: Abnormal Lab Results - Last 24 Hours (Table) 09/20/24 09/20/24 09/20/24 Range/Units 11:46 12:35 16:24 WBC (3.8-10.6) k/uL RBC (4.30-5.90) m/uL Hgb (13.0-17.5) gm/dL Hct (39.0-53.0) % RDW (11.5-15.5) % Plt Count (150-450) k/uL Sodium (137-145) mmol/L Potassium 3.4 L (3.5-5.1) mmol/L BUN (9-20) mg/dL Glucose (74-99) mg/dL POC Glucose (mg/dL) 155 H 120 H (70-110) mg/dL Calcium (8.4-10.2) mg/dL 09/20/24 09/21/24 09/21/24 Range/Units 20:17 05:27 05:27 WBC 12.5 H (3.8-10.6) k/uL RBC 2.80 L (4.30-5.90) m/uL Hgb 9.5 L (13.0-17.5) gm/dL Hct 27.1 L (39.0-53.0) % RDW 16.9 H (11.5-15.5) % Plt Count 66 L (150-450) k/uL Sodium 136 L (137-145) mmol/L Potassium (3.5-5.1) mmol/L BUN 22 H (9-20) mg/dL Glucose 111 H (74-99) mg/dL POC Glucose (mg/dL) 125 H (70-110) mg/dL Calcium 7.5 L (8.4-10.2) mg/dL Microbiology - Last 24 Hours (Table) 09/18/24 09:10 Gram Stain - Preliminary Ascites Fluid Body Fluid Culture - Preliminary
[2024-09-21 16:20] LABS: Glucose,Whole Blood 115 mg/dL (70-110)
[2024-09-21 20:16] LABS: Glucose,Whole Blood 130 mg/dL (70-110)
--- NOTE | 2024-09-21 22:21 | FL ---
EXAMINATION TYPE: FL barium swallow DATE OF EXAM: 09/21/2024 COMPARISON: None HISTORY: Emesis with moderate intake of thin liquids TECHNIQUE: A single contrast UGI study is performed. FINDINGS: Fluoroscopy time: 48 seconds. DAP: 5240.07. Images: 268. Single contrast barium was utilized. Patient swallowed with normal transit of the oral contrast to th e distal esophagus. Within the distal esophagus there is marked hesitancy of contrast passing beyond the gastroesophageal junction. Multiple tertiary contractions were evident distal esophagus. A curvil inear path of the distal esophagus to the diaphragm is observed with careful on delayed evaluation. C ontrast fills the stomach otherwise normally. Due to the patient's cooperative but unsteady state procedure was terminated. Patient was becoming we ak standing. IMPRESSION: 1. There appears to be persistent narrowing/stenosis of the distal esophagus. Marked hesitancy of con trast passing beyond this location. 2. [facility], , 09/21/2024 10:19 PM
[2024-09-22 07:29] LABS: Glucose,Whole Blood 130 mg/dL (70-110)
[2024-09-22 09:00] LABS: Blood Urea Nitrogen 22.6 mg/dL (9.0-27.0); Calcium 7.5 mg/dL (8.7-10.3); Carbon Dioxide 25.4 mmol/L (21.6-31.8); Chloride 101 mmol/L (96-109); Glucose 120 mg/dL (70-110); Potassium 3.6 mmol/L (3.5-5.5); Sodium 137 mmol/L (135-145)
[2024-09-22 09:29] LABS: HCT 25.5 % (39.6-50.0); HGB 8.4 g/dL (13.0-17.0); Immature Platelet Fraction 2.9 % (1.1-6.1); MCH 32.7 pg (27.0-32.0); MCHC 32.9 g/dL (32.0-37.0); MCV 99.2 FL (80.0-97.0); Mean Platelet Volume 10.7 FL (9.5-12.2); NRBC Per 100 WBC 0.02 X 10*3/uL (0.00-0.01); Platelet Count 75 X 10*3/uL (140-440); RBC 2.57 X 10*6/uL (4.40-5.60); RDW 18.1 % (11.5-14.5); WBC 10.95 X 10*3/uL (4.50-10.00)
--- NOTE | 2024-09-22 11:33 | P.PN ---
Subjective Progress Note Date: 09/22/24 This is a 58-year-old male patient, presented to the emergency department with generalized weakness, altered mentation, severe dehydration, lack of any oral intake over the past 5 days, diminished urine output, encephalopathy and hypotension. The patient was diagnosed having liver cirrhosis and the exact nature of this liver failure is not clear. No history of alcoholism. He was told to have nonalcoholic liver disease/fatty liver. No history of any hepatitis which is viral in nature. The patient was having episodes of GI bleeding. The patient was seen by gastroenterology and placed on a combination of diuretics. He has undergone a recent large-volume paracentesis on 09/12/2024 and total of 12.4 L of ascitic fluid was aspirated. Noted the patient was having significant abdominal swelling and increased lower extremity edema. The patient currently is very much lethargic and encephalopathic. According to the daughter is at the bedside, he is also known to have other medical problems inc luding COPD, CHF and the patient has an AICD in place along with history of hypertension. No history of alcoholism or alcohol abuse. No history of any substance abuse. Noted, his baseline renal function from 2018 was within normal limits. Creatinine on 09/09/2024 was 3.5 and creatinine on admission was at 7.57. At the same time, the patient had significant abnormalities in the blood work where his sodium was at 126, potassium of 4.2, serum bicarbonate 13, BUN 61, glucose at 133, the lactic acid level was 8.7, the calcium level is at 7.3, bilirubin is at 1.8, LFTs are normal, ammonia level was 78, total protein was 5.6 with an albumin level of 2.6. UA is showing +2 protein, 10 WBCs, ascitic fluid that was aspirated on 09/09/2024 showed 231 WBCs, the predominant differential was lymphocytic in nature. The current coagulation profile shows an INR of 1.3 with a PT of 29. The white cell count is at 15.4 with a hemoglobin 9.8 and a platelet count of 167. No chest x-ray has been done. The ultrasound of the enal showed no evidence of any significant hydronephrosis. In the ED, the patient was given a bolus of 1 L of IV fluid and the patient is a currently on a bicarb infusion. He was started on IV Rocephin as an empiric antibiotic coverage. Nephrology was consulted and the patient will be undergoing hemodialysis. The patient was started on lactulose 30 g p.o. 3 times daily. Is also on midodrine 10 mg p.o. 3 times daily. He is on Sandostatin 50 mcg every 8 hours. Most recent blood pressure is 84/39. Pulse ox is 97% on room air oxygen. 09/15/2024, patient remains in intensive care unit. This morning, he seems to be more arousable compared to yesterday. He was not hepatic encephalopathy and he also had a component of metabolic encephalopathy related to his acute kidney injury. The patient underwent hemodialysis yesterday another session of hemodialysis being performed today. He received a total of 5.5 L of IV fluid and the patient is currently on a bicarb infusion running at 80 cc an hour. Urine output is between 0 and 50 cc an hour. He remains on norepinephrine at 0.09 mcg/kg/min. Chest x-ray from today showing CHF and the patient is currently on 3 L of oxygen by nasal cannula. Lactic acid level is dropped down to 4.4. Serum ammonia 814. He received a dose of Lasix given to him by nephrology 80 mg IV push. The patient remains on octreotide. The patient remains on IV Protonix. No evidence of any GI bleeding. In terms of labs, the WBC count is 18 with a hemoglobin 9.7 and a platelet count of 197. BUN is 54 with a creatinine of 6 and a sodium levels at 128. LFTs are noted and are within normal limits. On 09/16/2024, the patient remains encephalopathic. Despite some improvement in the patient's ammonia levels which is currently down to 62, the patient remains lethargic and sleepy although more awake and alert compared to yesterday. The patient remains on lactulose with adequate bowel movements and the patient is also on rifaximin. The patient underwent 2 sessions of hemodialysis the last being yesterday and the patient will undergo dialysis with ultrafiltration today. The patient was taken off the norepinephrine this morning. He will be given IV albumin for nephrology to be followed up by IV Lasix 80 mg every 12 hour. Urine output remains quite diminished at this point in time. He remains on 3 Suboxone by nasal cannula. Urine output is in order of 10 cc an hour. Norepinephrine was running as low as 0.02 mcg/kg/min and the patient was taken off the pressors this morning. No evidence of any GI bleeding. Abdomen remains distended. White cell count is 18.7 with a hemoglobin of 9.2 and a platelet count of 176. INR is 1.5 with a PTT of 30.9. Sodium level is at 129, BUN 41 with a creatinine 4.4, bicarb is 24, lactic acid level is down to 3.8. The cultures have been essentially negative for now including urine and blood culture. The patient remains on IV Rocephin as empiric antibiotic coverage. 09/17/2024, the patient is less encephalopathic. The patient is undergoing another session of hemodialysis with a goal of ultrafiltration of around 1 L. The patient has hepatic encephalopathy and metabolic encephalopathy and the patient is currently on a combination of rifaximin and lactulose regarding h epatic encephalopathy and the serum ammonia level is down to 55. Meanwhile, the acid-base status is improved and the patient serum bicarb is up to 26 and the patient bicarb drip was stopped 24 hours ago. Hemodynamically stable on no pressors. Urine output is quite diminished in the order of 5 to 10 cc an hour. The patient has a fecal management system in place and the patient is producing stool. The patient is currently on 2 L of oxygen by nasal cannula. He is on Lasix 80 mg IV every 12 hours. 09/18/2024, the patient is more awake. Serum ammonia level is dropped down to 12 and the patient remains on lactulose and rifaximin. Abdomen is distended and a large-volume paracentesis was done and I removed a total of 8 L of ascitic fluid and the fluid will be sent for cultures. Hemodynamically stable on no pressors. Underwent hemodialysis yesterday with a 1.5 L of ultrafiltration. Re tuan on IV Rocephin. Remains onIV Lasix. The white cell count is 16 with a hemoglobin 9.4 and a platelet count of 116. BUN is 28 with a creatinine of 2.77. Potassium level is at 3.6. No focal neurological deficit. Patient was seen today 09/19/2024, remains in the ICU, he is on room air, patie nt had a large-volume paracentesis yesterday, 8 L of fluid were drained remains on Rocephin empirically remains on Lasix 80 mg twice daily, patient is supposed to transfer to 3 S. today. Patient is hemodynamically stable, blood pressure is under control. Patient does not seem to be in any distress is presently on room air. WBC count today is 14 hemoglobin is 10 electrolytes are normal BUN is 29 creatinine 1.25, significantly improved since he came in with a creatinine of 7.83. Patient is scheduled for hemodialysis today. Urine output has improved and had 1.2 L in the last 24 hours. Looking back at his renal failure, patient came in with acute kidney injury secondary to ATN secondary to hypotension and had recent large-volume paracentesis there was a concern about hepatorenal syndrome. His initial hemodialysis was started on September 14. Reevaluate today on 09/20/2024, patient remains in the ICU, he is doing great. Hemodynamically stable, not in distress, patient is on room air, sitting at the bedside chair, INR is 3.4. His mental status seems to be waxing and waning related to his hepatic encephalopathy, ammonia level today is normal. Cultures from the peritoneal fluid have been negative, hence Rocephin was discontinued. Patient is being evaluated for some difficulty swallowing he does have esophageal varices, not a great candidate for EGD at this point. WBC count is 13.2 hemoglobin 9.7 electrolytes are normal renal profile is normal BUN is 21 creatinine 1.01. Patient was seen today on 09/21/2024, patient remains in the ICU as an overflow, he is on room air, not in any distress, remains on diuretics, remains on lactulose remains on rifaximin. Patient is doing well, he is able to swallow, does not seem to be in any distress. Waiting to transfer to a regular medical floor. Electrolytes are normal CBC is normal The patient is seen today September 22, 2024 in follow-up on the regular medical floor. He was transferred out of the intensive care unit. He is currently sitting up in a chair at the bedside. Awake and alert in no acute distress. He is maintaining O2 saturations in the 90s on room air. He is afebrile. Barium swallow revealed persistent narrowing/stenosis of the distal esophagus. Marked hesitancy of contrast passing beyond this location. Presbyesophagus. He is status post 1 unit of packed red blood cells this admission. Current hemoglobin 8.4. Platelets 75,000. White count 10.9. Sodium 137. Potassium 3.6. Bicarb 25. BUN 23. Creatinine 1.0. Glucose 120. He remains on IV diuretics. NicoDerm patch in place. Continued on lactulose. Currently in a -1.1 L balance. Objective - Vital Signs Vital signs: Vital Signs Temp 98.3 F 09/22/24 07:31 Pulse 68 09/22/24 07:31 Resp 18 09/22/24 07:31 BP 79/43 09/22/24 07:31 Pulse Ox 93 L 09/22/24 07:35 FiO2 Intake & Output 09/21/24 09/22/24 09/22/24 18:59 06:59 18:59 Intake Total 115 Output Total 425 850 Balance -310 -850 Intake: Oral 115 Output: Urine 425 850 Uretheral (Soto) 125 Stool 0 Other: Voiding Method Indwelling Catheter Indwelling Catheter # Voids 1 1 # Bowel Movements 1 1 - Exam GENERAL EXAM: Alert, 58-year-old male, on room air, comfortable in no apparent distress. HEAD: Normocephalic. EYES: Normal reaction of pupils, equal size. NOSE: Clear with pink turbinates. THROAT: No erythema or exudates. NECK: No masses, no JVD. CHEST: No chest wall deformity. LUNGS: Equal air entry with no crackles, wheeze, rhonchi or dullness. CVS: S1 and S2 normal with no audible murmur, regular rhythm. ABDOMEN: No hepatosplenomegaly, normal bowel sounds, no guarding or rigidity. SPINE: No scoliosis or deformity SKIN: No rashes CENTRAL NERVOUS SYSTEM: No focal deficits, tone is normal in all 4 extremities. EXTREMITIES: There is no peripheral edema. No clubbing, no cyanosis. Peripheral pulses are intact. - Labs CBC & Chem 7: 09/22/24 05:49 09/22/24 05:49 Labs: Abnormal Lab Results - Last 24 Hours (Table) 09/21/24 09/21/24 09/21/24 Range/Units 11:37 16:18 20:15 WBC (4.50-10.00) X 10*3/uL RBC (4.40-5.60) X 10*6/uL Hgb (13.0-17.0) g/dL Hct (39.6-50.0) % MCV (80.0-97.0) FL MCH (27.0-32.0) pg RDW (11.5-14.5) % Plt Count (140-440) X 10*3/uL NRBC/100 WBC Diff (0.00-0.01) X 10*3/uL BUN/Creatinine Ratio (12.00-20.00) Ratio Glucose (70-110) mg/dL POC Glucose (mg/dL) 131 H 115 H 130 H (70-110) mg/dL Calcium (8.7-10.3) mg/dL 09/22/24 09/22/24 09/22/24 Range/Units 05:49 05:49 07:28 WBC 10.95 H (4.50-10.00) X 10*3/uL RBC 2.57 L (4.40-5.60) X 10*6/uL Hgb 8.4 L (13.0-17.0) g/dL Hct 25.5 L (39.6-50.0) % MCV 99.2 H (80.0-97.0) FL MCH 32.7 H (27.0-32.0) pg RDW 18.1 H (11.5-14.5) % Plt Count 75 L (140-440) X 10*3/uL NRBC/100 WBC Diff 0.02 H (0.00-0.01) X 10*3/uL BUN/Creatinine Ratio 22.60 H (12.00-20.00) Ratio Glucose 120 H (70-110) mg/dL POC Glucose (mg/dL) 130 H (70-110) mg/dL Calcium 7.5 L (8.7-10.3) mg/dL Microbiology - Last 24 Hours (Table) 09/18/24 09:10 Gram Stain - Final Ascites Fluid Body Fluid Culture - Final Assessment and Plan Assessment: Recurrent ascites secondary to liver cirrhosis secondary to nonalcoholic fatty liver with cirrhosis Acute kidney injury secondary to hypotension/acute tubular necrosis. Started on hemodialysis 09/14/2024 Hypotension secondary to high volume paracentesis on his initial admission History of liver cirrhosis/nonalcoholic fatty liver Hepatic encephalopathy, remains on lactulose, remains on rifaximin History of esophageal varices and episodic GI bleeding History of underlying coronary artery disease History of cardiomyopathy and AICD placement History of underlying COPD History of type 2 diabetes Obstructive sleep apnea syndrome, on CPAP on outpatient basis Anemia, status post 1 unit packed red blood cells, current hemoglobin 8.4 Thrombocytopenia Plan: The patient was seen and evaluated Labs and medications reviewed Currently stable and on room air Remains on lactulose Remains on rifaximin Remains on octreotide Recommend subacute rehabilitation at discharge This patient was seen independently by the pulmonary nurse practitioner mckenzie dunn pulmonary/critical care issues I have personally seen and examined the patient, performed the documentation and the assessment and plan as written. Number of minutes spent on the visit: 24 Dictation was produced using [employer] dictation software. Please excuse any grammatical, word or spelling errors.
[2024-09-22 12:34] LABS: Glucose,Whole Blood 146 mg/dL (70-110)
--- NOTE | 2024-09-22 12:34 | P.PN ---
Subjective patient is seen for follow-up for acute kidney injury. Started on hemodialysis on 09/14/2024 by a right femoral catheter for volume overload and oliguria. Serum creatinine was 7.5 on initial admission. Improved to 0.8 today. Urine output has improved and documented at 1275 ml for last 24 hours. Patient is awake and comfortable. Objective - Vital Signs Vital signs: Vital Signs Temp 98.3 F 09/22/24 07:31 Pulse 68 09/22/24 07:31 Resp 18 09/22/24 07:31 BP 79/43 09/22/24 07:31 Pulse Ox 93 L 09/22/24 07:35 FiO2 Intake & Output 09/21/24 09/22/24 09/22/24 18:59 06:59 18:59 Intake Total 115 Output Total 425 850 Balance -310 -850 Intake: Oral 115 Output: Urine 425 850 Uretheral (Soto) 125 Stool 0 Other: Voiding Method Indwelling Catheter Indwelling Catheter # Voids 1 1 # Bowel Movements 1 1 - Exam patient is awake, comfortable, no acute distress. Examination of the heart S1 and S2 Examination of the lungs bilateral breath sounds are heard Abdomen is soft nontender Examination of lower extremity shows no significant edema [employer] exam shows patient is moving all 4 extremities. - Labs CBC & Chem 7: 09/22/24 05:49 09/22/24 05:49 Labs: Abnormal Lab Results - Last 24 Hours (Table) 09/21/24 09/21/24 09/22/24 Range/Units 16:18 20:15 05:49 WBC 10.95 H (4.50-10.00) X 10*3/uL RBC 2.57 L (4.40-5.60) X 10*6/uL Hgb 8.4 L (13.0-17.0) g/dL Hct 25.5 L (39.6-50.0) % MCV 99.2 H (80.0-97.0) FL MCH 32.7 H (27.0-32.0) pg RDW 18.1 H (11.5-14.5) % Plt Count 75 L (140-440) X 10*3/uL NRBC/100 WBC Diff 0.02 H (0.00-0.01) X 10*3/uL BUN/Creatinine Ratio (12.00-20.00) Ratio Glucose (70-110) mg/dL POC Glucose (mg/dL) 115 H 130 H (70-110) mg/dL Calcium (8.7-10.3) mg/dL 09/22/24 09/22/24 Range/Units 05:49 07:28 WBC (4.50-10.00) X 10*3/uL RBC (4.40-5.60) X 10*6/uL Hgb (13.0-17.0) g/dL Hct (39.6-50.0) % MCV (80.0-97.0) FL MCH (27.0-32.0) pg RDW (11.5-14.5) % Plt Count (140-440) X 10*3/uL NRBC/100 WBC Diff (0.00-0.01) X 10*3/uL BUN/Creatinine Ratio 22.60 H (12.00-20.00) Ratio Glucose 120 H (70-110) mg/dL POC Glucose (mg/dL) 130 H (70-110) mg/dL Calcium 7.5 L (8.7-10.3) mg/dL Microbiology - Last 24 Hours (Table) 09/18/24 09:10 Gram Stain - Final Ascites Fluid Body Fluid Culture - Final Assessment and Plan Assessment: 1. Acute kidney injury secondary to ATN secondary to hypotension and recent large-volume paracentesis. No hydronephrosis noted on kidney ultrasound. Creatinine up to 7.83 this admission. Oliguric. Started on hemodialysis September 14, 2024. Urine output has improved and serum creatinine down to 0.8. Hemodialysis on hold and dialysis catheter has been removed. 2. Metabolic acidosis secondary to acute kidney injury and lactic acidosis. Improved. 3. Liver cirrhosis. 4. Hyponatremia. Initially hypovolemic. Now hypervolemic with significant ascites. Improved with UF. 5. UTI on antibiotics. 6. Hyperphosphatemia secondary to acute kidney injury. On PhosLo. 7. Hypomagnesemia from poor intake and use of diuretics. Replaced. Improved. 8. Encephalopathy. Hepatic and uremic. 9. Ascites with paracentesis done September 12, 2024 with 12.4 L drained. Plan: decrease Lasix Continue midodrine Will likely discontinue Sandostatin in 1-2 days. Continue to avoid nephrotoxic agents.
--- NOTE | 2024-09-22 15:02 | P.PN ---
Subjective Progress Note Date: 09/22/24 Principal diagnosis: Hospital course: Patient is a 58 year old male past medical history of cirrhosis, ascites, paracentesis who presented to the ED today with abdominal pain. Patient was at a different facility where he had abnormal labs and that is why he was sent here at [facility]. Upon admission he was found to have abdominal pain, GI bleed and altered mental status. He states he has had this stomach ache for 1 3 weeks and noticed blood in the stool since 2 weeks. The daughter mentions that the patient is not an alcoholic and has been following up with gastroenterology and was recently diagnosed with liver cirrhosis about 2 months ago. At that time he was started on diuretics(Lasix 40 mg and spironolactone 100 mg), but the patient took the diuretic for a week and the diuretic was then discontinued. A paracentesis done on 09/09/2024 with 12.4 L of pleural fluid was removed, this was his frst paracentesis. Fluid cytology was negative. Denies fever, chills, headache, shortness of breath, chest pain, palpitations, coughing, nausea, vomiting. ED documentation reviewed and case discussed with ED provider. In the ED he was treated with 0.9 normal saline, ondansetron, lactulose, octreotide and 1 PRBC transfusion. While in the ED the patient's blood pressure dropped to 74/32 and the patient was moved to ICU for pressor support. Vitals on presentation: T 97.2 F, P 66 bpm, RR 18, BP 117/53, O2 97% on room air EKG: Paced rhythm, rate 65 bpm, QTc 581 ms Abdomen bladder ultrasound: Shows no evidence for hydronephrosis/neph rolithiasis/masses identified. Bladder exam, postvoid residual, bilateral jets exam limited as the patient was not awake CBC: WBC 15.4, hemoglobin 9.8 Coagulation panel: PT 13.8, INR 1.3 CMP: Sodium 126, chloride 97, bicarb 13, BUN 61, creatinine 1.57, corrected calcium 8.4, phosphorus 7.7, magnesium 1.5, total bilirubin 1.8, total protein 5.6, albumin 2.6 Lactic acid 7.6, 8.1, 8.7, 8.9, 0.8, 1.4, 7.8, 7.9 Ammonia: 69 ProBNP: 1240 Troponin: <0.012 UA: 2+ protein, trace glucose, trace blood, 1+ bilirubin, 10 WBC, occasional bacteria, 45%, moderate mucus 09/15/24: Patient seen and evaluated bedside today in the ICU. Hemodialysis net amount was 0 yesterday. Currently on second day of hemodialysis treatment. Labs show WBC 18, sodium, creatinine 6.07, BUN 54, lactic acid 4.1, ammonia 114. Hep B surface antigen nonreactive, hep B surface antibody is negative with antibody titer being 3.5 mIU/mL. Chest x-ray shows prominent pulmonary vascular markings. Abdomen ultrasound done today shows moderate amount of ascites. 09/16/24: Patient seen and examined today in the ICU. Patient is having bowel movements with lactulose. He had the second hemodialysis treatment yesterday. Hemodialysis net amount was 0. Kidney function is improving. Labs today show WBC 18.7, hemoglobin 9.2, PT 15.4, INR 1.5, APTT 30.9, sodium 129, potassium 3.4, BUN 41, creatinine 4.4, lactic acid 3.8 and ammonia 62. Blood culture shows no growth after 48 hours. Urine culture shows no growth after 24 hours. 09/17/24: Patient seen and evaluated at bedside in the ICU. He had a hemodialysis session today. Labs today hemoglobin 9.1, WBC 17.6, sodium 132, potassium 3.3, BUN 33, creatinine 3.73. Coagulation panel today showed PT 16.2, INR 1.6. Ammonia level today is 55. Kidney function is improving. He had his third session of hemodialysis yesterday, 1500 mL was removed. Urine output yesterday was 313 ml. Echocardiogram done yesterday shows EF of 50 to 55%, normal LV function, moderate MR. 09/18/2024 Patient was seen and examined today in the ICU today. Patient still confused, daughter at bedside. Alert and oriented x 1. Afebrile, heart rate 65, respiratory rate 16, blood pressure 117/92, saturating 93% on room air. Hemoglobin stable 9.4, WBC 16.1, platelet 116. Creatinine 2.77, BUN 28. Ammonia 12. Patient underwent paracentesis today with 8 L of acetic fluid removed, received IV albumin. Ascitic fluid sent for culture. Nephrology following for hemodialysis tomorrow. Vital stable. Remains on IV Rocephin. Also on IV Lasix. 09/19/24: Patient seen and examined today in the ICU. Patient underwent paracentesis yesterday, removed 8 L of ascitic fluid. Ascitic fluid gram stain shows organisms and few white blood cells. Labs today show WBC 14, hemoglobin 10, platelet count 85, BUN 29, creatinine 1.25. Blood culture shows no growth after 5 days. 09/20/24: Patient seen and examined at today in the ICU. Patient feels better and is out of bed to chair today. Patient underwent hemodialysis yesterday with a 830 mL ultrafiltration. Labs today show WBC 13.2, hemoglobin 9.7, platelet 76, potassium 3.4, BUN 21, creatinine 1.01. 24-hour urine output yesterday was 1255 mL. Kidney function is improving. RAILRO[employer] MAINTENANCE CLERK recommend no further skilled dysphagia intervention at this time. 09/21/24: Patient seen and evaluated today in the ICU. He is hemodynamically stable. Labs today show WBC 20.5, hemoglobin 9.4, sodium 136, potassium 3.6, BUN 22, creatinine 0.88. Physical therapist recommended subacute rehab upon discharge to increase strength, balance and functional motility. Acitic fluid culture shows no growth in 48 hours. 09/22/24: Patient examined at bedside today on the general medical floor. He is hemodynamically stable. Labs today show WBC 10.95, hemoglobin 8.4, platelet count 75. Acitic fluid culture shows no growth in after 4 days. Barium swallow study showed persistent narrowing or stenosis of the distal esophagus, presbyesophagus. PT recommended subacute rehab to increase strength, balance, functional mobility. Speech-language pathologist recommended continuing dysphagia level 2 ground diet/thin liquids. Review of systems: Pertinent positives and negatives as discussed in HPI, a complete review of systems was performed and all other systems are negative. Vitals: Signs Reviewed Physical examination: General: nontoxic, no distress Derm: warm, dry, intact Head: atraumatic, normocephalic, symmetric Mouth: no lip lesion, mucus membranes moist Cardiovascular: S1 S2 reg, no murmur Lungs: CTA bilateral Abdominal: Distended and tense, non-tender to palpataion Extremities: Pitting edema on LE, No cyanosis, clubbing Neuro: Alert, Oriented x 1, Gross neurological examination did not reveal any focal deficits. Psych: well appearing, appropriate affect Assessment/Plan: Patient is a 58-year-old male with past medical history of non alcoholic liver cirrhosis and ascites who presented to the ED with abdominal pain and altered mental status, four days after his first paracentesis of 12.4L. He has been admitted for toxic metabolic encephalopathy, hepatorenal syndrome, shock and CHASE and is he has received 1 blood transfusion, 5 hemodialysis treatments, 1 paracentesis. He continues to be on lactulose and Rifaximin. His kidney function is improving, dialysis catheter removed and is moved out of the ICU to the general medical floor. #. Toxic metabolic encephalopathy, multifactorial cause #. Hepatic encephalopathy and Uremic Encephalopathy #. Ascites status post paracentesis 8 L 09/18/2024 Hep B antibody negative, hep B surface antigen non reactive Blood culture shows no growth in 5 days. Ascitic fluid gram stain shows no organisms and few WBC. Acitic fluid culture shows no growth in after 4 days. Continue lactulose 30 gm PO Daily and Xifaxan 550 mg PO BID IV lasix decreased to 40 mg daily Nephrology following PT recommended CARO #. Hyperphosphatemia,secondary to CHASE Continue PhosLo 667 mg p.o. 3 times daily with meals Nephrology is following #. Hypokalemia K today 3.6 Potassium replacement per protocol #. Shock, secondary to intravsacular volume depletion vs cardiogenic Improved with fluids and midodrine Patient has hepatorenal syndrome as well as had low oral intake for the past few days along with history of cardiomyopathy Continue midodrine 10 mg PO TID #. GI Bleed Continue IV protonix 40 mg IV daily and octreotide 50 mcg IVP every 8 hours as GI prophylaxis #. Diabetes mellitus Insulin sliding scale Hold Farxiga, metformin, Pioglitazone #. Tobacco dependence Continue nicotine 21 mg/24-hour patch transdermal daily #. Pain management Continue Dilaudid 1mg IVP Q3HR as needed #. Nausea and vomiting Continue Zofran 4 mg IVP every 8 hours as needed #. Metabolic acidosis secondary to CHASE and lactic acidosis, Resolved #. Hypomagnesemia, resolved #. Hypervolemic hyponatremia, resolved #. CHASE, secondary to hypotension and recent large-volume paracentesis, resolved F:None E:Potassium replacement per protocol N:Renal diet A:Ambulatory DVT prophylaxis: Pneumatic compression sleeve GI prophylaxis: IV protonix 40 mg IV daily and octreotide 50 mcg IVP every 8 hours Attestation I have seen and examined this patient with my resident , discussed the same with the resident/ELYSIA, and agree with the dictator's assessment and plan as written Dr. Anup pyle Objective - Vital Signs Vital signs: Vital Signs Temp 98 F 09/21/24 20:00 Pulse 85 09/21/24 20:00 Resp 16 09/21/24 20:00 BP 140/77 09/21/24 20:00 Pulse Ox 94 L 09/21/24 20:00 FiO2 Intake & Output 09/21/24 09/22/24 09/22/24 18:59 06:59 18:59 Intake Total 115 Output Total 425 850 Balance -310 -850 Intake: Oral 115 Output: Urine 425 850 Uretheral (Soto) 125 Stool 0 Other: Voiding Method Indwelling Catheter Indwelling Catheter # Voids 1 1 # Bowel Movements 1 1 - Labs CBC & Chem 7: 09/23/24 05:35 09/23/24 05:35 Labs: Abnormal Lab Results - Last 24 Hours (Table) 09/21/24 09/21/24 09/21/24 Range/Units 11:37 16:18 20:15 POC Glucose (mg/dL) 131 H 115 H 130 H (70-110) mg/dL 09/22/24 Range/Units 07:28 POC Glucose (mg/dL) 130 H (70-110) mg/dL
[2024-09-22] MEDS ORDERED: ZINC OXIDE PASTE (Z-GUARD) 1 APPLIC TOPICAL PRN (16:36)
[2024-09-22 17:30] LABS: Glucose,Whole Blood 143 mg/dL (70-110)
[2024-09-22 19:53] LABS: Glucose,Whole Blood 142 mg/dL (70-110)
[2024-09-23 07:14] LABS: Glucose,Whole Blood 104 mg/dL (70-110)
[2024-09-23] MEDS: FUROSEMIDE 10 MG/ML 10 ML VIAL IV SCH (08:43)
[2024-09-23 08:52] LABS: HCT 23.6 % (39.6-50.0); HGB 7.9 g/dL (13.0-17.0); MCH 32.1 pg (27.0-32.0); MCHC 33.5 g/dL (32.0-37.0); MCV 95.9 FL (80.0-97.0); Mean Platelet Volume 10.3 FL (9.5-12.2); NRBC Per 100 WBC 0.02 X 10*3/uL (0.00-0.01); Platelet Count 84 X 10*3/uL (140-440); RBC 2.46 X 10*6/uL (4.40-5.60); RDW 18.1 % (11.5-14.5); WBC 9.61 X 10*3/uL (4.50-10.00)
[2024-09-23 09:11] LABS: BUN/Creat Ratio 25.11 Ratio (12.00-20.00); Blood Urea Nitrogen 22.6 mg/dL (9.0-27.0); Calcium 7.3 mg/dL (8.7-10.3); Carbon Dioxide 25.8 mmol/L (21.6-31.8); Chloride 100 mmol/L (96-109); Glucose 106 mg/dL (70-110); Potassium 3.2 mmol/L (3.5-5.5); Sodium 135 mmol/L (135-145)
--- NOTE | 2024-09-23 11:34 | P.PN ---
Subjective Progress Note Date: 09/23/24 This is a 58-year-old male patient, presented to the emergency department with generalized weakness, altered mentation, severe dehydration, lack of any oral intake over the past 5 days, diminished urine output, encephalopathy and hypotension. The patient was diagnosed having liver cirrhosis and the exact nature of this liver failure is not clear. No history of alcoholism. He was told to have nonalcoholic liver disease/fatty liver. No history of any hepatitis which is viral in nature. The patient was having episodes of GI bleeding. The patient was seen by gastroenterology and placed on a combination of diuretics. He has undergone a recent large-volume paracentesis on 09/12/2024 and total of 12.4 L of ascitic fluid was aspirated. Noted the patient was having significant abdominal swelling and increased lower extremity edema. The patient currently is very much lethargic and encephalopathic. According to the daughter is at the bedside, he is also known to have other medical problems inc luding COPD, CHF and the patient has an AICD in place along with history of hypertension. No history of alcoholism or alcohol abuse. No history of any substance abuse. Noted, his baseline renal function from 2018 was within normal limits. Creatinine on 09/09/2024 was 3.5 and creatinine on admission was at 7.57. At the same time, the patient had significant abnormalities in the blood work where his sodium was at 126, potassium of 4.2, serum bicarbonate 13, BUN 61, glucose at 133, the lactic acid level was 8.7, the calcium level is at 7.3, bilirubin is at 1.8, LFTs are normal, ammonia level was 78, total protein was 5.6 with an albumin level of 2.6. UA is showing +2 protein, 10 WBCs, ascitic fluid that was aspirated on 09/09/2024 showed 231 WBCs, the predominant differential was lymphocytic in nature. The current coagulation profile shows an INR of 1.3 with a PT of 29. The white cell count is at 15.4 with a hemoglobin 9.8 and a platelet count of 167. No chest x-ray has been done. The ultrasound of the enal showed no evidence of any significant hydronephrosis. In the ED, the patient was given a bolus of 1 L of IV fluid and the patient is a currently on a bicarb infusion. He was started on IV Rocephin as an empiric antibiotic coverage. Nephrology was consulted and the patient will be undergoing hemodialysis. The patient was started on lactulose 30 g p.o. 3 times daily. Is also on midodrine 10 mg p.o. 3 times daily. He is on Sandostatin 50 mcg every 8 hours. Most recent blood pressure is 84/39. Pulse ox is 97% on room air oxygen. 09/15/2024, patient remains in intensive care unit. This morning, he seems to be more arousable compared to yesterday. He was not hepatic encephalopathy and he also had a component of metabolic encephalopathy related to his acute kidney injury. The patient underwent hemodialysis yesterday another session of hemodialysis being performed today. He received a total of 5.5 L of IV fluid and the patient is currently on a bicarb infusion running at 80 cc an hour. Urine output is between 0 and 50 cc an hour. He remains on norepinephrine at 0.09 mcg/kg/min. Chest x-ray from today showing CHF and the patient is currently on 3 L of oxygen by nasal cannula. Lactic acid level is dropped down to 4.4. Serum ammonia 814. He received a dose of Lasix given to him by nephrology 80 mg IV push. The patient remains on octreotide. The patient remains on IV Protonix. No evidence of any GI bleeding. In terms of labs, the WBC count is 18 with a hemoglobin 9.7 and a platelet count of 197. BUN is 54 with a creatinine of 6 and a sodium levels at 128. LFTs are noted and are within normal limits. On 09/16/2024, the patient remains encephalopathic. Despite some improvement in the patient's ammonia levels which is currently down to 62, the patient remains lethargic and sleepy although more awake and alert compared to yesterday. The patient remains on lactulose with adequate bowel movements and the patient is also on rifaximin. The patient underwent 2 sessions of hemodialysis the last being yesterday and the patient will undergo dialysis with ultrafiltration today. The patient was taken off the norepinephrine this morning. He will be given IV albumin for nephrology to be followed up by IV Lasix 80 mg every 12 hour. Urine output remains quite diminished at this point in time. He remains on 3 Suboxone by nasal cannula. Urine output is in order of 10 cc an hour. Norepinephrine was running as low as 0.02 mcg/kg/min and the patient was taken off the pressors this morning. No evidence of any GI bleeding. Abdomen remains distended. White cell count is 18.7 with a hemoglobin of 9.2 and a platelet count of 176. INR is 1.5 with a PTT of 30.9. Sodium level is at 129, BUN 41 with a creatinine 4.4, bicarb is 24, lactic acid level is down to 3.8. The cultures have been essentially negative for now including urine and blood culture. The patient remains on IV Rocephin as empiric antibiotic coverage. 09/17/2024, the patient is less encephalopathic. The patient is undergoing another session of hemodialysis with a goal of ultrafiltration of around 1 L. The patient has hepatic encephalopathy and metabolic encephalopathy and the patient is currently on a combination of rifaximin and lactulose regarding h epatic encephalopathy and the serum ammonia level is down to 55. Meanwhile, the acid-base status is improved and the patient serum bicarb is up to 26 and the patient bicarb drip was stopped 24 hours ago. Hemodynamically stable on no pressors. Urine output is quite diminished in the order of 5 to 10 cc an hour. The patient has a fecal management system in place and the patient is producing stool. The patient is currently on 2 L of oxygen by nasal cannula. He is on Lasix 80 mg IV every 12 hours. 09/18/2024, the patient is more awake. Serum ammonia level is dropped down to 12 and the patient remains on lactulose and rifaximin. Abdomen is distended and a large-volume paracentesis was done and I removed a total of 8 L of ascitic fluid and the fluid will be sent for cultures. Hemodynamically stable on no pressors. Underwent hemodialysis yesterday with a 1.5 L of ultrafiltration. Re tuan on IV Rocephin. Remains onIV Lasix. The white cell count is 16 with a hemoglobin 9.4 and a platelet count of 116. BUN is 28 with a creatinine of 2.77. Potassium level is at 3.6. No focal neurological deficit. Patient was seen today 09/19/2024, remains in the ICU, he is on room air, patie nt had a large-volume paracentesis yesterday, 8 L of fluid were drained remains on Rocephin empirically remains on Lasix 80 mg twice daily, patient is supposed to transfer to 3 S. today. Patient is hemodynamically stable, blood pressure is under control. Patient does not seem to be in any distress is presently on room air. WBC count today is 14 hemoglobin is 10 electrolytes are normal BUN is 29 creatinine 1.25, significantly improved since he came in with a creatinine of 7.83. Patient is scheduled for hemodialysis today. Urine output has improved and had 1.2 L in the last 24 hours. Looking back at his renal failure, patient came in with acute kidney injury secondary to ATN secondary to hypotension and had recent large-volume paracentesis there was a concern about hepatorenal syndrome. His initial hemodialysis was started on September 14. Reevaluate today on 09/20/2024, patient remains in the ICU, he is doing great. Hemodynamically stable, not in distress, patient is on room air, sitting at the bedside chair, INR is 3.4. His mental status seems to be waxing and waning related to his hepatic encephalopathy, ammonia level today is normal. Cultures from the peritoneal fluid have been negative, hence Rocephin was discontinued. Patient is being evaluated for some difficulty swallowing he does have esophageal varices, not a great candidate for EGD at this point. WBC count is 13.2 hemoglobin 9.7 electrolytes are normal renal profile is normal BUN is 21 creatinine 1.01. Patient was seen today on 09/21/2024, patient remains in the ICU as an overflow, he is on room air, not in any distress, remains on diuretics, remains on lactulose remains on rifaximin. Patient is doing well, he is able to swallow, does not seem to be in any distress. Waiting to transfer to a regular medical floor. Electrolytes are normal CBC is normal The patient is seen today September 22, 2024 in follow-up on the regular medical floor. He was transferred out of the intensive care unit. He is currently sitting up in a chair at the bedside. Awake and alert in no acute distress. He is maintaining O2 saturations in the 90s on room air. He is afebrile. Barium swallow revealed persistent narrowing/stenosis of the distal esophagus. Marked hesitancy of contrast passing beyond this location. Presbyesophagus. He is status post 1 unit of packed red blood cells this admission. Current hemoglobin 8.4. Platelets 75,000. White count 10.9. Sodium 137. Potassium 3.6. Bicarb 25. BUN 23. Creatinine 1.0. Glucose 120. He remains on IV diuretics. NicoDerm patch in place. Continued on lactulose. Currently in a -1.1 L balance. The patient is seen today September 23, 2024 in follow-up on the regular medical floor. He is currently sitting up in bed. Awake and alert in no acute d istress. Maintaining good O2 saturations in the 90s on room air. He is continued on IV diuretics. NicoDerm patch in place. Currently in a negative balance. Soto catheter remains in place. White count 9.6. Hemoglobin 7.9. Platelets 84,000. Sodium 135. Potassium 3.2. Bicarb 26. BUN 23. Creatinine 0.9. Glucose 106. Objective - Vital Signs Vital signs: Vital Signs Temp 98.1 F 09/23/24 07:14 Pulse 77 09/23/24 07:14 Resp 20 09/23/24 07:14 BP 111/62 09/23/24 07:14 Pulse Ox 94 L 09/23/24 07:14 FiO2 Intake & Output 09/22/24 09/23/24 09/23/24 18:59 06:59 18:59 Intake Total 540 Output Total 500 400 Balance 40 -400 Weight 138.1 kg Intake: Oral 540 Output: Urine 500 400 Stool 0 Other: Voiding Method Indwelling Catheter Indwelling Catheter # Bowel Movements 1 1 - Exam GENERAL EXAM: Alert, pleasant 58-year-old male, sitting up in bed, on room air, comfortable in no apparent distress. HEAD: Normocephalic. EYES: Normal reaction of pupils, equal size. NOSE: Clear with pink turbinates. THROAT: No erythema or exudates. NECK: No masses, no JVD. CHEST: No chest wall deformity. LUNGS: Equal air entry with no crackles, wheeze, rhonchi or dullness. CVS: S1 and S2 normal with no audible murmur, regular rhythm. ABDOMEN: No hepatosplenomegaly, normal bowel sounds, no guarding or rigidity. SPINE: No scoliosis or deformity SKIN: No rashes CENTRAL NERVOUS SYSTEM: No focal deficits, tone is normal in all 4 extremities. EXTREMITIES: There is no peripheral edema. No clubbing, no cyanosis. Periphe ral pulses are intact. - Labs CBC & Chem 7: 09/23/24 05:35 09/23/24 05:35 Labs: Abnormal Lab Results - Last 24 Hours (Table) 09/22/24 09/22/24 09/22/24 Range/Units 12:32 17:28 19:37 RBC (4.40-5.60) X 10*6/uL Hgb (13.0-17.0) g/dL Hct (39.6-50.0) % MCH (27.0-32.0) pg RDW (11.5-14.5) % Plt Count (140-440) X 10*3/uL NRBC/100 WBC Diff (0.00-0.01) X 10*3/uL Potassium (3.5-5.5) mmol/L BUN/Creatinine Ratio (12.00-20.00) Ratio POC Glucose (mg/dL) 146 H 143 H 142 H (70-110) mg/dL Calcium (8.7-10.3) mg/dL 09/23/24 09/23/24 Range/Units 05:35 05:35 RBC 2.46 L (4.40-5.60) X 10*6/uL Hgb 7.9 L (13.0-17.0) g/dL Hct 23.6 L (39.6-50.0) % MCH 32.1 H (27.0-32.0) pg RDW 18.1 H (11.5-14.5) % Plt Count 84 L (140-440) X 10*3/uL NRBC/100 WBC Diff 0.02 H (0.00-0.01) X 10*3/uL Potassium 3.2 L (3.5-5.5) mmol/L BUN/Creatinine Ratio 25.11 H (12.00-20.00) Ratio POC Glucose (mg/dL) (70-110) mg/dL Calcium 7.3 L (8.7-10.3) mg/dL Microbiology - Last 24 Hours (Table) 09/18/24 09:10 Gram Stain - Final Ascites Fluid Body Fluid Culture - Final Assessment and Plan Assessment: Recurrent ascites secondary to liver cirrhosis secondary to nonalcoholic fatty liver with cirrhosis Acute kidney injury secondary to hypotension/acute tubular necrosis. Started on hemodialysis 09/14/2024 Hypotension secondary to high volume paracentesis on his initial admission History of liver cirrhosis/nonalcoholic fatty liver Hepatic encephalopathy, remains on lactulose, remains on rifaximin History of esophageal varices and episodic GI bleeding History of underlying coronary artery disease History of cardiomyopathy and AICD placement History of underlying COPD History of type 2 diabetes Obstructive sleep apnea syndrome, on CPAP on outpatient basis Anemia, status post 1 unit packed red blood cells, current hemoglobin 7.9 Thrombocytopenia Plan: The patient was seen and evaluated Labs and medications reviewed Currently stable and on room air Educated regarding smoking cessation NicoDerm patch in place Plan is for home with daughter at discharge This patient was seen independently by the pulmonary nurse practitioner addressing pulmonary/critical care issues I have personally seen and examined the patient, performed the documentation and the assessment and plan as written. Number of minutes spent on the visit: 22 Dictation was produced using ticckle dictation software. Please excuse any grammatical, word or spelling errors.
[2024-09-23 12:24] LABS: Glucose,Whole Blood 139 mg/dL (70-110)
--- NOTE | 2024-09-23 13:54 | P.PN ---
Subjective Progress Note Date: 09/23/24 Principal diagnosis: Hospital course: Patient is a 58 year old male past medical history of cirrhosis, ascites, paracentesis who presented to the ED today with abdominal pain. Patient was at a different facility where he had abnormal labs and that is why he was sent here at [facility]. Upon admission he was found to have abdominal pain, GI bleed and altered mental status. He states he has had this stomach ache for 1 3 weeks and noticed blood in the stool since 2 weeks. The daughter mentions that the patient is not an alcoholic and has been following up with gastroenterology and was recently diagnosed with liver cirrhosis about 2 months ago. At that time he was started on diuretics(Lasix 40 mg and spironolactone 100 mg), but the patient took the diuretic for a week and the diuretic was then discontinued. A paracentesis done on 09/09/2024 with 12.4 L of pleural fluid was removed, this was his frst paracentesis. Fluid cytology was negative. Denies fever, chills, headache, shortness of breath, chest pain, palpitations, coughing, nausea, vomiting. ED documentation reviewed and case discussed with ED provider. In the ED he was treated with 0.9 normal saline, ondansetron, lactulose, octreotide and 1 PRBC transfusion. While in the ED the patient's blood pressure dropped to 74/32 and the patient was moved to ICU for pressor support. Vitals on presentation: T 97.2 F, P 66 bpm, RR 18, BP 117/53, O2 97% on room air EKG: Paced rhythm, rate 65 bpm, QTc 581 ms Abdomen bladder ultrasound: Shows no evidence for hydronephrosis/neph rolithiasis/masses identified. Bladder exam, postvoid residual, bilateral jets exam limited as the patient was not awake CBC: WBC 15.4, hemoglobin 9.8 Coagulation panel: PT 13.8, INR 1.3 CMP: Sodium 126, chloride 97, bicarb 13, BUN 61, creatinine 1.57, corrected calcium 8.4, phosphorus 7.7, magnesium 1.5, total bilirubin 1.8, total protein 5.6, albumin 2.6 Lactic acid 7.6, 8.1, 8.7, 8.9, 0.8, 1.4, 7.8, 7.9 Ammonia: 69 ProBNP: 1240 Troponin: <0.012 UA: 2+ protein, trace glucose, trace blood, 1+ bilirubin, 10 WBC, occasional bacteria, 45%, moderate mucus 09/15/24: Patient seen and evaluated bedside today in the ICU. Hemodialysis net amount was 0 yesterday. Currently on second day of hemodialysis treatment. Labs show WBC 18, sodium, creatinine 6.07, BUN 54, lactic acid 4.1, ammonia 114. Hep B surface antigen nonreactive, hep B surface antibody is negative with antibody titer being 3.5 mIU/mL. Chest x-ray shows prominent pulmonary vascular markings. Abdomen ultrasound done today shows moderate amount of ascites. 09/16/24: Patient seen and examined today in the ICU. Patient is having bowel movements with lactulose. He had the second hemodialysis treatment yesterday. Hemodialysis net amount was 0. Kidney function is improving. Labs today show WBC 18.7, hemoglobin 9.2, PT 15.4, INR 1.5, APTT 30.9, sodium 129, potassium 3.4, BUN 41, creatinine 4.4, lactic acid 3.8 and ammonia 62. Blood culture shows no growth after 48 hours. Urine culture shows no growth after 24 hours. 09/17/24: Patient seen and evaluated at bedside in the ICU. He had a hemodialysis session today. Labs today hemoglobin 9.1, WBC 17.6, sodium 132, potassium 3.3, BUN 33, creatinine 3.73. Coagulation panel today showed PT 16.2, INR 1.6. Ammonia level today is 55. Kidney function is improving. He had his third session of hemodialysis yesterday, 1500 mL was removed. Urine output yesterday was 313 ml. Echocardiogram done yesterday shows EF of 50 to 55%, normal LV function, moderate MR. 09/18/2024 Patient was seen and examined today in the ICU today. Patient still confused, daughter at bedside. Alert and oriented x 1. Afebrile, heart rate 65, respiratory rate 16, blood pressure 117/92, saturating 93% on room air. Hemoglobin stable 9.4, WBC 16.1, platelet 116. Creatinine 2.77, BUN 28. Ammonia 12. Patient underwent paracentesis today with 8 L of acetic fluid removed, received IV albumin. Ascitic fluid sent for culture. Nephrology following for hemodialysis tomorrow. Vital stable. Remains on IV Rocephin. Also on IV Lasix. 09/19/24: Patient seen and examined today in the ICU. Patient underwent paracentesis yesterday, removed 8 L of ascitic fluid. Ascitic fluid gram stain shows organisms and few white blood cells. Labs today show WBC 14, hemoglobin 10, platelet count 85, BUN 29, creatinine 1.25. Blood culture shows no growth after 5 days. 09/20/24: Patient seen and examined at today in the ICU. Patient feels better and is out of bed to chair today. Patient underwent hemodialysis yesterday with a 830 mL ultrafiltration. Labs today show WBC 13.2, hemoglobin 9.7, platelet 76, potassium 3.4, BUN 21, creatinine 1.01. 24-hour urine output yesterday was 1255 mL. Kidney function is improving. STAFFING DIRECTOR recommend no further skilled dysphagia intervention at this time. 09/21/24: Patient seen and evaluated today in the ICU. He is hemodynamically stable. Labs today show WBC 20.5, hemoglobin 9.4, sodium 136, potassium 3.6, BUN 22, creatinine 0.88. Physical therapist recommended subacute rehab upon discharge to increase strength, balance and functional motility. Acitic fluid culture shows no growth in 48 hours. 09/22/24: Patient examined at bedside today on the general medical floor. He is hemodynamically stable. Labs today show WBC 10.95, hemoglobin 8.4, platelet count 75. Acitic fluid culture shows no growth in after 4 days. Barium swallow study showed persistent narrowing or stenosis of the distal esophagus, presbyesophagus. PT recommended subacute rehab to increase strength, balance, functional mobility. Speech-language pathologist recommended continuing dysphagia level 2 ground diet/thin liquids. 09/23/24: Patient seen and evaluated at bedside today. No acute events overnight. He is hemodynamically stable. Labs today show hemoglobin 7.9, potassium 3.2. He had one bowel movement today last night. Respiratory therapy consulted for home O2 assessment. Review of systems: Pertinent positives and negatives as discussed in HPI, a complete review of systems was performed and all other systems are negative. Vitals: Signs Reviewed Physical examination: General: nontoxic, no distress Derm: warm, dry, intact Head: atraumatic, normocephalic, symmetric Mouth: no lip lesion, mucus membranes moist Cardiovascular: S1 S2 reg, no murmur Lungs: CTA bilateral Abdominal: Distended and tense, non-tender to palpataion Extremities: Pitting edema on LE, No cyanosis, clubbing Neuro: Alert, Oriented x 1, Gross neurological examination did not reveal any focal deficits. Psych: well appearing, appropriate affect Assessment/Plan: Patient is a 58-year-old male with past medical history of non alcoholic liver cirrhosis and ascites who presented to the ED with abdominal pain and altered mental status, four days after his first paracentesis of 12.4L. He was admitted to ICU for toxic metabolic encephalopathy, hepatorenal syndrome, shock and CHASE and is he has received vasopressors, 1 blood transfusion, 5 hemodialysis treatments, 1 paracentesis. He continues to be on lactulose and Rifaximin. His kidney function is improving, dialysis catheter removed and is moved out of the ICU to the general medical floor. #. Toxic metabolic encephalopathy, multifactorial cause #. Hepatic encephalopathy and Uremic Encephalopathy #. Ascites status post paracentesis 8 L 09/18/2024 Hep B antibody negative, hep B surface antigen non reactive Blood culture shows no growth in 5 days. Ascitic fluid gram stain shows no organisms and few WBC. Acitic fluid culture shows no growth in after 4 days. Continue lactulose 30 gm PO Daily and Xifaxan 550 mg PO BID IV lasix 40 mg daily Nephrology following PT recommended CARO #. Hyperphosphatemia,secondary to CHASE Continue PhosLo 667 mg p.o. 3 times daily with meals Nephrology is following #. Hypokalemia K today 3.2 Potassium replacement per protocol #. Shock, secondary to intravsacular volume depletion vs cardiogenic Improved with fluids and midodrine Patient has hepatorenal syndrome as well as had low oral intake for the past few days along with history of cardiomyopathy Continue midodrine 10 mg PO TID #. Diabetes mellitus Insulin sliding scale Hold Farxiga, metformin, Pioglitazone #. Tobacco dependence Continue nicotine 21 mg/24-hour patch transdermal daily #. Pain management Continue Dilaudid 1mg IVP Q3HR as needed #. Nausea and vomiting Continue Zofran 4 mg IVP every 8 hours as needed #. GI Bleed Continue IV protonix 40 mg IV daily and octreotide 50 mcg IVP every 8 hours as GI prophylaxis #. Metabolic acidosis secondary to CHASE and lactic acidosis, Resolved #. Hypomagnesemia, resolved #. Hypervolemic hyponatremia, resolved #. CHASE, secondary to hypotension and recent large-volume paracentesis, resolved F:None E:Potassium replacement per protocol N:Renal diet A:Ambulatory DVT prophylaxis: Pneumatic compression sleeve GI prophylaxis: IV protonix 40 mg IV daily and octreotide 50 mcg IVP every 8 hours I have seen and examined this patient with my resident , discussed the same with the resident/ELYSIA, and agree with the dictator's assessment and plan as written Dr. Anup pyle Objective - Vital Signs Vital signs: Vital Signs Temp 98.1 F 09/23/24 07:14 Pulse 77 09/23/24 07:14 Resp 20 09/23/24 07:14 BP 111/62 09/23/24 07:14 Pulse Ox 94 L 09/23/24 07:14 FiO2 Intake & Output 09/22/24 09/23/24 09/23/24 18:59 06:59 18:59 Intake Total 540 Output Total 500 400 Balance 40 -400 Weight 138.1 kg Intake: Oral 540 Output: Urine 500 400 Stool 0 Other: Voiding Method Indwelling Catheter Indwelling Catheter # Bowel Movements 1 1 - Labs CBC & Chem 7: 09/23/24 05:35 09/23/24 05:35 Labs: Abnormal Lab Results - Last 24 Hours (Table) 09/22/24 09/22/24 09/22/24 Range/Units 05:49 05:49 12:32 WBC 10.95 H (4.50-10.00) X 10*3/uL RBC 2.57 L (4.40-5.60) X 10*6/uL Hgb 8.4 L (13.0-17.0) g/dL Hct 25.5 L (39.6-50.0) % MCV 99.2 H (80.0-97.0) FL MCH 32.7 H (27.0-32.0) pg RDW 18.1 H (11.5-14.5) % Plt Count 75 L (140-440) X 10*3/uL NRBC/100 WBC Diff 0.02 H (0.00-0.01) X 10*3/uL BUN/Creatinine Ratio 22.60 H (12.00-20.00) Ratio Glucose 120 H (70-110) mg/dL POC Glucose (mg/dL) 146 H (70-110) mg/dL Calcium 7.5 L (8.7-10.3) mg/dL 09/22/24 09/22/24 Range/Units 17:28 19:37 WBC (4.50-10.00) X 10*3/uL RBC (4.40-5.60) X 10*6/uL Hgb (13.0-17.0) g/dL Hct (39.6-50.0) % MCV (80.0-97.0) FL MCH (27.0-32.0) pg RDW (11.5-14.5) % Plt Count (140-440) X 10*3/uL NRBC/100 WBC Diff (0.00-0.01) X 10*3/uL BUN/Creatinine Ratio (12.00-20.00) Ratio Glucose (70-110) mg/dL POC Glucose (mg/dL) 143 H 142 H (70-110) mg/dL Calcium (8.7-10.3) mg/dL Microbiology - Last 24 Hours (Table) 09/18/24 09:10 Gram Stain - Final Ascites Fluid Body Fluid Culture - Final
[2024-09-23 17:15] LABS: Glucose,Whole Blood 142 mg/dL (70-110)
[2024-09-23 20:07] LABS: Glucose,Whole Blood 182 mg/dL (70-110)
--- NOTE | 2024-09-23 22:12 | P.PN ---
Subjective patient is seen for follow-up for acute kidney injury. Started on hemodialysis on 09/14/2024 by a right femoral catheter for volume overload and oliguria. Serum creatinine was 7.5 on initial admission. Improved to 0.8. Dialysis catheter has been removed. Urine output has improved and documented at 1275 ml for last 24 hours. Patient is awake and comfortable. Objective - Vital Signs Vital signs: Vital Signs Temp 97.2 F L 09/23/24 15:42 Pulse 96 09/23/24 15:42 Resp 17 09/23/24 15:42 BP 96/57 09/23/24 15:42 Pulse Ox 92 L 09/23/24 15:42 FiO2 Intake & Output 09/23/24 09/23/24 09/24/24 06:59 18:59 06:59 Intake Total 630 Output Total 400 600 Balance -400 30 Intake: Oral 630 Output: Urine 400 600 Stool 0 Other: Voiding Method Indwelling Catheter Indwelling Catheter # Bowel Movements 1 1 - Exam patient is awake, comfortable, no acute distress. Examination of the heart S1 and S2 Examination of the lungs bilateral breath sounds are heard Abdomen is soft nontender Examination of lower extremity shows no significant edema BOBBIN PRESSER exam shows patient is moving all 4 extremities. - Labs CBC & Chem 7: 09/23/24 05:35 09/23/24 05:35 Labs: Abnormal Lab Results - Last 24 Hours (Table) 09/23/24 09/23/24 09/23/24 Range/Units 05:35 05:35 12:23 RBC 2.46 L (4.40-5.60) X 10*6/uL Hgb 7.9 L (13.0-17.0) g/dL Hct 23.6 L (39.6-50.0) % MCH 32.1 H (27.0-32.0) pg RDW 18.1 H (11.5-14.5) % Plt Count 84 L (140-440) X 10*3/uL NRBC/100 WBC Diff 0.02 H (0.00-0.01) X 10*3/uL Potassium 3.2 L (3.5-5.5) mmol/L BUN/Creatinine Ratio 25.11 H (12.00-20.00) Ratio POC Glucose (mg/dL) 139 H (70-110) mg/dL Calcium 7.3 L (8.7-10.3) mg/dL 09/23/24 09/23/24 Range/Units 17:14 19:59 RBC (4.40-5.60) X 10*6/uL Hgb (13.0-17.0) g/dL Hct (39.6-50.0) % MCH (27.0-32.0) pg RDW (11.5-14.5) % Plt Count (140-440) X 10*3/uL NRBC/100 WBC Diff (0.00-0.01) X 10*3/uL Potassium (3.5-5.5) mmol/L BUN/Creatinine Ratio (12.00-20.00) Ratio POC Glucose (mg/dL) 142 H 182 H (70-110) mg/dL Calcium (8.7-10.3) mg/dL Assessment and Plan Assessment: 1. Acute kidney injury secondary to ATN secondary to hypotension and recent l arge-volume paracentesis. No hydronephrosis noted on kidney ultrasound. Creatinine up to 7.83 this admission. Oliguric. Started on hemodialysis September 14, 2024. Urine output has improved and serum creatinine down to 0.8. Hemodialysis on hold and dialysis catheter has been removed. 2. Metabolic acidosis secondary to acute kidney injury and lactic acidosis. Improved. 3. Liver cirrhosis. 4. Hyponatremia. Initially hypovolemic. Now hypervolemic with significant ascites. Improved with UF. 5. UTI on antibiotics. 6. Hyperphosphatemia secondary to acute kidney injury. On PhosLo. 7. Hypomagnesemia from poor intake and use of diuretics. Replaced. Improved. 8. Encephalopathy. Hepatic and uremic. 9. Ascites with paracentesis done September 12, 2024 with 12.4 L drained. Plan: decrease Lasix Continue midodrine D/c sandostatin Continue to avoid nephrotoxic agents.
[2024-09-24 07:20] LABS: Glucose,Whole Blood 114 mg/dL (70-110)
[2024-09-24] MEDS: POTASSIUM CHLORIDE ER 20 MEQ TAB.ER PO SCH (08:57)
[2024-09-24 09:50] LABS: HCT 24.7 % (39.6-50.0); HGB 8.2 g/dL (13.0-17.0); MCH 33.1 pg (27.0-32.0); MCHC 33.2 g/dL (32.0-37.0); MCV 99.6 FL (80.0-97.0); Mean Platelet Volume 10.3 FL (9.5-12.2); NRBC Per 100 WBC 0 X 10*3/uL (0.00-0.01); Platelet Count 108 X 10*3/uL (140-440); RBC 2.48 X 10*6/uL (4.40-5.60); RDW 18.6 % (11.5-14.5); WBC 9.24 X 10*3/uL (4.50-10.00)
[2024-09-24 10:02] LABS: BUN/Creat Ratio 24.25 Ratio (12.00-20.00); Blood Urea Nitrogen 19.4 mg/dL (9.0-27.0); Calcium 7.2 mg/dL (8.7-10.3); Carbon Dioxide 23.5 mmol/L (21.6-31.8); Chloride 102 mmol/L (96-109); Glucose 99 mg/dL (70-110); Potassium 3.1 mmol/L (3.5-5.5); Sodium 136 mmol/L (135-145)
--- NOTE | 2024-09-24 11:37 | P.PN ---
Subjective Progress Note Date: 09/24/24 This is a 58-year-old male patient, presented to the emergency department with generalized weakness, altered mentation, severe dehydration, lack of any oral intake over the past 5 days, diminished urine output, encephalopathy and hypotension. The patient was diagnosed having liver cirrhosis and the exact nature of this liver failure is not clear. No history of alcoholism. He was told to have nonalcoholic liver disease/fatty liver. No history of any hepatitis which is viral in nature. The patient was having episodes of GI bleeding. The patient was seen by gastroenterology and placed on a combination of diuretics. He has undergone a recent large-volume paracentesis on 09/12/2024 and total of 12.4 L of ascitic fluid was aspirated. Noted the patient was having significant abdominal swelling and increased lower extremity edema. The patient currently is very much lethargic and encephalopathic. According to the daughter is at the bedside, he is also known to have other medical problems inc luding COPD, CHF and the patient has an AICD in place along with history of hypertension. No history of alcoholism or alcohol abuse. No history of any substance abuse. Noted, his baseline renal function from 2018 was within normal limits. Creatinine on 09/09/2024 was 3.5 and creatinine on admission was at 7.57. At the same time, the patient had significant abnormalities in the blood work where his sodium was at 126, potassium of 4.2, serum bicarbonate 13, BUN 61, glucose at 133, the lactic acid level was 8.7, the calcium level is at 7.3, bilirubin is at 1.8, LFTs are normal, ammonia level was 78, total protein was 5.6 with an albumin level of 2.6. UA is showing +2 protein, 10 WBCs, ascitic fluid that was aspirated on 09/09/2024 showed 231 WBCs, the predominant differential was lymphocytic in nature. The current coagulation profile shows an INR of 1.3 with a PT of 29. The white cell count is at 15.4 with a hemoglobin 9.8 and a platelet count of 167. No chest x-ray has been done. The ultrasound of the enal showed no evidence of any significant hydronephrosis. In the ED, the patient was given a bolus of 1 L of IV fluid and the patient is a currently on a bicarb infusion. He was started on IV Rocephin as an empiric antibiotic coverage. Nephrology was consulted and the patient will be undergoing hemodialysis. The patient was started on lactulose 30 g p.o. 3 times daily. Is also on midodrine 10 mg p.o. 3 times daily. He is on Sandostatin 50 mcg every 8 hours. Most recent blood pressure is 84/39. Pulse ox is 97% on room air oxygen. 09/15/2024, patient remains in intensive care unit. This morning, he seems to be more arousable compared to yesterday. He was not hepatic encephalopathy and he also had a component of metabolic encephalopathy related to his acute kidney injury. The patient underwent hemodialysis yesterday another session of hemodialysis being performed today. He received a total of 5.5 L of IV fluid and the patient is currently on a bicarb infusion running at 80 cc an hour. Urine output is between 0 and 50 cc an hour. He remains on norepinephrine at 0.09 mcg/kg/min. Chest x-ray from today showing CHF and the patient is currently on 3 L of oxygen by nasal cannula. Lactic acid level is dropped down to 4.4. Serum ammonia 814. He received a dose of Lasix given to him by nephrology 80 mg IV push. The patient remains on octreotide. The patient remains on IV Protonix. No evidence of any GI bleeding. In terms of labs, the WBC count is 18 with a hemoglobin 9.7 and a platelet count of 197. BUN is 54 with a creatinine of 6 and a sodium levels at 128. LFTs are noted and are within normal limits. On 09/16/2024, the patient remains encephalopathic. Despite some improvement in the patient's ammonia levels which is currently down to 62, the patient remains lethargic and sleepy although more awake and alert compared to yesterday. The patient remains on lactulose with adequate bowel movements and the patient is also on rifaximin. The patient underwent 2 sessions of hemodialysis the last being yesterday and the patient will undergo dialysis with ultrafiltration today. The patient was taken off the norepinephrine this morning. He will be given IV albumin for nephrology to be followed up by IV Lasix 80 mg every 12 hour. Urine output remains quite diminished at this point in time. He remains on 3 Suboxone by nasal cannula. Urine output is in order of 10 cc an hour. Norepinephrine was running as low as 0.02 mcg/kg/min and the patient was taken off the pressors this morning. No evidence of any GI bleeding. Abdomen remains distended. White cell count is 18.7 with a hemoglobin of 9.2 and a platelet count of 176. INR is 1.5 with a PTT of 30.9. Sodium level is at 129, BUN 41 with a creatinine 4.4, bicarb is 24, lactic acid level is down to 3.8. The cultures have been essentially negative for now including urine and blood culture. The patient remains on IV Rocephin as empiric antibiotic coverage. 09/17/2024, the patient is less encephalopathic. The patient is undergoing another session of hemodialysis with a goal of ultrafiltration of around 1 L. The patient has hepatic encephalopathy and metabolic encephalopathy and the patient is currently on a combination of rifaximin and lactulose regarding h epatic encephalopathy and the serum ammonia level is down to 55. Meanwhile, the acid-base status is improved and the patient serum bicarb is up to 26 and the patient bicarb drip was stopped 24 hours ago. Hemodynamically stable on no pressors. Urine output is quite diminished in the order of 5 to 10 cc an hour. The patient has a fecal management system in place and the patient is producing stool. The patient is currently on 2 L of oxygen by nasal cannula. He is on Lasix 80 mg IV every 12 hours. 09/18/2024, the patient is more awake. Serum ammonia level is dropped down to 12 and the patient remains on lactulose and rifaximin. Abdomen is distended and a large-volume paracentesis was done and I removed a total of 8 L of ascitic fluid and the fluid will be sent for cultures. Hemodynamically stable on no pressors. Underwent hemodialysis yesterday with a 1.5 L of ultrafiltration. Re tuan on IV Rocephin. Remains onIV Lasix. The white cell count is 16 with a hemoglobin 9.4 and a platelet count of 116. BUN is 28 with a creatinine of 2.77. Potassium level is at 3.6. No focal neurological deficit. Patient was seen today 09/19/2024, remains in the ICU, he is on room air, patie nt had a large-volume paracentesis yesterday, 8 L of fluid were drained remains on Rocephin empirically remains on Lasix 80 mg twice daily, patient is supposed to transfer to 3 S. today. Patient is hemodynamically stable, blood pressure is under control. Patient does not seem to be in any distress is presently on room air. WBC count today is 14 hemoglobin is 10 electrolytes are normal BUN is 29 creatinine 1.25, significantly improved since he came in with a creatinine of 7.83. Patient is scheduled for hemodialysis today. Urine output has improved and had 1.2 L in the last 24 hours. Looking back at his renal failure, patient came in with acute kidney injury secondary to ATN secondary to hypotension and had recent large-volume paracentesis there was a concern about hepatorenal syndrome. His initial hemodialysis was started on September 14. Reevaluate today on 09/20/2024, patient remains in the ICU, he is doing great. Hemodynamically stable, not in distress, patient is on room air, sitting at the bedside chair, INR is 3.4. His mental status seems to be waxing and waning related to his hepatic encephalopathy, ammonia level today is normal. Cultures from the peritoneal fluid have been negative, hence Rocephin was discontinued. Patient is being evaluated for some difficulty swallowing he does have esophageal varices, not a great candidate for EGD at this point. WBC count is 13.2 hemoglobin 9.7 electrolytes are normal renal profile is normal BUN is 21 creatinine 1.01. Patient was seen today on 09/21/2024, patient remains in the ICU as an overflow, he is on room air, not in any distress, remains on diuretics, remains on lactulose remains on rifaximin. Patient is doing well, he is able to swallow, does not seem to be in any distress. Waiting to transfer to a regular medical floor. Electrolytes are normal CBC is normal The patient is seen today September 22, 2024 in follow-up on the regular medical floor. He was transferred out of the intensive care unit. He is currently sitting up in a chair at the bedside. Awake and alert in no acute distress. He is maintaining O2 saturations in the 90s on room air. He is afebrile. Barium swallow revealed persistent narrowing/stenosis of the distal esophagus. Marked hesitancy of contrast passing beyond this location. Presbyesophagus. He is status post 1 unit of packed red blood cells this admission. Current hemoglobin 8.4. Platelets 75,000. White count 10.9. Sodium 137. Potassium 3.6. Bicarb 25. BUN 23. Creatinine 1.0. Glucose 120. He remains on IV diuretics. NicoDerm patch in place. Continued on lactulose. Currently in a -1.1 L balance. The patient is seen today September 23, 2024 in follow-up on the regular medical floor. He is currently sitting up in bed. Awake and alert in no acute d istress. Maintaining good O2 saturations in the 90s on room air. He is continued on IV diuretics. NicoDerm patch in place. Currently in a negative balance. Soto catheter remains in place. White count 9.6. Hemoglobin 7.9. Platelets 84,000. Sodium 135. Potassium 3.2. Bicarb 26. BUN 23. Creatinine 0.9. Glucose 106. The patient is seen today September 24, 2024 in follow-up on the regular medical floor. He is currently resting comfortably in bed. Awake and alert in no acute distress. He is maintaining good O2 saturations in the 90s on room air. He remains on IV diuretics. NicoDerm patch in place. Continued on lactulose. White count 9.2. Hemoglobin 8.2. Platelets 108. Sodium 136. Potassium 3.1. Bicarb 24. BUN 19. Creatinine 0.8. Glucose 99. Objective - Vital Signs Vital signs: Vital Signs Temp 98.0 F 09/24/24 07:22 Pulse 78 09/24/24 07:22 Resp 20 09/24/24 07:22 BP 103/61 09/24/24 07:22 Pulse Ox 98 09/24/24 07:22 FiO2 Intake & Output 09/23/24 09/24/24 09/24/24 18:59 06:59 18:59 Intake Total 630 Output Total 600 500 Balance 30 -500 Intake: Oral 630 Output: Urine 600 500 Other: Voiding Method Indwelling Catheter Indwelling Catheter Indwelling Catheter # Bowel Movements 1 1 1 - Exam GENERAL EXAM: Alert, 58-year-old male, on room air, comfortable in no apparent distress. HEAD: Normocephalic. EYES: Normal reaction of pupils, equal size. NOSE: Clear with pink turbinates. THROAT: No erythema or exudates. NECK: No masses, no JVD. CHEST: No chest wall deformity. LUNGS: Equal air entry with no crackles, wheeze, rhonchi or dullness. CVS: S1 and S2 normal with no audible murmur, regular rhythm. ABDOMEN: Distended, normal bowel sounds, no guarding or rigidity. SPINE: No scoliosis or deformity SKIN: No rashes CENTRAL NERVOUS SYSTEM: No focal deficits, tone is normal in all 4 extremities. EXTREMITIES: There is no peripheral edema. No clubbing, no cyanosis. Peripheral pulses are intact. - Labs CBC & Chem 7: 09/24/24 06:06 09/24/24 06:06 Labs: Abnormal Lab Results - Last 24 Hours (Table) 09/23/24 09/23/24 09/23/24 Range/Units 12:23 17:14 19:59 RBC (4.40-5.60) X 10*6/uL Hgb (13.0-17.0) g/dL Hct (39.6-50.0) % MCV (80.0-97.0) FL MCH (27.0-32.0) pg RDW (11.5-14.5) % Plt Count (140-440) X 10*3/uL Potassium (3.5-5.5) mmol/L BUN/Creatinine Ratio (12.00-20.00) Ratio POC Glucose (mg/dL) 139 H 142 H 182 H (70-110) mg/dL Calcium (8.7-10.3) mg/dL 09/24/24 09/24/24 09/24/24 Range/Units 06:06 06:06 07:18 RBC 2.48 L (4.40-5.60) X 10*6/uL Hgb 8.2 L (13.0-17.0) g/dL Hct 24.7 L (39.6-50.0) % MCV 99.6 H (80.0-97.0) FL MCH 33.1 H (27.0-32.0) pg RDW 18.6 H (11.5-14.5) % Plt Count 108 L (140-440) X 10*3/uL Potassium 3.1 L (3.5-5.5) mmol/L BUN/Creatinine Ratio 24.25 H (12.00-20.00) Ratio POC Glucose (mg/dL) 114 H (70-110) mg/dL Calcium 7.2 L (8.7-10.3) mg/dL Assessment and Plan Assessment: Recurrent ascites secondary to liver cirrhosis secondary to nonalcoholic fatty liver Acute kidney injury secondary to hypotension/acute tubular necrosis. Started on hemodialysis 09/14/2024. Recovered and dialysis catheter removed Hypotension secondary to high volume paracentesis on his initial admission History of liver cirrhosis/nonalcoholic fatty liver Hepatic encephalopathy, remains on lactulose, remains on rifaximin History of esophageal varices and episodic GI bleeding History of underlying coronary artery disease History of cardiomyopathy and AICD placement History of underlying COPD History of type 2 diabetes Obstructive sleep apnea syndrome, on CPAP on outpatient basis Anemia, status post 1 unit packed red blood cells, current hemoglobin 7.9 Thrombocytopenia Plan: The patient was seen and evaluated Labs and medications reviewed Stable and on room air Again educated regarding smoking cessation NicoDerm patch in place Tolerating a renal diet Urine output adequate No further plans for hemodialysis, catheter removed Plan is for home with daughter at discharge This patient was seen independently by the pulmonary nurse practitioner addressing pulmonary/critical care issues I have personally seen and examined the patient, performed the documentation and the assessment and plan as written. Number of minutes spent on the visit: 24 Dictation was produced using [employer] dictation software. Please excuse any grammatical, word or spelling errors.
[2024-09-24 12:29] LABS: Glucose,Whole Blood 132 mg/dL (70-110)
[2024-09-24 12:44] VITALS: BP 96/53; PULSE 76; RESP 18; TEMP 98.1
--- NOTE | 2024-09-24 12:59 | P.PN ---
Subjective Progress Note Date: 09/24/24 Patient is seen for follow-up for acute kidney injury. Started on hemodialysis on 09/14/2024 by a right femoral catheter for volume overload and oliguria. Serum creatinine was 7.5 on initial admission. Improved to 0.8. Dialysis catheter has been removed. Feeling well and hoping to go home. Family at bed side, all questions answered. patient is awake, comfortable, no acute distress. 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 Objective - Vital Signs Vital signs: Vital Signs Temp 98.0 F 09/24/24 07:22 Pulse 78 09/24/24 07:22 Resp 20 09/24/24 07:22 BP 103/61 09/24/24 07:22 Pulse Ox 98 09/24/24 07:22 FiO2 Intake & Output 09/23/24 09/24/24 09/24/24 18:59 06:59 18:59 Intake Total 630 Output Total 600 500 Balance 30 -500 Intake: Oral 630 Output: Urine 600 500 Other: Voiding Method Indwelling Catheter Indwelling Catheter Indwelling Catheter # Bowel Movements 1 1 1 - Labs CBC & Chem 7: 09/24/24 06:06 09/24/24 06:06 Labs: Abnormal Lab Results - Last 24 Hours (Table) 09/23/24 09/23/24 09/23/24 Range/Units 12:23 17:14 19:59 RBC (4.40-5.60) X 10*6/uL Hgb (13.0-17.0) g/dL Hct (39.6-50.0) % MCV (80.0-97.0) FL MCH (27.0-32.0) pg RDW (11.5-14.5) % Plt Count (140-440) X 10*3/uL Potassium (3.5-5.5) mmol/L BUN/Creatinine Ratio (12.00-20.00) Ratio POC Glucose (mg/dL) 139 H 142 H 182 H (70-110) mg/dL Calcium (8.7-10.3) mg/dL 09/24/24 09/24/24 09/24/24 Range/Units 06:06 06:06 07:18 RBC 2.48 L (4.40-5.60) X 10*6/uL Hgb 8.2 L (13.0-17.0) g/dL Hct 24.7 L (39.6-50.0) % MCV 99.6 H (80.0-97.0) FL MCH 33.1 H (27.0-32.0) pg RDW 18.6 H (11.5-14.5) % Plt Count 108 L (140-440) X 10*3/uL Potassium 3.1 L (3.5-5.5) mmol/L BUN/Creatinine Ratio 24.25 H (12.00-20.00) Ratio POC Glucose (mg/dL) 114 H (70-110) mg/dL Calcium 7.2 L (8.7-10.3) mg/dL Assessment and Plan Assessment: 1. Acute kidney injury secondary to ATN secondary to hypotension and recent large-volume paracentesis. No hydronephrosis noted on kidney ultrasound. Creatinine up to 7.83 this admission. Oliguric. Started on hemodialysis September 14, 2024. Urine output has improved and serum creatinine down to 0.8. Hemodialysis on hold and dialysis catheter has been removed. 2. Metabolic acidosis secondary to acute kidney injury and lactic acidosis. Improved. 3. Liver cirrhosis. 4. Hyponatremia. Initially hypovolemic. Now hypervolemic with significant ascites. Improved with UF. 5. UTI on antibiotics. 6. Hyperphosphatemia secondary to acute kidney injury. On PhosLo. 7. Hypomagnesemia from poor intake and use of diuretics. Replaced. Improved. 8. Encephalopathy. Hepatic and uremic. 9. Ascites with paracentesis done September 12, 2024 with 12.4 L drained. Plan: Transition PO Lasix Continue midodrine D/c sandostatin Clear for discharge
[2024-09-24] MEDS ORDERED: POTASSIUM CHLORIDE ER 20 MEQ TAB.ER PO STA (13:32)
--- NOTE | 2024-09-24 13:43 | P.DS ---
Providers Date of admission: 09/13/24 18:40 Expected date of discharge: 09/24/24 Attending physician: Shawn Rolle Consults: 09/13/24 18:38 Consult Physician Routine Consulting Provider: Yobany Villagomez Consult Reason/Comments: veronique Do you want consulting provider notified?: Yes Consult Physician Routine Consulting Provider: Cortney Thomas Consult Reason/Comments: ascites Do you want consulting provider notified?: Yes 09/14/24 14:16 Consult Physician Routine Consulting Provider: Vinh Thurston Consult Reason/Comments: ICU Do you want consulting provider notified?: Already Contacted Primary care physician: Monica Oconnell [facility] Course: Discharge diagnosis: Toxic metabolic encephalopathy, multifactorial cause Hepatic encephalopathy and uremic encephalopathy Ascites s/p paracentesis 8 L 09/18/2024 Hyperphosphatemia, secondary to VERONIQUE Hypokalemia Shock, secondary to intravascular volume depletion versus cardiogenic Diabetes mellitus Tobacco dependence Pain management Nausea and vomiting GI bleed Metabolic acidosis secondary to VERONIQUE and lactic acidosis, resolved Hypomagnesemia, resolved Hypervolemic hyponatremia, resolved VERONIQUE, secondary to hypotension and recent large-volume paracentesis, resolved Hospital Course: Patient is a 58 year old male past medical history of cirrhosis, ascites, paracentesis who presented to the ED today with abdominal pain. Patient was at a different facility where he had abnormal labs and that is why he was sent here at [facility]. Upon admission he was found to have abdominal pain, GI bleed and altered mental status. He states he has had this stomach ache for 1 3 weeks and noticed blood in the stool since 2 weeks. The daughter mentions that the patient is not an alcoholic and has been following up with gastroenterology and was recently diagnosed with liver cirrhosis about 2 months ago. At that time he was started on diuretics(Lasix 40 mg and spironolactone 100 mg), but the patient took the diuretic for a week and the diuretic was then discontinued. A paracentesis done on 09/09/2024 with 12.4 L of pleural fluid was removed, this was his frst paracentesis. Fluid cytology was negative. Denies fever, chills, headache, shortness of breath, chest pain, palpitations, coughing, nausea, vomiting. Vitals on presentation: T 97.2 F, P 66 bpm, RR 18, BP 117/53, O2 97% on room air. EKG: Paced rhythm, rate 65 bpm, QTc 581 ms. Abdomen bladder ultrasound: Shows no evidence for hydronephrosis/nephrolithiasis/masses identified. Bladder exam, postvoid residual, bilateral jets exam limited as the patient was not awake. CBC: WBC 15.4, hemoglobin 9.8. Coagulation panel:PT 13.8, INR 1.3. CMP: Sodium 126, chloride 97, bicarb 13, BUN 61, creatinine 1.57, corrected calcium 8.4, phosphorus 7.7, magnesium 1.5, total bilirubin 1.8, total protein 5.6, albumin 2.6. Lactic acid 7.6, 8.1, 8.7, 8.9, 0.8, 1.4, 7.8, 7.9. Ammonia: 69. ProBNP: 1240. Troponin: <0.012. UA: 2+ protein, trace glucose, trace blood, 1+ bilirubin, 10 WBC, occasional bacteria, 45%, moderate mucus. In the ED he was treated with 0.9 normal saline, ondansetron, lactulose, octreotide and 1 PRBC t ransfusion. While in the ED the patient's blood pressure dropped to 74/32 and the patient was moved to ICU for pressor support. 09/15/24: Patient seen and evaluated bedside today in the ICU. Hemodialysis net amount was 0 yesterday. Currently on second day of hemodialysis treatment. Labs show WBC 18, sodium, creatinine 6.07, BUN 54, lactic acid 4.1, ammonia 114. Hep B surface antigen nonreactive, hep B surface antibody is negative with antibody titer being 3.5 mIU/mL. Chest x-ray shows prominent pulmonary vascular markings. Abdomen ultrasound done today shows moderate amount of ascites. 09/16/24: Patient seen and examined today in the ICU. Patient is having bowel movements with lactulose. He had the second hemodialysis treatment yesterday. Hemodialysis net amount was 0. Kidney function is improving. Labs today show WBC 18.7, hemoglobin 9.2, PT 15.4, INR 1.5, APTT 30.9, sodium 129, potassium 3.4, BUN 41, creatinine 4.4, lactic acid 3.8 and ammonia 62. Blood culture shows no growth after 48 hours. Urine culture shows no growth after 24 hours. 09/17/24: Patient seen and evaluated at bedside in the ICU. He had a hemodialysis session today. Labs today hemoglobin 9.1, WBC 17.6, sodium 132, potassium 3.3, BUN 33, creatinine 3.73. Coagulation panel today showed PT 16.2, INR 1.6. Ammonia level today is 55. Kidney function is improving. He had his third session of hemodialysis yesterday, 1500 mL was removed. Urine output yesterday was 313 ml. Echocardiogram done yesterday shows EF of 50 to 55%, normal LV function, moderate MR. 09/18/2024 Patient was seen and examined today in the ICU today. Patient still confused, daughter at bedside. Alert and oriented x 1. Afebrile, heart rate 65, respiratory rate 16, blood pressure 117/92, saturating 93% on room air. Hemoglobin stable 9.4, WBC 16.1, platelet 116. Creatinine 2.77, BUN 28. Ammonia 12. Patient underwent paracentesis today with 8 L of acetic fluid removed, received IV albumin. Ascitic fluid sent for culture. Nephrology following for hemodialysis tomorrow. Vital stable. Remains on IV Rocephin. Also on IV Lasix. 09/19/24: Patient seen and examined today in the ICU. Patient underwent paracentesis yesterday, removed 8 L of ascitic fluid. Ascitic fluid gram stain shows organisms and few white blood cells. Labs today show WBC 14, hemoglobin 10, platelet count 85, BUN 29, creatinine 1.25. Blood culture shows no growth after 5 days. 09/20/24: Patient seen and examined at today in the ICU. Patient feels better and is out of bed to chair today. Patient underwent hemodialysis yesterday with a 830 mL ultrafiltration. Labs today show WBC 13.2, hemoglobin 9.7, platelet 76, potassium 3.4, BUN 21, creatinine 1.01. 24-hour urine output yesterday was 1255 mL. Kidney function is improving. BRIDGE ENGINEER recommend no further skilled dysphagia intervention at this time. 09/21/24: Patient seen and evaluated today in the ICU. He is hemodynamically stable. Labs today show WBC 20.5, hemoglobin 9.4, sodium 136, potassium 3.6, BUN 22, creatinine 0.88. Physical therapist recommended subacute rehab upon discharge to increase strength, balance and functional motility. Acitic fluid culture shows no growth in 48 hours. 09/22/24: Patient examined at bedside today on the general medical floor. He is hemodynamically stable. Labs today show WBC 10.95, hemoglobin 8.4, platelet count 75. Acitic fluid culture shows no growth in after 4 days. Barium swallow study showed persistent narrowing or stenosis of the distal esophagus, presbyesophagus. PT recommended subacute rehab to increase strength, balance, f unctional mobility. Speech-language pathologist recommended continuing dysphagia level 2 ground diet/thin liquids. 09/23/24: Patient seen and evaluated at bedside today. No acute events overnight. He is hemodynamically stable. Labs today show hemoglobin 7.9, potassium 3.2. He had one bowel movement today last night. Respiratory therapy consulted for home O2 assessment. 09/24/24: Patient evaluated bedside today. No acute events overnight. He is hemodynamically stable. Soto catheter in place. Patient seen at bedside today. His potassium will be replaced and he is feeling good and excited about discharge. Patient will be discharged today and is given a script for lactulose, rifaximin, lasix, midodrine, phoslo, nicotine patch, simply thick easy mix as well as a handout for Dialysis diet. Lisinopril and Carvedilol have been discontinued. 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 Vital signs are reviewed and stable General: nontoxic, no distress Derm: warm, dry, intact Head: atraumatic, normocephalic, symmetric Mouth: no lip lesion, mucus membranes moist Cardiovascular: S1 S2 reg, no murmur Lungs: CTA bilateral Abdominal: Distended and tense, non-tender to palpataion Extremities: Pitting edema on LE, No cyanosis, clubbing Neuro: Alert, Oriented x 1, Gross neurological examination did not reveal any focal deficits. Psych: well appearing, appropriate affect A total of 30 minutes of time were spent preparing this complex discharge summary. Patient was discharged on 09/24/24 at 1400. Attestation I have seen and examined this patient with my resident , discussed the same with the resident/ELYSIA, and agree with the dictator's assessment and plan as written Dr. Anup pyle Patient Condition at Discharge: Stable Plan - Discharge Summary Discharge Rx Participant: No New Discharge Prescriptions: New Midodrine [ProAmatine] 10 mg PO AC-TID 30 Days #90 tab Lactulose [Cephulac] 30 gm PO DAILY 30 Days #900 ml Furosemide [Lasix] 20 mg PO DAILY #30 tab Calcium Acetate [PhosLo] 667 mg PO TID-W/MEALS #90 tab Rifaximin [Xifaxan] 550 mg PO BID #60 tab Nicotine 21Mg/24Hr Patch [Habitrol] 1 each TRANSDERM DAILY #30 patch Potassium Chloride 10 meq PO DAILY 14 Days #14 cap Continue metFORMIN HCL [Glucophage] 1,000 mg PO BID clonazePAM [KlonoPIN] 0.5 mg PO BID gemfibroziL [Lopid] 600 mg PO BID FLUoxetine HCL [PROzac] 60 mg PO DAILY Pioglitazone [Actos] 30 mg PO DAILY Atorvastatin Calcium [Lipitor] 40 mg PO DAILY Famotidine [Pepcid] 20 mg PO BID Montelukast [Singulair] 10 mg PO DAILY Dicyclomine [Bentyl] 20 mg PO QID PRN PRN Reason: ibs Dapagliflozin Propanediol [Farxiga] 10 mg PO DAILY Discontinued lisinopriL [Zestril] 20 mg PO DAILY Carvedilol [Coreg] 12.5 mg PO BID Discharge Medication List FLUoxetine HCL [PROzac] 60 mg PO DAILY 07/09/16 [History] clonazePAM [KlonoPIN] 0.5 mg PO BID 07/09/16 [History] gemfibroziL [Lopid] 600 mg PO BID 07/09/16 [History] metFORMIN HCL [Glucophage] 1,000 mg PO BID 07/09/16 [History] Atorvastatin Calcium [Lipitor] 40 mg PO DAILY 09/13/24 [History] Dapagliflozin Propanediol [Farxiga] 10 mg PO DAILY 09/13/24 [History] Dicyclomine [Bentyl] 20 mg PO QID PRN 09/13/24 [History] Famotidine [Pepcid] 20 mg PO BID 09/13/24 [History] Montelukast [Singulair] 10 mg PO DAILY 09/13/24 [History] Pioglitazone [Actos] 30 mg PO DAILY 09/13/24 [History] Calcium Acetate [PhosLo] 667 mg PO TID-W/MEALS #90 tab 09/24/24 [Rx] Furosemide [Lasix] 20 mg PO DAILY #30 tab 09/24/24 [Rx] Lactulose [Cephulac] 30 gm PO DAILY 30 Days #900 ml 09/24/24 [Rx] Midodrine [ProAmatine] 10 mg PO AC-TID 30 Days #90 tab 09/24/24 [Rx] Nicotine 21Mg/24Hr Patch [Habitrol] 1 each TRANSDERM DAILY #30 patch 09/24/24 [Rx] Potassium Chloride 10 meq PO DAILY 14 Days #14 cap 09/24/24 [Rx] Rifaximin [Xifaxan] 550 mg PO BID #60 tab 09/24/24 [Rx] Follow up Appointment(s)/Referral(s): [facility] [NON-STAFF] - 1 Week Cortney Thomas MD [STAFF PHYSICIAN] - 1 Week (Please make appointment when office is open) Monica Oconnell MD [Primary Care Provider] - 1-2 days (Please make appointment when office is open) Yobany Villagomez DO [STAFF PHYSICIAN] - 1 Week (Please make appointment when office is open) Hector oYu MD [STAFF PHYSICIAN] - 1 Week (Please make appointment when office is open) Patient Instructions/Handouts: Dialysis Diet (GEN) Discharge Disposition: HOME WITH HOME HEALTH SERVICES
--- NOTE | 2024-09-27 16:30 | CDI ---
Documentation Clarification Form Date: 09/27/2024 04:15:20 PM From: Tracy Kruse Phone: Admit Date: 09/13/2024 06:40:00 PM Patient Name: Thomas Rodrigez Visit Number: [id number] Discharge Date: 09/24/2024 03:09:00 PM ATTENTION: The Clinical Documentation Specialists (CDI) and [facility] Coding Staff appreciate your assistance in clarifying documentation. Please respond to the clarification below the line at the bottom and electronically sign. The CDI & [facility] Coding staff will review the response and follow-up if needed. Please note: Queries are made part of the Legal Health Record. If you have any questions, please contact the author of this message via ITS. Doctor/Provider: Karen Olivarez Your patient has the documented diagnosis of unspecified CHF per Progress Notes 09/15-09/24. Additional information regarding the type and acuity of CHF is requested. History/Risk Factors: 58yo M, TME, uremic & hepatic, ascites, hyperphosphatemia, CHASE on CKD, hypokalemia, shock, DMII, GIB w melena, met/lactic acidosis, hypomagnesemia,hypervolemia,hyponatremia,hypotension, smoker Clinical Indicators: VS/Pulse OX: 98 BNP: 1240 Echo: Normal LV function. ModerateMR. Chest x ray: Theheart size is enlarged. The pulmonary vasculature is mildly prominent. The lungs are clear. Pacemaker overlies left chest. Treatment: Diuretics per recommendations from nephrology. Requesting fluid culture from theparacentesisfluidcollection on09/12/2024. Lactulose 30 g 3 times daily, titrate to have 3-4 bowel movements daily. Daily CBC, CMP, ammonia. Recommend low-sodium diet. Patient is scheduled for temporary HDcatheter placementand renal replacementtherapy. Rest of medical management per primary medical team. In your professional opinion, can you please clarify the acuity and type of CHF if known? [ ] Acute Systolic Heart Failure (reduced EF) [ ] Chronic Systolic Heart Failure (reduced EF) [ ] Acute on Chronic Systolic Heart Failure (reduced EF) [ ] Acute Diastolic Heart Failure (preserved EF) [ ] Chronic Diastolic Heart Failure (preserved EF) [ x ] Acute on Chronic Diastolic Heart Failure (preserved EF) [ ] Acute Systolic & Diastolic Heart Failure [ ] Chronic Systolic & Diastolic Heart Failure [ ] Acute on Chronic Heart Failure Systolic & Diastolic Heart Failure [ ] Other, please specify [ ] Unable to determine (Template Last Revised: December 2020) MTDD
--- NOTE | 2024-09-27 16:49 | CDI ---
Documentation Clarification Form Date: 09/27/2024 04:33:58 PM From: Tracy Kruse Phone: Admit Date: 09/13/2024 06:40:00 PM Patient Name: Thomas Rodrigez Visit Number: [id number] Discharge Date: 09/24/2024 03:09:00 PM ATTENTION: The Clinical Documentation Specialists (CDI) and [facility] Coding Staff appreciate your assistance in clarifying documentation. Please respond to the clarification below the line at the bottom and electronically sign. The CDI & [facility] Coding staff will review the response and follow-up if needed. Please note: Queries are made part of the Legal Health Record. If you have any questions, please contact the author of this message via ITS. Doctor/Provider: Yobany Villagomez Unspecified CKD is documented per Procedure Note 09/14 which may lack sufficient clinical evidence/support in the medical record. Additional clarification is requested. History/Risk Factors: 58yo M, TME, uremic & hepatic, ascites, hyperphosphatemia, CHASE on CKD, hypokalemia, shock, DMII, GIB w melena, met/lactic acidosis, hypomagnesemia, hypervolemia, hyponatremia, hypotension, smoker Patient's creatinine in 2018 was 0.6.Creatinine was near 3.6 dated September 09, 2024 Clinical Indicators: BUN: 09/13 61 09/14 61 09/15 54 09/16 41 CR: 09/13 7.57 09/14 7.83 09/15 1.57 09/16 4.4 AfAm 8 NonAf 7 Treatment: Ultrasound-guided right common femoral vein access,placementof temporarydialysiscatheter Please clarify the stage of the CKD, if known: [ ] CKD Stage 4 [ ] CKD Stage 5 [ ] ESRD [ x ] Other, please specify [ ] Unable to determine Reference: National Kid[employer] Foundation Stage 1 eGFR = 90 and kidney damage for =3 months Stage 2 eGFR 60-89 and kidney damage for =3 months Stage 3a eGFR 45-59 and kidney damage for =3 months Stage 3b eGFR 30-44 and kidney damage for =3 months Stage 4 eGFR 15-29 r and kidney damage for =3 months Stage 5 eGFR <15 and kidney damage for =3 months (Template last revised: November 2023) ATN, recovered renal function MTDD
--- NOTE | 2024-10-24 15:01 | CDI ---
Documentation Clarification Form Date: 10/24/2024 02:47:20 PM From: Tracy Kruse Phone: Admit Date: 09/13/2024 06:40:00 PM Patient Name: Thomas Rodrigez Visit Number: [id number] Discharge Date: 09/24/2024 03:09:00 PM ATTENTION: The Clinical Documentation Specialists (CDI) and [facility] Coding Staff appreciate your assistance in clarifying documentation. Please respond to the clarification below the line at the bottom and electronically sign. The CDI & [facility] Coding staff will review the response and follow-up if needed. Please note: Queries are made part of the Legal Health Record. If you have any questions, please contact the author of this message via ITS. Doctor/Provider: Vinh Thurtson Your patient has the documented diagnosis of unspecified CHF per Progress Notes 09/15-09/24. Additional information regarding the type and acuity of CHF is requested. History/Risk Factors: 58yo M, TME, uremic & hepatic, ascites, hyperphosphatemia, CHASE on CKD, hypokalemia, shock, DMII, GIB w melena, met/lactic acidosis, hypomagnesemia,hypervolemia,hyponatremia,hypotension, smoker Clinical Indicators: VS/Pulse OX: 98 BNP: 1240 Echo: Normal LV function. ModerateMR. Chest x ray: Theheart size is enlarged. The pulmonary vasculature is mildly prominent. The lungs are clear. Pacemaker overlies left chest. Treatment: Diuretics per recommendations from nephrology. Requesting fluid culture from paracentesisfluidcollection on09/12/2024. Lactulose 30 g 3 times daily, titrate to have 3-4 bowel movements daily. Daily CBC, CMP, ammonia. Recommend low-sodium diet. Patient is scheduled for temporary HDcatheter placementand renal replacementtherapy. Rest of medical management per primary medical team. In your professional opinion, can you please clarify the acuity and type of CHF if known? [ ] Acute Systolic Heart Failure (reduced EF) [ ] Chronic Systolic Heart Failure (reduced EF) [ ] Acute on Chronic Systolic Heart Failure (reduced EF) [ ] Acute Diastolic Heart Failure (preserved EF) [x ] Chronic Diastolic Heart Failure (preserved EF) [ ] Acute on Chronic Diastolic Heart Failure (preserved EF) [ ] Acute Systolic & Diastolic Heart Failure [ ] Chronic Systolic & Diastolic Heart Failure [ ] Acute on Chronic Heart Failure Systolic & Diastolic Heart Failure [ ] Other, please specify [ ] Unable to determine (Template Last Revised: December 2020) MTDD
== END 2024-09-24 15:09 | disposition home health service (06) | DRG 441 ==
LOC: EC 16:04 → 3SCARD 18:40 → 2SICU 09-14 09:46 → 5NMEDONC 09-21 19:55
PROVIDERS: ADMIT Hospitalist; ATTEND Hospitalist
PROC: 30233N1 Transfusion of Nonautologous Red Blood Cells into Peripheral Vein, Percutaneous Approach (ICD-10-PCS; 2024-09-13)
PROC: 06HY33Z Insertion of Infusion Device into Lower Vein, Percutaneous Approach (ICD-10-PCS; principal; 2024-09-14)
PROC: 5A1D70Z Performance of Urinary Filtration, Intermittent, Less than 6 Hours Per Day (ICD-10-PCS; 2024-09-14)
PROC: 3E033XZ Introduction of Vasopressor into Peripheral Vein, Percutaneous Approach (ICD-10-PCS; 2024-09-14)
PROC: 30233J1 Transfusion of Nonautologous Serum Albumin into Peripheral Vein, Percutaneous Approach (ICD-10-PCS; 2024-09-16)
PROC: 0W9G3ZZ Drainage of Peritoneal Cavity, Percutaneous Approach (ICD-10-PCS; 2024-09-18)
DX: K76.7 Hepatorenal syndrome (principal); G92.8 Other toxic encephalopathy; N17.0 Acute kidney failure with tubular necrosis; R57.1 Hypovolemic shock; J96.01 Acute respiratory failure with hypoxia; I50.33 Acute on chronic diastolic (congestive) heart failure; I42.9 Cardiomyopathy, unspecified; I85.00 Esophageal varices without bleeding; E87.20 Acidosis, unspecified; K92.2 Gastrointestinal hemorrhage, unspecified; E87.1 Hypo-osmolality and hyponatremia; R18.8 Other ascites; N39.0 Urinary tract infection, site not specified; K92.1 Melena; I11.0 Hypertensive heart disease with heart failure; K76.82 Hepatic encephalopathy; D69.6 Thrombocytopenia, unspecified; K74.60 Unspecified cirrhosis of liver; J44.9 Chronic obstructive pulmonary disease, unspecified; E11.22 Type 2 diabetes mellitus with diabetic chronic kidney disease; E83.39 Other disorders of phosphorus metabolism; D63.8 Anemia in other chronic diseases classified elsewhere; K22.2 Esophageal obstruction; E66.9 Obesity, unspecified; Z68.35 Body mass index [BMI] 35.0-35.9, adult; F17.210 Nicotine dependence, cigarettes, uncomplicated; G47.33 Obstructive sleep apnea (adult) (pediatric); E78.5 Hyperlipidemia, unspecified; E86.1 Hypovolemia; E83.42 Hypomagnesemia; I95.89 Other hypotension; E86.0 Dehydration; K76.0 Fatty (change of) liver, not elsewhere classified; K22.89 Other specified disease of esophagus; I25.10 Atherosclerotic heart disease of native coronary artery without angina pectoris; K21.9 Gastro-esophageal reflux disease without esophagitis; E87.6 Hypokalemia; R19.7 Diarrhea, unspecified; Z95.810 Presence of automatic (implantable) cardiac defibrillator; I25.2 Old myocardial infarction; Z79.84 Long term (current) use of oral hypoglycemic drugs; Z79.899 Other long term (current) drug therapy
CPT/HCPCS: 36415; 36430; 71045; 74220; 76705; 76770; 80048; 80053; 81001; 82140; 83036; 83605; 83735; 83880; 84100; 84132; 84300; 84484; 85025; 85027; 85610; 85730; 86706; 86850; 86900; 86901; 86920; 87040; 87070; 87086; 87205; 87340; 90935; 93005; 93306; 96361; 96365; 96366; 96367; 96375; 96376; 99285

== ENCOUNTER 2024-10-21 17:27 | Observation (INO) | payer MEDICARE, OTHER ==
[2024-10-21] MEDS: SODIUM CHLORIDE 0.9% 500 ML 500 ML IV ONE (18:58)
[2024-10-21 19:01] LABS: Anisocytosis Slight; Basophils % (A) 0 %; Eosinophils # (A) 0.1 k/uL (0-0.7); Eosinophils % (A) 1 %; HGB 12.3 gm/dL (13.0-17.5); Lymphocytes # (A) 0.9 k/uL (1.0-4.8); Lymphocytes % (A) 6 %; MCH 31.7 pg (25.0-35.0); MCHC 33.1 g/dL (31.0-37.0); MCV 95.6 fL (80.0-100.0); Mean Platelet Volume 7.9; Monocytes # (A) 0.9 k/uL (0-1.0); Monocytes % (A) 6 %; Neutrophils # (A) 13.1 k/uL (1.3-7.7); Neutrophils % (A) 84 %; RBC 3.87 m/uL (4.30-5.90); RDW 16.2 % (11.5-15.5); WBC 15.6 k/uL (3.8-10.6)
[2024-10-21 19:11] LABS: ALT 41 U/L (4-49); AST 114 U/L (17-59); African American GFR (CKD) 15 (>60 ml/min/1.73 sqM); Albumin 2.9 g/dL (3.5-5.0); Alkaline Phosphatase 407 U/L (38-126); Anion Gap 15 mmol/L; Blood Urea Nitrogen 78 mg/dL (9-20); Calcium 8.5 mg/dL (8.4-10.2); Carbon Dioxide 11 mmol/L (22-30); Chloride 100 mmol/L (98-107); Glucose 158 mg/dL (74-99); Magnesium 2.8 mg/dL (1.6-2.3); Non-African American GFR(CKD) 13 (>60 ml/min/1.73 sqM); Potassium 3.6 mmol/L (3.5-5.1); Sodium 126 mmol/L (137-145); Total Bilirubin 4.3 mg/dL (0.2-1.3)
[2024-10-21 19:13] LABS: INR 1.2 (<1.2)
[2024-10-21 19:18] LABS: Platelet Count 98 k/uL (150-450)
[2024-10-21 19:19] LABS: Lactic Acid, Venous 2.8 mmol/L (0.7-2.0)
--- NOTE | 2024-10-21 20:25 | XR ---
EXAMINATION TYPE: XR chest 2V DATE OF EXAM: 10/21/2024 8:17 PM COMPARISON: Chest radiographs from 09/15/2024 CLINICAL INDICATION: Male, 59 years old with history of fluid overload; shortness of breath TECHNIQUE: XR chest 2V Frontal and lateral views of the chest. FINDINGS: Lungs/Pleura: There is no evidence of pleural effusion, focal consolidation, or pneumothorax. Pulmonary vascularity: Pulmonary vascular congestion. Heart/mediastinum: Cardiomediastinal silhouette is enlarged and stable. The aorta appears tortuous, a finding usually associated with either atherosclerosis or systemic hypertension. Three lead cardiac conduction device overlying the left hemithorax with lead tips projecting over the right ventricle, right atrium and coronary sinus. Musculoskeletal: No acute osseous pathology. IMPRESSION: Cardiomegaly and mild pulmonary vascular congestion. [facility], , 10/21/2024 8:22 PM
[2024-10-21] MEDS ORDERED: NALOXONE 0.4 MG/ML 1 ML VIAL IV PRN (20:45)
[2024-10-21] MEDS: SODIUM CHLORIDE 0.9% 500 ML 500 ML IV SCH (21:16)
--- NOTE | 2024-10-21 21:23 | ED ---
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 Patient has history of cirrhosis, acute on chronic renal failure, COPD, diabetes, hypertension, hyperlipidemia. Patient was admitted at our facility last month for acute renal injury requiring temporary dialysis secondary to ATN secondary to hypotension secondary to large-volume paracentesis. Patient has been following with Dr. Villagomez, they were seen by Richard at his office today and told that his GFR had come down to 12 and to come to the hospital for IV hydration. Patient is very firm that he will not do dialysis. He is having no increase in abdominal pain. No chest pain or increased difficulty breathing. Patient is on lactulose for his cirrhosis, no change in his bowel patterns which are frequent loose stools. No fever. No URI-like illness. - Related Data Home Medications Medication Instructions Recorded Confirmed clonazePAM [KlonoPIN] 0.5 mg PO BID 07/09/16 10/21/24 Dicyclomine [Bentyl] 20 mg PO QID PRN 09/13/24 10/21/24 Famotidine [Pepcid] 20 mg PO BID PRN 09/13/24 10/21/24 Montelukast [Singulair] 10 mg PO DAILY 09/13/24 10/21/24 Furosemide [Lasix] 20 mg PO BID 10/21/24 10/21/24 Lactulose [Cephulac] 30 gm PO TID PRN 10/21/24 10/21/24 Megestrol 125mg/Ml Suspension 625 mg PO DAILY 10/21/24 10/21/24 Midodrine HCl [ProAmatine] 10 mg PO TID-W/MEALS 10/21/24 10/21/24 Nicotine 14Mg/24Hr Patch [Habitrol 1 patch TRANSDERM DAILY PRN 10/21/24 10/21/24 14Mg/24Hr Patch] Potassium Chloride 10 meq PO BID 10/21/24 10/21/24 rOPINIRole HCL [Requip] 0.5 mg PO TID 10/21/24 10/21/24 Previous Rx's Medication Instructions Recorded Rifaximin [Xifaxan] 550 mg PO BID #60 tab 09/24/24 Allergies Allergy/AdvReac Type Severity Reaction Status Date / Time No Known Allergies Allergy Verified 10/21/24 18:34 Review of Systems ROS Statement: Those systems with pertinent positive or pertinent negative responses have been documented in the HPI. ROS Other: All systems not noted in ROS Statement are negative. Past Medical History Past Medical History: COPD, Diabetes Mellitus, GERD/Reflux, Hyperlipidemia, Hypertension, Liver Disease, Myocardial Infarction ([place]), Sleep Apnea/CPAP/BIPAP Additional Past Medical History / Comment(s): cirrhoisis Last Myocardial Infarction Date:: unknown History of Any Multi-Drug Resistant Organisms: None Reported Past Surgical History: Heart Catheterization, Hernia Repair, Orthopedic Surgery, Pacemaker Additional Past Surgical History / Comment(s): surgery for fx rt leg and left arm, pacemaker and defibrillator Past Anesthesia/Blood Transfusion Reactions: No Reported Reaction Type of Cardiac Device: Biventricular Pacemaker Device Placement Date:: 2010 Past Psychological History: Anxiety Smoking Status: Current every day smoker Past Alcohol Use History: None Reported Past Drug Use History: None Reported - Past Family History Mother Family Medical History: No Reported History General Exam Limitations: language barrier, physical limitation General appearance: alert, lethargic Head exam: Present: atraumatic, normocephalic, normal inspection Eye exam: Present: EOMI, scleral icterus Neck exam: Present: normal inspection. Absent: meningismus Respiratory exam: Present: rhonchi. Absent: respiratory distress, wheezes, rales, stridor Cardiovascular Exam: Present: regular rate, normal rhythm, normal heart sounds. Absent: systolic murmur, diastolic murmur, rubs, gallop, clicks GI/Abdominal exam: Present: distended. Absent: tenderness Expanded GI/Abdominal exam: Present: ascites Neurological exam: Present: alert, oriented X3 Psychiatric exam: Present: normal affect, normal mood Course Vital Signs 10/21/24 10/21/24 17:36 20:00 Temperature 97 F L Pulse Rate 67 75 Respiratory 20 18 Rate Blood Pressure 105/73 101/56 O2 Sat by Pulse 98 Oximetry Procedures - [facility] Protocol (Time Out) Nurse: José Gupta Medical Decision Making - Medical Decision Making Was pt. sent in by a medical professional or institution (Dr., PA, INSURANCE UNDERWRITER SALES, urgent care, hospital, or longterm...) When possible be specific @ -Certified Vehicle Fire Investigator Did you speak to anyone other than the patient for history (EMS, parent, family, police, friend...)? What history was obtained from this source @ -Daughter Did you review nursing and triage notes (agree or disagree)? Why? @ -I reviewed and agree with nursing and triage notes Were old charts reviewed (outside hosp., previous admission, EMS record, old EKG, old radiological studies, urgent care reports/EKG's, longterm records)? Report findings @ -Most recent admission reviewed Differential Diagnosis (chest pain, altered mental status, abdominal pain women, abdominal pain men, vaginal bleeding, weakness, fever, dyspnea, syncope, headache, dizziness, GI bleed, back pain, seizure, CVA, palpatations, mental health, musculoskeletal)? @ -Differential includes UTI, obstruction, hypotension, this is not an all-inclusive list EKG interpreted by me (3pts min.). @ -EKG shows electronic ventricular pacemaker ventricular rate 77. DC interval 139. QRS 178. QT 496. QTc 527. X-rays interpreted by me (1pt min.). @ -Chest x-ray shows cardiomegaly and mild pulmonary vascular congestion CT interpreted by me (1pt min.). @ -None done U/S interpreted by me (1pt. min.). @ -None done What testing was considered but not performed or refused? (CT, X-rays, U/S, labs)? Why? @ -None What meds were considered but not given or refused? Why? @ -None Did you discuss the management of the patient with other professionals (professionals i.e. NAEL Delacruz, INSURANCE UNDERWRITER SALES, lab, RT, psych nurse, social professionals, university services program associate, teacher, aoc plans intelligence officer chief, business case analyst)? Give summary @ -Spoke with Saira Davalos from [facility] who accepts admission Was smoking cessation discussed for >3mins.? @ -No Was critical care preformed (if so, how long)? @ -No Were there social determinants of health that impacted care today? How? (Homelessness, low income, unemployed, alcoholism, drug addiction, transportation, low edu. Level, literacy, decrease access to med. care, custodial, rehab)? @ -No Was there de-escalation of care discussed even if they declined (Discuss DNR or withdrawal of care, Hospice)? DNR status @ -No What co-morbidities impacted this encounter? (DM, HTN, Smoking, COPD, CAD, Cancer, CVA, ARF, Chemo, Hep., AIDS, mental health diagnosis, sleep apnea, morbid obesity)? @ -Cirrhosis, CKD Was patient admitted / discharged? Hospital course, mention meds given and route, prescriptions, significant lab abnormalities, going to OR and other [facility] [place] info. @ -59-year-old male sent from his catering administrative assistant office for sudden decrease in GFR. History of cirrhosis currently on Lasix. History and physical examination are conducted. Patient has soft blood pressure, daughter states this is his baseline. WBC 15.6, patient is afebrile. Hemoglobin 12.3, improved from last visit where his hemoglobin ranged from 10-8. Creatinine 4.62 and BUN 78, patient received 500 mL fluid bolus. Given that there is concern for volume overload given the patient's ascites, he is placed on gentle hydration at 20 mL/h. Lactic acid 2.8. PT 13 INR 1.2. Chest x-ray shows cardiomegaly with pulmonary venous congestion. Patient will be admitted for acute on chronic kidney failure. Patient is adamant that he does not want dialysis. Nephrology is placed on consult. Patient and daughter are agreeable to this plan. I discussed this case with my attending Dr. Ramirez Undiagnosed new problem with uncertain prognosis? @ -No Drug Therapy requiring intensive monitoring for toxicity (Heparin, Nitro, Insulin, Cardizem)? @ -No Were any procedures done? @ -No Diagnosis/symptom? @ -CHASE Acute, or Chronic, or Acute on Chronic? @ -Acute Uncomplicated (without systemic symptoms) or Complicated (systemic symptoms)? @ -Complicated Side effects of treatment? @ -No Exacerbation, Progression, or Severe Exacerbation? @ -No Poses a threat to life or bodily function? How? (Chest pain, [place], [place], pneumonia, PE, COPD, DKA, ARF, appy, cholecystitis, CVA, Diverticulitis, Homicidal, Suicidal, threat to staff... and all critical care pts) @ -Yes Diagnosis/symptom? @Cirrhosis of the liver with ascites Acute, or Chronic, or Acute on Chronic? @Chronic Uncomplicated (without systemic symptoms) or Complicated (systemic symptoms)? @Complicated Side effects of treatment? @None Exacerbation, Progression, or Severe Exacerbation] @No Poses a threat to life or bodily function? @Yes - Lab Data Result diagrams: 10/21/24 18:51 10/21/24 18:51 Lab Results 10/21/24 10/21/24 10/21/24 Range/Units 18:51 18:51 18:51 WBC 15.6 H (3.8-10.6) k/uL RBC 3.87 L (4.30-5.90) m/uL Hgb 12.3 L (13.0-17.5) gm/dL Hct 37.0 L (39.0-53.0) % MCV 95.6 (80.0-100.0) fL MCH 31.7 (25.0-35.0) pg MCHC 33.1 (31.0-37.0) g/dL RDW 16.2 H (11.5-15.5) % Plt Count 98 L (150-450) k/uL MPV 7.9 Neutrophils % 84 % Lymphocytes % 6 % Monocytes % 6 % Eosinophils % 1 % Basophils % 0 % Neutrophils # 13.1 H (1.3-7.7) k/uL Lymphocytes # 0.9 L (1.0-4.8) k/uL Monocytes # 0.9 (0-1.0) k/uL Eosinophils # 0.1 (0-0.7) k/uL Basophils # 0.0 (0-0.2) k/uL Manual Slide Review Performed Anisocytosis Slight PT (10.0-12.5) sec INR (<1.2) APTT (22.0-30.0) sec Sodium 126 L (137-145) mmol/L Potassium 3.6 (3.5-5.1) mmol/L Chloride 100 (98-107) mmol/L Carbon Dioxide 11 L (22-30) mmol/L Anion Gap 15 mmol/L BUN 78 H (9-20) mg/dL Creatinine 4.62 H (0.66-1.25) mg/dL Est GFR (CKD-EPI)AfAm 15 (>60 ml/min/1.73 sqM) Est GFR (CKD-EPI)NonAf 13 (>60 ml/min/1.73 sqM) Glucose 158 H (74-99) mg/dL Lactic Ac Sepsis Rflx Plasma Lactic Acid [place] 2.8 H* (0.7-2.0) mmol/L Calcium 8.5 (8.4-10.2) mg/dL Magnesium 2.8 H (1.6-2.3) mg/dL Total Bilirubin 4.3 H (0.2-1.3) mg/dL AST 114 H (17-59) U/L ALT 41 (4-49) U/L Alkaline Phosphatase 407 H (38-126) U/L Ammonia 20 (<30) umol/L Total Protein 7.0 (6.3-8.2) g/dL Albumin 2.9 L (3.5-5.0) g/dL 10/21/24 10/21/24 Range/Units 18:51 19:20 WBC (3.8-10.6) k/uL RBC (4.30-5.90) m/uL Hgb (13.0-17.5) gm/dL Hct (39.0-53.0) % MCV (80.0-100.0) fL MCH (25.0-35.0) pg MCHC (31.0-37.0) g/dL RDW (11.5-15.5) % Plt Count (150-450) k/uL MPV Neutrophils % % Lymphocytes % % Monocytes % % Eosinophils % % Basophils % % Neutrophils # (1.3-7.7) k/uL Lymphocytes # (1.0-4.8) k/uL Monocytes # (0-1.0) k/uL Eosinophils # (0-0.7) k/uL Basophils # (0-0.2) k/uL Manual Slide Review Anisocytosis PT 13.0 H (10.0-12.5) sec INR 1.2 H (<1.2) APTT 29.0 (22.0-30.0) sec Sodium (137-145) mmol/L Potassium (3.5-5.1) mmol/L Chloride (98-107) mmol/L Carbon Dioxide (22-30) mmol/L Anion Gap mmol/L BUN (9-20) mg/dL Creatinine (0.66-1.25) mg/dL Est GFR (CKD-EPI)AfAm (>60 ml/min/1.73 sqM) Est GFR (CKD-EPI)NonAf (>60 ml/min/1.73 sqM) Glucose (74-99) mg/dL Lactic Ac Sepsis Rflx Y Plasma Lactic Acid [place] (0.7-2.0) mmol/L Calcium (8.4-10.2) mg/dL Magnesium (1.6-2.3) mg/dL Total Bilirubin (0.2-1.3) mg/dL AST (17-59) U/L ALT (4-49) U/L Alkaline Phosphatase (38-126) U/L Ammonia (<30) umol/L Total Protein (6.3-8.2) g/dL Albumin (3.5-5.0) g/dL Disposition Clinical Impression: Cirrhosis of liver with ascites, Acute renal failure Disposition: ADMITTED IP TO THIS [facility] Condition: Serious Referrals: Monica Oconnell MD [Primary Care Provider] - 1-2 days
[2024-10-22 01:38] LABS: Appearance,Urine Clear (Clear); Bilirubin,Urine Negative (Negative); Blood,Urine Negative (Negative); Budding Yeast,Urine Rare /hpf; Color,Urine Yellow; Glucose,Urine (UA) Negative (Negative); Hyaline Casts,Urine 41 /lpf (0-2); Hyphae Yeast, Urine Rare /hpf; Ketones,Urine Negative (Negative); Leukocyte Esterase,Urine Trace (Negative); Mucus,Urine Rare /hpf; Nitrite,Urine Negative (Negative); Protein,Urine Trace (Negative); RBC,Urine 3 /hpf (0-5); Specific Gravity,Urine 1.013 (1.001-1.035); Squamous Epithelial Cell,Urine <1 /hpf (0-4); Urobilinogen,Urine <2.0 mg/dL (<2.0); WBC,Urine 10 /hpf (0-5)
[2024-10-22 05:40] LABS: Anisocytosis Slight; HCT 33.6 % (39.0-53.0); HGB 11.1 gm/dL (13.0-17.5); MCH 31.6 pg (25.0-35.0); MCHC 33.1 g/dL (31.0-37.0); MCV 95.5 fL (80.0-100.0); RBC 3.52 m/uL (4.30-5.90); RDW 16.4 % (11.5-15.5); WBC 14.8 k/uL (3.8-10.6)
[2024-10-22 05:52] LABS: ALT 39 U/L (4-49); AST 103 U/L (17-59); African American GFR (CKD) 16 (>60 ml/min/1.73 sqM); Albumin 2.5 g/dL (3.5-5.0); Alkaline Phosphatase 382 U/L (38-126); Anion Gap 15 mmol/L; Blood Urea Nitrogen 78 mg/dL (9-20); Calcium 8.2 mg/dL (8.4-10.2); Carbon Dioxide 12 mmol/L (22-30); Chloride 101 mmol/L (98-107); Glucose 120 mg/dL (74-99); Non-African American GFR(CKD) 14 (>60 ml/min/1.73 sqM); Potassium 3.6 mmol/L (3.5-5.1); Sodium 128 mmol/L (137-145); Total Bilirubin 3.9 mg/dL (0.2-1.3); Total Protein 6.3 g/dL (6.3-8.2)
[2024-10-22 05:56] LABS: Platelet Count 95 k/uL (150-450)
[2024-10-22 06:00] LABS: Glucose,Whole Blood 132 mg/dL (70-110)
[2024-10-22 07:31] LABS: Lymphocytes # (M) 0.59 k/uL (1.0-4.8); Monocytes # (M) 1.33 k/uL (0-1.0); Neutrophils # (M) 12.58 k/uL (1.3-7.7); Neutrophils % (M) 85 %; Nucleated Red Blood Cells 0 /100 WBC (0-0); Total Cells Counted 100
[2024-10-22 07:34] LABS: RBC Morphology Normal
[2024-10-22 07:39] LABS: Crenated RBC Present; Tear Drop Cells Present
[2024-10-22] MEDS ORDERED: NICOTINE 14MG/24HR PATCH TRANSDERM PRN (08:23)
[2024-10-22] MEDS ORDERED: FAMOTIDINE 20 MG TAB PO PRN (08:23)
[2024-10-22] MEDS ORDERED: DICYCLOMINE 20 MG TAB PO PRN (08:23)
[2024-10-22] MEDS ORDERED: ACETAMINOPHEN TAB 325 MG TAB PO PRN (08:25)
[2024-10-22] MEDS ORDERED: MAG HYDROX/AL HYDROX/SIMETH 30 ML CUP PO PRN (08:25)
[2024-10-22] MEDS ORDERED: DEXTROSE 50% SYRINGE 50 ML IVP PRN ×2 (08:25)
[2024-10-22] MEDS ORDERED: ONDANSETRON 4 MG/2 ML VIAL IVP PRN (08:25)
[2024-10-22] MEDS: clonazePAM 0.5 MG TAB PO SCH (09:13)
[2024-10-22] MEDS: MIDODRINE 5 MG TAB PO SCH (09:13)
[2024-10-22] MEDS: MEGESTROL 400 MG/10 ML CUP PO SCH (09:14)
[2024-10-22] MEDS: RIFAXIMIN 550 MG TABLET PO SCH (09:15)
[2024-10-22] MEDS: POTASSIUM CHLORIDE ER 10 MEQ TAB.ER.PRT PO SCH (09:16)
[2024-10-22] MEDS: MONTELUKAST 10 MG TAB PO SCH (09:32)
[2024-10-22] MEDS: HEPARIN SODIUM,PORCINE 5,000 UNIT/ML 1 ML VIAL SQ SCH (09:34)
[2024-10-22] MEDS: ALBUMIN HUMAN 5% 500 ML in EMPTY BAG 1 BAG IVPB ONE (11:20)
[2024-10-22 12:02] LABS: Glucose,Whole Blood 130 mg/dL (70-110)
[2024-10-22] MEDS: INSULIN ASPART (NovoLOG) 100 UNIT/ML VIAL SQ SCH (12:39)
--- NOTE | 2024-10-22 13:19 | P.NPCON ---
History of Present Illness - Reason for Consult acute renal failure - History of Present Illness patient is a 59-year-old male with history of liver cirrhosis and recent acute kidney injury from ATN requiring hemodialysis. Renal function had improved and serum creatinine had decreased to 0.8 mg/dL on 09/24/2024. Patient was seen at our office yesterday and was noted to have a significantly elevated serum creatinine at 4.6 mg/dL. He was therefore sent into the hospital. No history of fever chills nausea vomiting or diarrhea. No significant shortness of breath. Blood pressure has been on the lower side but not below 100 mmHg for systolic. No new medications noted. Patient has been voiding but urine output is not charted Past Medical History Past Medical History: COPD, Diabetes Mellitus, GERD/Reflux, Hyperlipidemia, Hypertension, Liver Disease, Myocardial Infarction ([place]), Sleep Apnea/CPAP/BIPAP Additional Past Medical History / Comment(s): cirrhoisis Last Myocardial Infarction Date:: unknown History of Any Multi-Drug Resistant Organisms: None Reported Past Surgical History: Heart Catheterization, Hernia Repair, Orthopedic Surgery, Pacemaker Additional Past Surgical History / Comment(s): surgery for fx rt leg and left arm, pacemaker and defibrillator Past Anesthesia/Blood Transfusion Reactions: No Reported Reaction Type of Cardiac Device: Biventricular Pacemaker Device Placement Date:: 2010 Past Psychological History: Anxiety Additional Psychological History / Comment(s): claustrophobia Smoking Status: Current every day smoker Past Alcohol Use History: None Reported Additional Past Alcohol Use History / Comment(s): smokes 1 1/2 PPD for 29 yrs Past Drug Use History: None Reported - Past Family History Mother Family Medical History: No Reported History Medications and Allergies Home Medications Medication Instructions Recorded Confirmed Type clonazePAM [KlonoPIN] 0.5 mg PO BID 07/09/16 10/21/24 History Dicyclomine [Bentyl] 20 mg PO QID PRN 09/13/24 10/21/24 History Famotidine [Pepcid] 20 mg PO BID PRN 09/13/24 10/21/24 History Montelukast [Singulair] 10 mg PO DAILY 09/13/24 10/21/24 History Rifaximin [Xifaxan] 550 mg PO BID #60 tab 09/24/24 10/21/24 Rx Furosemide [Lasix] 20 mg PO BID 10/21/24 10/21/24 History Lactulose [Cephulac] 30 gm PO TID PRN 10/21/24 10/21/24 History Megestrol 125mg/Ml Suspension 625 mg PO DAILY 10/21/24 10/21/24 History Midodrine HCl [ProAmatine] 10 mg PO TID-W/MEALS 10/21/24 10/21/24 History Nicotine 14Mg/24Hr Patch [Habitrol 1 patch TRANSDERM DAILY PRN 10/21/24 10/21/24 History 14Mg/24Hr Patch] Potassium Chloride 10 meq PO BID 10/21/24 10/21/24 History rOPINIRole HCL [Requip] 0.5 mg PO TID 10/21/24 10/21/24 History Allergies Allergy/AdvReac Type Severity Reaction Status Date / Time No Known Allergies Allergy Verified 10/21/24 18:34 Physical Exam Vitals: Vital Signs Temp Pulse Pulse Resp BP BP Pulse Ox 10/22/24 07:00 97.3 F L 64 18 108/61 95 10/22/24 01:57 80 10/22/24 00:19 96.9 F L 80 17 118/77 96 10/21/24 23:00 77 17 116/62 98 10/21/24 20:00 75 18 101/56 10/21/24 17:36 97 F L 67 20 105/73 98 Intake and Output 10/21/24 10/22/24 10/22/24 22:59 06:59 14:59 Intake Total 118 Balance 118 Intake: Oral 118 Other: Voiding Method Incontinent External Catheter Weight 136.078 kg patient is awake, comfortable, no acute distress. Examination of the heart S1 and S2 Examination of the lungs bilateral breath sounds are heard Abdomen is soft nontender, distended Examination of lower extremities shows no significant edema Patient is moving all 4 extremities. Results - Lab Results Most recent lab results Calcium 8.2 mg/dL (8.4-10.2) L 10/22/24 04:29 Magnesium 2.8 mg/dL (1.6-2.3) H 10/21/24 18:51 10/22/24 04:29 10/22/24 04:29 Assessment and Plan Assessment: 1. Acute kidney injury ATN, significant hypovolemia noted. Patient will be started on IV fluids. UA is benign with significant hyaline casts noted. 2. History of recent acute kidney injury with serum creatinine at 7 mg/dL requiring a couple of treatments of hemodialysis. Renal function had improved serum creatinine down to 0.8 mg/dL on 09/24/2024. 3. Anion gap metabolic acidosis associated with acute kidney injury and lactic acidosis 4. Hypovolemic hyponatremia 5. History of chronic liver disease 6. Hypomagnesemia Plan: add IV bicarb Accurate I's and O's Repeat labs in a.m. Avoid any nephrotoxic agents continue with midodrine No indication for hemodialysis today. Patient states that he does not wish to proceed with renal replacement therapy even if indicated. Thank you for the consultation. We will continue to follow the patient with you during his hospitalization.
--- NOTE | 2024-10-22 13:22 | P.HPIM ---
History of Present Illness H&P Date: 10/22/24 Chief Complaint: abnormal lab History of present illness * 59-year-old gentleman with past medical history significant for decompensated liver cirrhosis, with ascites, chronic kidney disease needing temporary hemodialysis in September 2020 for needing medical ICU stay, diabetes mellitus type 2, history of gastrointestinal bleed, metabolic acidosis secondary to renal failure, chronic hyponatremia, was presented to emergency department after sent in from nephrology office for abnormal labs.. Patient previously was admitted to medical ICU for dialysis, patient was noted to be have a decline in GFR and was sent in for IV hydration. patient was discharged on September 24 and was noted to have creatinine of 0.8, he was supposed to follow-up with nephrology outpatient * at the time of presentation patient did not have any acute issues, CBC obtained showed WBC of 14.8 hemoglobin 11.1 platelet count of 95 with neutrophil predominance, sodium 128 potassium 3.6 carbon dioxide 12 BUN 78 creatinine 4.30 glucose 128 lactate of 2.2. * patient has been on Lasix, noted to be hypotensive on admission patient was given 500 mL of fluid bolus, lactate was 2.8 and INR was 1.2 chest x-ray also shows pulmonary vascular congestion and cardiomegaly * patient admitted to medical floor with consultation from nephrology REVIEW OF SYSTEMS: CONSTITUTIONAL: Generalized weakness fatigue malaise HEENT: No recent visual problems or hearing problems. Denied any sore throat. CARDIOVASCULAR: No chest pain, orthopnea, PND, no palpitations, no syncope. PULMONARY: No shortness of breath, no cough, no hemoptysis. GASTROINTESTINAL: No diarrhea, no nausea, no vomiting, no abdominal pain. NEUROLOGICAL: No headaches, no weakness, no numbness. HEMATOLOGICAL: Denies any bleeding or petechiae. GENITOURINARY: Denies any burning micturition, frequency, or urgency. MUSCULOSKELETAL/RHEUMATOLOGICAL: Denies any joint pain, swelling, or any muscle pain. ENDOCRINE: Denies any polyuria or polydipsia. PHYSICAL EXAMINATION: GENERAL: The patient is alert and oriented x 2, chronic ill-appearing HEENT: Pupils are round and equally reacting to light. EOMI. CARDIOVASCULAR: S1 and S2 present. PULMONARY: Chest is clear to auscultation, no wheezing or crackles. ABDOMEN: Soft, nontender, nondistended, normoactive bowel sounds. No palpable organomegaly. EXTREMITIES: No cyanosis, clubbing, or pedal edema. NEUROLOGICAL: Gross neurological examination did not reveal any focal deficits. assessment and plan #1 acute renal failure suspect hepatorenal syndrome #2 liver cirrhosis #3 chronic hyponatremia #4 urinary tract infection #5 decompensated cirrhosis with recurrent ascites #6 diabetes mellitus type 2 * in regards to renal failure patient already resuscitated with fluid, continue to hold Lasix given IV albumin, nephrology consulted monitor urine output, started on sodium bicarbonate drip * in regards to liver cirrhosis, continue lactulose and rifaximin * in regards to autonomic hypotension continue midodrine for blood pressure support * in regards to urinary tract infection patient started on Rocephin * in regards to diabetes, A1c less than 6 checked in September, continue Accu- Cheks ACHS correctional insulin * CODE STATUS is full code however if at 1 point patient would need dialysis he does not want it and would like to go home as comfort measures or hospice per family Past Medical History Past Medical History: COPD, Diabetes Mellitus, GERD/Reflux, Hyperlipidemia, Hypertension, Liver Disease, Myocardial Infarction (OR), Sleep Apnea/CPAP/BIPAP Additional Past Medical History / Comment(s): cirrhoisis Last Myocardial Infarction Date:: unknown History of Any Multi-Drug Resistant Organisms: None Reported Past Surgical History: Heart Catheterization, Hernia Repair, Orthopedic Surgery, Pacemaker Additional Past Surgical History / Comment(s): surgery for fx rt leg and left arm, pacemaker and defibrillator Past Anesthesia/Blood Transfusion Reactions: No Reported Reaction Type of Cardiac Device: Biventricular Pacemaker Device Placement Date:: 2010 Past Psychological History: Anxiety Additional Psychological History / Comment(s): claustrophobia Smoking Status: Current every day smoker Past Alcohol Use History: None Reported Additional Past Alcohol Use History / Comment(s): smokes 1 1/2 PPD for 29 yrs Past Drug Use History: None Reported - Past Family History Mother Family Medical History: No Reported History Medications and Allergies Home Medications Medication Instructions Recorded Confirmed Type clonazePAM [KlonoPIN] 0.5 mg PO BID 07/09/16 10/21/24 History Dicyclomine [Bentyl] 20 mg PO QID PRN 09/13/24 10/21/24 History Famotidine [Pepcid] 20 mg PO BID PRN 09/13/24 10/21/24 History Montelukast [Singulair] 10 mg PO DAILY 09/13/24 10/21/24 History Rifaximin [Xifaxan] 550 mg PO BID #60 tab 09/24/24 10/21/24 Rx Furosemide [Lasix] 20 mg PO BID 10/21/24 10/21/24 History Lactulose [Cephulac] 30 gm PO TID PRN 10/21/24 10/21/24 History Megestrol 125mg/Ml Suspension 625 mg PO DAILY 10/21/24 10/21/24 History Midodrine HCl [ProAmatine] 10 mg PO TID-W/MEALS 10/21/24 10/21/24 History Nicotine 14Mg/24Hr Patch [Habitrol 1 patch TRANSDERM DAILY PRN 10/21/24 10/21/24 History 14Mg/24Hr Patch] Potassium Chloride 10 meq PO BID 10/21/24 10/21/24 History rOPINIRole HCL [Requip] 0.5 mg PO TID 10/21/24 10/21/24 History Allergies Allergy/AdvReac Type Severity Reaction Status Date / Time No Known Allergies Allergy Verified 10/21/24 18:34 Physical Exam Vitals: Vital Signs Temp Pulse Pulse Resp BP BP Pulse Ox 10/22/24 07:00 97.3 F L 64 18 108/61 95 10/22/24 01:57 80 10/22/24 00:19 96.9 F L 80 17 118/77 96 10/21/24 23:00 77 17 116/62 98 10/21/24 20:00 75 18 101/56 10/21/24 17:36 97 F L 67 20 105/73 98 Intake and Output 10/21/24 10/22/24 10/22/24 22:59 06:59 14:59 Other: Voiding Method Incontinent External Catheter Weight 136.078 kg Results CBC & Chem 7: 10/22/24 04:29 10/22/24 04:29 Labs: Abnormal Lab Results - Last 24 Hours (Table) 10/21/24 10/21/24 10/21/24 Range/Units 18:51 18:51 18:51 WBC 15.6 H (3.8-10.6) k/uL RBC 3.87 L (4.30-5.90) m/uL Hgb 12.3 L (13.0-17.5) gm/dL Hct 37.0 L (39.0-53.0) % RDW 16.2 H (11.5-15.5) % Plt Count 98 L (150-450) k/uL Neutrophils # 13.1 H (1.3-7.7) k/uL Neutrophils # (Manual) (1.3-7.7) k/uL Lymphocytes # 0.9 L (1.0-4.8) k/uL Lymphocytes # (Manual) (1.0-4.8) k/uL Monocytes # (Manual) (0-1.0) k/uL PT (10.0-12.5) sec INR (<1.2) Sodium 126 L (137-145) mmol/L Carbon Dioxide 11 L (22-30) mmol/L BUN 78 H (9-20) mg/dL Creatinine 4.62 H (0.66-1.25) mg/dL Glucose 158 H (74-99) mg/dL POC Glucose (mg/dL) (70-110) mg/dL Plasma Lactic Acid [place] 2.8 H* (0.7-2.0) mmol/L Calcium (8.4-10.2) mg/dL Magnesium 2.8 H (1.6-2.3) mg/dL Total Bilirubin 4.3 H (0.2-1.3) mg/dL AST 114 H (17-59) U/L Alkaline Phosphatase 407 H (38-126) U/L Albumin 2.9 L (3.5-5.0) g/dL Urine Protein (Negative) Ur Leukocyte Esterase (Negative) Urine WBC (0-5) /hpf Hyaline Casts (0-2) /lpf Urine Mucus (None) /hpf Urine Yeast (Budding) (None) /hpf 10/21/24 10/21/24 10/22/24 Range/Units 18:51 21:31 01:25 WBC (3.8-10.6) k/uL RBC (4.30-5.90) m/uL Hgb (13.0-17.5) gm/dL Hct (39.0-53.0) % RDW (11.5-15.5) % Plt Count (150-450) k/uL Neutrophils # (1.3-7.7) k/uL Neutrophils # (Manual) (1.3-7.7) k/uL Lymphocytes # (1.0-4.8) k/uL Lymphocytes # (Manual) (1.0-4.8) k/uL Monocytes # (Manual) (0-1.0) k/uL PT 13.0 H (10.0-12.5) sec INR 1.2 H (<1.2) Sodium (137-145) mmol/L Carbon Dioxide (22-30) mmol/L BUN (9-20) mg/dL Creatinine (0.66-1.25) mg/dL Glucose (74-99) mg/dL POC Glucose (mg/dL) (70-110) mg/dL Plasma Lactic Acid [place] 2.3 H* (0.7-2.0) mmol/L Calcium (8.4-10.2) mg/dL Magnesium (1.6-2.3) mg/dL Total Bilirubin (0.2-1.3) mg/dL AST (17-59) U/L Alkaline Phosphatase (38-126) U/L Albumin (3.5-5.0) g/dL Urine Protein Trace H (Negative) Ur Leukocyte Esterase Trace H (Negative) Urine WBC 10 H (0-5) /hpf Hyaline Casts 41 H (0-2) /lpf Urine Mucus Rare H (None) /hpf Urine Yeast (Budding) Rare H (None) /hpf 10/22/24 10/22/24 10/22/24 Range/Units 01:55 04:29 04:29 WBC 14.8 H (3.8-10.6) k/uL RBC 3.52 L (4.30-5.90) m/uL Hgb 11.1 L (13.0-17.5) gm/dL Hct 33.6 L (39.0-53.0) % RDW 16.4 H (11.5-15.5) % Plt Count 95 L (150-450) k/uL Neutrophils # (1.3-7.7) k/uL Neutrophils # (Manual) 12.58 H (1.3-7.7) k/uL Lymphocytes # (1.0-4.8) k/uL Lymphocytes # (Manual) 0.59 L (1.0-4.8) k/uL Monocytes # (Manual) 1.33 H (0-1.0) k/uL PT (10.0-12.5) sec INR (<1.2) Sodium 128 L (137-145) mmol/L Carbon Dioxide 12 L (22-30) mmol/L BUN 78 H (9-20) mg/dL Creatinine 4.30 H (0.66-1.25) mg/dL Glucose 120 H (74-99) mg/dL POC Glucose (mg/dL) (70-110) mg/dL Plasma Lactic Acid [place] 2.7 H* (0.7-2.0) mmol/L Calcium 8.2 L (8.4-10.2) mg/dL Magnesium (1.6-2.3) mg/dL Total Bilirubin 3.9 H (0.2-1.3) mg/dL AST 103 H (17-59) U/L Alkaline Phosphatase 382 H (38-126) U/L Albumin 2.5 L (3.5-5.0) g/dL Urine Protein (Negative) Ur Leukocyte Esterase (Negative) Urine WBC (0-5) /hpf Hyaline Casts (0-2) /lpf Urine Mucus (None) /hpf Urine Yeast (Budding) (None) /hpf 10/22/24 10/22/24 Range/Units 04:46 05:58 WBC (3.8-10.6) k/uL RBC (4.30-5.90) m/uL Hgb (13.0-17.5) gm/dL Hct (39.0-53.0) % RDW (11.5-15.5) % Plt Count (150-450) k/uL Neutrophils # (1.3-7.7) k/uL Neutrophils # (Manual) (1.3-7.7) k/uL Lymphocytes # (1.0-4.8) k/uL Lymphocytes # (Manual) (1.0-4.8) k/uL Monocytes # (Manual) (0-1.0) k/uL PT (10.0-12.5) sec INR (<1.2) Sodium (137-145) mmol/L Carbon Dioxide (22-30) mmol/L BUN (9-20) mg/dL Creatinine (0.66-1.25) mg/dL Glucose (74-99) mg/dL POC Glucose (mg/dL) 132 H (70-110) mg/dL Plasma Lactic Acid [place] 2.2 H* (0.7-2.0) mmol/L Calcium (8.4-10.2) mg/dL Magnesium (1.6-2.3) mg/dL Total Bilirubin (0.2-1.3) mg/dL AST (17-59) U/L Alkaline Phosphatase (38-126) U/L Albumin (3.5-5.0) g/dL Urine Protein (Negative) Ur Leukocyte Esterase (Negative) Urine WBC (0-5) /hpf Hyaline Casts (0-2) /lpf Urine Mucus (None) /hpf Urine Yeast (Budding) (None) /hpf Thrombosis Risk Factor Assmnt - Choose All That Apply Any of the Below Risk Factors Present?: Yes Each Factor Represents 1 point: Age 41-60 years, Obesity (BMI >25) Other Risk Factors: No Other congenital or acquired thrombophilia - If yes, enter type in comment: No Thrombosis Risk Factor Assessment Total Risk Factor Score: 2 Thrombosis Risk Factor Assessment Level: Low Risk
[2024-10-22 14:47] VITALS: BMI 34.7
[2024-10-22] MEDS: DEXTROSE 5% IN WATER 1,000 ML with SODIUM BICARB (1 MEQ/ML) 150 ML IV SCH (15:50)
[2024-10-22 17:24] LABS: Glucose,Whole Blood 157 mg/dL (70-110)
[2024-10-22 20:42] LABS: Glucose,Whole Blood 209 mg/dL (70-110)
[2024-10-22 21:29] VITALS: RESP 18
[2024-10-22] MEDS: LACTULOSE 20 GM/30 ML CUP PO PRN (21:52)
[2024-10-23 06:03] LABS: Glucose,Whole Blood 206 mg/dL (70-110)
[2024-10-23 08:03] VITALS: BP 93/44; PULSE 78; TEMP 97.6
[2024-10-23 09:51] LABS: Basophils # (A) 0.01 X 10*3/uL (0.00-0.10); Basophils % (A) 0.1 %; Eosinophils # (A) 0.12 X 10*3/uL (0.04-0.35); Eosinophils % (A) 1.1 %; HCT 28.1 % (39.6-50.0); HGB 9.5 g/dL (13.0-17.0); Lymphocytes # (A) 1.05 X 10*3/uL (0.90-5.00); Lymphocytes % (A) 9.8 %; MCH 30.7 pg (27.0-32.0); MCHC 33.8 g/dL (32.0-37.0); MCV 90.9 FL (80.0-97.0); Mean Platelet Volume 10.4 FL (9.5-12.2); Monocytes # (A) 1.08 X 10*3/uL (0.20-1.00); Monocytes % (A) 10.1 %; NRBC Per 100 WBC 0 X 10*3/uL (0.00-0.01); Neutrophils # (A) 8.42 X 10*3/uL (1.80-7.70); Neutrophils % (A) 78.4 %; Platelet Count 87 X 10*3/uL (140-440); RBC 3.09 X 10*6/uL (4.40-5.60); RDW 16.8 % (11.5-14.5); WBC 10.73 X 10*3/uL (4.50-10.00)
[2024-10-23 10:08] LABS: ALT 36 U/L (10-49); AST 105 U/L (14-35); Albumin 2.7 g/dL (3.8-4.9); Albumin/Globulin Ratio 0.87 Ratio (1.60-3.17); Alkaline Phosphatase 354 U/L (41-126); BUN/Creat Ratio 20.03 Ratio (12.00-20.00); Blood Urea Nitrogen 76.1 mg/dL (9.0-27.0); Calcium 7.9 mg/dL (8.7-10.3); Carbon Dioxide 15.6 mmol/L (21.6-31.8); Chloride 96 mmol/L (96-109); Globulin 3.1 g/dL (1.6-3.3); Glucose 129 mg/dL (70-110); Potassium 3.5 mmol/L (3.5-5.5); Sodium 128 mmol/L (135-145); Total Bilirubin 3.3 mg/dL (0.3-1.2); Total Protein 5.8 g/dL (6.2-8.2)
--- NOTE | 2024-10-23 11:47 | P.PN ---
Subjective Progress Note Date: 10/23/24 * 59-year-old gentleman with past medical history significant for decompensated liver cirrhosis, with ascites, chronic kidney disease needing temporary hemodialysis in September 2020 for needing medical ICU stay, diabetes mellitus type 2, history of gastrointestinal bleed, metabolic acidosis secondary to renal failure, chronic hyponatremia, was presented to emergency department after sent in from nephrology office for abnormal labs.. Patient previously was admitted to medical ICU for dialysis, patient was noted to be have a decline in GFR and was sent in for IV hydration. patient was discharged on September 24 and was noted to have creatinine of 0.8, he was supposed to follow-up with nephrology outpatient * at the time of presentation patient did not have any acute issues, CBC obtained showed WBC of 14.8 hemoglobin 11.1 platelet count of 95 with neutrophil predominance, sodium 128 potassium 3.6 carbon dioxide 12 BUN 78 creatinine 4.30 glucose 128 lactate of 2.2. * patient has been on Lasix, noted to be hypotensive on admission patient was given 500 mL of fluid bolus, lactate was 2.8 and INR was 1.2 chest x-ray also shows pulmonary vascular congestion and cardiomegaly * patient admitted to medical floor with consultation from nephrology * 10/23- patient seen and evaluated at bedside, patient admitted with worsening renal function, noted to be hypotensive 93 x 44 temperature of 97.6 non labored. CBC showed WBC 10.7 hemoglobin 9.5 platelet 87 from, sodium 128 creatinine trending down from 4.6-3.8, care plan discussed waiting for nephrology evaluation patient and family would likely leave AGAINST MEDICAL ADVICE if not cleared by nephrology. Patient was explained the rationale for fluid resuscitation and monitoring creatinine levels REVIEW OF SYSTEMS: CONSTITUTIONAL: Generalized weakness fatigue malaise HEENT: No recent visual problems or hearing problems. Denied any sore throat. CARDIOVASCULAR: No chest pain, orthopnea, PND, no palpitations, no syncope. PULMONARY: No shortness of breath, no cough, no hemoptysis. GASTROINTESTINAL: No diarrhea, no nausea, no vomiting, no abdominal pain. NEUROLOGICAL: No headaches, no weakness, no numbness. HEMATOLOGICAL: Denies any bleeding or petechiae. GENITOURINARY: Denies any burning micturition, frequency, or urgency. MUSCULOSKELETAL/RHEUMATOLOGICAL: Denies any joint pain, swelling, or any muscle pain. ENDOCRINE: Denies any polyuria or polydipsia. PHYSICAL EXAMINATION: GENERAL: The patient is alert and oriented x 2, chronic ill-appearing HEENT: Pupils are round and equally reacting to light. EOMI. CARDIOVASCULAR: S1 and S2 present. PULMONARY: Chest is clear to auscultation, no wheezing or crackles. ABDOMEN: Soft, nontender, nondistended, normoactive bowel sounds. No palpable organomegaly. EXTREMITIES: No cyanosis, clubbing, or pedal edema. NEUROLOGICAL: Gross neurological examination did not reveal any focal deficits. assessment and plan #1 acute renal failure suspect hepatorenal syndrome #2 liver cirrhosis #3 chronic hyponatremia #4 urinary tract infection #5 decompensated cirrhosis with recurrent ascites #6 diabetes mellitus type 2 * in regards to renal failure patient already resuscitated with fluid, continue to hold Lasix , nephrology consulted monitor urine output, continue on sodium bicarbonate drip * in regards to liver cirrhosis, continue lactulose and rifaximin * in regards to autonomic hypotension continue midodrine for blood pressure support * in regards to urinary tract infection patient started on Rocephin day 2 * in regards to diabetes, A1c less than 6 checked in September, continue Accu- Cheks ACHS correctional insulin * CODE STATUS is full code however if at 1 point patient would need dialysis he does not want it and would like to go home as comfort measures or hospice per family Objective - Vital Signs Vital signs: Vital Signs Temp 97.6 F 10/23/24 07:45 Pulse 78 10/23/24 07:45 Resp 18 10/23/24 07:45 BP 93/44 10/23/24 07:45 Pulse Ox 96 10/23/24 07:45 FiO2 Intake & Output 10/22/24 10/23/24 10/23/24 18:59 06:59 18:59 Intake Total 118 Output Total 1150 1250 Balance -1032 -1250 Weight 136.078 kg Intake: Oral 118 Output: Urine 1150 1250 Straight 950 650 Other: Voiding Method Toilet Toilet Urinal Urinal - Labs CBC & Chem 7: 10/23/24 06:18 10/23/24 06:18 Labs: Abnormal Lab Results - Last 24 Hours (Table) 10/22/24 10/22/24 10/22/24 Range/Units 12:00 12:32 15:43 WBC (4.50-10.00) X 10*3/uL RBC (4.40-5.60) X 10*6/uL Hgb (13.0-17.0) g/dL Hct (39.6-50.0) % RDW (11.5-14.5) % Plt Count (140-440) X 10*3/uL Immature Gran # (0.00-0.04) X 10*3/uL Neutrophils # (1.80-7.70) X 10*3/uL Monocytes # (0.20-1.00) X 10*3/uL Sodium (135-145) mmol/L Carbon Dioxide (21.6-31.8) mmol/L Anion Gap (4.00-12.00) mmol/L BUN (9.0-27.0) mg/dL Creatinine (0.6-1.5) mg/dL Est GFR (CKD-EPI) (>=60) BUN/Creatinine Ratio (12.00-20.00) Ratio Glucose (70-110) mg/dL POC Glucose (mg/dL) 130 H (70-110) mg/dL Plasma Lactic Acid [place] 2.7 H* 2.6 H* (0.7-2.0) mmol/L Calcium (8.7-10.3) mg/dL Total Bilirubin (0.3-1.2) mg/dL AST (14-35) U/L Alkaline Phosphatase (41-126) U/L Total Protein (6.2-8.2) g/dL Albumin (3.8-4.9) g/dL Albumin/Globulin Ratio (1.60-3.17) Ratio 10/22/24 10/22/24 10/23/24 Range/Units 17:22 20:40 05:59 WBC (4.50-10.00) X 10*3/uL RBC (4.40-5.60) X 10*6/uL Hgb (13.0-17.0) g/dL Hct (39.6-50.0) % RDW (11.5-14.5) % Plt Count (140-440) X 10*3/uL Immature Gran # (0.00-0.04) X 10*3/uL Neutrophils # (1.80-7.70) X 10*3/uL Monocytes # (0.20-1.00) X 10*3/uL Sodium (135-145) mmol/L Carbon Dioxide (21.6-31.8) mmol/L Anion Gap (4.00-12.00) mmol/L BUN (9.0-27.0) mg/dL Creatinine (0.6-1.5) mg/dL Est GFR (CKD-EPI) (>=60) BUN/Creatinine Ratio (12.00-20.00) Ratio Glucose (70-110) mg/dL POC Glucose (mg/dL) 157 H 209 H 206 H (70-110) mg/dL Plasma Lactic Acid [place] (0.7-2.0) mmol/L Calcium (8.7-10.3) mg/dL Total Bilirubin (0.3-1.2) mg/dL AST (14-35) U/L Alkaline Phosphatase (41-126) U/L Total Protein (6.2-8.2) g/dL Albumin (3.8-4.9) g/dL Albumin/Globulin Ratio (1.60-3.17) Ratio 10/23/24 10/23/24 Range/Units 06:18 06:18 WBC 10.73 H (4.50-10.00) X 10*3/uL RBC 3.09 L (4.40-5.60) X 10*6/uL Hgb 9.5 L (13.0-17.0) g/dL Hct 28.1 L (39.6-50.0) % RDW 16.8 H (11.5-14.5) % Plt Count 87 L (140-440) X 10*3/uL Immature Gran # 0.05 H (0.00-0.04) X 10*3/uL Neutrophils # 8.42 H (1.80-7.70) X 10*3/uL Monocytes # 1.08 H (0.20-1.00) X 10*3/uL Sodium 128 L (135-145) mmol/L Carbon Dioxide 15.6 L (21.6-31.8) mmol/L Anion Gap 16.40 H (4.00-12.00) mmol/L BUN 76.1 H (9.0-27.0) mg/dL Creatinine 3.8 H (0.6-1.5) mg/dL Est GFR (CKD-EPI) 18 L (>=60) BUN/Creatinine Ratio 20.03 H (12.00-20.00) Ratio Glucose 129 H (70-110) mg/dL POC Glucose (mg/dL) (70-110) mg/dL Plasma Lactic Acid [place] (0.7-2.0) mmol/L Calcium 7.9 L (8.7-10.3) mg/dL Total Bilirubin 3.3 H (0.3-1.2) mg/dL AST 105 H (14-35) U/L Alkaline Phosphatase 354 H (41-126) U/L Total Protein 5.8 L (6.2-8.2) g/dL Albumin 2.7 L (3.8-4.9) g/dL Albumin/Globulin Ratio 0.87 L (1.60-3.17) Ratio
[2024-10-23 12:11] LABS: INR 1.3 sec (0.93-1.11); Prothrombin Time 14.5 sec (9.9-11.9)
[2024-10-23 12:14] LABS: Glucose,Whole Blood 187 mg/dL (70-110)
--- NOTE | 2024-10-23 12:25 | P.DS ---
Providers Date of admission: 10/21/24 21:58 Expected date of discharge: 10/23/24 Attending physician: Shawn Rolle Consults: 10/21/24 20:45 Consult Physician Urgent Consulting Provider: Megan Jaffe Consult Reason/Comments: CHASE Do you want consulting provider notified?: Yes Primary care physician: Monica Kourtney [facility] Course: * 59-year-old gentleman with past medical history significant for decompensated liver cirrhosis, with ascites, chronic kidney disease needing temporary hemodialysis in September 2020 for needing medical ICU stay, diabetes mellitus type 2, history of gastrointestinal bleed, metabolic acidosis secondary to renal failure, chronic hyponatremia, was presented to emergency department after sent in from nephrology office for abnormal labs.. Patient previously was admitted to medical ICU for dialysis, patient was noted to be have a decline in GFR and was sent in for IV hydration. patient was discharged on September 24 and was noted to have creatinine of 0.8, he was supposed to follow-up with nephrology outpatient * at the time of presentation patient did not have any acute issues, CBC obtained showed WBC of 14.8 hemoglobin 11.1 platelet count of 95 with neutrophil predominance, sodium 128 potassium 3.6 carbon dioxide 12 BUN 78 creatinine 4.30 glucose 128 lactate of 2.2. * patient has been on Lasix, noted to be hypotensive on admission patient was given 500 mL of fluid bolus, lactate was 2.8 and INR was 1.2 chest x-ray also shows pulmonary vascular congestion and cardiomegaly * patient admitted to medical floor with consultation from nephrology * 10/23- patient seen and evaluated at bedside, patient admitted with worsening renal function, noted to be hypotensive 93 x 44 temperature of 97.6 nonlabored. CBC showed WBC 10.7 hemoglobin 9.5 platelet 87 from, sodium 128 creatinine trending down from 4.6-3.8, care plan discussed waiting for nephrology evaluation patient and family would likely leave AGAINST MEDICAL ADVICE if not cleared by nephrology. Patient was explained the rationale for fluid resuscitation and monitoring creatinine levels. PHYSICAL EXAMINATION: GENERAL: The patient is alert and oriented x 2, chronic ill-appearing HEENT: Pupils are round and equally reacting to light. EOMI. CARDIOVASCULAR: S1 and S2 present. PULMONARY: Chest is clear to auscultation, no wheezing or crackles. ABDOMEN: Soft, nontender, nondistended, normoactive bowel sounds. No palpable organomegaly. EXTREMITIES: No cyanosis, clubbing, or pedal edema. NEUROLOGICAL: Gross neurological examination did not reveal any focal deficits. assessment and plan #1 acute renal failure suspect hepatorenal syndrome #2 liver cirrhosis #3 chronic hyponatremia #4 urinary tract infection #5 decompensated cirrhosis with recurrent ascites #6 diabetes mellitus type 2 * in regards to renal failure patient already resuscitated with fluid, continue to hold Lasix , nephrology consulted monitor urine output, On sodium bicarbonate drip, patient was recommended to stay however decided to leave AGAINST MEDICAL ADVICE patient daughter who is the DPOA her daughter that she was at bedside as well * in regards to liver cirrhosis, continue lactulose and rifaximin * in regards to autonomic hypotension continue midodrine for blood pressure support * in regards to urinary tract infection patient started on Rocephin day 2, left AGAINST MEDICAL ADVICE * in regards to diabetes, A1c less than 6 checked in September, continue Accu- Cheks ACHS correctional insulin * CODE STATUS is full code however if at 1 point patient would need dialysis he does not want it and would like to go home as comfort measures or hospice per family * Left AGAINST MEDICAL ADVICE Patient Condition at Discharge: Poor Plan - Discharge Summary New Discharge Prescriptions: Continue clonazePAM [KlonoPIN] 0.5 mg PO BID Nicotine 14Mg/24Hr Patch [Habitrol] 1 patch TRANSDERM DAILY PRN PRN Reason: Nicotine Cravings Midodrine HCl [ProAmatine] 10 mg PO TID-W/MEALS Famotidine [Pepcid] 20 mg PO BID PRN PRN Reason: acid reflux Montelukast [Singulair] 10 mg PO DAILY Dicyclomine [Bentyl] 20 mg PO QID PRN PRN Reason: ibs Rifaximin [Xifaxan] 550 mg PO BID #60 tab Megestrol 125mg/Ml Suspension 625 mg PO DAILY Potassium Chloride 10 meq PO BID Lactulose [Cephulac] 30 gm PO TID PRN PRN Reason: 2-3 BOWEL MOVEMENTS/DAY rOPINIRole HCL [Requip] 0.5 mg PO TID Furosemide [Lasix] 20 mg PO DAILY #0 Discharge Medication List clonazePAM [KlonoPIN] 0.5 mg PO BID 07/09/16 [History] Dicyclomine [Bentyl] 20 mg PO QID PRN 09/13/24 [History] Famotidine [Pepcid] 20 mg PO BID PRN 09/13/24 [History] Montelukast [Singulair] 10 mg PO DAILY 09/13/24 [History] Rifaximin [Xifaxan] 550 mg PO BID #60 tab 09/24/24 [Rx] Lactulose [Cephulac] 30 gm PO TID PRN 10/21/24 [History] Megestrol 125mg/Ml Suspension 625 mg PO DAILY 10/21/24 [History] Midodrine HCl [ProAmatine] 10 mg PO TID-W/MEALS 10/21/24 [History] Nicotine 14Mg/24Hr Patch [Habitrol] 1 patch TRANSDERM DAILY PRN 10/21/24 [History] Potassium Chloride 10 meq PO BID 10/21/24 [History] rOPINIRole HCL [Requip] 0.5 mg PO TID 10/21/24 [History] Furosemide [Lasix] 20 mg PO DAILY #0 10/23/24 [Rx] Follow up Appointment(s)/Referral(s): Monica Oconnell MD [Primary Care Provider] - 1-2 days Discharge Disposition: LEFT AGAINST MEDICAL ADVICE
--- NOTE | 2024-10-23 14:22 | P.PN ---
Subjective Patient is seen for follow-up for acute kidney injury. Renal function has improved and overall general condition of the patient has improved as well. He is more awake today. Straight catheterization was performed yesterday and 950 mL of urine was obtained. Serum creatinine has decreased to 3.8 today. Patient is leaving AMA. He absolutely does not want to stay to continue with IV fluids and he is refusing Soto catheter. Objective - Vital Signs Vital signs: Vital Signs Temp 97.6 F 10/23/24 07:45 Pulse 78 10/23/24 07:45 Resp 18 10/23/24 07:45 BP 93/44 10/23/24 07:45 Pulse Ox 96 10/23/24 07:45 FiO2 Intake & Output 10/22/24 10/23/24 10/23/24 18:59 06:59 18:59 Intake Total 118 118 Output Total 1150 1250 1511 Balance -1032 -1250 -1393 Weight 136.078 kg Intake: Oral 118 118 Output: Urine 1150 1250 600 Straight 950 650 300 Post Void Residual 911 Other: Voiding Method Toilet Toilet Bedside Commode Urinal Urinal Urinal - Exam patient is awake, comfortable, no acute distress. Examination of the heart S1 and S2 Examination of the lungs bilateral breath sounds are heard Abdomen is soft nontender, distended Examination of lower extremities shows no significant edema Patient is moving all 4 extremities. - Labs CBC & Chem 7: 10/23/24 06:18 10/23/24 06:18 Labs: Abnormal Lab Results - Last 24 Hours (Table) 10/22/24 10/22/24 10/22/24 Range/Units 15:43 17:22 20:40 WBC (4.50-10.00) X 10*3/uL RBC (4.40-5.60) X 10*6/uL Hgb (13.0-17.0) g/dL Hct (39.6-50.0) % RDW (11.5-14.5) % Plt Count (140-440) X 10*3/uL Immature Gran # (0.00-0.04) X 10*3/uL Neutrophils # (1.80-7.70) X 10*3/uL Monocytes # (0.20-1.00) X 10*3/uL PT (9.9-11.9) sec INR (0.93-1.11) sec Sodium (135-145) mmol/L Carbon Dioxide (21.6-31.8) mmol/L Anion Gap (4.00-12.00) mmol/L BUN (9.0-27.0) mg/dL Creatinine (0.6-1.5) mg/dL Est GFR (CKD-EPI) (>=60) BUN/Creatinine Ratio (12.00-20.00) Ratio Glucose (70-110) mg/dL POC Glucose (mg/dL) 157 H 209 H (70-110) mg/dL Plasma Lactic Acid [place] 2.6 H* (0.7-2.0) mmol/L Calcium (8.7-10.3) mg/dL Total Bilirubin (0.3-1.2) mg/dL AST (14-35) U/L Alkaline Phosphatase (41-126) U/L Total Protein (6.2-8.2) g/dL Albumin (3.8-4.9) g/dL Albumin/Globulin Ratio (1.60-3.17) Ratio 10/23/24 10/23/24 10/23/24 Range/Units 05:59 06:18 06:18 WBC 10.73 H (4.50-10.00) X 10*3/uL RBC 3.09 L (4.40-5.60) X 10*6/uL Hgb 9.5 L (13.0-17.0) g/dL Hct 28.1 L (39.6-50.0) % RDW 16.8 H (11.5-14.5) % Plt Count 87 L (140-440) X 10*3/uL Immature Gran # 0.05 H (0.00-0.04) X 10*3/uL Neutrophils # 8.42 H (1.80-7.70) X 10*3/uL Monocytes # 1.08 H (0.20-1.00) X 10*3/uL PT 14.5 H (9.9-11.9) sec INR 1.30 H (0.93-1.11) sec Sodium (135-145) mmol/L Carbon Dioxide (21.6-31.8) mmol/L Anion Gap (4.00-12.00) mmol/L BUN (9.0-27.0) mg/dL Creatinine (0.6-1.5) mg/dL Est GFR (CKD-EPI) (>=60) BUN/Creatinine Ratio (12.00-20.00) Ratio Glucose (70-110) mg/dL POC Glucose (mg/dL) 206 H (70-110) mg/dL Plasma Lactic Acid [place] (0.7-2.0) mmol/L Calcium (8.7-10.3) mg/dL Total Bilirubin (0.3-1.2) mg/dL AST (14-35) U/L Alkaline Phosphatase (41-126) U/L Total Protein (6.2-8.2) g/dL Albumin (3.8-4.9) g/dL Albumin/Globulin Ratio (1.60-3.17) Ratio 10/23/24 10/23/24 Range/Units 06:18 12:13 WBC (4.50-10.00) X 10*3/uL RBC (4.40-5.60) X 10*6/uL Hgb (13.0-17.0) g/dL Hct (39.6-50.0) % RDW (11.5-14.5) % Plt Count (140-440) X 10*3/uL Immature Gran # (0.00-0.04) X 10*3/uL Neutrophils # (1.80-7.70) X 10*3/uL Monocytes # (0.20-1.00) X 10*3/uL PT (9.9-11.9) sec INR (0.93-1.11) sec Sodium 128 L (135-145) mmol/L Carbon Dioxide 15.6 L (21.6-31.8) mmol/L Anion Gap 16.40 H (4.00-12.00) mmol/L BUN 76.1 H (9.0-27.0) mg/dL Creatinine 3.8 H (0.6-1.5) mg/dL Est GFR (CKD-EPI) 18 L (>=60) BUN/Creatinine Ratio 20.03 H (12.00-20.00) Ratio Glucose 129 H (70-110) mg/dL POC Glucose (mg/dL) 187 H (70-110) mg/dL Plasma Lactic Acid [place] (0.7-2.0) mmol/L Calcium 7.9 L (8.7-10.3) mg/dL Total Bilirubin 3.3 H (0.3-1.2) mg/dL AST 105 H (14-35) U/L Alkaline Phosphatase 354 H (41-126) U/L Total Protein 5.8 L (6.2-8.2) g/dL Albumin 2.7 L (3.8-4.9) g/dL Albumin/Globulin Ratio 0.87 L (1.60-3.17) Ratio Assessment and Plan Assessment: 1. Acute kidney injury ATN, significant hypovolemia noted. Improved with IV hydration. Also component of urine retention contributing to acute kidney injury but patient is refusing Soto catheter. UA is benign with significant hyaline casts noted. 2. History of recent acute kidney injury with serum creatinine at 7 mg/dL requiring a couple of treatments of hemodialysis. Renal function had improved serum creatinine down to 0.8 mg/dL on 09/24/2024. 3. Anion gap metabolic acidosis associated with acute kidney injury and lactic acidosis 4. Hypovolemic hyponatremia 5. History of chronic liver disease 6. Hyperemagnesemia Plan: Patient is leaving A
== END 2024-10-23 14:27 | disposition left against medical advice (07) ==
LOC: EC 17:27 → 6NMEDSUR 21:58
PROVIDERS: ADMIT Hospitalist; ATTEND Hospitalist
DX: N17.0 Acute kidney failure with tubular necrosis (principal); E87.1 Hypo-osmolality and hyponatremia; E86.1 Hypovolemia; E83.42 Hypomagnesemia; E87.29 Other acidosis; E78.5 Hyperlipidemia, unspecified; E11.9 Type 2 diabetes mellitus without complications; I10 Essential (primary) hypertension; K74.60 Unspecified cirrhosis of liver; N39.0 Urinary tract infection, site not specified; R18.8 Other ascites; F17.210 Nicotine dependence, cigarettes, uncomplicated; I25.2 Old myocardial infarction; G47.30 Sleep apnea, unspecified; K21.9 Gastro-esophageal reflux disease without esophagitis; J44.9 Chronic obstructive pulmonary disease, unspecified; Z53.29 Procedure and treatment not carried out because of patient's decision for other reasons; Z79.899 Other long term (current) drug therapy; Z95.0 Presence of cardiac pacemaker
CPT/HCPCS: 96365; 96366 ×2; 96367; 96372; 96361; 99284; 36415; 93005; 80053 ×3; 82140; 83605 ×2; 83735; 85025 ×3; 85610 ×2; 85730; 81001; 87086; 83036; 71046; G0378 ×3; J1644 ×2; J0696 ×2; S0179 ×2; P9045